=== PATIENT | male | born 1950 | race American Indian/Alaskan Native ===

== ENCOUNTER 2017-04-29 16:21 | Inpatient (IN) | payer MEDICARE ==
[2017-04-29 17:45] LABS: Basophils % (Auto) 0.2 % (0.0-1.8); Hematocrit 40.8 % (35.5-45.6); Hemoglobin 13.6 gm/dl (11.8-15.2); Mean Corpuscular HGB Conc 33 % (32-34); Mean Corpuscular Hemoglobin 32 pg (28-32); Mean Corpuscular Volume 95 fl (84-94); Platelet Count 146 K/mm3 (140-440); Red Blood Count 4.29 M/mm3 (3.65-5.03); Red Cell Distribution Width 14.8 % (13.2-15.2); White Blood Count 9.6 K/mm3 (4.5-11.0)
[2017-04-29 18:00] LABS: Creatine Kinase MB 1.8 ng/mL (0.0-4.0)
[2017-04-29 18:04] LABS: Urine Drugs of Abuse Note Disclamer
[2017-04-29] MEDS ORDERED: NACL 0.9% 1000 ML 1,000 ML IV ONE (18:22)
[2017-04-29] MEDS ORDERED: ROCEPHIN/NS 1 GM/50 ML 1 GM/50 ML BAG IV ONE (18:22)
[2017-04-29] MEDS ORDERED: VANCOMYCIN/NS 1 GM/250 ML 1 GM/250 ML BAG IV ONE (18:22)
--- NOTE | 2017-04-29 18:29 | Emergency Department Report ---
- General Chief complaint: Altered Mental Status Stated complaint: SPITTING UP BLOOD Time Seen by Provider: 04/29/17 18:07 Source: patient, EMS, RN notes reviewed, old records reviewed Mode of arrival: Stretcher Limitations: Altered Mental Status, Physical Limitation, Other - History of Present Illness MD Complaint: generalized weakness (altered mental status) -: Gradual Location: generalized Severity scale (0 -10): 3 Consistency: constant Context: recent illness Associated Symptoms: denies: chest pain, confusion, dark stools, diaphoresis, easy bruising, fever/chills, headaches, loss of appetite, nausea/vomiting, syncope - Related Data Home Medications Medication Instructions Recorded Confirmed Last Taken ALBUTEROL NEB's [Proventil 0.083% 1 vial IH Q6H PRN 01/06/16 04/29/17 Unknown NEBS] Diltiazem [Cardizem] 60 mg PO TID 04/29/17 04/29/17 Unknown Divalproex ER [Depakote ER] 500 mg PO BID 04/29/17 04/29/17 Unknown Docusate Sodium [Colace CAP] 100 mg PO BID 04/29/17 04/29/17 Unknown Esomeprazole Magnesium [NexIUM] 40 mg PO QAM 04/29/17 04/29/17 Unknown Gabapentin [Neurontin] 100 mg PO QHS 04/29/17 04/29/17 Unknown HYDROcodone/APAP 5-325 [[place] 1 tab PO Q4H PRN 04/29/17 04/29/17 Unknown 5-325 mg TAB] Insulin Aspart Prot/Aspart(Nf) See Protocol SC QDAY 04/29/17 04/29/17 Unknown [NovoLOG Mix 70/30 VIAL] Insulin Glargine [Lantus VIAL] 5 units SC QHS 04/29/17 04/29/17 Unknown Metoprolol [Lopressor TAB] 50 mg PO BID 04/29/17 04/29/17 Unknown Morphine ER [Ms Contin ER] 30 mg PO Q12H 04/29/17 04/29/17 Unknown Sennosides [Senna] 8.6 mg PO QHS 04/29/17 04/29/17 Unknown Previous Rx's Medication Instructions Recorded Last Taken Type Apixaban [Eliquis] 2.5 mg PO Q12H #20 tablet 01/09/16 Unknown Rx Aspirin [Aspirin BABY CHEW TAB] 81 mg PO QDAY #30 tab.chew 01/09/16 Unknown Rx AtorvaSTATin [Lipitor] 10 mg PO QHS #30 tablet 01/09/16 Unknown Rx Budesoni/Formotero 160-4.5(Nf) 2 puff IH BID #30 inha 01/09/16 Unknown Rx [Symbicort 160-4.5 (Nf)] Diltiazem [Cardizem] 30 mg PO TID #90 tablet 01/09/16 Unknown Rx Furosemide [Lasix TAB] 40 mg PO QDAY #60 tablet 01/09/16 Unknown Rx Allergies Allergy/AdvReac Type Severity Reaction Status Date / Time No Known Allergies Allergy Verified 06/05/16 12:19 ED Review of Systems ROS: Stated complaint: SPITTING UP BLOOD Other details as noted in HPI Comment: Unobtainable due to pts medical conditions ED Past Medical Hx - 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 CAD. Systolic heart failure. Sepsis. HCV antibody positive - Surgical History Hx Open Heart Surgery: Yes Hx Pacemaker: Yes Additional Surgical History: "some abdominal surgery" long ago, has abd scar - Social History Smoking Status: Unknown if ever smoked - Medications Home Medications: Home Medications Medication Instructions Recorded Confirmed Last Taken Type ALBUTEROL NEB's [Proventil 0.083% 1 vial IH Q6H PRN 01/06/16 04/29/17 Unknown History NEBS] Apixaban [Eliquis] 2.5 mg PO Q12H #20 tablet 01/09/16 04/29/17 Unknown Rx Aspirin [Aspirin BABY CHEW TAB] 81 mg PO QDAY #30 tab.chew 01/09/16 04/29/17 Unknown Rx AtorvaSTATin [Lipitor] 10 mg PO QHS #30 tablet 01/09/16 04/29/17 Unknown Rx Budesoni/Formotero 160-4.5(Nf) 2 puff IH BID #30 inha 01/09/16 04/29/17 Unknown Rx [Symbicort 160-4.5 (Nf)] Diltiazem [Cardizem] 30 mg PO TID #90 tablet 01/09/16 04/29/17 Unknown Rx Furosemide [Lasix TAB] 40 mg PO QDAY #60 tablet 01/09/16 04/29/17 Unknown Rx Diltiazem [Cardizem] 60 mg PO TID 04/29/17 04/29/17 Unknown History Divalproex ER [Depakote ER] 500 mg PO BID 04/29/17 04/29/17 Unknown History Docusate Sodium [Colace CAP] 100 mg PO BID 04/29/17 04/29/17 Unknown History Esomeprazole Magnesium [NexIUM] 40 mg PO QAM 04/29/17 04/29/17 Unknown History Gabapentin [Neurontin] 100 mg PO QHS 04/29/17 04/29/17 Unknown History HYDROcodone/APAP 5-325 [[place] 1 tab PO Q4H PRN 04/29/17 04/29/17 Unknown History 5-325 mg TAB] Insulin Aspart Prot/Aspart(Nf) See Protocol SC QDAY 04/29/17 04/29/17 Unknown History [NovoLOG Mix 70/30 VIAL] Insulin Glargine [Lantus VIAL] 5 units SC QHS 04/29/17 04/29/17 Unknown History Metoprolol [Lopressor TAB] 50 mg PO BID 04/29/17 04/29/17 Unknown History Morphine ER [Ms Contin ER] 30 mg PO Q12H 04/29/17 04/29/17 Unknown History Sennosides [Senna] 8.6 mg PO QHS 04/29/17 04/29/17 Unknown History ED Physical Exam - General Limitations: Altered Mental Status, Physical Limitation, Other General appearance: lethargic, obtunded, in distress - Head Head exam: Present: atraumatic, normocephalic - Eye Eye exam: Present: normal appearance, PERRL - ENT ENT exam: Present: mucous membranes dry - Neck Neck exam: Present: normal inspection - Respiratory Respiratory exam: Present: rhonchi, decreased breath sounds - Cardiovascular Cardiovascular Exam: Present: tachycardia - GI/Abdominal GI/Abdominal exam: Present: soft, tenderness. Absent: distended, guarding, rebound - Extremities Exam Extremities exam: Present: normal inspection, full ROM - Back Exam Back exam: Present: normal inspection, full ROM - Skin Skin exam: Present: warm, dry ED Course Vital Signs 04/29/17 04/29/17 16:44 17:20 Temperature 101.2 F H Pulse Rate 130 H Respiratory 34 H Rate Blood Pressure 160/110 [Left] O2 Sat by Pulse 91 94 Oximetry ED Medical Decision Making - Lab Data Result diagrams: 04/29/17 17:16 04/29/17 17:16 Critical care time in (mins) excluding proc time.: 35 Critical care attestation.: If time is entered above; I have spent that time in minutes in the direct care of this critically ill patient, excluding procedure time. ED Disposition Clinical Impression: Sepsis, Diabetes mellitus, Hypertension, Altered mental status Disposition: OP ADMIT IP TO THIS HOSP Is pt being admited?: Yes Does the pt Need Aspirin: No Condition: Good Instructions: Diabetes Mellitus Type 2 in Adults (ED), Hypertension (ED) Referrals: PRIMARY CARE, [Primary Care Provider] - 3-5 Days Time of Disposition: 21:14
[2017-04-29 18:32] LABS: Bilirubin,Urine NEG (Negative); Blood,Urine SM (Negative); Ketones,Urine NEG (Negative); Leukocyte Esterase,Urine NEG (Negative); Nitrite,Urine NEG (Negative); Urobilinogen,Urine < 2.0 mg/dL (<2.0); WBC,Urine < 1.0 /HPF (0.0-6.0)
[2017-04-29 19:03] LABS: C-Reactive Protein 1.2 mg/dL (0.00-1.30)
[2017-04-29] MEDS ORDERED: DILAUDID ONE (19:26)
[2017-04-29] MEDS ORDERED: DILAUDID IV ONE (19:27)
[2017-04-29 19:31] LABS: Alanine Aminotransferase 19 units/L (7-56); Albumin 3.1 g/dL (3.9-5); Albumin/Globulin Ratio 0.5 %; Alkaline Phosphatase 85 units/L (35-129); Anion Gap 24 mmol/L; BUN/Creatinine Ratio 15.38; Blood Urea Nitrogen 20 mg/dL (9-20); Calcium 9.2 mg/dL (8.4-10.2); Carbon Dioxide 21 mmol/L (22-30); Chloride 96.1 mmol/L (98-107); Glucose 117 mg/dL (75-100); Potassium 3.8 mmol/L (3.6-5.0); Sodium 137 mmol/L (137-145); Total Protein 9.7 g/dL (6.3-8.2)
--- NOTE | 2017-04-29 20:07 | Cat Scan Report ---
FINAL REPORT EXAM: CT HEAD/BRAIN WO CON HISTORY: Fever/Sepsis TECHNIQUE: Standard unenhanced CT of the head at 5.0 millimeter axial increments. Exam is limited by patient motion. PRIORS: CT head 06/05/2016 FINDINGS: There is central atrophy and cerebral sulcal atrophy. A remote infarct in the left occipital lobe with underlying encephalomalacia and ballooning of the left occipital horn is again noted. Low-density in the periventricular white matter bilaterally is consistent with small vessel ischemic changes, stable. There is no evidence for mass lesion, mass effect, midline shift, acute intracranial hemorrhage, or acute ischemia/ infarction. Visualized paranasal sinuses are clear. IMPRESSION: No acute intracranial process noted. No change. Numerous chronic findings again noted.
[2017-04-29 20:22] LABS: INR 1.35 (0.87-1.13)
--- NOTE | 2017-04-29 21:23 | Progress Note ---
Hospitalist Physical - Constitutional Vitals: Temp Pulse Resp BP Pulse Ox 101.2 F H 130 H 34 H 160/110 94 04/29/17 16:44 04/29/17 16:44 04/29/17 16:44 04/29/17 16:44 04/29/17 17:20 Results - Labs CBC & Chem 7: 04/29/17 17:16 04/29/17 17:16 Labs: Laboratory Last Values WBC 9.6 K/mm3 (4.5-11.0) 04/29/17 17:16 RBC 4.29 M/mm3 (3.65-5.03) 04/29/17 17:16 Hgb 13.6 gm/dl (11.8-15.2) 04/29/17 17:16 Hct 40.8 % (35.5-45.6) 04/29/17 17:16 MCV 95 fl (84-94) H 04/29/17 17:16 MCH 32 pg (28-32) 04/29/17 17:16 MCHC 33 % (32-34) 04/29/17 17:16 RDW 14.8 % (13.2-15.2) 04/29/17 17:16 Plt Count 146 K/mm3 (140-440) 04/29/17 17:16 Lymph % (Auto) 4.7 % (13.4-35.0) L 04/29/17 17:16 [place] % (Auto) 8.3 % (0.0-7.3) H 04/29/17 17:16 Eos % (Auto) 0.0 % (0.0-4.3) 04/29/17 17:16 Baso % (Auto) 0.2 % (0.0-1.8) 04/29/17 17:16 Lymph # 0.5 K/mm3 (1.2-5.4) L 04/29/17 17:16 [place] # 0.8 K/mm3 (0.0-0.8) 04/29/17 17:16 Eos # 0.0 K/mm3 (0.0-0.4) 04/29/17 17:16 Baso # 0.0 K/mm3 (0.0-0.1) 04/29/17 17:16 Seg Neutrophils % 86.8 % (40.0-70.0) H 04/29/17 17:16 Seg Neutrophils # 8.4 K/mm3 (1.8-7.7) H 04/29/17 17:16 ESR 68 mm/Hr (0-20) 04/29/17 17:16 PT 16.6 Sec. (12.2-14.9) H 04/29/17 19:12 INR 1.35 (0.87-1.13) H 04/29/17 19:12 Sodium 137 mmol/L (137-145) 04/29/17 17:16 Potassium 3.8 mmol/L (3.6-5.0) 04/29/17 17:16 Chloride 96.1 mmol/L (98-107) L 04/29/17 17:16 Carbon Dioxide 21 mmol/L (22-30) L 04/29/17 17:16 Anion Gap 24 mmol/L 04/29/17 17:16 BUN 20 mg/dL (9-20) 04/29/17 17:16 Creatinine 1.3 mg/dL (0.8-1.5) 04/29/17 17:16 Estimated GFR > 60 ml/min 04/29/17 17:16 BUN/Creatinine Ratio 15.38 % 04/29/17 17:16 Glucose 117 mg/dL (75-100) H 04/29/17 17:16 Lactic Acid 3.50 mmol/L (0.7-2.0) H* 04/29/17 19:12 Calcium 9.2 mg/dL (8.4-10.2) 04/29/17 17:16 Magnesium 1.70 mg/dL (1.7-2.3) 04/29/17 17:16 Total Bilirubin 0.60 mg/dL (0.1-1.2) 04/29/17 17:16 AST 32 units/L (5-40) 04/29/17 17:16 ALT 19 units/L (7-56) 04/29/17 17:16 Alkaline Phosphatase 85 units/L (35-129) 04/29/17 17:16 Ammonia 35.0 umol/L (25-60) 04/29/17 15:15 Total Creatine Kinase 71 units/L (55-170) 04/29/17 17:16 CK-MB (CK-2) 1.8 ng/mL (0.0-4.0) 04/29/17 17:16 CK-MB (CK-2) Rel Index 2.5 (0-4) 04/29/17 17:16 Troponin T 0.052 ng/mL (0.00-0.029) H 04/29/17 17:16 C-Reactive Protein 1.20 mg/dL (0.00-1.30) 04/29/17 17:16 NT-Pro-B Natriuret Pep 5055 pg/mL (0-900) H 04/29/17 17:16 Total Protein 9.7 g/dL (6.3-8.2) H 04/29/17 17:16 Albumin 3.1 g/dL (3.9-5) L 04/29/17 17:16 Albumin/Globulin Ratio 0.5 % 04/29/17 17:16 Triglycerides 64 mg/dL (2-149) 04/29/17 17:16 Cholesterol 101 mg/dL (50-199) 04/29/17 17:16 LDL Cholesterol Direct 53 mg/dL (50-130) 04/29/17 17:16 HDL Cholesterol 36 mg/dL (40-59) L 04/29/17 17:16 Cholesterol/HDL Ratio 2.80 % 04/29/17 17:16 Lipase 23 units/L (13-60) 04/29/17 17:16 TSH 1.800 mlU/mL (0.270-4.200) 04/29/17 17:16 Urine Color Yellow (Yellow) 04/29/17 17:54 Urine Turbidity Clear (Clear) 04/29/17 17:54 Urine pH 7.0 (5.0-7.0) 04/29/17 17:54 Ur Specific Bow 1.013 (1.003-1.030) 04/29/17 17:54 Urine Protein 100 mg/dl mg/dL (Negative) 04/29/17 17:54 Urine Glucose (UA) Neg mg/dL (Negative) 04/29/17 17:54 Urine Ketones Neg mg/dL (Negative) 04/29/17 17:54 Urine Blood Sm (Negative) 04/29/17 17:54 Urine Nitrite Neg (Negative) 04/29/17 17:54 Urine Bilirubin Neg (Negative) 04/29/17 17:54 Urine Urobilinogen < 2.0 mg/dL (<2.0) 04/29/17 17:54 Ur Leukocyte Esterase Neg (Negative) 04/29/17 17:54 Urine WBC (Auto) < 1.0 /HPF (0.0-6.0) 04/29/17 17:54 Urine RBC (Auto) 6.0 /HPF (0.0-6.0) 04/29/17 17:54 Salicylates < 0.3 mg/dL (2.8-20.0) L 04/29/17 17:16 Urine Opiates Screen Presumptive negative 04/29/17 17:54 Urine Methadone Screen Presumptive negative 04/29/17 17:54 Acetaminophen < 15.0 ug/mL (10.0-30.0) 04/29/17 17:16 Ur Barbiturates Screen Presumptive negative 04/29/17 17:54 Ur Phencyclidine Scrn Presumptive negative 04/29/17 17:54 Ur Amphetamines Screen Presumptive negative 04/29/17 17:54 U Benzodiazepines Scrn Presumptive negative 04/29/17 17:54 Urine Cocaine Screen Presumptive negative 04/29/17 17:54 U Marijuana (THC) Screen Presumptive negative 04/29/17 17:54 Drugs of Abuse Note Disclamer 04/29/17 17:54 Plasma/Serum Alcohol < 0.01 gm% (0-0.07) 04/29/17 17:16 Blood Type A POSITIVE 04/29/17 17:16 Antibody Screen TNR 04/29/17 17:16 OSWALD Antibody Screen Negative 04/29/17 17:16
--- NOTE | 2017-04-29 21:23 | History and Physical Report ---
History of Present Illness Date of examination: 04/29/17 Date of admission: 04/29/17 Chief complaint: Altered mental status History of present illness: patient is 66-year-old with history of hypertension, CHF ,coronary artery disease ,previous DVT. He was brought in for altered mental status. Patient is confused, so cannot provide any history. History obtained from medical records. He has been confused for a few days. He denies any chest pain or shortness of breath. In Emergency department had fever with temperature of 101.2. He also has a chronic left leg ulcer. He is being admitted for management of possible sepsis. Past History Past Medical History: CAD, diabetes, DVT, heart failure, hypertension Past Surgical History: Other (abdominal surgery) Social history: full code, other (lives in assisted). denies: smoking, alcohol abuse Family history: hypertension Medications and Allergies Allergies Allergy/AdvReac Type Severity Reaction Status Date / Time No Known Allergies Allergy Verified 06/05/16 12:19 Home Medications Medication Instructions Recorded Confirmed Last Taken Type ALBUTEROL NEB's [Proventil 0.083% 1 vial IH Q6H PRN 01/06/16 04/29/17 Unknown History NEBS] Apixaban [Eliquis] 2.5 mg PO Q12H #20 tablet 01/09/16 04/29/17 Unknown Rx Aspirin [Aspirin BABY CHEW TAB] 81 mg PO QDAY #30 tab.chew 01/09/16 04/29/17 Unknown Rx AtorvaSTATin [Lipitor] 10 mg PO QHS #30 tablet 01/09/16 04/29/17 Unknown Rx Budesoni/Formotero 160-4.5(Nf) 2 puff IH BID #30 inha 01/09/16 04/29/17 Unknown Rx [Symbicort 160-4.5 (Nf)] Diltiazem [Cardizem] 30 mg PO TID #90 tablet 01/09/16 04/29/17 Unknown Rx Furosemide [Lasix TAB] 40 mg PO QDAY #60 tablet 01/09/16 04/29/17 Unknown Rx Diltiazem [Cardizem] 60 mg PO TID 04/29/17 04/29/17 Unknown History Divalproex ER [Depakote ER] 500 mg PO BID 04/29/17 04/29/17 Unknown History Docusate Sodium [Colace CAP] 100 mg PO BID 04/29/17 04/29/17 Unknown History Esomeprazole Magnesium [NexIUM] 40 mg PO QAM 04/29/17 04/29/17 Unknown History Gabapentin [Neurontin] 100 mg PO QHS 04/29/17 04/29/17 Unknown History HYDROcodone/APAP 5-325 [[place] 1 tab PO Q4H PRN 04/29/17 04/29/17 Unknown History 5-325 mg TAB] Insulin Aspart Prot/Aspart(Nf) See Protocol SC QDAY 04/29/17 04/29/17 Unknown History [NovoLOG Mix 70/30 VIAL] Insulin Glargine [Lantus VIAL] 5 units SC QHS 04/29/17 04/29/17 Unknown History Metoprolol [Lopressor TAB] 50 mg PO BID 04/29/17 04/29/17 Unknown History Morphine ER [Ms Contin ER] 30 mg PO Q12H 04/29/17 04/29/17 Unknown History Sennosides [Senna] 8.6 mg PO QHS 04/29/17 04/29/17 Unknown History Review of Systems ROS unobtainable: due to mental status Exam - Physical Exam Narrative exam: General appearance: not in acute distress, HEENT: normocephalic, atraumatic Neck : supple, no JVD Lungs:clear to auscultation bilaterally, no crackles no wheezes Heart :S1 and S2 regular, no murmurs, no gallop Abdomen: soft, non-tender, non-distended, normal bowel sounds Extremities:bilateral leg edema,chronic changes, left leg ulcer, no clubbing or cyanosis Neuro : awake, alert, confused, no focal neurological signs Psych : normal mood - Constitutional Vitals: Temp Pulse Resp BP Pulse Ox 101.2 F H 130 H 34 H 160/110 94 04/29/17 16:44 04/29/17 16:44 04/29/17 16:44 04/29/17 16:44 04/29/17 17:20 Results - Labs CBC & Chem 7: 04/29/17 17:16 04/29/17 17:16 Labs: Abnormal lab results 04/29/17 04/29/17 04/29/17 Range/Units 15:15 17:16 17:16 MCV 95 H (84-94) fl Lymph % (Auto) 4.7 L (13.4-35.0) % [place] % (Auto) 8.3 H (0.0-7.3) % Lymph # 0.5 L (1.2-5.4) K/mm3 Seg Neutrophils % 86.8 H (40.0-70.0) % Seg Neutrophils # 8.4 H (1.8-7.7) K/mm3 PT (12.2-14.9) Sec. INR (0.87-1.13) Chloride 96.1 L (98-107) mmol/L Carbon Dioxide 21 L (22-30) mmol/L Glucose 117 H (75-100) mg/dL Lactic Acid 3.40 H* (0.7-2.0) mmol/L Troponin T (0.00-0.029) ng/mL NT-Pro-B Natriuret Pep (0-900) pg/mL Total Protein 9.7 H (6.3-8.2) g/dL Albumin 3.1 L (3.9-5) g/dL HDL Cholesterol (40-59) mg/dL Salicylates (2.8-20.0) mg/dL 04/29/17 04/29/17 04/29/17 Range/Units 17:16 17:16 17:16 MCV (84-94) fl Lymph % (Auto) (13.4-35.0) % [place] % (Auto) (0.0-7.3) % Lymph # (1.2-5.4) K/mm3 Seg Neutrophils % (40.0-70.0) % Seg Neutrophils # (1.8-7.7) K/mm3 PT (12.2-14.9) Sec. INR (0.87-1.13) Chloride (98-107) mmol/L Carbon Dioxide (22-30) mmol/L Glucose (75-100) mg/dL Lactic Acid (0.7-2.0) mmol/L Troponin T 0.052 H (0.00-0.029) ng/mL NT-Pro-B Natriuret Pep 5055 H (0-900) pg/mL Total Protein (6.3-8.2) g/dL Albumin (3.9-5) g/dL HDL Cholesterol 36 L (40-59) mg/dL Salicylates < 0.3 L (2.8-20.0) mg/dL 04/29/17 04/29/17 Range/Units 19:12 19:12 MCV (84-94) fl Lymph % (Auto) (13.4-35.0) % [place] % (Auto) (0.0-7.3) % Lymph # (1.2-5.4) K/mm3 Seg Neutrophils % (40.0-70.0) % Seg Neutrophils # (1.8-7.7) K/mm3 PT 16.6 H (12.2-14.9) Sec. INR 1.35 H (0.87-1.13) Chloride (98-107) mmol/L Carbon Dioxide (22-30) mmol/L Glucose (75-100) mg/dL Lactic Acid 3.50 H* (0.7-2.0) mmol/L Troponin T (0.00-0.029) ng/mL NT-Pro-B Natriuret Pep (0-900) pg/mL Total Protein (6.3-8.2) g/dL Albumin (3.9-5) g/dL HDL Cholesterol (40-59) mg/dL Salicylates (2.8-20.0) mg/dL Assessment and Plan Sepsis. Patient has altered mental status, fever. Admit to medical floor. Start sepsis protocol with three antibiotics: Levaquin, Zosyn and Vancomycin. Blood cultures ordered. Urinalysis is normal. Chest x-ray pending Toxic metabolic encephalopathy with altered mental status. Likely due to sepsis. Neuro checks every 6 hours History of diabetes mellitus type II. Fingerstick glucose qac and hs Hypertension. BP elevated. Resume home meds. Chronic systolic CHF. Elevated Troponin, borderline. Repeat serial Troponins Coronary artery disease. Stable, no chest pain History of DVT. Continue Eliquis. Full code status
[2017-04-29] MEDS ORDERED: DULCOLAX PR PRN (21:25)
[2017-04-29] MEDS ORDERED: MILK OF MAGNESIA PO PRN (21:25)
[2017-04-29] MEDS ORDERED: NORCO 5/325 PO PRN (21:28)
[2017-04-29] MEDS ORDERED: VANCOMYCIN VIAL 1,750 MG in NACL 0.9% 500 ML 500 ML IV ONE (21:32)
[2017-04-29] MEDS ORDERED: VANCOMYCIN PHARMACY TO DOSE IV SCH (22:00)
[2017-04-29] MEDS ORDERED: NON-FORMULARY (Budesoni/Formotero 160-4.5(Nf) 2 PUFF) IH SCH (22:00)
[2017-04-29] MEDS ORDERED: NON-FORMULARY (Insulin Glargine 5 UNITS) SC SCH (22:00)
[2017-04-29] MEDS ORDERED: VANCOMYCIN 750 MG in NACL 0.9% 250ML 250 ML IV ONE (22:00)
[2017-04-29] MEDS ORDERED: MORPHINE ONE (22:25)
[2017-04-29] MEDS: MORPHINE IV PRN (22:30)
[2017-04-29] MEDS ORDERED: LOPRESSOR ONE (22:41)
[2017-04-29] MEDS ORDERED: LEVAQUIN 750MG/150ML 0 MG/0 ML BAG IV ONE (22:41)
[2017-04-29] MEDS ORDERED: COLACE ONE (22:41)
[2017-04-29] MEDS ORDERED: NEURONTIN ONE (22:41)
[2017-04-29] MEDS: COLACE PO SCH (23:05)
[2017-04-29] MEDS: ELIQUIS PO SCH (23:05)
[2017-04-29] MEDS: LOPRESSOR PO SCH (23:06)
[2017-04-29] MEDS: NEURONTIN PO SCH (23:07)
[2017-04-29] MEDS: SENOKOT PO SCH (23:07)
[2017-04-30] MEDS: MORPHINE IV PRN ×2 (00:45→12:53)
[2017-04-30] MEDS: MS CONTIN ER PO SCH ×3 (03:35→21:55)
[2017-04-30] MEDS: LEVAQUIN 750MG/150ML 750 MG/150 ML BAG IV SCH ×2 (03:38→10:39)
[2017-04-30] MEDS: PROVENTIL IH PRN ×2 (03:44→15:13)
[2017-04-30] MEDS: BROVANA NEBU IH SCH ×3 (06:43→20:12)
[2017-04-30] MEDS: PULMICORT IH SCH ×3 (06:43→20:12)
--- NOTE | 2017-04-30 08:15 | XRay Report ---
AP CHEST :04/29/17 21:19 CLINICAL: Fever. COMPARISON:06/05/16 FINDINGS: Stable cardiomegaly with pacer leads in the heart. Central vascular congestion is accentuated by underexpansion of the lungs. Mild bibasal subsegmental atelectasis. IMPRESSION: Bibasal subsegmental atelectasis. No pneumonia. Cardiomegaly but no CHF.
--- NOTE | 2017-04-30 08:52 | Admit Criteria Form ---
Admission Criteria Documentation: SEPSIS and OTHER FEBRILE ILLNESS, W/O FOCAL INFECTION Clinical Indications for Admission to Inpatient Care ( Place 'X' for any and all applicable criteria): Admission is indicated for ANY ONE of the following (1)(2)(3)(4): [ ] I. Bacteremia [ ]II. Suspected or identified specific infection requiring hospitalization (eg, meningitis, endocarditis) [ ]III. Hemodynamic instability [X]IV. Altered mental status [ ]V. Failure or unavailability of outpatient antimicrobial treatment [ ]. Hypoxemia [ ]VII. Seizures [ ]VIII. High-risk febrile neutropenia [ ]IX. Need for parenteral antibiotic in patient who is likely to abuse vascular access device (eg, injection drug user) [A](7) [ ]X. Temperature greater than 104.9 degrees F (40.5 degrees C) (oral) [ ]XI. Inpatient admission required rather than observation care because of ANY ONE of the following: [ ]1) Specific infection identified that is too severe for outpatient treatment or observation care trial [ ]2) Metabolic disorder (eg, hypoglycemia, hyperglycemia, metabolic acidosis) that is severe or persistent [ ]3) Temperature greater than 103.1 degrees F (39.5 degrees C) ( oral) that is not responsive to observation care treatment [ ]4) IV fluid to replace significant ongoing (eg, for over 24 hours) losses (> 3 L/m2 per day) [ ]5) Supplemental oxygen or respiratory treatments for over 24 hours that is performable only in acute inpatient setting [ ]6) Parenteral nutrition regimen need that must be implemented on inpatient basis [ ]7) Strict or protective (eg, laminar flow) isolation [ ]8) Other condition, treatment or monitoring requiring inpatient admission Extended stay beyond goal length of stay may be needed for(1)(3) [ ]a) Sepsis or septic shock(22) [ ]b) Positive blood cultures [ ]c) Insufficient oral intake [ ]d) High-risk febrile neutropenia(29)(30) [ ]e) Continued fever and clinical instability [ ]f) Clinically active comorbid illness (e.g,heart failure, renal failure , diabetes) The original [facility] content created by Shawn Weeks has been revised. The portions of the content which have been revised are identified through the use of italic text or in bold, and Shawn Weeks has neither reviewed nor approved the modified material. All other unmodified content is copyright [facility]. Please see references footnoted in the original [facility] edition 2016 Admission Criteria Met: Yes
[2017-04-30 09:37] LABS: Basophils % (Auto) 0.3 % (0.0-1.8); Hematocrit 36.8 % (35.5-45.6); Mean Corpuscular HGB Conc 33 % (32-34); Mean Corpuscular Hemoglobin 31 pg (28-32); Mean Corpuscular Volume 96 fl (84-94); Platelet Count 109 K/mm3 (140-440); Red Blood Count 3.82 M/mm3 (3.65-5.03); Red Cell Distribution Width 14.7 % (13.2-15.2); White Blood Count 13.4 K/mm3 (4.5-11.0)
[2017-04-30 09:51] LABS: Anion Gap 16 mmol/L; BUN/Creatinine Ratio 14.16; Blood Urea Nitrogen 17 mg/dL (9-20); Calcium 8.7 mg/dL (8.4-10.2); Carbon Dioxide 27 mmol/L (22-30); Chloride 100.3 mmol/L (98-107); Glucose 92 mg/dL (75-100); Potassium 4.3 mmol/L (3.6-5.0); Sodium 139 mmol/L (137-145)
[2017-04-30] MEDS ORDERED: NON-FORMULARY (Esomeprazole Magnesium [Nexium] 40 MG) PO SCH (10:00)
[2017-04-30] MEDS ORDERED: VANCOMYCIN 1,250 MG in NACL 0.9% 250ML 250 ML IV SCH ×2 (10:00→16:00)
[2017-04-30] MEDS ORDERED: BABY ASPIRIN PO SCH (10:00)
--- NOTE | 2017-04-30 10:09 | Consultation ---
History of Present Illness Consult date: 04/30/17 Requesting physician: HECTOR AGOSTO Reason for consult: pleural effusion Past History Past Medical History: CAD, diabetes, DVT, heart failure, hypertension Past Surgical History: Other (abdominal surgery) Social history: full code, other (lives in detention). denies: smoking, alcohol abuse Family history: hypertension Medications and Allergies Allergies Allergy/AdvReac Type Severity Reaction Status Date / Time No Known Allergies Allergy Verified 06/05/16 12:19 Home Medications Medication Instructions Recorded Confirmed Last Taken Type ALBUTEROL NEB's [Proventil 0.083% 1 vial IH Q6H PRN 01/06/16 04/29/17 Unknown History NEBS] Apixaban [Eliquis] 2.5 mg PO Q12H #20 tablet 01/09/16 04/29/17 Unknown Rx Aspirin [Aspirin BABY CHEW TAB] 81 mg PO QDAY #30 tab.chew 01/09/16 04/29/17 Unknown Rx AtorvaSTATin [Lipitor] 10 mg PO QHS #30 tablet 01/09/16 04/29/17 Unknown Rx Budesoni/Formotero 160-4.5(Nf) 2 puff IH BID #30 inha 01/09/16 04/29/17 Unknown Rx [Symbicort 160-4.5 (Nf)] Diltiazem [Cardizem] 30 mg PO TID #90 tablet 01/09/16 04/29/17 Unknown Rx Furosemide [Lasix TAB] 40 mg PO QDAY #60 tablet 01/09/16 04/29/17 Unknown Rx Diltiazem [Cardizem] 60 mg PO TID 04/29/17 04/29/17 Unknown History Divalproex ER [Depakote ER] 500 mg PO BID 04/29/17 04/29/17 Unknown History Docusate Sodium [Colace CAP] 100 mg PO BID 04/29/17 04/29/17 Unknown History Esomeprazole Magnesium [NexIUM] 40 mg PO QAM 04/29/17 04/29/17 Unknown History Gabapentin [Neurontin] 100 mg PO QHS 04/29/17 04/29/17 Unknown History HYDROcodone/APAP 5-325 [[place] 1 tab PO Q4H PRN 04/29/17 04/29/17 Unknown History 5-325 mg TAB] Insulin Aspart Prot/Aspart(Nf) See Protocol [place] QDAY 04/29/17 04/29/17 Unknown History [NovoLOG Mix 70/30 VIAL] Insulin Glargine [Lantus VIAL] 5 units [place] QHS 04/29/17 04/29/17 Unknown History Metoprolol [Lopressor TAB] 50 mg PO BID 04/29/17 04/29/17 Unknown History Morphine ER [Ms Contin ER] 30 mg PO Q12H 04/29/17 04/29/17 Unknown History Sennosides [Senna] 8.6 mg PO QHS 04/29/17 04/29/17 Unknown History Active Meds: Active Medications Acetaminophen (Tylenol) 650 mg PO Q4H PRN PRN Reason: Pain MILD(1-3)/Fever >100.5/ROSAS Acetaminophen/Hydrocodone Bitart ([place] 5/325) 1 each PO Q4H PRN PRN Reason: Pain Albuterol (Proventil) 2.5 mg IH Q3HRT PRN PRN Reason: Shortness Of Breath Last Admin: 04/30/17 03:44 Dose: 2.5 mg Apixaban (Eliquis) 2.5 mg PO Q12H [facility] PRN Reason: Protocol Last Admin: 04/29/17 23:05 Dose: 2.5 mg Arformoterol Tartrate (Brovana Nebu) 15 mcg IH Q12HRT [facility] Last Admin: 04/30/17 07:14 Dose: 15 mcg Aspirin (Baby Aspirin) 81 mg PO QDAY [facility] Atorvastatin Calcium (Lipitor) 10 mg PO QHS [facility] Last Admin: 04/29/17 23:06 Dose: 10 mg Bisacodyl (Dulcolax) 10 mg [place] QDAY PRN PRN Reason: Constipation unrelieved by MOM Budesonide (Pulmicort) 0.5 mg IH Q12HRT [facility] Last Admin: 04/30/17 07:14 Dose: 0.5 mg Diltiazem HCl (Cardizem) 30 mg PO TID [facility] Docusate Sodium (Colace) 100 mg PO BID [facility] Last Admin: 04/29/17 23:05 Dose: 100 mg Furosemide (Lasix) 40 mg PO QDAY [facility] Gabapentin (Neurontin) 100 mg PO QHS [facility] Last Admin: 04/29/17 23:07 Dose: 100 mg Levofloxacin/Dextrose (Levaquin 750mg/150ml) 750 mg in 150 mls @ 100 mls/hr IV Q24HR [facility] PRN Reason: Protocol Last Admin: 04/30/17 03:38 Dose: 100 mls/hr Piperacillin Sod/Tazobactam Sod (Zosyn/Ns 4.5gm/100ml) 4.5 gm in 100 mls @ 200 mls/hr IV Q6HR [facility] PRN Reason: Protocol Vancomycin HCl 1,250 mg/ (Sodium Chloride) 275 mls @ 166.667 mls/hr IV Q12H [facility] Insulin Detemir (Levemir) 5 units SUB-Q QHS [facility] Magnesium Hydroxide (Milk Of Magnesia) 30 ml PO Q4H PRN PRN Reason: Constipation Metoprolol Tartrate (Lopressor) 50 mg PO BID [facility] Last Admin: 04/29/17 23:06 Dose: 50 mg Morphine Sulfate (Morphine) 2 mg IV Q4H PRN PRN Reason: Pain, Moderate (4-6) Last Admin: 04/30/17 00:45 Dose: 2 mg Morphine Sulfate (Ms Contin Er) 30 mg PO Q12H [facility] Last Admin: 04/30/17 03:35 Dose: 30 mg Ondansetron HCl (Zofran) 4 mg IV Q8H PRN PRN Reason: N/V unrelieved by Regpao Pantoprazole Sodium (Protonix) 40 mg PO DAILY [facility] Senna (Senokot) 8.6 mg PO QHS [facility] Last Admin: 04/29/17 23:07 Dose: 8.6 mg Vancomycin HCl (Vancomycin Pharmacy To Dose) 1 each IV PKCONSULT [facility] PRN Reason: Protocol Review of Systems All systems: negative Physical Examination Vital signs: Vital Signs Temp Pulse Resp BP Pulse Ox 101.2 F H 130 H 34 H 160/110 91 04/29/17 16:44 04/29/17 16:44 04/29/17 16:44 04/29/17 16:44 04/29/17 16:44 Results - Laboratory Findings CBC and BMP: 04/30/17 09:07 04/30/17 09:07 PT/INR, D-dimer PT 16.6 Sec. (12.2-14.9) H 04/29/17 19:12 INR 1.35 (0.87-1.13) H 04/29/17 19:12 Abnormal lab findings: Abnormal Labs 04/30/17 09:07 WBC 13.4 H MCV 96 H Plt Count 109 L Lymph % (Auto) 11.9 L [place] % (Auto) 11.7 H Powell # 1.6 H Seg Neutrophils % 76.1 H Seg Neutrophils # 10.2 H - Diagnostic Findings Chest x-ray: image reviewed (Poor inspiratory film, does not have an effusion, most likely atelectasis) Assessment and Plan 66 y/o male admitted with sepsis, etiology unknown, elevated BNP and concern for pleural effusion. 1. Patient does not have large effusion, most likely atelectasis vs poor inspiration. Would suggest if fever persists or pulmonary symptoms worsen to obtain CTA of chest. Currently does not need this. 2. Remainder of the treatment per primary team, Thank you for this consult. Call if questions.
[2017-04-30 10:34] LABS: Creatine Kinase MB 2.4 ng/mL (0.0-4.0)
[2017-04-30] MEDS: COLACE PO SCH ×2 (10:39→21:47)
[2017-04-30] MEDS: LASIX PO SCH (10:39)
[2017-04-30] MEDS: PROTONIX PO SCH (10:40)
[2017-04-30] MEDS: CARDIZEM PO SCH ×3 (10:41→20:35)
[2017-04-30] MEDS: LOPRESSOR PO SCH ×2 (10:41→21:56)
--- NOTE | 2017-04-30 14:18 | Progress Note ---
Assessment and Plan Assessment and plan: Sepsis - being managed according to the sepsis protocol with 3 IV antibiotics - blood culture is pending Hemoptysis - Held the aspirin and eliquis Diabetes mellitus type 2 - sliding scale insulin Hypertension - Continue all medications Elevated troponin - will monitor - didn't have any chest pain Chronic systolic CHF CAD History of DVT - Was on eliquis, discontinued because of hemoptysis CODE STATUS full Disposition -Continue inpatient care History Interval history: Patient is complaining generalized pain, hemoptysis. No fever or chills. Hospitalist Physical - Physical exam Narrative exam: Not in cardiopulmonary distress. The patient appeared well nourished and normally developed. Vital signs as documented. Head exam is unremarkable. No scleral icterus . Neck is without jugular venous distension, thyromegaly, or carotid bruits. Lungs wheezing all over the chest. Cardiac exam reveals regular rate and Rhythm. First and second heart sounds normal. No murmurs, rubs or gallops. Abdominal exam reveals normal bowel sounds, no masses, no organomegaly and no aortic enlargement. Extremities are swelling and DISCOLORATION of bilateral lower extremities due to venous stasis. 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 No focal weakness. - Constitutional Vitals: Temp Pulse Resp BP Pulse Ox 98.7 F 83 22 119/68 95 04/30/17 08:00 04/30/17 10:41 04/30/17 13:30 04/30/17 10:41 04/30/17 08:00 Results - Labs CBC & Chem 7: 04/30/17 09:07 04/30/17 09:07 Labs: Laboratory Last Values WBC 13.4 K/mm3 (4.5-11.0) H 04/30/17 09:07 RBC 3.82 M/mm3 (3.65-5.03) 04/30/17 09:07 Hgb 12.0 gm/dl (11.8-15.2) 04/30/17 09:07 Hct 36.8 % (35.5-45.6) 04/30/17 09:07 MCV 96 fl (84-94) H 04/30/17 09:07 MCH 31 pg (28-32) 04/30/17 09:07 MCHC 33 % (32-34) 04/30/17 09:07 RDW 14.7 % (13.2-15.2) 04/30/17 09:07 Plt Count 109 K/mm3 (140-440) L 04/30/17 09:07 Lymph % (Auto) 11.9 % (13.4-35.0) L 04/30/17 09:07 [place] % (Auto) 11.7 % (0.0-7.3) H 04/30/17 09:07 Eos % (Auto) 0.0 % (0.0-4.3) 04/30/17 09:07 Baso % (Auto) 0.3 % (0.0-1.8) 04/30/17 09:07 Lymph # 1.6 K/mm3 (1.2-5.4) 04/30/17 09:07 [place] # 1.6 K/mm3 (0.0-0.8) H 04/30/17 09:07 Eos # 0.0 K/mm3 (0.0-0.4) 04/30/17 09:07 Baso # 0.0 K/mm3 (0.0-0.1) 04/30/17 09:07 Seg Neutrophils % 76.1 % (40.0-70.0) H 04/30/17 09:07 Seg Neutrophils # 10.2 K/mm3 (1.8-7.7) H 04/30/17 09:07 ESR 68 mm/Hr (0-20) 04/29/17 17:16 PT 16.6 Sec. (12.2-14.9) H 04/29/17 19:12 INR 1.35 (0.87-1.13) H 04/29/17 19:12 Sodium 139 mmol/L (137-145) 04/30/17 09:07 Potassium 4.3 mmol/L (3.6-5.0) 04/30/17 09:07 Chloride 100.3 mmol/L (98-107) 04/30/17 09:07 Carbon Dioxide 27 mmol/L (22-30) 04/30/17 09:07 Anion Gap 16 mmol/L 04/30/17 09:07 BUN 17 mg/dL (9-20) 04/30/17 09:07 Creatinine 1.2 mg/dL (0.8-1.5) 04/30/17 09:07 Estimated GFR > 60 ml/min 04/30/17 09:07 BUN/Creatinine Ratio 14.16 % 04/30/17 09:07 Glucose 92 mg/dL (75-100) 04/30/17 09:07 POC Glucose 97 (70-105) 04/30/17 05:47 Lactic Acid 3.30 mmol/L (0.7-2.0) H* 04/30/17 09:07 Calcium 8.7 mg/dL (8.4-10.2) 04/30/17 09:07 Magnesium 1.70 mg/dL (1.7-2.3) 04/29/17 17:16 Total Bilirubin 0.60 mg/dL (0.1-1.2) 04/29/17 17:16 AST 32 units/L (5-40) 04/29/17 17:16 ALT 19 units/L (7-56) 04/29/17 17:16 Alkaline Phosphatase 85 units/L (35-129) 04/29/17 17:16 Ammonia 35.0 umol/L (25-60) 04/29/17 15:15 Total Creatine Kinase 70 units/L (55-170) 04/30/17 09:07 CK-MB (CK-2) 2.4 ng/mL (0.0-4.0) 04/30/17 09:07 CK-MB (CK-2) Rel Index 3.4 (0-4) 04/30/17 09:07 Troponin T 0.075 ng/mL (0.00-0.029) H D 04/30/17 09:07 C-Reactive Protein 1.20 mg/dL (0.00-1.30) 04/29/17 17:16 NT-Pro-B Natriuret Pep 5055 pg/mL (0-900) H 04/29/17 17:16 Total Protein 9.7 g/dL (6.3-8.2) H 04/29/17 17:16 Albumin 3.1 g/dL (3.9-5) L 04/29/17 17:16 Albumin/Globulin Ratio 0.5 % 04/29/17 17:16 Triglycerides 64 mg/dL (2-149) 04/29/17 17:16 Cholesterol 101 mg/dL (50-199) 04/29/17 17:16 LDL Cholesterol Direct 53 mg/dL (50-130) 04/29/17 17:16 HDL Cholesterol 36 mg/dL (40-59) L 04/29/17 17:16 Cholesterol/HDL Ratio 2.80 % 04/29/17 17:16 Lipase 23 units/L (13-60) 04/29/17 17:16 TSH 1.800 mlU/mL (0.270-4.200) 04/29/17 17:16 Urine Color Yellow (Yellow) 04/29/17 17:54 Urine Turbidity Clear (Clear) 04/29/17 17:54 Urine pH 7.0 (5.0-7.0) 04/29/17 17:54 Ur Specific [place] 1.013 (1.003-1.030) 04/29/17 17:54 Urine Protein 100 mg/dl mg/dL (Negative) 04/29/17 17:54 Urine Glucose (UA) Neg mg/dL (Negative) 04/29/17 17:54 Urine Ketones Neg mg/dL (Negative) 04/29/17 17:54 Urine Blood Sm (Negative) 04/29/17 17:54 Urine Nitrite Neg (Negative) 04/29/17 17:54 Urine Bilirubin Neg (Negative) 04/29/17 17:54 Urine Urobilinogen < 2.0 mg/dL (<2.0) 04/29/17 17:54 Ur Leukocyte Esterase Neg (Negative) 04/29/17 17:54 Urine WBC (Auto) < 1.0 /HPF (0.0-6.0) 04/29/17 17:54 Urine RBC (Auto) 6.0 /HPF (0.0-6.0) 04/29/17 17:54 Salicylates < 0.3 mg/dL (2.8-20.0) L 04/29/17 17:16 Urine Opiates Screen Presumptive negative 04/29/17 17:54 Urine Methadone Screen Presumptive negative 04/29/17 17:54 Acetaminophen < 15.0 ug/mL (10.0-30.0) 04/29/17 17:16 Ur Barbiturates Screen Presumptive negative 04/29/17 17:54 Ur Phencyclidine Scrn Presumptive negative 04/29/17 17:54 Ur Amphetamines Screen Presumptive negative 04/29/17 17:54 U Benzodiazepines Scrn Presumptive negative 04/29/17 17:54 Urine Cocaine Screen Presumptive negative 04/29/17 17:54 U Marijuana (THC) Screen Presumptive negative 04/29/17 17:54 Drugs of Abuse Note Disclamer 04/29/17 17:54 Plasma/Serum Alcohol < 0.01 gm% (0-0.07) 04/29/17 17:16 Blood Type A POSITIVE 04/29/17 17:16 Antibody Screen TNR 04/29/17 17:16 OSWALD Antibody Screen Negative 04/29/17 17:16
[2017-04-30] MEDS: ELIQUIS PO SCH (18:06)
[2017-04-30] MEDS: SENOKOT PO SCH (21:47)
[2017-04-30] MEDS: LEVEMIR SUB-Q SCH (21:47)
[2017-04-30] MEDS: NEURONTIN PO SCH (21:47)
[2017-04-30] MEDS: ZOSYN/NS 4.5GM/100ML 4.5 GM/100 ML VIAL IV SCH (21:51)
[2017-04-30 23:12] LABS: INR 1.74 (0.87-1.13)
[2017-05-01] MEDS: ZOFRAN IV PRN (01:52)
[2017-05-01] MEDS: MORPHINE IV PRN ×2 (01:52→10:50)
[2017-05-01] MEDS: ZOSYN/NS 4.5GM/100ML 4.5 GM/100 ML VIAL IV SCH ×4 (04:27→19:13)
[2017-05-01] MEDS: VANCOMYCIN 1,250 MG in NACL 0.9% 250ML 250 ML IV SCH ×2 (06:38→16:00)
[2017-05-01 09:01] LABS: Basophils % (Auto) 0.6 % (0.0-1.8); Eosinophils % (Auto) 0.7 % (0.0-4.3); Hematocrit 34.4 % (35.5-45.6); Hemoglobin 11.7 gm/dl (11.8-15.2); Mean Corpuscular HGB Conc 34 % (32-34); Mean Corpuscular Hemoglobin 32 pg (28-32); Mean Corpuscular Volume 95 fl (84-94); Platelet Count 105 K/mm3 (140-440); Red Blood Count 3.61 M/mm3 (3.65-5.03); Red Cell Distribution Width 15.1 % (13.2-15.2); White Blood Count 9.7 K/mm3 (4.5-11.0)
[2017-05-01] MEDS: BROVANA NEBU IH SCH ×2 (09:19→20:23)
[2017-05-01] MEDS: PULMICORT IH SCH ×2 (09:20→20:23)
[2017-05-01 09:23] LABS: BUN/Creatinine Ratio 15.29; Calcium 8.4 mg/dL (8.4-10.2); Chloride 97.8 mmol/L (98-107); Potassium 4.1 mmol/L (3.6-5.0)
[2017-05-01] MEDS: PROTONIX PO SCH (10:51)
[2017-05-01] MEDS: LASIX PO SCH (10:51)
[2017-05-01] MEDS: LEVAQUIN 750MG/150ML 750 MG/150 ML BAG IV SCH (10:51)
[2017-05-01] MEDS: COLACE PO SCH ×2 (10:51→22:48)
[2017-05-01] MEDS: CARDIZEM PO SCH (11:09)
[2017-05-01] MEDS: LOPRESSOR PO SCH ×2 (11:10→22:48)
[2017-05-01] MEDS: MS CONTIN ER PO SCH (11:12)
--- NOTE | 2017-05-01 11:20 | Consultation ---
History of Present Illness - Reason for Consult Consult date: 05/01/17 Sepsis; Positive Blood Culture Requesting physician: VITALY LENTZ - History of Present Illness Mr. Kaur is a 66-year-old man with a COPD, DM2 and DVT on anticoagulation who is admitted with confusion for several days. He was unable to provide a detailed history. He had a moderate leukocytosis and a lactate level > 3. Blood cultures were obtained and 1 of 4 bottles is positive for coagulase-negative Staphylococcus. A head CT showed a remote infarction, central/ sulcal strophy and underlying encephalomalacia, but no acute changes. Chest radiographic imaging showed atelectasis. He is prescribed empiric broad antibiotics with Vancomycin, Zosyn and Levaquin. ID consultation is requested for further evaluation and treatment of sepsis and confusion, also management of possible bacteremia. Past History Past Medical History: CAD, diabetes, DVT, heart failure, hypertension Past Surgical History: Other (abdominal surgery) Social history: full code, other (lives in long term). denies: smoking, alcohol abuse Family history: hypertension Medications and Allergies Allergies Allergy/AdvReac Type Severity Reaction Status Date / Time No Known Allergies Allergy Verified 06/05/16 12:19 Home Medications Medication Instructions Recorded Confirmed Last Taken Type ALBUTEROL NEB's [Proventil 0.083% 1 vial IH Q6H PRN 01/06/16 04/29/17 Unknown History NEBS] Apixaban [Eliquis] 2.5 mg PO Q12H #20 tablet 01/09/16 04/29/17 Unknown Rx Aspirin [Aspirin BABY CHEW TAB] 81 mg PO QDAY #30 tab.chew 01/09/16 04/29/17 Unknown Rx AtorvaSTATin [Lipitor] 10 mg PO QHS #30 tablet 01/09/16 04/29/17 Unknown Rx Budesoni/Formotero 160-4.5(Nf) 2 puff IH BID #30 inha 01/09/16 04/29/17 Unknown Rx [Symbicort 160-4.5 (Nf)] Diltiazem [Cardizem] 30 mg PO TID #90 tablet 01/09/16 04/29/17 Unknown Rx Furosemide [Lasix TAB] 40 mg PO QDAY #60 tablet 01/09/16 04/29/17 Unknown Rx Diltiazem [Cardizem] 60 mg PO TID 04/29/17 04/29/17 Unknown History Divalproex ER [Depakote ER] 500 mg PO BID 04/29/17 04/29/17 Unknown History Docusate Sodium [Colace CAP] 100 mg PO BID 04/29/17 04/29/17 Unknown History Esomeprazole Magnesium [NexIUM] 40 mg PO QAM 04/29/17 04/29/17 Unknown History Gabapentin [Neurontin] 100 mg PO QHS 04/29/17 04/29/17 Unknown History HYDROcodone/APAP 5-325 [[place] 1 tab PO Q4H PRN 04/29/17 04/29/17 Unknown History 5-325 mg TAB] Insulin Aspart Prot/Aspart(Nf) See Protocol SC QDAY 04/29/17 04/29/17 Unknown History [NovoLOG Mix 70/30 VIAL] Insulin Glargine [Lantus VIAL] 5 units SC QHS 04/29/17 04/29/17 Unknown History Metoprolol [Lopressor TAB] 50 mg PO BID 04/29/17 04/29/17 Unknown History Morphine ER [Ms Contin ER] 30 mg PO Q12H 04/29/17 04/29/17 Unknown History Sennosides [Senna] 8.6 mg PO QHS 04/29/17 04/29/17 Unknown History Active Meds: Active Medications Acetaminophen (Tylenol) 650 mg PO Q4H PRN PRN Reason: Pain MILD(1-3)/Fever >100.5/ROSAS Acetaminophen/Hydrocodone Bitart ([place] 5/325) 1 each PO Q4H PRN PRN Reason: Pain Albuterol (Proventil) 2.5 mg IH Q3HRT PRN PRN Reason: Shortness Of Breath Last Admin: 04/30/17 15:13 Dose: 2.5 mg Arformoterol Tartrate (Brovana Nebu) 15 mcg IH Q12HRT [facility] Last Admin: 05/01/17 09:19 Dose: 15 mcg Atorvastatin Calcium (Lipitor) 10 mg PO QHS [facility] Last Admin: 04/30/17 21:47 Dose: 10 mg Bisacodyl (Dulcolax) 10 mg [place] QDAY PRN PRN Reason: Constipation unrelieved by MOM Budesonide (Pulmicort) 0.5 mg IH Q12HRT [facility] Last Admin: 05/01/17 09:20 Dose: 0.5 mg Diltiazem HCl (Cardizem) 30 mg PO TID [facility] Last Admin: 05/01/17 11:09 Dose: Not Given Docusate Sodium (Colace) 100 mg PO BID [facility] Last Admin: 05/01/17 10:51 Dose: 100 mg Furosemide (Lasix) 40 mg PO QDAY [facility] Last Admin: 05/01/17 10:51 Dose: 40 mg Gabapentin (Neurontin) 100 mg PO QHS [facility] Last Admin: 04/30/17 21:47 Dose: 100 mg Levofloxacin/Dextrose (Levaquin 750mg/150ml) 750 mg in 150 mls @ 100 mls/hr IV Q24HR [facility] PRN Reason: Protocol Last Admin: 05/01/17 10:51 Dose: 100 mls/hr Piperacillin Sod/Tazobactam Sod (Zosyn/Ns 4.5gm/100ml) 4.5 gm in 100 mls @ 200 mls/hr IV Q6HR [facility] PRN Reason: Protocol Last Admin: 05/01/17 04:27 Dose: 200 mls/hr Vancomycin HCl 1,250 mg/ (Sodium Chloride) 275 mls @ 166.667 mls/hr IV Q12H [facility] Last Admin: 05/01/17 06:38 Dose: 166.667 mls/hr Insulin Detemir (Levemir) 5 units SUB-Q QHS [facility] Last Admin: 04/30/17 21:47 Dose: 5 units Magnesium Hydroxide (Milk Of Magnesia) 30 ml PO Q4H PRN PRN Reason: Constipation Metoprolol Tartrate (Lopressor) 50 mg PO BID [facility] Last Admin: 05/01/17 11:10 Dose: Not Given Morphine Sulfate (Morphine) 2 mg IV Q4H PRN PRN Reason: Pain, Moderate (4-6) Last Admin: 05/01/17 10:50 Dose: 2 mg Morphine Sulfate (Ms Contin Er) 30 mg PO Q12H [facility] Last Admin: 05/01/17 11:12 Dose: Not Given Ondansetron HCl (Zofran) 4 mg IV Q8H PRN PRN Reason: N/V unrelieved by Samir Last Admin: 05/01/17 01:52 Dose: 4 mg Pantoprazole Sodium (Protonix) 40 mg PO DAILY [facility] Last Admin: 05/01/17 10:51 Dose: 40 mg Senna (Senokot) 8.6 mg PO QHS [facility] Last Admin: 04/30/17 21:47 Dose: 8.6 mg Vancomycin HCl (Vancomycin Pharmacy To Dose) 1 each IV PKCONSULT [facility] PRN Reason: Protocol Review of Systems All systems: negative Constitutional: no fever, no chills, no sweats Ears, nose, mouth and throat: no sore throat Cardiovascular: no chest pain Respiratory: shortness of breath, no cough Gastrointestinal: no abdominal pain, no nausea, no vomiting, no diarrhea Genitourinary Male: no dysuria Musculoskeletal: low back pain, limitation of motion Integumentary: no rash Psychiatric: difficulties concentrating, confusion Physical Examination - Constitutional Vitals: Vital Signs Temp Pulse Resp BP Pulse Ox 99.7 F H 91 H 18 105/61 98 05/01/17 10:18 05/01/17 11:10 05/01/17 10:18 05/01/17 11:10 05/01/17 10:18 Temperature -Last 24 Hours Temperature 99.7 F Temperature 98.3 F Temperature 98.2 F General appearance: Present: mild distress (wants to be re-positioned in bed) - EENT Eyes: Absent: conjunctival injection ENT: clear oral mucosa - Neck Neck: Present: supple - Respiratory Respiratory: bilateral: rhonchi (mild), negative: wheezing - Cardiovascular Rhythm: regular Heart Sounds: Present: S1 & S2 - Extremities Extremity abnormal: edema (left leg ulceration and severe edema with chronic ichythyosis bilaterally) - Abdominal General gastrointestinal: Present: soft, non-distended - Integumentary Integumentary: Absent: rash - Psychiatric Psychiatric: memory intact, agitated - Neurologic Neurologic: no focal deficits Results - Labs CBC & Chem 7: 05/01/17 08:39 05/01/17 08:39 Labs: Abnormal lab results 04/30/17 04/30/17 04/30/17 Range/Units 12:55 15:41 21:16 RBC (3.65-5.03) M/mm3 Hgb (11.8-15.2) gm/dl Hct (35.5-45.6) % MCV (84-94) fl Plt Count (140-440) K/mm3 [place] % (Auto) (0.0-7.3) % [place] # (0.0-0.8) K/mm3 PT (12.2-14.9) Sec. INR (0.87-1.13) APTT (24.2-36.6) Sec. Sodium (137-145) mmol/L Chloride (98-107) mmol/L BUN (9-20) mg/dL Creatinine (0.8-1.5) mg/dL Glucose (75-100) mg/dL POC Glucose 129 H 114 H 135 H (70-105) 04/30/17 05/01/17 05/01/17 Range/Units 22:33 06:15 08:39 RBC 3.61 L (3.65-5.03) M/mm3 Hgb 11.7 L (11.8-15.2) gm/dl Hct 34.4 L (35.5-45.6) % MCV 95 H (84-94) fl Plt Count 105 L (140-440) K/mm3 [place] % (Auto) 13.9 H (0.0-7.3) % [place] # 1.3 H (0.0-0.8) K/mm3 PT 20.3 H (12.2-14.9) Sec. INR 1.74 H (0.87-1.13) APTT 39.0 H (24.2-36.6) Sec. Sodium (137-145) mmol/L Chloride (98-107) mmol/L BUN (9-20) mg/dL Creatinine (0.8-1.5) mg/dL Glucose (75-100) mg/dL POC Glucose 68 L (70-105) 05/01/17 Range/Units 08:39 RBC (3.65-5.03) M/mm3 Hgb (11.8-15.2) gm/dl Hct (35.5-45.6) % MCV (84-94) fl Plt Count (140-440) K/mm3 [place] % (Auto) (0.0-7.3) % [place] # (0.0-0.8) K/mm3 PT (12.2-14.9) Sec. INR (0.87-1.13) APTT (24.2-36.6) Sec. Sodium 135 L (137-145) mmol/L Chloride 97.8 L (98-107) mmol/L BUN 26 H (9-20) mg/dL Creatinine 1.7 H (0.8-1.5) mg/dL Glucose 72 L (75-100) mg/dL POC Glucose (70-105) Microbiology 04/29/17 18:17 Peripheral/Venous Blood Culture - Preliminary Coag Negative Staphylococcus 04/29/17 18:17 Peripheral/Venous Blood Culture - Preliminary NO GROWTH AFTER 24 HOURS - Imaging and Cardiology Chest x-ray: report reviewed CT Scan - head: report reviewed Assessment and Plan - Patient Problems (1) Sepsis Current Visit: Yes Status: Acute Qualifiers: Sepsis type: sepsis due to unspecified organism Qualified Code(s): A41.9 - Sepsis, unspecified organism Plan to address problem: Improved. Unclear origins, but does not appear to be related to bacteremia. Confusion is resolved as well. Continue to follow clinically for now on broad antimicrobials. (2) Positive blood culture Current Visit: Yes Status: Acute Plan to address problem: Coagulase-negative Staph is most likely a contaminant. No prolonged antibiotics are needed.
--- NOTE | 2017-05-01 12:37 | Progress Note ---
Assessment and Plan Assessment and plan: Sepsis - being managed according to the sepsis protocol with 3 IV antibiotics - blood culture 1 bottle is positive for coagulase negative staph aureus, ID consult placed Hemoptysis - Held the aspirin and eliquis Diabetes mellitus type 2 - sliding scale insulin Hypertension - Continue all medications Elevated troponin - will monitor - didn't have any chest pain Acute kidney Failure - I held the Lasix and start him on gentle hydration Chronic systolic CHF - Patient didn't have any pulmonary congestion, I held the Lasix because of his AKF CAD History of DVT - Was on eliquis, discontinued because of hemoptysis Dementia - Supportive care CODE STATUS full Disposition -Continue inpatient care History Interval history: Patient wants to go back to senior care, he gets angry when I declined his request. Patient is intubated and is on oxygen and has difficulty breathing. Hospitalist Physical - Physical exam Narrative exam: Not in cardiopulmonary distress. The patient appeared well nourished and normally developed. Vital signs as documented. Head exam is unremarkable. No scleral icterus . Neck is without jugular venous distension, thyromegaly, or carotid bruits. Lungs wheezing all over the chest. Cardiac exam reveals regular rate and Rhythm. First and second heart sounds normal. No murmurs, rubs or gallops. Abdominal exam reveals normal bowel sounds, no masses, no organomegaly and no aortic enlargement. Extremities are swelling and DISCOLORATION of bilateral lower extremities due to venous stasis. 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 No focal weakness. - Constitutional Vitals: Temp Pulse Resp BP Pulse Ox 99.7 F H 91 H 18 105/61 98 05/01/17 10:18 05/01/17 11:10 05/01/17 10:18 05/01/17 11:10 05/01/17 10:18 Results - Labs CBC & Chem 7: 05/01/17 08:39 05/01/17 08:39 Labs: Laboratory Last Values WBC 9.7 K/mm3 (4.5-11.0) 05/01/17 08:39 RBC 3.61 M/mm3 (3.65-5.03) L 05/01/17 08:39 Hgb 11.7 gm/dl (11.8-15.2) L 05/01/17 08:39 Hct 34.4 % (35.5-45.6) L 05/01/17 08:39 MCV 95 fl (84-94) H 05/01/17 08:39 MCH 32 pg (28-32) 05/01/17 08:39 MCHC 34 % (32-34) 05/01/17 08:39 RDW 15.1 % (13.2-15.2) 05/01/17 08:39 Plt Count 105 K/mm3 (140-440) L 05/01/17 08:39 Lymph % (Auto) 14.8 % (13.4-35.0) 05/01/17 08:39 [place] % (Auto) 13.9 % (0.0-7.3) H 05/01/17 08:39 Eos % (Auto) 0.7 % (0.0-4.3) 05/01/17 08:39 Baso % (Auto) 0.6 % (0.0-1.8) 05/01/17 08:39 Lymph # 1.4 K/mm3 (1.2-5.4) 05/01/17 08:39 [place] # 1.3 K/mm3 (0.0-0.8) H 05/01/17 08:39 Eos # 0.1 K/mm3 (0.0-0.4) 05/01/17 08:39 Baso # 0.1 K/mm3 (0.0-0.1) 05/01/17 08:39 Seg Neutrophils % 70.0 % (40.0-70.0) 05/01/17 08:39 Seg Neutrophils # 6.8 K/mm3 (1.8-7.7) 05/01/17 08:39 ESR 68 mm/Hr (0-20) 04/29/17 17:16 PT 20.3 Sec. (12.2-14.9) H 04/30/17 22:33 INR 1.74 (0.87-1.13) H 04/30/17 22:33 APTT 39.0 Sec. (24.2-36.6) H 04/30/17 22:33 Sodium 135 mmol/L (137-145) L 05/01/17 08:39 Potassium 4.1 mmol/L (3.6-5.0) 05/01/17 08:39 Chloride 97.8 mmol/L (98-107) L 05/01/17 08:39 Carbon Dioxide 27 mmol/L (22-30) 05/01/17 08:39 Anion Gap 16 mmol/L 04/30/17 09:07 BUN 26 mg/dL (9-20) H 05/01/17 08:39 Creatinine 1.7 mg/dL (0.8-1.5) H 05/01/17 08:39 Estimated GFR 49 ml/min 05/01/17 08:39 BUN/Creatinine Ratio 15.29 % 05/01/17 08:39 Glucose 72 mg/dL (75-100) L 05/01/17 08:39 POC Glucose 108 (70-105) H 05/01/17 11:27 Lactic Acid 1.50 mmol/L (0.7-2.0) 05/01/17 08:39 Calcium 8.4 mg/dL (8.4-10.2) 05/01/17 08:39 Magnesium 1.70 mg/dL (1.7-2.3) 04/29/17 17:16 Total Bilirubin 0.60 mg/dL (0.1-1.2) 04/29/17 17:16 AST 32 units/L (5-40) 04/29/17 17:16 ALT 19 units/L (7-56) 04/29/17 17:16 Alkaline Phosphatase 85 units/L (35-129) 04/29/17 17:16 Ammonia 35.0 umol/L (25-60) 04/29/17 15:15 Total Creatine Kinase 70 units/L (55-170) 04/30/17 09:07 CK-MB (CK-2) 2.4 ng/mL (0.0-4.0) 04/30/17 09:07 CK-MB (CK-2) Rel Index 3.4 (0-4) 04/30/17 09:07 Troponin T 0.075 ng/mL (0.00-0.029) H D 04/30/17 09:07 C-Reactive Protein 1.20 mg/dL (0.00-1.30) 04/29/17 17:16 NT-Pro-B Natriuret Pep 5055 pg/mL (0-900) H 04/29/17 17:16 Total Protein 9.7 g/dL (6.3-8.2) H 04/29/17 17:16 Albumin 3.1 g/dL (3.9-5) L 04/29/17 17:16 Albumin/Globulin Ratio 0.5 % 04/29/17 17:16 Triglycerides 64 mg/dL (2-149) 04/29/17 17:16 Cholesterol 101 mg/dL (50-199) 04/29/17 17:16 LDL Cholesterol Direct 53 mg/dL (50-130) 04/29/17 17:16 HDL Cholesterol 36 mg/dL (40-59) L 04/29/17 17:16 Cholesterol/HDL Ratio 2.80 % 04/29/17 17:16 Lipase 23 units/L (13-60) 04/29/17 17:16 TSH 1.800 mlU/mL (0.270-4.200) 04/29/17 17:16 Urine Color Yellow (Yellow) 04/29/17 17:54 Urine Turbidity Clear (Clear) 04/29/17 17:54 Urine pH 7.0 (5.0-7.0) 04/29/17 17:54 Ur Specific [place] 1.013 (1.003-1.030) 04/29/17 17:54 Urine Protein 100 mg/dl mg/dL (Negative) 04/29/17 17:54 Urine Glucose (UA) Neg mg/dL (Negative) 04/29/17 17:54 Urine Ketones Neg mg/dL (Negative) 04/29/17 17:54 Urine Blood Sm (Negative) 04/29/17 17:54 Urine Nitrite Neg (Negative) 04/29/17 17:54 Urine Bilirubin Neg (Negative) 04/29/17 17:54 Urine Urobilinogen < 2.0 mg/dL (<2.0) 04/29/17 17:54 Ur Leukocyte Esterase Neg (Negative) 04/29/17 17:54 Urine WBC (Auto) < 1.0 /HPF (0.0-6.0) 04/29/17 17:54 Urine RBC (Auto) 6.0 /HPF (0.0-6.0) 04/29/17 17:54 Salicylates < 0.3 mg/dL (2.8-20.0) L 04/29/17 17:16 Urine Opiates Screen Presumptive negative 04/29/17 17:54 Urine Methadone Screen Presumptive negative 04/29/17 17:54 Acetaminophen < 15.0 ug/mL (10.0-30.0) 04/29/17 17:16 Ur Barbiturates Screen Presumptive negative 04/29/17 17:54 Ur Phencyclidine Scrn Presumptive negative 04/29/17 17:54 Ur Amphetamines Screen Presumptive negative 04/29/17 17:54 U Benzodiazepines Scrn Presumptive negative 04/29/17 17:54 Urine Cocaine Screen Presumptive negative 04/29/17 17:54 U Marijuana (THC) Screen Presumptive negative 04/29/17 17:54 Drugs of Abuse Note Disclamer 04/29/17 17:54 Plasma/Serum Alcohol < 0.01 gm% (0-0.07) 04/29/17 17:16 Blood Type A POSITIVE 04/29/17 17:16 Antibody Screen TNR 04/29/17 17:16 OSWALD Antibody Screen Negative 04/29/17 17:16
[2017-05-01] MEDS ORDERED: NACL 0.9% 1000 ML 1,000 ML IV SCH (13:00)
--- NOTE | 2017-05-01 15:24 | Progress Note ---
Assessment and Plan 66 y/o male admitted with sepsis, etiology unknown, elevated BNP and concern for pleural effusion, now with new onset afib with RVR. 1. Now with newonset afib with RVR per report. Lasix held on either yesterday or today secondary to cr. Could likely benefit from echo once rate is controlled. Primary concerned about PE which is reasonable. Suggested a V/Q scan if patient will cooperate. Hold on ABG for now, follow up once V/Q done. If oxygen requirement continues to increase, may need bipap but not sure how patient would tolerate it given his mental status. Await cards suggestion. Per IMS, BP marginal, last MAP at 75. Have no objection to moving patient to ICU if needed. Subjective Date of service: 05/01/17 Interval history: Second consult placed yesterday, after I saw the patient for the first consult, placed by the overnight doc for pleural effusion. Yesterday afternoon, patient began having hemoptysis. This has persisted through today. Also now in afib with RVR. Anticoagluation was held on yesterday secondary to hemoptysis. Per report, patient has a history of DVT in the past, hence why he was on anticoagulation. Objective Vital Signs - 12hr 05/01/17 05/01/17 05/01/17 10:00 10:18 11:10 Temperature 99.7 F H Pulse Rate 98 H 91 H Respiratory 18 Rate Blood Pressure 105/61 Blood Pressure 152/63 [Left] O2 Sat by Pulse 98 98 Oximetry Constitutional: no acute distress, alert, other (confused, agitated at times and appears angry) Ascultation: Bilateral: diminished breath sounds Percussion: Bilateral: not dull Cardiovascular: irregular rhythm Gastrointestinal: normoactive bowel sounds Extremities: edema (chronic lymphedema with chronic skin changes) Psychiatric: other (flat affect at times angry) CBC and BMP: 05/01/17 08:39 05/01/17 08:39 ABG, PT/INR, D-dimer: PT/INR, D-dimer PT 20.3 Sec. (12.2-14.9) H 04/30/17 22:33 INR 1.74 (0.87-1.13) H 04/30/17 22:33 Abnormal lab findings: Abnormal Labs 04/30/17 04/30/17 04/30/17 09:07 09:07 09:07 WBC 13.4 H RBC Hgb Hct MCV 96 H Plt Count 109 L Lymph % (Auto) 11.9 L [place] % (Auto) 11.7 H [place]offey # 1.6 H Seg Neutrophils % 76.1 H Seg Neutrophils # 10.2 H PT INR APTT Sodium Chloride BUN Creatinine Glucose POC Glucose Lactic Acid 3.30 H* Troponin T 0.075 H D 04/30/17 04/30/17 04/30/17 12:55 15:41 21:16 WBC RBC Hgb Hct MCV Plt Count Lymph % (Auto) [place] % (Auto) Coffey # Seg Neutrophils % Seg Neutrophils # PT INR APTT Sodium Chloride BUN Creatinine Glucose POC Glucose 129 H 114 H 135 H Lactic Acid Troponin T 04/30/17 05/01/17 05/01/17 22:33 06:15 08:39 WBC RBC 3.61 L Hgb 11.7 L Hct 34.4 L MCV 95 H Plt Count 105 L Lymph % (Auto) [place] % (Auto) 13.9 H [place] # 1.3 H Seg Neutrophils % Seg Neutrophils # PT 20.3 H INR 1.74 H APTT 39.0 H Sodium Chloride BUN Creatinine Glucose POC Glucose 68 L Lactic Acid Troponin T 05/01/17 05/01/17 08:39 11:27 WBC RBC Hgb Hct MCV Plt Count Lymph % (Auto) [place] % (Auto) Coffey # Seg Neutrophils % Seg Neutrophils # PT INR APTT Sodium 135 L Chloride 97.8 L BUN 26 H Creatinine 1.7 H Glucose 72 L POC Glucose 108 H Lactic Acid Troponin T
--- NOTE | 2017-05-01 15:32 | Consultation ---
History of Present Illness Consult date: 05/01/17 Consult reason: atrial fibrillation History of present illness: This is a 66yr old male who resides at [facility] with multiple medical problems. Patient is a poor historian. Prior records reviewed reports he has a cardiac history of DC medtronic pacemaker implanted at [facility] in [place]. Patient has a history of coronary artery disease s/p CABG with an implantation of a bioprosthetic tricuspid valve in 2013 also at [facility]. The patient also has a history of DVT and is on oral anticoagualtion with low dose eliquis. He was brought in 04/29 with alteration of mental status, fever, shortness of breath, hemoptysis and admitted with sepsis. An ECG strip done in the field shows a wide complex tachycardia versus atrial fibrillation with RVR. It appears this was not addressed in the ED. Today, a cardiac consultation is requested for tachycardia noted on vital signs. An 12 lead ECG shows atrial fibrillation with RVR. Patient appears mildly dyspneic. He denies chest pain and palpitations. Latest BP is 105/61. Past History Past Medical History: CAD, diabetes, DVT, hypertension Past Surgical History: Other (abdominal surgery) Social history: full code, other (lives in alf). denies: smoking, alcohol abuse Family history: hypertension Medications and Allergies Allergies Allergy/AdvReac Type Severity Reaction Status Date / Time No Known Allergies Allergy Verified 06/05/16 12:19 Home Medications Medication Instructions Recorded Confirmed Last Taken Type ALBUTEROL NEB's [Proventil 0.083% 1 vial IH Q6H PRN 01/06/16 04/29/17 Unknown History NEBS] Apixaban [Eliquis] 2.5 mg PO Q12H #20 tablet 01/09/16 04/29/17 Unknown Rx Aspirin [Aspirin BABY CHEW TAB] 81 mg PO QDAY #30 tab.chew 01/09/16 04/29/17 Unknown Rx AtorvaSTATin [Lipitor] 10 mg PO QHS #30 tablet 01/09/16 04/29/17 Unknown Rx Budesoni/Formotero 160-4.5(Nf) 2 puff IH BID #30 inha 01/09/16 04/29/17 Unknown Rx [Symbicort 160-4.5 (Nf)] Diltiazem [Cardizem] 30 mg PO TID #90 tablet 01/09/16 04/29/17 Unknown Rx Furosemide [Lasix TAB] 40 mg PO QDAY #60 tablet 01/09/16 04/29/17 Unknown Rx Diltiazem [Cardizem] 60 mg PO TID 04/29/17 04/29/17 Unknown History Divalproex ER [Depakote ER] 500 mg PO BID 04/29/17 04/29/17 Unknown History Docusate Sodium [Colace CAP] 100 mg PO BID 04/29/17 04/29/17 Unknown History Esomeprazole Magnesium [NexIUM] 40 mg PO QAM 04/29/17 04/29/17 Unknown History Gabapentin [Neurontin] 100 mg PO QHS 04/29/17 04/29/17 Unknown History HYDROcodone/APAP 5-325 [[place] 1 tab PO Q4H PRN 04/29/17 04/29/17 Unknown History 5-325 mg TAB] Insulin Aspart Prot/Aspart(Nf) See Protocol SC QDAY 04/29/17 04/29/17 Unknown History [NovoLOG Mix 70/30 VIAL] Insulin Glargine [Lantus VIAL] 5 units SC QHS 04/29/17 04/29/17 Unknown History Metoprolol [Lopressor TAB] 50 mg PO BID 04/29/17 04/29/17 Unknown History Morphine ER [Ms Contin ER] 30 mg PO Q12H 04/29/17 04/29/17 Unknown History Sennosides [Senna] 8.6 mg PO QHS 04/29/17 04/29/17 Unknown History Active Meds: Active Medications Acetaminophen (Tylenol) 650 mg PO Q4H PRN PRN Reason: Pain MILD(1-3)/Fever >100.5/ROSAS Acetaminophen/Hydrocodone Bitart ([place] 5/325) 1 each PO Q4H PRN PRN Reason: Pain Last Admin: 05/01/17 12:43 Dose: 1 each Albuterol (Proventil) 2.5 mg IH Q3HRT PRN PRN Reason: Shortness Of Breath Last Admin: 04/30/17 15:13 Dose: 2.5 mg Arformoterol Tartrate (Brovana Nebu) 15 mcg IH Q12HRT AIXA Last Admin: 05/01/17 09:19 Dose: 15 mcg Atorvastatin Calcium (Lipitor) 10 mg PO QHS AIXA Last Admin: 04/30/17 21:47 Dose: 10 mg Bisacodyl (Dulcolax) 10 mg TX QDAY PRN PRN Reason: Constipation unrelieved by MOM Budesonide (Pulmicort) 0.5 mg IH Q12HRT [facility] Last Admin: 05/01/17 09:20 Dose: 0.5 mg Diltiazem HCl (Cardizem) 30 mg PO TID [facility] Last Admin: 05/01/17 11:09 Dose: Not Given Docusate Sodium (Colace) 100 mg PO BID [facility] Last Admin: 05/01/17 10:51 Dose: 100 mg Gabapentin (Neurontin) 100 mg PO QHS [facility] Last Admin: 04/30/17 21:47 Dose: 100 mg Levofloxacin/Dextrose (Levaquin 750mg/150ml) 750 mg in 150 mls @ 100 mls/hr IV Q24HR [facility] PRN Reason: Protocol Last Admin: 05/01/17 10:51 Dose: 100 mls/hr Piperacillin Sod/Tazobactam Sod (Zosyn/Ns 4.5gm/100ml) 4.5 gm in 100 mls @ 200 mls/hr IV Q6HR AIXA PRN Reason: Protocol Last Admin: 05/01/17 04:27 Dose: 200 mls/hr Vancomycin HCl 1,250 mg/ (Sodium Chloride) 275 mls @ 166.667 mls/hr IV Q12H [facility] Last Admin: 05/01/17 06:38 Dose: 166.667 mls/hr Sodium Chloride (Nacl 0.9% 1000 Ml) 1,000 mls @ 100 mls/hr IV DIRECT [facility] Insulin Detemir (Levemir) 5 units SUB-Q QHS [facility] Last Admin: 04/30/17 21:47 Dose: 5 units Magnesium Hydroxide (Milk Of Magnesia) 30 ml PO Q4H PRN PRN Reason: Constipation Metoprolol Tartrate (Lopressor) 50 mg PO BID [facility] Last Admin: 05/01/17 11:10 Dose: Not Given Morphine Sulfate (Morphine) 2 mg IV Q4H PRN PRN Reason: Pain, Moderate (4-6) Last Admin: 05/01/17 10:50 Dose: 2 mg Morphine Sulfate (Ms Contin Er) 30 mg PO Q12H [facility] Last Admin: 05/01/17 11:12 Dose: Not Given Ondansetron HCl (Zofran) 4 mg IV Q8H PRN PRN Reason: N/V unrelieved by Samir Last Admin: 05/01/17 01:52 Dose: 4 mg Pantoprazole Sodium (Protonix) 40 mg PO DAILY [facility] Last Admin: 05/01/17 10:51 Dose: 40 mg Senna (Senokot) 8.6 mg PO QHS [facility] Last Admin: 04/30/17 21:47 Dose: 8.6 mg Vancomycin HCl (Vancomycin Pharmacy To Dose) 1 each IV PKCONSULT [facility] PRN Reason: Protocol Physical Examination Vital Signs Temp Pulse Resp BP Pulse Ox 101.2 F H 130 H 34 H 160/110 91 04/29/17 16:44 04/29/17 16:44 04/29/17 16:44 04/29/17 16:44 04/29/17 16:44 General appearance: mild distress HEENT: Positive: PERRL Neck: Positive: trachea midline Cardiac: Positive: irregularly irregular Results 05/01/17 08:39 05/01/17 08:39 Coagulation 04/30/17 Range/Units 22:33 PT 20.3 H (12.2-14.9) Sec. INR 1.74 H (0.87-1.13) APTT 39.0 H (24.2-36.6) Sec. CBC 05/01/17 Range/Units 08:39 WBC 9.7 (4.5-11.0) K/mm3 RBC 3.61 L (3.65-5.03) M/mm3 Hgb 11.7 L (11.8-15.2) gm/dl Hct 34.4 L (35.5-45.6) % Plt Count 105 L (140-440) K/mm3 Lymph # 1.4 (1.2-5.4) K/mm3 [place] # 1.3 H (0.0-0.8) K/mm3 Eos # 0.1 (0.0-0.4) K/mm3 Baso # 0.1 (0.0-0.1) K/mm3 Comprehensive Metabolic Panel 05/01/17 Range/Units 08:39 Sodium 135 L (137-145) mmol/L Potassium 4.1 (3.6-5.0) mmol/L Chloride 97.8 L (98-107) mmol/L Carbon Dioxide 27 (22-30) mmol/L BUN 26 H (9-20) mg/dL Creatinine 1.7 H (0.8-1.5) mg/dL Glucose 72 L (75-100) mg/dL Calcium 8.4 (8.4-10.2) mg/dL Assessment and Plan Afib with RVR Sepsis DC medtronic pacemaker implant Hx of coronary artery disease s/p CABG with an implantation of a bioprosthetic tricuspid valve in 2012 also at [facility] Mild Cardiomyopathy EF 40-45% on echo 2014 Prior history of DVT on low dose eliquis as an outpatient Prior CVA Hypertension Diabetes mellitus Acute renal failure Recommendations: Transfer to telemetry for close monitoring. Initiate IV cardizem drip for his atrial fibrillation with RVR.
[2017-05-01] MEDS ORDERED: CARDIZEM/D5W 100MG/100ML 100 MG/100 ML BAG IV SCH (16:00)
[2017-05-01] MEDS ORDERED: CARDIZEM IV ONE (16:30)
[2017-05-02] MEDS: NEURONTIN PO SCH ×2 (02:11→21:47)
[2017-05-02] MEDS: SENOKOT PO SCH ×2 (02:12→21:48)
[2017-05-02] MEDS ORDERED: DepaCON 500 MG in NACL 0.9% 100 ML IV STA (02:12)
[2017-05-02] MEDS: MS CONTIN ER PO SCH ×2 (02:21→10:31)
[2017-05-02] MEDS: LEVEMIR SUB-Q SCH ×3 (02:22→22:01)
[2017-05-02] MEDS: ZOSYN/NS 4.5GM/100ML 4.5 GM/100 ML VIAL IV SCH ×3 (03:11→11:23)
[2017-05-02] MEDS: VANCOMYCIN 1,250 MG in NACL 0.9% 250ML 250 ML IV SCH (04:45)
[2017-05-02 07:23] LABS: ISTAT Base Excess 1; ISTAT PCO2 43.8 (35-45); ISTAT PH 7.381 (7.35-7.45); ISTAT PO2 63 (80-105); ISTAT SO2 91; ISTAT TCO2 27
[2017-05-02] MEDS: BROVANA NEBU IH SCH ×3 (07:25→20:37)
[2017-05-02] MEDS: PULMICORT IH SCH ×3 (07:25→20:37)
--- NOTE | 2017-05-02 07:29 | Progress Note ---
Assessment and Plan Assessment and plan: Acute respiratory failure - On Bipap, breathing treatments - ABG PH 7.36 - CXR right sided pleural effusion, mild central pulmonary congestion - Not able to do V/Q scan because of his agitation Afib with RVR - controlled, in sinus rhythm, on metoprolol - Cardiology consulted - ECHO NSTEMI - cardiac enzymes are trending down - CXR paced rhythm - I can't anticoagulate him because of hemoptysis Sepsis - On IV rocephin - ID consult appreciated Hemoptysis - Held the aspirin and eliquis Diabetes mellitus type 2 - sliding scale insulin Hypertension - Continue his meds Acute kidney Failure - I held the Lasix and start him on gentle hydration - Cr is 1.8 this AM Chronic systolic CHF - Patient didn't have any pulmonary congestion, I held the Lasix because of his AKF CAD History of DVT - Was on eliquis, discontinued because of hemoptysis Dementia - Supportive care CODE STATUS full Disposition - Transfer to The high probability of a clinically significant, sudden or life threatening deterioration of the [Respiratory, 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 The aggregate critical care time was [45] minutes. This time is in addition to time spent performing reported procedures but includes the following: [x] Data Review and interpretation [x] Patient assessment and monitoring of vital signs [x] Documentation [x] Medication orders and managementICU History Interval history: [facility] [place] was called at 7:00 Am this morning for SOB. Patient was put on BIPAP and saturating 100%. Spitting blood. Hospitalist Physical - Physical exam Narrative exam: Not in cardiopulmonary distress. The patient appeared well nourished and normally developed. Vital signs as documented. Head exam is unremarkable. No scleral icterus . Neck is without jugular venous distension, thyromegaly, or carotid bruits. Lungs wheezing all over the chest. Cardiac exam reveals regular rate and Rhythm. First and second heart sounds normal. No murmurs, rubs or gallops. Abdominal exam reveals normal bowel sounds, no masses, no organomegaly and no aortic enlargement. Extremities are swelling and DISCOLORATION of bilateral lower extremities due to venous stasis. 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 Has dementia. - Constitutional Vitals: Temp Pulse Resp BP Pulse Ox 99.1 F 64 22 121/82 91 05/02/17 04:10 05/02/17 04:10 05/02/17 04:10 05/02/17 04:10 05/02/17 04:10 General appearance: Present: mild distress (wants to be re-positioned in bed) Results - Labs CBC & Chem 7: 05/02/17 09:10 05/02/17 09:21 Labs: Laboratory Last Values WBC 9.7 K/mm3 (4.5-11.0) 05/01/17 08:39 RBC 3.61 M/mm3 (3.65-5.03) L 05/01/17 08:39 Hgb 11.7 gm/dl (11.8-15.2) L 05/01/17 08:39 Hct 34.4 % (35.5-45.6) L 05/01/17 08:39 MCV 95 fl (84-94) H 05/01/17 08:39 MCH 32 pg (28-32) 05/01/17 08:39 MCHC 34 % (32-34) 05/01/17 08:39 RDW 15.1 % (13.2-15.2) 05/01/17 08:39 Plt Count 105 K/mm3 (140-440) L 05/01/17 08:39 Lymph % (Auto) 14.8 % (13.4-35.0) 05/01/17 08:39 [place] % (Auto) 13.9 % (0.0-7.3) H 05/01/17 08:39 Eos % (Auto) 0.7 % (0.0-4.3) 05/01/17 08:39 Baso % (Auto) 0.6 % (0.0-1.8) 05/01/17 08:39 Lymph # 1.4 K/mm3 (1.2-5.4) 05/01/17 08:39 [place]ill # 1.3 K/mm3 (0.0-0.8) H 05/01/17 08:39 Eos # 0.1 K/mm3 (0.0-0.4) 05/01/17 08:39 Baso # 0.1 K/mm3 (0.0-0.1) 05/01/17 08:39 Seg Neutrophils % 70.0 % (40.0-70.0) 05/01/17 08:39 Seg Neutrophils # 6.8 K/mm3 (1.8-7.7) 05/01/17 08:39 ESR 68 mm/Hr (0-20) 04/29/17 17:16 PT 20.3 Sec. (12.2-14.9) H 04/30/17 22:33 INR 1.74 (0.87-1.13) H 04/30/17 22:33 APTT 39.0 Sec. (24.2-36.6) H 04/30/17 22:33 Sodium 135 mmol/L (137-145) L 05/01/17 08:39 Potassium 4.1 mmol/L (3.6-5.0) 05/01/17 08:39 Chloride 97.8 mmol/L (98-107) L 05/01/17 08:39 Carbon Dioxide 27 mmol/L (22-30) 05/01/17 08:39 Anion Gap 16 mmol/L 04/30/17 09:07 BUN 26 mg/dL (9-20) H 05/01/17 08:39 Creatinine 1.7 mg/dL (0.8-1.5) H 05/01/17 08:39 Estimated GFR 49 ml/min 05/01/17 08:39 BUN/Creatinine Ratio 15.29 % 05/01/17 08:39 Glucose 72 mg/dL (75-100) L 05/01/17 08:39 POC Glucose 92 (70-105) 05/01/17 17:50 Lactic Acid 1.50 mmol/L (0.7-2.0) 05/01/17 08:39 Calcium 8.4 mg/dL (8.4-10.2) 05/01/17 08:39 Magnesium 1.70 mg/dL (1.7-2.3) 04/29/17 17:16 Total Bilirubin 0.60 mg/dL (0.1-1.2) 04/29/17 17:16 AST 32 units/L (5-40) 04/29/17 17:16 ALT 19 units/L (7-56) 04/29/17 17:16 Alkaline Phosphatase 85 units/L (35-129) 04/29/17 17:16 Ammonia 35.0 umol/L (25-60) 04/29/17 15:15 Total Creatine Kinase 70 units/L (55-170) 04/30/17 09:07 CK-MB (CK-2) 2.4 ng/mL (0.0-4.0) 04/30/17 09:07 CK-MB (CK-2) Rel Index 3.4 (0-4) 04/30/17 09:07 Troponin T 0.074 ng/mL (0.00-0.029) H 05/01/17 15:13 C-Reactive Protein 1.20 mg/dL (0.00-1.30) 04/29/17 17:16 NT-Pro-B Natriuret Pep 5055 pg/mL (0-900) H 04/29/17 17:16 Total Protein 9.7 g/dL (6.3-8.2) H 04/29/17 17:16 Albumin 3.1 g/dL (3.9-5) L 04/29/17 17:16 Albumin/Globulin Ratio 0.5 % 04/29/17 17:16 Triglycerides 64 mg/dL (2-149) 04/29/17 17:16 Cholesterol 101 mg/dL (50-199) 04/29/17 17:16 LDL Cholesterol Direct 53 mg/dL (50-130) 04/29/17 17:16 HDL Cholesterol 36 mg/dL (40-59) L 04/29/17 17:16 Cholesterol/HDL Ratio 2.80 % 04/29/17 17:16 Lipase 23 units/L (13-60) 04/29/17 17:16 TSH 1.800 mlU/mL (0.270-4.200) 04/29/17 17:16 Urine Color Yellow (Yellow) 04/29/17 17:54 Urine Turbidity Clear (Clear) 04/29/17 17:54 Urine pH 7.0 (5.0-7.0) 04/29/17 17:54 Ur Specific [place] 1.013 (1.003-1.030) 04/29/17 17:54 Urine Protein 100 mg/dl mg/dL (Negative) 04/29/17 17:54 Urine Glucose (UA) Neg mg/dL (Negative) 04/29/17 17:54 Urine Ketones Neg mg/dL (Negative) 04/29/17 17:54 Urine Blood Sm (Negative) 04/29/17 17:54 Urine Nitrite Neg (Negative) 04/29/17 17:54 Urine Bilirubin Neg (Negative) 04/29/17 17:54 Urine Urobilinogen < 2.0 mg/dL (<2.0) 04/29/17 17:54 Ur Leukocyte Esterase Neg (Negative) 04/29/17 17:54 Urine WBC (Auto) < 1.0 /HPF (0.0-6.0) 04/29/17 17:54 Urine RBC (Auto) 6.0 /HPF (0.0-6.0) 04/29/17 17:54 Salicylates < 0.3 mg/dL (2.8-20.0) L 04/29/17 17:16 Urine Opiates Screen Presumptive negative 04/29/17 17:54 Urine Methadone Screen Presumptive negative 04/29/17 17:54 Acetaminophen < 15.0 ug/mL (10.0-30.0) 04/29/17 17:16 Ur Barbiturates Screen Presumptive negative 04/29/17 17:54 Ur Phencyclidine Scrn Presumptive negative 04/29/17 17:54 Ur Amphetamines Screen Presumptive negative 04/29/17 17:54 U Benzodiazepines Scrn Presumptive negative 04/29/17 17:54 Urine Cocaine Screen Presumptive negative 04/29/17 17:54 U Marijuana (THC) Screen Presumptive negative 04/29/17 17:54 Drugs of Abuse Note Disclamer 04/29/17 17:54 Plasma/Serum Alcohol < 0.01 gm% (0-0.07) 04/29/17 17:16 Blood Type A POSITIVE 04/29/17 17:16 Antibody Screen TNR 04/29/17 17:16 OSWALD Antibody Screen Negative 04/29/17 17:16 elevated troponin
--- NOTE | 2017-05-02 08:15 | XRay Report ---
AP CHEST :05/02/17 CLINICAL: Respiratory distress. COMPARISON:04/29/17 FINDINGS: Stable cardiomegaly. Mild central vascular congestion. The lungs are underexpanded. Increased opacification in the right lung base with widening of the right pleural space. Silhouetting of the right hemidiaphragm and right heart border. The left lung base is relatively clear. Pacer leads in the heart. Median sternotomy wires and radiopaque objects overlying the spine and heart are unchanged. The bones and soft tissues are normal. IMPRESSION: Interval development of a right pleural effusion. Cardiomegaly but no CHF.
--- NOTE | 2017-05-02 08:22 | Progress Note ---
Assessment and Plan - Patient Problems (1) Sepsis Current Visit: Yes Status: Acute Qualifiers: Sepsis type: sepsis due to unspecified organism Qualified Code(s): A41.9 - Sepsis, unspecified organism Plan to address problem: 1. Prior confusion etc likely cardiogenic due to atrial fibrillation or seizure-like activity. No infectious source is evident. 2. Will discontinue broad antimicrobials, but keep empiric Rocephin given acute respiratory issues. Follow closely clinically. (2) Leg ulcer, left Current Visit: Yes Status: Acute Qualifiers: Non-pressure ulcer stage: unspecified non-pressure ulcer stage Qualified Code(s): L97.929 - Non-pressure chronic ulcer of unspecified part of left lower leg with unspecified severity Plan to address problem: No signs of infection. Continue local care. (3) Positive blood culture Current Visit: Yes Status: Acute Plan to address problem: No treatment is needed. Subjective Date of service: 05/02/17 Principal diagnosis: Positive Blood Culture Interval history: Patient remains afebrile, but paroxysmal atrial fibrillation with respiratory distress. Transferred this AM to ICU. 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, clean base, no drainage or signs of infection) - Gastrointestinal General gastrointestinal: Present: soft, non-distended, normal bowel sounds - Genitourinary Male genitourinary: normal (Gould with normal-appearing urine) - Integumentary Integumentary: no rash - Neurologic Neurologic: other (alert) - Labs CBC & Chem 7: 05/01/17 08:39 05/01/17 08:39 Labs: Abnormal lab results 05/01/17 05/01/17 05/01/17 Range/Units 08:39 08:39 11:27 RBC 3.61 L (3.65-5.03) M/mm3 Hgb 11.7 L (11.8-15.2) gm/dl Hct 34.4 L (35.5-45.6) % MCV 95 H (84-94) fl Plt Count 105 L (140-440) K/mm3 [place] % (Auto) 13.9 H (0.0-7.3) % [place] # 1.3 H (0.0-0.8) K/mm3 POC ABG pO2 (80-105) Sodium 135 L (137-145) mmol/L Chloride 97.8 L (98-107) mmol/L BUN 26 H (9-20) mg/dL Creatinine 1.7 H (0.8-1.5) mg/dL Glucose 72 L (75-100) mg/dL POC Glucose 108 H (70-105) Troponin T (0.00-0.029) ng/mL 05/01/17 05/02/17 Range/Units 15:13 07:15 RBC (3.65-5.03) M/mm3 Hgb (11.8-15.2) gm/dl Hct (35.5-45.6) % MCV (84-94) fl Plt Count (140-440) K/mm3 [place] % (Auto) (0.0-7.3) % [place] # (0.0-0.8) K/mm3 POC ABG pO2 63 L (80-105) Sodium (137-145) mmol/L Chloride (98-107) mmol/L BUN (9-20) mg/dL Creatinine (0.8-1.5) mg/dL Glucose (75-100) mg/dL POC Glucose (70-105) Troponin T 0.074 H (0.00-0.029) ng/mL Microbiology 04/29/17 18:17 Peripheral/Venous Blood Culture - Preliminary NO GROWTH AFTER 48 HOURS 04/29/17 18:17 Peripheral/Venous Blood Culture - Preliminary Coag Negative Staphylococcus - Imaging and cardiology Chest x-ray: report reviewed (interval development of right pleural effusion)
[2017-05-02] MEDS ORDERED: ATIVAN IV ONE (09:00)
[2017-05-02 09:34] LABS: Basophils % (Auto) 0.5 % (0.0-1.8); Eosinophils % (Auto) 0.2 % (0.0-4.3); Hematocrit 34.6 % (35.5-45.6); Hemoglobin 11.6 gm/dl (11.8-15.2); Mean Corpuscular HGB Conc 34 % (32-34); Mean Corpuscular Hemoglobin 32 pg (28-32); Mean Corpuscular Volume 95 fl (84-94); Platelet Count 178 K/mm3 (140-440); Red Blood Count 3.64 M/mm3 (3.65-5.03); Red Cell Distribution Width 14.6 % (13.2-15.2); White Blood Count 8.4 K/mm3 (4.5-11.0)
[2017-05-02 09:58] LABS: Albumin 2.4 g/dL (3.9-5); Albumin/Globulin Ratio 0.4 %; Bilirubin,Total 0.6 mg/dL (0.1-1.2); Calcium 8.2 mg/dL (8.4-10.2); Total Protein 8.5 g/dL (6.3-8.2)
[2017-05-02] MEDS: LOPRESSOR PO SCH (10:32)
[2017-05-02] MEDS: COLACE PO SCH ×2 (10:32→21:48)
[2017-05-02] MEDS: ROCEPHIN/NS 1 GM/50 ML 1 GM/50 ML BAG IV SCH (10:33)
[2017-05-02] MEDS: PROTONIX PO SCH (10:33)
--- NOTE | 2017-05-02 10:41 | Progress Note ---
Assessment and Plan Acute respiratory failure on bipap therapy Afib with RVR now in sinus rhythm Sepsis DC medtronic pacemaker implant Hx of coronary artery disease s/p CABG with an implantation of a bioprosthetic tricuspid valve in 2012 also at [facility] Mild Cardiomyopathy EF 40-45% on echo 2014 Prior history of DVT on low dose eliquis as an outpatient Prior CVA Hypertension Diabetes mellitus Acute renal failure Subjective Date of service: 05/02/17 Principal diagnosis: Positive Blood Culture Interval history: Cardizem drip never initiated. Currently sinus rhythm on telemetry. Patient is also on Bipap therapy. Objective Vital Signs Temp Pulse Pulse Pulse Resp Resp BP 05/02/17 08:03 94 H 27 H 132/77 05/02/17 08:00 99 F 05/02/17 06:15 91 H 22 05/02/17 06:00 89 24 05/02/17 04:10 99.1 F 64 22 05/02/17 00:25 98.6 F 82 20 05/01/17 22:00 115 H 20 05/01/17 20:24 05/01/17 17:46 99.1 F 82 20 05/01/17 11:10 91 H 105/61 BP Pulse Ox 05/02/17 08:03 96 05/02/17 08:00 05/02/17 06:15 05/02/17 06:00 05/02/17 04:10 121/82 91 05/02/17 00:25 125/69 96 05/01/17 22:00 96 05/01/17 20:24 99 05/01/17 17:46 121/82 05/01/17 11:10 - Physical Examination Cardiac: Positive: Reg Rate and Rhythm - Labs and Meds CBC 05/02/17 Range/Units 09:10 WBC 8.4 (4.5-11.0) K/mm3 RBC 3.64 L (3.65-5.03) M/mm3 Hgb 11.6 L (11.8-15.2) gm/dl Hct 34.6 L (35.5-45.6) % Plt Count 178 (140-440) K/mm3 Lymph # 0.9 L (1.2-5.4) K/mm3 [place] # 0.8 (0.0-0.8) K/mm3 Eos # 0.0 (0.0-0.4) K/mm3 Baso # 0.0 (0.0-0.1) K/mm3 Comprehensive Metabolic Panel 05/02/17 Range/Units 09:21 Sodium 135 L (137-145) mmol/L Chloride 98.0 (98-107) mmol/L Carbon Dioxide 25 (22-30) mmol/L BUN 27 H (9-20) mg/dL Creatinine 1.8 H (0.8-1.5) mg/dL Glucose 75 (75-100) mg/dL Calcium 8.2 L (8.4-10.2) mg/dL Total Protein 8.5 H (6.3-8.2) g/dL Albumin 2.4 L (3.9-5) g/dL
[2017-05-02] MEDS ORDERED: D50W (25GM) IV PRN ×2 (11:00→12:13)
[2017-05-02] MEDS: CARDIZEM/D5W 100MG/100ML 100 MG/100 ML BAG IV SCH ×2 (11:37→23:57)
--- NOTE | 2017-05-02 12:24 | Progress Note ---
Assessment and Plan 66 y/o male admitted with sepsis, etiology unknown, elevated BNP and concern for pleural effusion, now with new onset afib with RVR. 1. Started patient on IV dilt. Rate and BP improved. Follow up EKG is pending 2. Continue bipap therapy for now. Ordered repeat Blood gas. Had echo completed this am, will follow up on this. CXR this am shows: Does appear to have large right sided effusion now. Will monitor. 3. Make sure K and Mag are 4 and 2 respectively 4. Patient was on anticoagulation but stopped secondary to hemoptysis. This appears to have stopped. suggest restarting now with new onset Afib. Has history of PE in the past. 5. Will repeat BNP 6. Will stop narcotics given concern for mental status Subjective Date of service: 05/02/17 Principal diagnosis: Positive Blood Culture Interval history: Called by [facility] this am secondary to patient having seizure and becoming post- ictal. Worsening respiratory distress so asked to move to ICU which I agree with. Here more alert, follows commands. Dilt drip never started on yesterday. Was in sinus earlier this am but now in afib again. BP elevated. Currently on bipap. Never had V/Q scan done yesterday as well. Remainder of the review is negative. Objective Vital Signs - 12hr 05/02/17 05/02/17 05/02/17 00:25 04:10 06:00 Temperature 98.6 F 99.1 F Pulse Rate 82 64 Pulse Rate [ 89 Bilateral Throughout] Pulse Rate [ From Monitor] Respiratory 20 22 Rate Respiratory 24 Rate [Bilateral Throughout] Blood Pressure Blood Pressure 125/69 121/82 [Left] O2 Sat by Pulse 96 91 Oximetry 05/02/17 05/02/17 05/02/17 06:15 08:00 08:03 Temperature 99 F Pulse Rate 94 H Pulse Rate [ 91 H Bilateral Throughout] Pulse Rate [ 94 H From Monitor] Respiratory 16 27 H Rate Respiratory 22 Rate [Bilateral Throughout] Blood Pressure 132/77 Blood Pressure [Left] O2 Sat by Pulse 100 96 Oximetry 05/02/17 05/02/17 10:32 11:37 Temperature Pulse Rate 86 104 H Pulse Rate [ Bilateral Throughout] Pulse Rate [ From Monitor] Respiratory Rate Respiratory Rate [Bilateral Throughout] Blood Pressure 170/110 167/122 Blood Pressure [Left] O2 Sat by Pulse Oximetry Constitutional: no acute distress, alert, other (confused, agitated at times and appears angry) Ascultation: Bilateral: diminished breath sounds Percussion: Bilateral: not dull Cardiovascular: irregular rhythm Gastrointestinal: normoactive bowel sounds Extremities: edema (chronic lymphedema with chronic skin changes) Psychiatric: other (flat affect at times angry) CBC and BMP: 05/02/17 09:10 05/02/17 09:21 ABG, PT/INR, D-dimer: ABG POC ABG pH 7.381 (7.35-7.45) 05/02/17 07:15 POC ABG pCO2 43.8 (35-45) 05/02/17 07:15 POC ABG pO2 63 (80-105) L 05/02/17 07:15 POC ABG HCO3 26.0 05/02/17 07:15 POC ABG Total CO2 27 05/02/17 07:15 POC ABG O2 Sat 91 05/02/17 07:15 PT/INR, D-dimer PT 20.3 Sec. (12.2-14.9) H 04/30/17 22:33 INR 1.74 (0.87-1.13) H 04/30/17 22:33 Abnormal lab findings: Abnormal Labs 04/30/17 04/30/17 04/30/17 09:07 09:07 09:07 WBC 13.4 H RBC Hgb Hct MCV 96 H Plt Count 109 L Lymph % (Auto) 11.9 L [place] % (Auto) 11.7 H Lymph # [place] # 1.6 H Seg Neutrophils % 76.1 H Seg Neutrophils # 10.2 H PT INR APTT POC ABG pO2 Sodium Chloride BUN Creatinine Glucose POC Glucose Lactic Acid 3.30 H* Calcium Troponin T 0.075 H D Total Protein Albumin 04/30/17 04/30/17 04/30/17 12:55 15:41 21:16 WBC RBC Hgb Hct MCV Plt Count Lymph % (Auto) [place] % (Auto) Lymph # [place] # Seg Neutrophils % Seg Neutrophils # PT INR APTT POC ABG pO2 Sodium Chloride BUN Creatinine Glucose POC Glucose 129 H 114 H 135 H Lactic Acid Calcium Troponin T Total Protein Albumin 04/30/17 05/01/17 05/01/17 22:33 06:15 08:39 WBC RBC 3.61 L Hgb 11.7 L Hct 34.4 L MCV 95 H Plt Count 105 L Lymph % (Auto) [place] % (Auto) 13.9 H Lymph # [place] # 1.3 H Seg Neutrophils % Seg Neutrophils # PT 20.3 H INR 1.74 H APTT 39.0 H POC ABG pO2 Sodium Chloride BUN Creatinine Glucose POC Glucose 68 L Lactic Acid Calcium Troponin T Total Protein Albumin 05/01/17 05/01/17 05/01/17 08:39 11:27 15:13 WBC RBC Hgb Hct MCV Plt Count Lymph % (Auto) [place] % (Auto) Lymph # [place] # Seg Neutrophils % Seg Neutrophils # PT INR APTT POC ABG pO2 Sodium 135 L Chloride 97.8 L BUN 26 H Creatinine 1.7 H Glucose 72 L POC Glucose 108 H Lactic Acid Calcium Troponin T 0.074 H Total Protein Albumin 05/02/17 05/02/17 05/02/17 06:59 07:15 09:10 WBC RBC 3.64 L Hgb 11.6 L Hct 34.6 L MCV 95 H Plt Count Lymph % (Auto) 11.0 L [place] % (Auto) 10.1 H Lymph # 0.9 L [place] # Seg Neutrophils % 78.2 H Seg Neutrophils # PT INR APTT POC ABG pO2 63 L Sodium Chloride BUN Creatinine Glucose POC Glucose 106 H Lactic Acid Calcium Troponin T Total Protein Albumin 05/02/17 09:21 WBC RBC Hgb Hct MCV Plt Count Lymph % (Auto) [place] % (Auto) Lymph # [place] # Seg Neutrophils % Seg Neutrophils # PT INR APTT POC ABG pO2 Sodium 135 L Chloride BUN 27 H Creatinine 1.8 H Glucose POC Glucose Lactic Acid Calcium 8.2 L Troponin T 0.039 H D Total Protein 8.5 H Albumin 2.4 L
[2017-05-02 13:18] LABS: ISTAT Base Excess 3; ISTAT HCO3 27.6; ISTAT PH 7.386 (7.35-7.45); ISTAT PO2 255 (80-105); ISTAT SO2 100; ISTAT TCO2 29
[2017-05-02] MEDS ORDERED: CARDIZEM PO SCH (14:00)
[2017-05-02 14:03] LABS: Potassium 4.4 mmol/L (3.6-5.0)
[2017-05-02] MEDS: NOVOLOG SUB-Q SCH ×4 (14:10→22:01)
[2017-05-02] MEDS: TYLENOL PO PRN (21:48)
[2017-05-02] MEDS: HALDOL IM PRN (23:56)
[2017-05-03] MEDS ORDERED: SUBLIMAZE ONE (00:31)
[2017-05-03] MEDS ORDERED: VERSED ONE (00:31)
[2017-05-03] MEDS ORDERED: DIPRIVAN 10 MG/ML IV ONE ×2 (00:53→02:31)
[2017-05-03] MEDS ORDERED: ARTIFICIAL TEARS OPHTH OINT OU PRN (01:04)
[2017-05-03] MEDS ORDERED: VASELINE LIP THERAPY TP PRN (01:04)
--- NOTE | 2017-05-03 01:26 | Progress Note ---
Subjective Date of service: 05/03/17 Principal diagnosis: Positive Blood Culture Interval history: Called to intubate this gentleman who had impending respiratory failure with mid 80 SaO2 on bipap with Fio2 1.0. Pt has extensive history including hypertension, diabetes, ARF, AMS, CAD, cardiomyopathy, and prior CVA with hemiparesis. He was ventilated with ambu and given 150 mg propofol and 50 mg rocuronium. He was intubated with a mac 3 blade. The tube was secured by respiratory with BBS and pos ETCO2. A CXR was requested. Objective - Constitutional Vitals: Vital Signs - 12hr 05/02/17 05/02/17 05/02/17 13:21 13:31 13:41 Temperature Pulse Rate 78 83 75 Pulse Rate [ Apical] Pulse Rate [ Bilateral Throughout] Pulse Rate [ Right Dorsalis Pedis] Respiratory 22 22 23 Rate Respiratory Rate [Bilateral Throughout] Blood Pressure 123/87 123/87 123/87 O2 Sat by Pulse 93 91 95 Oximetry 05/02/17 05/02/17 05/02/17 13:51 14:00 14:11 Temperature Pulse Rate 75 77 76 Pulse Rate [ Apical] Pulse Rate [ Bilateral Throughout] Pulse Rate [ Right Dorsalis Pedis] Respiratory 22 16 24 Rate Respiratory Rate [Bilateral Throughout] Blood Pressure 123/87 126/88 126/88 O2 Sat by Pulse 91 85 89 Oximetry 05/02/17 05/02/17 05/02/17 14:21 14:31 14:41 Temperature Pulse Rate 76 75 75 Pulse Rate [ Apical] Pulse Rate [ Bilateral Throughout] Pulse Rate [ Right Dorsalis Pedis] Respiratory 24 19 22 Rate Respiratory Rate [Bilateral Throughout] Blood Pressure 126/88 126/88 126/88 O2 Sat by Pulse 89 94 92 Oximetry 05/02/17 05/02/17 05/02/17 14:51 15:00 15:11 Temperature Pulse Rate 75 75 76 Pulse Rate [ Apical] Pulse Rate [ Bilateral Throughout] Pulse Rate [ Right Dorsalis Pedis] Respiratory 24 17 24 Rate Respiratory Rate [Bilateral Throughout] Blood Pressure 126/88 134/82 134/82 O2 Sat by Pulse 95 94 96 Oximetry 05/02/17 05/02/17 05/02/17 15:21 15:31 15:41 Temperature Pulse Rate 75 77 78 Pulse Rate [ Apical] Pulse Rate [ Bilateral Throughout] Pulse Rate [ Right Dorsalis Pedis] Respiratory 28 H 25 H 24 Rate Respiratory Rate [Bilateral Throughout] Blood Pressure 134/82 134/82 134/82 O2 Sat by Pulse 96 90 95 Oximetry 05/02/17 05/02/17 05/02/17 15:51 16:00 16:11 Temperature 99.4 F Pulse Rate 76 76 77 Pulse Rate [ Apical] Pulse Rate [ Bilateral Throughout] Pulse Rate [ 80 Right Dorsalis Pedis] Respiratory 25 H 15 18 Rate Respiratory Rate [Bilateral Throughout] Blood Pressure 134/82 128/88 128/88 O2 Sat by Pulse 93 95 94 Oximetry 05/02/17 05/02/17 05/02/17 16:21 16:31 16:41 Temperature Pulse Rate 76 82 85 Pulse Rate [ Apical] Pulse Rate [ Bilateral Throughout] Pulse Rate [ Right Dorsalis Pedis] Respiratory 21 25 H 6 L Rate Respiratory Rate [Bilateral Throughout] Blood Pressure 128/88 128/88 128/88 O2 Sat by Pulse 96 92 92 Oximetry 05/02/17 05/02/17 05/02/17 16:51 17:00 17:11 Temperature Pulse Rate 82 84 84 Pulse Rate [ Apical] Pulse Rate [ Bilateral Throughout] Pulse Rate [ Right Dorsalis Pedis] Respiratory 23 21 25 H Rate Respiratory Rate [Bilateral Throughout] Blood Pressure 128/88 133/89 133/89 O2 Sat by Pulse 99 97 95 Oximetry 05/02/17 05/02/17 05/02/17 17:21 17:31 17:41 Temperature Pulse Rate 84 83 84 Pulse Rate [ Apical] Pulse Rate [ Bilateral Throughout] Pulse Rate [ Right Dorsalis Pedis] Respiratory 26 H 26 H 28 H Rate Respiratory Rate [Bilateral Throughout] Blood Pressure 133/89 133/89 133/89 O2 Sat by Pulse 92 88 88 Oximetry 05/02/17 05/02/17 05/02/17 17:51 18:00 18:11 Temperature Pulse Rate 84 85 85 Pulse Rate [ Apical] Pulse Rate [ Bilateral Throughout] Pulse Rate [ Right Dorsalis Pedis] Respiratory 29 H 31 H 30 H Rate Respiratory Rate [Bilateral Throughout] Blood Pressure 133/89 139/93 139/93 O2 Sat by Pulse 90 87 84 Oximetry 05/02/17 05/02/17 05/02/17 18:21 18:31 18:41 Temperature Pulse Rate 90 85 85 Pulse Rate [ Apical] Pulse Rate [ Bilateral Throughout] Pulse Rate [ Right Dorsalis Pedis] Respiratory 27 H 21 30 H Rate Respiratory Rate [Bilateral Throughout] Blood Pressure 139/93 139/93 139/93 O2 Sat by Pulse 82 L 100 99 Oximetry 05/02/17 05/02/17 05/02/17 18:51 19:00 19:11 Temperature Pulse Rate 84 83 88 Pulse Rate [ Apical] Pulse Rate [ Bilateral Throughout] Pulse Rate [ Right Dorsalis Pedis] Respiratory 20 22 32 H Rate Respiratory Rate [Bilateral Throughout] Blood Pressure 139/93 145/94 145/94 O2 Sat by Pulse 97 97 95 Oximetry 05/02/17 05/02/17 05/02/17 19:21 19:31 19:41 Temperature Pulse Rate 85 86 84 Pulse Rate [ Apical] Pulse Rate [ Bilateral Throughout] Pulse Rate [ Right Dorsalis Pedis] Respiratory 22 30 H 29 H Rate Respiratory Rate [Bilateral Throughout] Blood Pressure 145/94 145/94 145/94 O2 Sat by Pulse 96 95 91 Oximetry 05/02/17 05/02/17 05/02/17 19:51 20:00 20:11 Temperature 100.6 F H Pulse Rate 96 H 85 84 Pulse Rate [ Apical] Pulse Rate [ Bilateral Throughout] Pulse Rate [ Right Dorsalis Pedis] Respiratory 25 H 29 H 30 H Rate Respiratory Rate [Bilateral Throughout] Blood Pressure 145/94 147/93 147/93 O2 Sat by Pulse 71 L 88 Oximetry 05/02/17 05/02/17 05/02/17 20:21 20:31 20:33 Temperature Pulse Rate 91 H 89 89 Pulse Rate [ Apical] Pulse Rate [ Bilateral Throughout] Pulse Rate [ Right Dorsalis Pedis] Respiratory 35 H 32 H 36 H Rate Respiratory Rate [Bilateral Throughout] Blood Pressure 147/93 147/93 147/93 O2 Sat by Pulse 93 83 L 94 Oximetry 05/02/17 05/02/17 05/02/17 20:37 20:41 20:47 Temperature Pulse Rate 90 Pulse Rate [ Apical] Pulse Rate [ 88 85 Bilateral Throughout] Pulse Rate [ Right Dorsalis Pedis] Respiratory 33 H Rate Respiratory 30 H 33 H Rate [Bilateral Throughout] Blood Pressure 147/93 O2 Sat by Pulse Oximetry 05/02/17 05/02/17 05/02/17 20:51 21:00 21:11 Temperature Pulse Rate 86 90 94 H Pulse Rate [ Apical] Pulse Rate [ Bilateral Throughout] Pulse Rate [ Right Dorsalis Pedis] Respiratory 33 H 35 H 35 H Rate Respiratory Rate [Bilateral Throughout] Blood Pressure 147/93 144/100 144/100 O2 Sat by Pulse 83 L 96 Oximetry 05/02/17 05/02/17 05/02/17 21:20 21:31 21:41 Temperature Pulse Rate 91 H 86 85 Pulse Rate [ Apical] Pulse Rate [ Bilateral Throughout] Pulse Rate [ Right Dorsalis Pedis] Respiratory 31 H 30 H 34 H Rate Respiratory Rate [Bilateral Throughout] Blood Pressure 144/100 144/100 144/100 O2 Sat by Pulse 96 94 96 Oximetry 05/02/17 05/02/17 05/02/17 21:51 22:00 22:10 Temperature Pulse Rate 86 85 86 Pulse Rate [ Apical] Pulse Rate [ Bilateral Throughout] Pulse Rate [ Right Dorsalis Pedis] Respiratory 29 H 34 H 31 H Rate Respiratory Rate [Bilateral Throughout] Blood Pressure 144/100 136/91 136/91 O2 Sat by Pulse 93 95 94 Oximetry 05/02/17 05/02/17 05/02/17 22:21 22:31 22:41 Temperature Pulse Rate 86 86 86 Pulse Rate [ Apical] Pulse Rate [ Bilateral Throughout] Pulse Rate [ Right Dorsalis Pedis] Respiratory 35 H 32 H 33 H Rate Respiratory Rate [Bilateral Throughout] Blood Pressure 136/91 O2 Sat by Pulse 95 93 100 Oximetry 05/02/17 05/02/17 05/02/17 22:51 23:00 23:11 Temperature Pulse Rate 85 85 86 Pulse Rate [ Apical] Pulse Rate [ Bilateral Throughout] Pulse Rate [ Right Dorsalis Pedis] Respiratory 31 H 32 H 40 H Rate Respiratory Rate [Bilateral Throughout] Blood Pressure 136/91 144/90 144/90 O2 Sat by Pulse 97 97 93 Oximetry 05/02/17 05/02/17 05/02/17 23:19 23:21 23:31 Temperature Pulse Rate 86 86 104 H Pulse Rate [ Apical] Pulse Rate [ Bilateral Throughout] Pulse Rate [ Right Dorsalis Pedis] Respiratory 30 H 32 H 36 H Rate Respiratory Rate [Bilateral Throughout] Blood Pressure 144/90 144/90 144/90 O2 Sat by Pulse 89 87 77 L Oximetry 05/02/17 05/02/17 05/03/17 23:41 23:51 00:00 Temperature 99.8 F H Pulse Rate 121 H 97 H Pulse Rate [ 88 Apical] Pulse Rate [ Bilateral Throughout] Pulse Rate [ 80 Right Dorsalis Pedis] Respiratory 37 H 41 H 40 H Rate Respiratory Rate [Bilateral Throughout] Blood Pressure 144/90 144/90 O2 Sat by Pulse 82 L 84 80 L Oximetry 05/03/17 00:01 Temperature Pulse Rate 173 H Pulse Rate [ Apical] Pulse Rate [ Bilateral Throughout] Pulse Rate [ Right Dorsalis Pedis] Respiratory 50 H Rate Respiratory Rate [Bilateral Throughout] Blood Pressure 144/90 O2 Sat by Pulse 86 Oximetry - Labs CBC & Chem 7: 05/02/17 09:10 05/02/17 09:21 Labs: Abnormal lab results 05/02/17 05/02/17 05/02/17 Range/Units 06:59 07:15 09:10 RBC 3.64 L (3.65-5.03) M/mm3 Hgb 11.6 L (11.8-15.2) gm/dl Hct 34.6 L (35.5-45.6) % MCV 95 H (84-94) fl Lymph % (Auto) 11.0 L (13.4-35.0) % [place] % (Auto) 10.1 H (0.0-7.3) % Lymph # 0.9 L (1.2-5.4) K/mm3 Seg Neutrophils % 78.2 H (40.0-70.0) % POC ABG pCO2 (35-45) POC ABG pO2 63 L (80-105) Sodium (137-145) mmol/L BUN (9-20) mg/dL Creatinine (0.8-1.5) mg/dL POC Glucose 106 H (70-105) Calcium (8.4-10.2) mg/dL Troponin T (0.00-0.029) ng/mL Total Protein (6.3-8.2) g/dL Albumin (3.9-5) g/dL 05/02/17 05/02/17 Range/Units 09:21 13:04 RBC (3.65-5.03) M/mm3 Hgb (11.8-15.2) gm/dl Hct (35.5-45.6) % MCV (84-94) fl Lymph % (Auto) (13.4-35.0) % [place] % (Auto) (0.0-7.3) % Lymph # (1.2-5.4) K/mm3 Seg Neutrophils % (40.0-70.0) % POC ABG pCO2 46.0 H (35-45) POC ABG pO2 255 H (80-105) Sodium 135 L (137-145) mmol/L BUN 27 H (9-20) mg/dL Creatinine 1.8 H (0.8-1.5) mg/dL POC Glucose (70-105) Calcium 8.2 L (8.4-10.2) mg/dL Troponin T 0.039 H D (0.00-0.029) ng/mL Total Protein 8.5 H (6.3-8.2) g/dL Albumin 2.4 L (3.9-5) g/dL
[2017-05-03] MEDS ORDERED: ATIVAN 100 MG in NACL 0.9% 50 ML, VIAFLEX EMPTY CONTAINER 0 ML IV SCH (02:00)
[2017-05-03] MEDS ORDERED: NACL 0.9% 500 ML IV SCH (02:00)
[2017-05-03] MEDS ORDERED: fentaNYL DRIP Premix 2,000 MCG/100 ML BAG IV SCH (02:00)
[2017-05-03 02:05] LABS: ISTAT Base Excess -3; ISTAT HCO3 22.4; ISTAT PH 7.366 (7.35-7.45); ISTAT PO2 40 (80-105); ISTAT SO2 74; ISTAT TCO2 24
[2017-05-03 02:05] LABS: ISTAT Base Excess 0; ISTAT HCO3 25.2; ISTAT PCO2 44.7 (35-45); ISTAT PH 7.359 (7.35-7.45); ISTAT PO2 71 (80-105); ISTAT SO2 93; ISTAT TCO2 27
--- NOTE | 2017-05-03 02:17 | XRay Report ---
FINAL REPORT EXAM: XR CHEST 1V AP HISTORY: ETT placement COMPARISON: None available. FINDINGS: Frontal view(s) of the chest obtained. Distal tip of the ET tube approximately 5 centimeters from the bandar in satisfactory position. NG tube is present. Probable small hiatal hernia with distal tip of the NG tube projects over the proximal stomach complete opacification right roel thorax concerning for large effusion. Patchy consolidation left lung base and small effusion are present on the left. Left-sided cardiac pacer is present. IMPRESSION: ET tube in satisfactory position. Complete opacification right hemithorax concerning for large effusion consolidation. Smaller patchy consolidation effusion at the left lung base.
--- NOTE | 2017-05-03 02:18 | XRay Report ---
FINAL REPORT EXAM: XR ABDOMEN 1V AP HISTORY: feeding tube placement COMPARISON: Chest x-ray from the same date. FINDINGS: AP view of the upper abdomen obtained. Distal tip of the NG tube projects over the proximal stomach. Partial visualization of opacified right roel thorax consolidation effusion at the left lung base. IMPRESSION: Distal tip of the NG tube projects over the proximal stomach.
[2017-05-03] MEDS ORDERED: SUBLIMAZE IV ONE (02:28)
[2017-05-03] MEDS ORDERED: VERSED IV ONE (02:28)
[2017-05-03] MEDS ORDERED: NACL 0.9% 1000 ML 1,000 ML IV ONE (02:28)
[2017-05-03] MEDS: NOVOLOG SUB-Q SCH ×7 (02:54→22:01)
[2017-05-03] MEDS: CARDIZEM/D5W 100MG/100ML 100 MG/100 ML BAG IV SCH (03:45)
--- NOTE | 2017-05-03 07:04 | Progress Note ---
Assessment and Plan Acute respiratory failure S/P intubation yesterday Afib with RVR now in sinus rhythm off cardizem Sepsis DC medtronic pacemaker implant Hx of coronary artery disease s/p CABG with an implantation of a bioprosthetic tricuspid valve in 2012 also at [facility] Mild Cardiomyopathy EF 40-45% on echo 2014 Prior history of DVT on low dose eliquis as an outpatient Prior CVA Hypertension Diabetes mellitus Acute renal failure Continue same Will need to assess for anticoagulation Patient currently off heparin Subjective Date of service: 05/03/17 Principal diagnosis: Positive Blood Culture Interval history: had to be intubated due to respiratory distress Objective Vital Signs Temp Pulse Pulse Pulse Pulse Pulse Pulse 05/03/17 06:00 85 05/03/17 05:45 85 05/03/17 05:30 84 05/03/17 05:15 86 05/03/17 05:00 85 05/03/17 04:45 85 05/03/17 04:36 85 05/03/17 04:30 86 05/03/17 04:15 85 05/03/17 04:00 98.4 F 85 89 05/03/17 03:45 85 05/03/17 03:30 85 05/03/17 03:15 83 05/03/17 03:10 88 05/03/17 03:05 84 05/03/17 03:00 84 05/03/17 02:55 83 05/03/17 02:50 85 05/03/17 02:45 85 05/03/17 02:40 88 05/03/17 02:35 101 H 05/03/17 02:30 98 H 05/03/17 02:25 95 H 05/03/17 02:20 97 H 05/03/17 02:15 92 H 05/03/17 02:11 92 H 05/03/17 02:05 91 H 05/03/17 02:01 89 05/03/17 01:55 96 H 05/03/17 01:51 88 05/03/17 01:45 95 H 05/03/17 01:40 98 H 05/03/17 01:35 96 H 05/03/17 01:31 96 H 05/03/17 01:20 84 05/03/17 01:10 86 05/03/17 01:00 87 05/03/17 00:51 167 H 05/03/17 00:46 143 H 05/03/17 00:41 101 H 05/03/17 00:31 102 H 05/03/17 00:21 86 05/03/17 00:11 115 H 05/03/17 00:01 173 H 05/03/17 00:00 99.8 F H 88 80 05/02/17 23:51 97 H 05/02/17 23:41 121 H 05/02/17 23:31 104 H 05/02/17 23:21 86 05/02/17 23:19 86 05/02/17 23:11 86 05/02/17 23:00 85 05/02/17 22:51 85 05/02/17 22:41 86 05/02/17 22:31 86 05/02/17 22:21 86 05/02/17 22:10 86 05/02/17 22:00 85 05/02/17 21:51 86 05/02/17 21:41 85 05/02/17 21:31 86 05/02/17 21:20 91 H 05/02/17 21:11 94 H 05/02/17 21:00 90 05/02/17 20:51 86 05/02/17 20:47 85 05/02/17 20:41 90 05/02/17 20:37 88 05/02/17 20:33 89 05/02/17 20:31 89 05/02/17 20:21 91 H 05/02/17 20:11 84 05/02/17 20:00 100.6 F H 85 05/02/17 19:51 96 H 05/02/17 19:41 84 05/02/17 19:31 86 05/02/17 19:21 85 05/02/17 19:11 88 05/02/17 19:00 83 05/02/17 18:51 84 05/02/17 18:41 85 05/02/17 18:31 85 05/02/17 18:21 90 05/02/17 18:11 85 05/02/17 18:00 85 05/02/17 17:51 84 05/02/17 17:41 84 05/02/17 17:31 83 05/02/17 17:21 84 05/02/17 17:11 84 05/02/17 17:00 84 05/02/17 16:51 82 05/02/17 16:41 85 05/02/17 16:31 82 05/02/17 16:21 76 05/02/17 16:11 77 05/02/17 16:00 99.4 F 76 80 05/02/17 15:51 76 05/02/17 15:41 78 05/02/17 15:31 77 05/02/17 15:21 75 05/02/17 15:11 76 05/02/17 15:00 75 05/02/17 14:51 75 05/02/17 14:41 75 05/02/17 14:31 75 05/02/17 14:21 76 05/02/17 14:11 76 05/02/17 14:00 77 05/02/17 13:51 75 05/02/17 13:41 75 05/02/17 13:31 83 05/02/17 13:21 78 05/02/17 13:11 76 05/02/17 13:05 82 05/02/17 13:00 75 05/02/17 12:50 05/02/17 12:30 97 H 05/02/17 12:00 99.3 F 75 93 H 05/02/17 11:37 104 H 05/02/17 11:31 05/02/17 11:30 101 H 05/02/17 11:00 103 H 05/02/17 10:32 86 05/02/17 10:30 90 05/02/17 10:00 92 H 05/02/17 09:30 93 H 05/02/17 09:00 94 H 05/02/17 08:30 86 05/02/17 08:15 112 H 05/02/17 08:03 94 H 05/02/17 08:00 99 F 94 H 90 05/02/17 07:45 99 F 104 H Resp Resp BP Pulse Ox 05/03/17 06:00 22 123/97 100 05/03/17 05:45 28 H 124/92 100 05/03/17 05:30 20 120/85 100 05/03/17 05:15 18 70/43 100 05/03/17 05:00 18 80/53 100 05/03/17 04:45 18 87/65 100 05/03/17 04:36 129/89 100 05/03/17 04:30 18 87/65 94 05/03/17 04:15 18 129/89 100 05/03/17 04:00 22 129/89 100 05/03/17 03:45 19 115/85 100 05/03/17 03:30 21 133/92 100 05/03/17 03:15 22 128/86 100 05/03/17 03:10 21 129/87 100 05/03/17 03:05 21 140/89 100 05/03/17 03:00 22 130/86 100 05/03/17 02:55 23 130/90 05/03/17 02:50 30 H 127/91 05/03/17 02:45 20 123/84 05/03/17 02:40 26 H 133/84 96 05/03/17 02:35 28 H 137/109 99 05/03/17 02:30 12 137/109 98 05/03/17 02:25 37 H 144/99 98 05/03/17 02:20 34 H 144/99 99 05/03/17 02:15 32 H 141/99 98 05/03/17 02:11 14 160/104 87 05/03/17 02:05 17 159/107 93 05/03/17 02:01 13 159/107 95 05/03/17 01:55 24 172/94 93 05/03/17 01:51 28 H 164/97 88 05/03/17 01:45 23 157/98 91 05/03/17 01:40 18 159/102 83 L 05/03/17 01:35 19 144/97 90 05/03/17 01:31 16 144/97 91 05/03/17 01:20 18 81/54 05/03/17 01:10 18 81/57 94 05/03/17 01:00 22 66/39 95 05/03/17 00:51 40 H 127/91 80 L 05/03/17 00:46 58/36 88 05/03/17 00:41 48 H 127/91 92 05/03/17 00:31 36 H 127/91 97 05/03/17 00:21 35 H 139/81 91 05/03/17 00:11 44 H 139/81 76 L 05/03/17 00:01 50 H 144/90 86 05/03/17 00:00 40 H 80 L 05/02/17 23:51 41 H 144/90 84 05/02/17 23:41 37 H 144/90 82 L 05/02/17 23:31 36 H 144/90 77 L 05/02/17 23:21 32 H 144/90 87 05/02/17 23:19 30 H 144/90 89 05/02/17 23:11 40 H 144/90 93 05/02/17 23:00 32 H 144/90 97 05/02/17 22:51 31 H 136/91 97 05/02/17 22:41 33 H 136/91 100 05/02/17 22:31 32 H 93 05/02/17 22:21 35 H 95 05/02/17 22:10 31 H 136/91 94 05/02/17 22:00 34 H 136/91 95 05/02/17 21:51 29 H 144/100 93 05/02/17 21:41 34 H 144/100 96 05/02/17 21:31 30 H 144/100 94 05/02/17 21:20 31 H 144/100 96 05/02/17 21:11 35 H 144/100 96 05/02/17 21:00 35 H 144/100 83 L 05/02/17 20:51 33 H 147/93 05/02/17 20:47 33 H 05/02/17 20:41 33 H 147/93 05/02/17 20:37 30 H 05/02/17 20:33 36 H 147/93 94 05/02/17 20:31 32 H 147/93 83 L 05/02/17 20:21 35 H 147/93 93 05/02/17 20:11 30 H 147/93 88 05/02/17 20:00 29 H 147/93 71 L 05/02/17 19:51 25 H 145/94 05/02/17 19:41 29 H 145/94 91 05/02/17 19:31 30 H 145/94 95 05/02/17 19:21 22 145/94 96 05/02/17 19:11 32 H 145/94 95 05/02/17 19:00 22 145/94 97 05/02/17 18:51 20 139/93 97 05/02/17 18:41 30 H 139/93 99 06/22/17 18:31 21 139/93 100 06/22/17 18:21 27 H 139/93 82 L 05/02/17 18:11 30 H 139/93 84 05/02/17 18:00 31 H 139/93 87 05/02/17 17:51 29 H 133/89 90 05/02/17 17:41 28 H 133/89 88 05/02/17 17:31 26 H 133/89 88 05/02/17 17:21 26 H 133/89 92 05/02/17 17:11 25 H 133/89 95 05/02/17 17:00 21 133/89 97 05/02/17 16:51 23 128/88 99 05/02/17 16:41 6 L 128/88 92 05/02/17 16:31 25 H 128/88 92 05/02/17 16:21 21 128/88 96 05/02/17 16:11 18 128/88 94 05/02/17 16:00 15 128/88 95 05/02/17 15:51 25 H 134/82 93 05/02/17 15:41 24 134/82 95 05/02/17 15:31 25 H 134/82 90 05/02/17 15:21 28 H 134/82 96 05/02/17 15:11 24 134/82 96 05/02/17 15:00 17 134/82 94 05/02/17 14:51 24 126/88 95 05/02/17 14:41 22 126/88 92 05/02/17 14:31 19 126/88 94 05/02/17 14:21 24 126/88 89 05/02/17 14:11 24 126/88 89 05/02/17 14:00 16 126/88 85 05/02/17 13:51 22 123/87 91 05/02/17 13:41 23 123/87 95 05/02/17 13:31 22 123/87 91 05/02/17 13:21 22 123/87 93 05/02/17 13:11 14 123/87 95 05/02/17 13:05 22 123/87 100 05/02/17 13:00 20 123/87 100 05/02/17 12:50 21 05/02/17 12:30 14 142/91 100 05/02/17 12:00 18 146/94 100 05/02/17 11:37 167/122 05/02/17 11:31 18 05/02/17 11:30 25 H 144/93 99 05/02/17 11:00 25 H 151/95 98 05/02/17 10:32 170/110 05/02/17 10:30 16 179/114 98 05/02/17 10:00 27 H 142/98 99 05/02/17 09:30 12 146/98 97 05/02/17 09:00 23 155/101 99 05/02/17 08:30 18 145/100 98 05/02/17 08:15 24 112/89 94 05/02/17 08:03 27 H 132/77 96 05/02/17 08:00 18 132/77 94 05/02/17 07:45 136/96 100 - Physical Examination Narrative exam: Intubated in no acute distress HEENT: Positive: PERRL, Normocephaly Neck: Positive: trachea midline Cardiac: Positive: Regular Rate, Irregularly Regular Lungs: Positive: clear to auscultation, Other (Patient sedated) Abdomen: Positive: Unremarkable - Labs and Meds Cardiac Enzymes 05/02/17 Range/Units 09:21 AST 22 (5-40) units/L CBC 05/02/17 Range/Units 09:10 WBC 8.4 (4.5-11.0) K/mm3 RBC 3.64 L (3.65-5.03) M/mm3 Hgb 11.6 L (11.8-15.2) gm/dl Hct 34.6 L (35.5-45.6) % Plt Count 178 (140-440) K/mm3 Lymph # 0.9 L (1.2-5.4) K/mm3 [place] # 0.8 (0.0-0.8) K/mm3 Eos # 0.0 (0.0-0.4) K/mm3 Baso # 0.0 (0.0-0.1) K/mm3 Comprehensive Metabolic Panel 05/02/17 Range/Units 09:21 Sodium 135 L (137-145) mmol/L Potassium 4.4 (3.6-5.0) mmol/L Chloride 98.0 (98-107) mmol/L Carbon Dioxide 25 (22-30) mmol/L BUN 27 H (9-20) mg/dL Creatinine 1.8 H (0.8-1.5) mg/dL Glucose 75 (75-100) mg/dL Calcium 8.2 L (8.4-10.2) mg/dL AST 22 (5-40) units/L ALT 10 (7-56) units/L Alkaline Phosphatase 82 (35-129) units/L Total Protein 8.5 H (6.3-8.2) g/dL Albumin 2.4 L (3.9-5) g/dL
[2017-05-03 07:05] LABS: ISTAT Base Excess 4; ISTAT PCO2 43.5 (35-45); ISTAT PH 7.417 (7.35-7.45); ISTAT PO2 223 (80-105); ISTAT SO2 100; ISTAT TCO2 29
[2017-05-03 07:55] LABS: Basophils % (Auto) 0.4 % (0.0-1.8); Eosinophils % (Auto) 0.1 % (0.0-4.3); Hematocrit 37.2 % (35.5-45.6); Hemoglobin 12.2 gm/dl (11.8-15.2); Mean Corpuscular HGB Conc 33 % (32-34); Mean Corpuscular Hemoglobin 31 pg (28-32); Mean Corpuscular Volume 95 fl (84-94); Platelet Count 115 K/mm3 (140-440); Red Cell Distribution Width 14.5 % (13.2-15.2)
[2017-05-03] MEDS: PULMICORT IH SCH ×2 (08:00→19:35)
[2017-05-03] MEDS: BROVANA NEBU IH SCH ×2 (08:01→19:35)
[2017-05-03 08:09] LABS: Calcium 8.4 mg/dL (8.4-10.2); Chloride 99.5 mmol/L (98-107); Potassium 4.9 mmol/L (3.6-5.0)
[2017-05-03] MEDS ORDERED: PANCREAZE DR 10,500 UNIT FEEDTUBE PRN (08:25)
[2017-05-03] MEDS ORDERED: SODIUM BICARBONATE FEEDTUBE PRN (08:25)
[2017-05-03] MEDS ORDERED: SIMPLE SYRUP FEEDTUBE PRN ×2 (08:25)
--- NOTE | 2017-05-03 09:37 | Progress Note ---
Assessment and Plan - Patient Problems (1) Sepsis Current Visit: Yes Status: Acute Qualifiers: Sepsis type: sepsis due to unspecified organism Qualified Code(s): A41.9 - Sepsis, unspecified organism Plan to address problem: No present issues. Tracheal aspirate with no significant findings. Okay to continue empiric Rocephin pending resolution of large pleural effusion. (2) Leg ulcer, left Current Visit: Yes Status: Acute Qualifiers: Non-pressure ulcer stage: unspecified non-pressure ulcer stage Qualified Code(s): L97.929 - Non-pressure chronic ulcer of unspecified part of left lower leg with unspecified severity Plan to address problem: Chronic. Stable without current signs of infection. Subjective Date of service: 05/03/17 Principal diagnosis: Positive Blood Culture Interval history: Mr. Kaur remains intubated in ICU. Low-grade temp yesterday. Objective - Constitutional Vitals: Vital Signs Temp Pulse Resp BP Pulse Ox 98.6 F 85 18 123/87 100 05/03/17 07:50 05/03/17 09:00 05/03/17 09:00 05/03/17 09:00 05/03/17 09:00 Temperature -Last 24 Hours Temperature 98.6 F Temperature 98.4 F Temperature 99.8 F Temperature 100.6 F Temperature 99.4 F Temperature 99.4 F Temperature 99.3 F General appearance: Present: other (intubated, sedated, Fi O2 60%) - Respiratory Respiratory: bilateral: CTA, negative: rhonchi - Cardiovascular Rhythm: regular (paced rhythm) Extremity abnormal: edema (unchanged chronic ichthyosis, clean left leg wound) - Gastrointestinal General gastrointestinal: Present: soft, non-distended, normal bowel sounds - Integumentary Integumentary: no rash - Neurologic Neurologic: other (sedated) - Labs CBC & Chem 7: 05/03/17 07:32 05/03/17 07:32 Labs: Abnormal lab results 05/02/17 05/02/17 05/02/17 Range/Units 06:59 09:21 13:04 MCV (84-94) fl Plt Count (140-440) K/mm3 Lymph % (Auto) (13.4-35.0) % [place] % (Auto) (0.0-7.3) % Lymph # (1.2-5.4) K/mm3 [place] # (0.0-0.8) K/mm3 Seg Neutrophils % (40.0-70.0) % POC ABG pCO2 46.0 H (35-45) POC ABG pO2 255 H (80-105) Sodium 135 L (137-145) mmol/L BUN 27 H (9-20) mg/dL Creatinine 1.8 H (0.8-1.5) mg/dL Glucose (75-100) mg/dL POC Glucose 106 H (70-105) Calcium 8.2 L (8.4-10.2) mg/dL Troponin T 0.039 H D (0.00-0.029) ng/mL Total Protein 8.5 H (6.3-8.2) g/dL Albumin 2.4 L (3.9-5) g/dL 05/03/17 05/03/17 05/03/17 Range/Units 00:15 01:56 02:05 MCV (84-94) fl Plt Count (140-440) K/mm3 Lymph % (Auto) (13.4-35.0) % [place] % (Auto) (0.0-7.3) % Lymph # (1.2-5.4) K/mm3 [place] # (0.0-0.8) K/mm3 Seg Neutrophils % (40.0-70.0) % POC ABG pCO2 (35-45) POC ABG pO2 40 L 71 L (80-105) Sodium (137-145) mmol/L BUN (9-20) mg/dL Creatinine (0.8-1.5) mg/dL Glucose (75-100) mg/dL POC Glucose 139 H (70-105) Calcium (8.4-10.2) mg/dL Troponin T (0.00-0.029) ng/mL Total Protein (6.3-8.2) g/dL Albumin (3.9-5) g/dL 05/03/17 05/03/17 05/03/17 Range/Units 06:19 06:40 07:32 MCV 95 H (84-94) fl Plt Count 115 L (140-440) K/mm3 Lymph % (Auto) 9.8 L (13.4-35.0) % [place] % (Auto) 14.7 H (0.0-7.3) % Lymph # 1.0 L (1.2-5.4) K/mm3 [place] # 1.5 H (0.0-0.8) K/mm3 Seg Neutrophils % 75.0 H (40.0-70.0) % POC ABG pCO2 (35-45) POC ABG pO2 223 H (80-105) Sodium (137-145) mmol/L BUN (9-20) mg/dL Creatinine (0.8-1.5) mg/dL Glucose (75-100) mg/dL POC Glucose 135 H (70-105) Calcium (8.4-10.2) mg/dL Troponin T (0.00-0.029) ng/mL Total Protein (6.3-8.2) g/dL Albumin (3.9-5) g/dL 05/03/17 Range/Units 07:32 MCV (84-94) fl Plt Count (140-440) K/mm3 Lymph % (Auto) (13.4-35.0) % [place] % (Auto) (0.0-7.3) % Lymph # (1.2-5.4) K/mm3 [place] # (0.0-0.8) K/mm3 Seg Neutrophils % (40.0-70.0) % POC ABG pCO2 (35-45) POC ABG pO2 (80-105) Sodium 135 L (137-145) mmol/L BUN 24 H (9-20) mg/dL Creatinine (0.8-1.5) mg/dL Glucose 127 H (75-100) mg/dL POC Glucose (70-105) Calcium (8.4-10.2) mg/dL Troponin T (0.00-0.029) ng/mL Total Protein (6.3-8.2) g/dL Albumin (3.9-5) g/dL Microbiology 05/03/17 Unknown Sputum - Endotracheal Wash Sputum Culture - Preliminary 04/29/17 18:17 Peripheral/Venous Blood Culture - Preliminary NO GROWTH AFTER 72 HOURS 04/29/17 18:17 Peripheral/Venous Blood Culture - Preliminary Coag Negative Staphylococcus
[2017-05-03] MEDS: COLACE PO SCH ×2 (10:23→22:07)
[2017-05-03] MEDS: ROCEPHIN/NS 1 GM/50 ML 1 GM/50 ML BAG IV SCH (10:24)
[2017-05-03] MEDS: PROTONIX PO SCH (10:25)
[2017-05-03] MEDS ORDERED: ATIVAN IV PRN (11:09)
[2017-05-03] MEDS ORDERED: SUBLIMAZE IV PRN (11:09)
[2017-05-03] MEDS ORDERED: XYLOCAINE 2% INFILTRATI ONE (11:37)
[2017-05-03] MEDS ORDERED: NACL 0.9% 1,000 ML IR ONE (11:38)
--- NOTE | 2017-05-03 12:16 | Progress Note ---
Assessment and Plan 66 y/o male admitted with sepsis, etiology unknown, elevated BNP and concern for pleural effusion, now with new onset afib with RVR. 1. needs bronch, concern that respiratory failure was secondary to mucous plugging. Will check repeat film, may need to have bronch with therapeutic scope. 2. Continue vent support at current settings. Oxygenation is better this am. 3. Make sure K and Mag are 4 and 2 respectively 4. Will restart heparin drip, no bolus. 5. Will repeat BNP 6. Will attempt PRN pushes for sedation. CCT 31 minutes. Subjective Date of service: 05/03/17 Principal diagnosis: Positive Blood Culture Interval history: Patient required intubation on last evening. Done by anesthesia. Sedated on Fent and Ativan this morning. CXR shows large mucous plug on the right Objective Vital Signs - 12hr 05/03/17 05/03/17 05/03/17 00:21 00:31 00:41 Temperature Pulse Rate 86 102 H 101 H Pulse Rate [ Apical] Pulse Rate [ Bilateral Throughout] Respiratory 35 H 36 H 48 H Rate Respiratory Rate [Bilateral Hand] Respiratory Rate [Bilateral Throughout] Blood Pressure 139/81 127/91 127/91 O2 Sat by Pulse 91 97 92 Oximetry 05/03/17 05/03/17 05/03/17 00:46 00:51 01:00 Temperature Pulse Rate 143 H 167 H 87 Pulse Rate [ Apical] Pulse Rate [ Bilateral Throughout] Respiratory 40 H 22 Rate Respiratory Rate [Bilateral Hand] Respiratory Rate [Bilateral Throughout] Blood Pressure 58/36 127/91 66/39 O2 Sat by Pulse 88 80 L 95 Oximetry 05/03/17 05/03/17 05/03/17 01:10 01:20 01:31 Temperature Pulse Rate 86 84 96 H Pulse Rate [ Apical] Pulse Rate [ Bilateral Throughout] Respiratory 18 18 16 Rate Respiratory Rate [Bilateral Hand] Respiratory Rate [Bilateral Throughout] Blood Pressure 81/57 81/54 144/97 O2 Sat by Pulse 94 91 Oximetry 05/03/17 05/03/17 05/03/17 01:35 01:40 01:45 Temperature Pulse Rate 96 H 98 H 95 H Pulse Rate [ Apical] Pulse Rate [ Bilateral Throughout] Respiratory 19 18 23 Rate Respiratory Rate [Bilateral Hand] Respiratory Rate [Bilateral Throughout] Blood Pressure 144/97 159/102 157/98 O2 Sat by Pulse 90 83 L 91 Oximetry 05/03/17 05/03/17 05/03/17 01:51 01:55 02:01 Temperature Pulse Rate 88 96 H 89 Pulse Rate [ Apical] Pulse Rate [ Bilateral Throughout] Respiratory 28 H 24 13 Rate Respiratory Rate [Bilateral Hand] Respiratory Rate [Bilateral Throughout] Blood Pressure 164/97 172/94 159/107 O2 Sat by Pulse 88 93 95 Oximetry 05/03/17 05/03/17 05/03/17 02:05 02:11 02:15 Temperature Pulse Rate 91 H 92 H 92 H Pulse Rate [ Apical] Pulse Rate [ Bilateral Throughout] Respiratory 17 14 32 H Rate Respiratory Rate [Bilateral Hand] Respiratory Rate [Bilateral Throughout] Blood Pressure 159/107 160/104 141/99 O2 Sat by Pulse 93 87 98 Oximetry 05/03/17 05/03/17 05/03/17 02:20 02:25 02:30 Temperature Pulse Rate 97 H 95 H 98 H Pulse Rate [ Apical] Pulse Rate [ Bilateral Throughout] Respiratory 34 H 37 H 12 Rate Respiratory Rate [Bilateral Hand] Respiratory Rate [Bilateral Throughout] Blood Pressure 144/99 144/99 137/109 O2 Sat by Pulse 99 98 98 Oximetry 05/03/17 05/03/17 05/03/17 02:35 02:40 02:45 Temperature Pulse Rate 101 H 88 85 Pulse Rate [ Apical] Pulse Rate [ Bilateral Throughout] Respiratory 28 H 26 H 20 Rate Respiratory Rate [Bilateral Hand] Respiratory Rate [Bilateral Throughout] Blood Pressure 137/109 133/84 123/84 O2 Sat by Pulse 99 96 Oximetry 05/03/17 05/03/17 05/03/17 02:50 02:55 03:00 Temperature Pulse Rate 85 83 84 Pulse Rate [ Apical] Pulse Rate [ Bilateral Throughout] Respiratory 30 H 23 22 Rate Respiratory Rate [Bilateral Hand] Respiratory Rate [Bilateral Throughout] Blood Pressure 127/91 130/90 130/86 O2 Sat by Pulse 100 Oximetry 05/03/17 05/03/17 05/03/17 03:05 03:10 03:15 Temperature Pulse Rate 84 88 83 Pulse Rate [ Apical] Pulse Rate [ Bilateral Throughout] Respiratory 21 21 22 Rate Respiratory Rate [Bilateral Hand] Respiratory Rate [Bilateral Throughout] Blood Pressure 140/89 129/87 128/86 O2 Sat by Pulse 100 100 100 Oximetry 05/03/17 05/03/17 05/03/17 03:30 03:45 04:00 Temperature 98.4 F Pulse Rate 85 85 85 Pulse Rate [ 89 Apical] Pulse Rate [ Bilateral Throughout] Respiratory 21 19 22 Rate Respiratory Rate [Bilateral Hand] Respiratory Rate [Bilateral Throughout] Blood Pressure 133/92 115/85 129/89 O2 Sat by Pulse 100 100 100 Oximetry 05/03/17 05/03/17 05/03/17 04:15 04:30 04:36 Temperature Pulse Rate 85 86 85 Pulse Rate [ Apical] Pulse Rate [ Bilateral Throughout] Respiratory 18 18 Rate Respiratory Rate [Bilateral Hand] Respiratory Rate [Bilateral Throughout] Blood Pressure 129/89 87/65 129/89 O2 Sat by Pulse 100 94 100 Oximetry 05/03/17 05/03/17 05/03/17 04:45 05:00 05:15 Temperature Pulse Rate 85 85 86 Pulse Rate [ Apical] Pulse Rate [ Bilateral Throughout] Respiratory 18 18 18 Rate Respiratory Rate [Bilateral Hand] Respiratory Rate [Bilateral Throughout] Blood Pressure 87/65 80/53 70/43 O2 Sat by Pulse 100 100 100 Oximetry 05/03/17 05/03/17 05/03/17 05:30 05:45 06:00 Temperature Pulse Rate 84 85 85 Pulse Rate [ Apical] Pulse Rate [ Bilateral Throughout] Respiratory 20 28 H 22 Rate Respiratory Rate [Bilateral Hand] Respiratory Rate [Bilateral Throughout] Blood Pressure 120/85 124/92 123/97 O2 Sat by Pulse 100 100 100 Oximetry 05/03/17 05/03/17 05/03/17 06:15 06:30 06:45 Temperature Pulse Rate 85 85 85 Pulse Rate [ Apical] Pulse Rate [ Bilateral Throughout] Respiratory 22 21 18 Rate Respiratory Rate [Bilateral Hand] Respiratory Rate [Bilateral Throughout] Blood Pressure 129/82 129/93 129/93 O2 Sat by Pulse 100 100 100 Oximetry 05/03/17 05/03/17 05/03/17 07:00 07:15 07:30 Temperature Pulse Rate 85 85 84 Pulse Rate [ Apical] Pulse Rate [ Bilateral Throughout] Respiratory 20 19 16 Rate Respiratory Rate [Bilateral Hand] Respiratory Rate [Bilateral Throughout] Blood Pressure 96/72 107/72 119/83 O2 Sat by Pulse 100 100 100 Oximetry 05/03/17 05/03/17 05/03/17 07:45 07:50 07:55 Temperature 98.6 F Pulse Rate 85 85 Pulse Rate [ Apical] Pulse Rate [ Bilateral Throughout] Respiratory 18 Rate Respiratory Rate [Bilateral Hand] Respiratory Rate [Bilateral Throughout] Blood Pressure 103/71 103/71 O2 Sat by Pulse 100 100 Oximetry 05/03/17 05/03/17 05/03/17 08:00 08:01 08:15 Temperature Pulse Rate 85 85 Pulse Rate [ Apical] Pulse Rate [ 86 Bilateral Throughout] Respiratory 19 18 Rate Respiratory Rate [Bilateral Hand] Respiratory 18 Rate [Bilateral Throughout] Blood Pressure 115/83 114/82 O2 Sat by Pulse 100 100 Oximetry 05/03/17 05/03/17 05/03/17 08:17 08:30 08:45 Temperature Pulse Rate 85 85 Pulse Rate [ Apical] Pulse Rate [ 85 Bilateral Throughout] Respiratory 18 17 Rate Respiratory Rate [Bilateral Hand] Respiratory 20 Rate [Bilateral Throughout] Blood Pressure 117/82 117/82 O2 Sat by Pulse 100 100 Oximetry 05/03/17 05/03/17 05/03/17 09:00 09:15 09:30 Temperature Pulse Rate 85 85 85 Pulse Rate [ Apical] Pulse Rate [ Bilateral Throughout] Respiratory 18 18 17 Rate Respiratory Rate [Bilateral Hand] Respiratory Rate [Bilateral Throughout] Blood Pressure 123/87 123/87 122/90 O2 Sat by Pulse 100 100 100 Oximetry 05/03/17 05/03/17 09:45 10:00 Temperature Pulse Rate 86 86 Pulse Rate [ Apical] Pulse Rate [ Bilateral Throughout] Respiratory 18 16 Rate Respiratory 18 Rate [Bilateral Hand] Respiratory Rate [Bilateral Throughout] Blood Pressure 122/90 112/82 O2 Sat by Pulse 100 100 Oximetry Constitutional: no acute distress, alert, other (confused, agitated at times and appears angry) ENT: other (orally intubated and sedated) Ascultation: Right: diminished breath sounds, Left: clear Percussion: Bilateral: not dull Cardiovascular: irregular rhythm Gastrointestinal: normoactive bowel sounds Extremities: edema (chronic lymphedema with chronic skin changes) Psychiatric: other (flat affect at times angry) CBC and BMP: 05/03/17 07:32 05/03/17 07:32 ABG, PT/INR, D-dimer: ABG POC ABG pH 7.417 (7.35-7.45) 05/03/17 06:40 POC ABG pCO2 43.5 (35-45) 05/03/17 06:40 POC ABG pO2 223 (80-105) H 05/03/17 06:40 POC ABG HCO3 28.0 05/03/17 06:40 POC ABG Total CO2 29 05/03/17 06:40 POC ABG O2 Sat 100 05/03/17 06:40 PT/INR, D-dimer PT 20.3 Sec. (12.2-14.9) H 04/30/17 22:33 INR 1.74 (0.87-1.13) H 04/30/17 22:33 Abnormal lab findings: Abnormal Labs 04/30/17 04/30/17 04/30/17 09:07 09:07 09:07 WBC 13.4 H RBC Hgb Hct MCV 96 H Plt Count 109 L Lymph % (Auto) 11.9 L [place] % (Auto) 11.7 H Lymph # [place] # 1.6 H Seg Neutrophils % 76.1 H Seg Neutrophils # 10.2 H PT INR APTT POC ABG pCO2 POC ABG pO2 Sodium Chloride BUN Creatinine Glucose POC Glucose Lactic Acid 3.30 H* Calcium Troponin T 0.075 H D Total Protein Albumin 04/30/17 04/30/17 04/30/17 12:55 15:41 21:16 WBC RBC Hgb Hct MCV Plt Count Lymph % (Auto) [place] % (Auto) Lymph # [place] # Seg Neutrophils % Seg Neutrophils # PT INR APTT POC ABG pCO2 POC ABG pO2 Sodium Chloride BUN Creatinine Glucose POC Glucose 129 H 114 H 135 H Lactic Acid Calcium Troponin T Total Protein Albumin 04/30/17 05/01/17 05/01/17 22:33 06:15 08:39 WBC RBC 3.61 L Hgb 11.7 L Hct 34.4 L MCV 95 H Plt Count 105 L Lymph % (Auto) [place] % (Auto) 13.9 H Lymph # [place] # 1.3 H Seg Neutrophils % Seg Neutrophils # PT 20.3 H INR 1.74 H APTT 39.0 H POC ABG pCO2 POC ABG pO2 Sodium Chloride BUN Creatinine Glucose POC Glucose 68 L Lactic Acid Calcium Troponin T Total Protein Albumin 05/01/17 05/01/17 05/01/17 08:39 11:27 15:13 WBC RBC Hgb Hct MCV Plt Count Lymph % (Auto) [place] % (Auto) Lymph # [place] # Seg Neutrophils % Seg Neutrophils # PT INR APTT POC ABG pCO2 POC ABG pO2 Sodium 135 L Chloride 97.8 L BUN 26 H Creatinine 1.7 H Glucose 72 L POC Glucose 108 H Lactic Acid Calcium Troponin T 0.074 H Total Protein Albumin 05/02/17 05/02/17 05/02/17 06:59 07:15 09:10 WBC RBC 3.64 L Hgb 11.6 L Hct 34.6 L MCV 95 H Plt Count Lymph % (Auto) 11.0 L [place] % (Auto) 10.1 H Lymph # 0.9 L [place] # Seg Neutrophils % 78.2 H Seg Neutrophils # PT INR APTT POC ABG pCO2 POC ABG pO2 63 L Sodium Chloride BUN Creatinine Glucose POC Glucose 106 H Lactic Acid Calcium Troponin T Total Protein Albumin 05/02/17 05/02/17 05/03/17 09:21 13:04 00:15 WBC RBC Hgb Hct MCV Plt Count Lymph % (Auto) [place] % (Auto) Lymph # [place] # Seg Neutrophils % Seg Neutrophils # PT INR APTT POC ABG pCO2 46.0 H POC ABG pO2 255 H 40 L Sodium 135 L Chloride BUN 27 H Creatinine 1.8 H Glucose POC Glucose Lactic Acid Calcium 8.2 L Troponin T 0.039 H D Total Protein 8.5 H Albumin 2.4 L 05/03/17 05/03/17 05/03/17 01:56 02:05 06:19 WBC RBC Hgb Hct MCV Plt Count Lymph % (Auto) [place] % (Auto) Lymph # [place] # Seg Neutrophils % Seg Neutrophils # PT INR APTT POC ABG pCO2 POC ABG pO2 71 L Sodium Chloride BUN Creatinine Glucose POC Glucose 139 H 135 H Lactic Acid Calcium Troponin T Total Protein Albumin 05/03/17 05/03/17 05/03/17 06:40 07:32 07:32 WBC RBC Hgb Hct MCV 95 H Plt Count 115 L Lymph % (Auto) 9.8 L [place] % (Auto) 14.7 H Lymph # 1.0 L [place] # 1.5 H Seg Neutrophils % 75.0 H Seg Neutrophils # PT INR APTT POC ABG pCO2 POC ABG pO2 223 H Sodium 135 L Chloride BUN 24 H Creatinine Glucose 127 H POC Glucose Lactic Acid Calcium Troponin T Total Protein Albumin 05/03/17 09:30 WBC RBC Hgb Hct MCV Plt Count Lymph % (Auto) [place] % (Auto) Lymph # [place] # Seg Neutrophils % Seg Neutrophils # PT INR APTT POC ABG pCO2 POC ABG pO2 Sodium Chloride BUN Creatinine Glucose POC Glucose 118 H Lactic Acid Calcium Troponin T Total Protein Albumin
--- NOTE | 2017-05-03 12:20 | Procedure Note ---
Date of procedure: 05/03/17 Pre-op diagnosis: Mucous Plug Post-op diagnosis: same Procedure: Flexible bronchoscopy with bronchial washing on the right lower lung. Emergent procedure given need for mechanical ventilation. Scope passed through ET tube after lidocaine used. Left lung clear. Large mucous plugs found in the right middle and lower lobes. Removed with several lavages of saline and trap sent for culture. Some blood secretions visualized but no active bleeding. Could be secondary to heart failure. Will repeat CXR. If no real improvement, may need to ask ENDO for therapeutic scope. Anesthesia: MAC Surgeon: NALLELY MATOS Estimated blood loss: none Pathology: none Specimen disposition: to lab Condition: critical Disposition: ICU
--- NOTE | 2017-05-03 13:16 | XRay Report ---
Single view chest: Compared to 05/02/17. History: Shortness of breath. Findings: Cardiomegaly. Trachea is midline. Evidence of emphysema. Reexpansion of right lung compared to previous study. Fibrosis and scarring lower lobes. Bilaterally suspicion of lower lobe infiltrates. Stable support system. Impression: Reexpansion of right lung with additional findings as detailed above.
[2017-05-03] MEDS: DepaCON 500 MG in NACL 0.9% 100 ML IV SCH ×2 (14:00→21:59)
[2017-05-03] MEDS: PROTONIX IV SCH (14:00)
[2017-05-03] MEDS ORDERED: ZEMURON IV ONE (22:00)
[2017-05-03] MEDS: NEURONTIN PO SCH (22:02)
[2017-05-03] MEDS: LEVEMIR SUB-Q SCH (22:06)
[2017-05-03] MEDS: SENOKOT PO SCH (22:08)
[2017-05-04] MEDS: NOVOLOG SUB-Q SCH ×6 (02:00→22:11)
--- NOTE | 2017-05-04 02:41 | Progress Note ---
Assessment and Plan 66 y/o male admitted with sepsis, etiology unknown, elevated BNP and concern for pleural effusion, now with new onset afib with RVR. 1. Acute respiratory failure likely secondary to large mucous plugging. CXR now is clear after bronchoscopy. Micro pending on plugs removed. No active bleeding seen in lung. Need to restart anticoagulation given history of VTE in past. 2. Will decrease PEEP to at least 8 now that CXR is clear. Does not look like pulmonary edema. 3. Make sure K and Mag are 4 and 2 respectively, Mag has not been checked. 4. Will restart eliquis, Heparin was not ordered on yesterday. Has history of DVT in the past 5. Once mental status is better, start PSV trials. Currently not breathing over vent so would likely not pass SBT. CCT 31 minutes. Subjective Date of service: 05/04/17 Principal diagnosis: Positive Blood Culture Interval history: Bronched yesterday. Significant plugs removed. Follow up CXR showed improvement in aeration on the right. FiO2 decreased but I keep PEEP elevated. Objective Vital Signs - 12hr 05/03/17 05/03/17 05/03/17 14:45 15:00 15:15 Temperature Pulse Rate 86 86 88 Pulse Rate [ Bilateral Throughout] Pulse Rate [ From Monitor] Respiratory 20 22 17 Rate Respiratory Rate [Bilateral Hand] Respiratory Rate [Bilateral Throughout] Blood Pressure 141/98 117/86 117/86 O2 Sat by Pulse 100 98 96 Oximetry 05/03/17 05/03/17 05/03/17 15:30 15:45 16:00 Temperature 98.2 F Pulse Rate 87 86 85 Pulse Rate [ Bilateral Throughout] Pulse Rate [ 85 From Monitor] Respiratory 22 18 21 Rate Respiratory Rate [Bilateral Hand] Respiratory Rate [Bilateral Throughout] Blood Pressure 100/69 100/69 140/95 O2 Sat by Pulse 99 97 97 Oximetry 05/03/17 05/03/17 05/03/17 16:15 16:30 16:45 Temperature Pulse Rate 86 92 H 96 H Pulse Rate [ Bilateral Throughout] Pulse Rate [ From Monitor] Respiratory 19 20 19 Rate Respiratory Rate [Bilateral Hand] Respiratory Rate [Bilateral Throughout] Blood Pressure 140/95 111/78 111/78 O2 Sat by Pulse 98 94 97 Oximetry 05/03/17 05/03/17 05/03/17 17:00 17:01 17:15 Temperature Pulse Rate 85 85 91 H Pulse Rate [ Bilateral Throughout] Pulse Rate [ From Monitor] Respiratory 22 25 H Rate Respiratory Rate [Bilateral Hand] Respiratory Rate [Bilateral Throughout] Blood Pressure 156/103 111/78 156/103 O2 Sat by Pulse 100 100 100 Oximetry 05/03/17 05/03/17 05/03/17 17:30 17:45 18:00 Temperature Pulse Rate 96 H 97 H 97 H Pulse Rate [ Bilateral Throughout] Pulse Rate [ From Monitor] Respiratory 19 19 18 Rate Respiratory Rate [Bilateral Hand] Respiratory Rate [Bilateral Throughout] Blood Pressure 122/91 122/91 110/77 O2 Sat by Pulse 97 96 97 Oximetry 05/03/17 05/03/17 05/03/17 18:15 18:30 18:45 Temperature Pulse Rate 86 85 97 H Pulse Rate [ Bilateral Throughout] Pulse Rate [ From Monitor] Respiratory 21 19 18 Rate Respiratory Rate [Bilateral Hand] Respiratory Rate [Bilateral Throughout] Blood Pressure 110/77 138/95 138/95 O2 Sat by Pulse 100 100 99 Oximetry 05/03/17 05/03/17 05/03/17 19:00 19:15 19:30 Temperature Pulse Rate 93 H 96 H 88 Pulse Rate [ Bilateral Throughout] Pulse Rate [ From Monitor] Respiratory 18 18 21 Rate Respiratory Rate [Bilateral Hand] Respiratory Rate [Bilateral Throughout] Blood Pressure 108/77 108/77 106/75 O2 Sat by Pulse 98 99 100 Oximetry 05/03/17 05/03/17 05/03/17 19:33 19:35 19:45 Temperature Pulse Rate 92 H 92 H Pulse Rate [ 92 H 93 H Bilateral Throughout] Pulse Rate [ From Monitor] Respiratory 18 Rate Respiratory Rate [Bilateral Hand] Respiratory 18 18 Rate [Bilateral Throughout] Blood Pressure 108/77 106/75 O2 Sat by Pulse 100 100 Oximetry 05/03/17 05/03/17 05/03/17 20:00 20:15 20:29 Temperature 98.8 F Pulse Rate 86 92 H 94 H Pulse Rate [ Bilateral Throughout] Pulse Rate [ From Monitor] Respiratory 22 20 21 Rate Respiratory Rate [Bilateral Hand] Respiratory Rate [Bilateral Throughout] Blood Pressure 150/99 106/75 106/75 O2 Sat by Pulse 100 100 100 Oximetry 05/03/17 05/03/17 05/03/17 20:30 20:45 21:00 Temperature Pulse Rate 92 H 89 98 H Pulse Rate [ Bilateral Throughout] Pulse Rate [ From Monitor] Respiratory 24 22 21 Rate Respiratory Rate [Bilateral Hand] Respiratory Rate [Bilateral Throughout] Blood Pressure 137/89 137/89 107/72 O2 Sat by Pulse 100 100 100 Oximetry 05/03/17 05/03/17 05/03/17 21:15 21:30 21:45 Temperature Pulse Rate 88 89 87 Pulse Rate [ Bilateral Throughout] Pulse Rate [ From Monitor] Respiratory 20 21 18 Rate Respiratory Rate [Bilateral Hand] Respiratory Rate [Bilateral Throughout] Blood Pressure 107/72 96/68 96/68 O2 Sat by Pulse 100 100 100 Oximetry 05/03/17 05/03/17 05/03/17 22:00 22:15 22:30 Temperature Pulse Rate 86 93 H 87 Pulse Rate [ Bilateral Throughout] Pulse Rate [ From Monitor] Respiratory 15 21 22 Rate Respiratory 18 Rate [Bilateral Hand] Respiratory Rate [Bilateral Throughout] Blood Pressure 121/91 121/91 117/79 O2 Sat by Pulse 100 100 100 Oximetry 05/03/17 05/03/17 05/03/17 22:45 23:00 23:15 Temperature Pulse Rate 98 H 98 H 92 H Pulse Rate [ Bilateral Throughout] Pulse Rate [ From Monitor] Respiratory 19 21 20 Rate Respiratory Rate [Bilateral Hand] Respiratory Rate [Bilateral Throughout] Blood Pressure 117/79 107/77 107/77 O2 Sat by Pulse 100 100 100 Oximetry 05/03/17 05/03/17 05/03/17 23:22 23:30 23:45 Temperature Pulse Rate 101 H 86 86 Pulse Rate [ Bilateral Throughout] Pulse Rate [ From Monitor] Respiratory 19 18 Rate Respiratory Rate [Bilateral Hand] Respiratory Rate [Bilateral Throughout] Blood Pressure 107/77 129/90 129/90 O2 Sat by Pulse 100 100 100 Oximetry 05/04/17 05/04/17 00:00 00:15 Temperature 99 F Pulse Rate 88 98 H Pulse Rate [ Bilateral Throughout] Pulse Rate [ From Monitor] Respiratory 21 20 Rate Respiratory Rate [Bilateral Hand] Respiratory Rate [Bilateral Throughout] Blood Pressure 132/92 129/90 O2 Sat by Pulse 100 100 Oximetry Constitutional: no acute distress, alert, other (confused, agitated at times and appears angry) ENT: other (orally intubated and sedated) Ascultation: Bilateral: clear, rales (basilar) Percussion: Bilateral: not dull Cardiovascular: irregular rhythm, other (paced now.) Gastrointestinal: normoactive bowel sounds, soft Extremities: edema (chronic lymphedema with chronic skin changes) Neurologic: unable to assess (off all sedation but has not woken up yet. ) Psychiatric: other (flat affect at times angry) CBC and BMP: 05/03/17 07:32 05/03/17 07:32 ABG, PT/INR, D-dimer: ABG POC ABG pH 7.417 (7.35-7.45) 05/03/17 06:40 POC ABG pCO2 43.5 (35-45) 05/03/17 06:40 POC ABG pO2 223 (80-105) H 05/03/17 06:40 POC ABG HCO3 28.0 05/03/17 06:40 POC ABG Total CO2 29 05/03/17 06:40 POC ABG O2 Sat 100 05/03/17 06:40 PT/INR, D-dimer PT 20.3 Sec. (12.2-14.9) H 04/30/17 22:33 INR 1.74 (0.87-1.13) H 04/30/17 22:33 Abnormal lab findings: Abnormal Labs 04/30/17 04/30/17 04/30/17 09:07 09:07 09:07 WBC 13.4 H RBC Hgb Hct MCV 96 H Plt Count 109 L Lymph % (Auto) 11.9 L [place] % (Auto) 11.7 H Lymph # [place] # 1.6 H Seg Neutrophils % 76.1 H Seg Neutrophils # 10.2 H PT INR APTT POC ABG pCO2 POC ABG pO2 Sodium Chloride BUN Creatinine Glucose POC Glucose Lactic Acid 3.30 H* Calcium Troponin T 0.075 H D Total Protein Albumin 04/30/17 04/30/17 04/30/17 12:55 15:41 21:16 WBC RBC Hgb Hct MCV Plt Count Lymph % (Auto) [place] % (Auto) Lymph # [place] # Seg Neutrophils % Seg Neutrophils # PT INR APTT POC ABG pCO2 POC ABG pO2 Sodium Chloride BUN Creatinine Glucose POC Glucose 129 H 114 H 135 H Lactic Acid Calcium Troponin T Total Protein Albumin 04/30/17 05/01/17 05/01/17 22:33 06:15 08:39 WBC RBC 3.61 L Hgb 11.7 L Hct 34.4 L MCV 95 H Plt Count 105 L Lymph % (Auto) [place] % (Auto) 13.9 H Lymph # [place] # 1.3 H Seg Neutrophils % Seg Neutrophils # PT 20.3 H INR 1.74 H APTT 39.0 H POC ABG pCO2 POC ABG pO2 Sodium Chloride BUN Creatinine Glucose POC Glucose 68 L Lactic Acid Calcium Troponin T Total Protein Albumin 05/01/17 05/01/17 05/01/17 08:39 11:27 15:13 WBC RBC Hgb Hct MCV Plt Count Lymph % (Auto) [place] % (Auto) Lymph # [place] # Seg Neutrophils % Seg Neutrophils # PT INR APTT POC ABG pCO2 POC ABG pO2 Sodium 135 L Chloride 97.8 L BUN 26 H Creatinine 1.7 H Glucose 72 L POC Glucose 108 H Lactic Acid Calcium Troponin T 0.074 H Total Protein Albumin 05/02/17 05/02/17 05/02/17 06:59 07:15 09:10 WBC RBC 3.64 L Hgb 11.6 L Hct 34.6 L MCV 95 H Plt Count Lymph % (Auto) 11.0 L [place] % (Auto) 10.1 H Lymph # 0.9 L [place] # Seg Neutrophils % 78.2 H Seg Neutrophils # PT INR APTT POC ABG pCO2 POC ABG pO2 63 L Sodium Chloride BUN Creatinine Glucose POC Glucose 106 H Lactic Acid Calcium Troponin T Total Protein Albumin 05/02/17 05/02/17 05/03/17 09:21 13:04 00:15 WBC RBC Hgb Hct MCV Plt Count Lymph % (Auto) [place] % (Auto) Lymph # [place] # Seg Neutrophils % Seg Neutrophils # PT INR APTT POC ABG pCO2 46.0 H POC ABG pO2 255 H 40 L Sodium 135 L Chloride BUN 27 H Creatinine 1.8 H Glucose POC Glucose Lactic Acid Calcium 8.2 L Troponin T 0.039 H D Total Protein 8.5 H Albumin 2.4 L 05/03/17 05/03/17 05/03/17 01:56 02:05 06:19 WBC RBC Hgb Hct MCV Plt Count Lymph % (Auto) [place] % (Auto) Lymph # [place] # Seg Neutrophils % Seg Neutrophils # PT INR APTT POC ABG pCO2 POC ABG pO2 71 L Sodium Chloride BUN Creatinine Glucose POC Glucose 139 H 135 H Lactic Acid Calcium Troponin T Total Protein Albumin 05/03/17 05/03/17 05/03/17 06:40 07:32 07:32 WBC RBC Hgb Hct MCV 95 H Plt Count 115 L Lymph % (Auto) 9.8 L [place] % (Auto) 14.7 H Lymph # 1.0 L [place] # 1.5 H Seg Neutrophils % 75.0 H Seg Neutrophils # PT INR APTT POC ABG pCO2 POC ABG pO2 223 H Sodium 135 L Chloride BUN 24 H Creatinine Glucose 127 H POC Glucose Lactic Acid Calcium Troponin T Total Protein Albumin 05/03/17 05/03/17 09:30 20:05 WBC RBC Hgb Hct MCV Plt Count Lymph % (Auto) [place] % (Auto) Lymph # [place] # Seg Neutrophils % Seg Neutrophils # PT INR APTT POC ABG pCO2 POC ABG pO2 Sodium Chloride BUN Creatinine Glucose POC Glucose 118 H 119 H Lactic Acid Calcium Troponin T Total Protein Albumin Chest x-ray: image reviewed (taken at 2:34 am, clear on the right, small amount of atelctasis vs small effusion on the left. Otherwise clear bilaterally with hardware in place)
[2017-05-04 04:56] LABS: ISTAT Base Excess 2; ISTAT HCO3 26.9; ISTAT PCO2 42.3 (35-45); ISTAT PH 7.411 (7.35-7.45); ISTAT PO2 93 (80-105); ISTAT SO2 97; ISTAT TCO2 28
[2017-05-04 06:35] LABS: Hematocrit 36.2 % (35.5-45.6); Hemoglobin 12.1 gm/dl (11.8-15.2); Mean Corpuscular HGB Conc 34 % (32-34); Mean Corpuscular Hemoglobin 32 pg (28-32); Mean Corpuscular Volume 94 fl (84-94); Platelet Count 114 K/mm3 (140-440); Red Blood Count 3.84 M/mm3 (3.65-5.03); Red Cell Distribution Width 14.8 % (13.2-15.2); White Blood Count 7.5 K/mm3 (4.5-11.0)
[2017-05-04 06:50] LABS: Anion Gap 15 mmol/L; BUN/Creatinine Ratio 24.54; Blood Urea Nitrogen 27 mg/dL (9-20); Calcium 8.3 mg/dL (8.4-10.2); Carbon Dioxide 24 mmol/L (22-30); Chloride 103.1 mmol/L (98-107); Glucose 115 mg/dL (75-100); Potassium 4.4 mmol/L (3.6-5.0); Sodium 138 mmol/L (137-145)
--- NOTE | 2017-05-04 07:12 | Progress Note ---
Assessment and Plan - Patient Problems (1) Sepsis Current Visit: Yes Status: Acute Qualifiers: Sepsis type: sepsis due to unspecified organism Qualified Code(s): A41.9 - Sepsis, unspecified organism Plan to address problem: No significant concerns for sepsis presently. Will discontinue Rocephin. Patient has received 5 days of empiric therapy with no discrete target of therapy. I will sign off. Please call again if there are additional questions or concerns. (2) Leg ulcer, left Current Visit: Yes Status: Acute Qualifiers: Non-pressure ulcer stage: unspecified non-pressure ulcer stage Qualified Code(s): L97.929 - Non-pressure chronic ulcer of unspecified part of left lower leg with unspecified severity Plan to address problem: Maintain local care. Subjective Date of service: 05/04/17 Principal diagnosis: Positive Blood Culture Interval history: Remains in ICU. Bronchoscopy completed yesterday with mucous plugs seen. Objective - Constitutional Vitals: Vital Signs Temp Pulse Resp BP Pulse Ox 99.7 F H 89 22 123/81 100 05/04/17 04:00 05/04/17 06:45 05/04/17 06:45 05/04/17 06:45 05/04/17 06:45 Temperature -Last 24 Hours Temperature 99.7 F Temperature 99 F Temperature 98.8 F Temperature 98.2 F Temperature 98.2 F Temperature 98.0 F Temperature 98.6 F General appearance: Present: no acute distress (intubated, FiO2 40%), well- nourished - Respiratory Respiratory: bilateral: CTA, negative: rhonchi - Cardiovascular Rhythm: irregularly irregular Extremity abnormal: edema (severe ichthyosis bilat) - Gastrointestinal General gastrointestinal: Present: soft, non-distended, normal bowel sounds - Integumentary Integumentary: warm, no rash - Psychiatric Psychiatric: other (sedated) - Labs CBC & Chem 7: 05/04/17 05:31 05/04/17 05:31 Labs: Abnormal lab results 05/03/17 05/03/17 05/03/17 Range/Units 07:32 07:32 09:30 MCV 95 H (84-94) fl Plt Count 115 L (140-440) K/mm3 Lymph % (Auto) 9.8 L (13.4-35.0) % [place] % (Auto) 14.7 H (0.0-7.3) % Lymph # 1.0 L (1.2-5.4) K/mm3 [place] # 1.5 H (0.0-0.8) K/mm3 Seg Neutrophils % 75.0 H (40.0-70.0) % Sodium 135 L (137-145) mmol/L BUN 24 H (9-20) mg/dL Glucose 127 H (75-100) mg/dL POC Glucose 118 H (70-105) Calcium (8.4-10.2) mg/dL 05/03/17 05/04/17 05/04/17 Range/Units 20:05 03:51 05:31 MCV (84-94) fl Plt Count 114 L (140-440) K/mm3 Lymph % (Auto) (13.4-35.0) % [place] % (Auto) (0.0-7.3) % Lymph # (1.2-5.4) K/mm3 [place] # (0.0-0.8) K/mm3 Seg Neutrophils % (40.0-70.0) % Sodium (137-145) mmol/L BUN (9-20) mg/dL Glucose (75-100) mg/dL POC Glucose 119 H 112 H (70-105) Calcium (8.4-10.2) mg/dL 05/04/17 Range/Units 05:31 MCV (84-94) fl Plt Count (140-440) K/mm3 Lymph % (Auto) (13.4-35.0) % [place] % (Auto) (0.0-7.3) % Lymph # (1.2-5.4) K/mm3 [place] # (0.0-0.8) K/mm3 Seg Neutrophils % (40.0-70.0) % Sodium (137-145) mmol/L BUN 27 H (9-20) mg/dL Glucose 115 H (75-100) mg/dL POC Glucose (70-105) Calcium 8.3 L (8.4-10.2) mg/dL Microbiology 04/29/17 18:17 Peripheral/Venous Blood Culture - Preliminary NO GROWTH AFTER 4 DAYS 05/03/17 12:29 Bronchial Washings - Right Lower Lobe Respiratory Culture - Preliminary 05/03/17 Unknown Sputum - Endotracheal Wash Sputum Culture - Preliminary 04/29/17 18:17 Peripheral/Venous Blood Culture - Preliminary Coag Negative Staphylococcus - Imaging and cardiology Chest x-ray: report reviewed
[2017-05-04 08:52] LABS: Basophils % (Manual) 0 % (0.0-1.8); Blastocytes % (Manual) 0 %; Eosinophils % (Manual) 0 % (0.0-4.3)
[2017-05-04 08:53] LABS: Anisocytosis 1+; Diff Status Complete; Hypochromasia Few; Large Platelets Rare
[2017-05-04] MEDS: PULMICORT IH SCH ×3 (09:00→19:47)
[2017-05-04] MEDS: BROVANA NEBU IH SCH ×3 (09:00→19:46)
[2017-05-04] MEDS: COLACE PO SCH ×2 (09:45→22:11)
--- NOTE | 2017-05-04 09:45 | XRay Report ---
AP CHEST: HISTORY: Followup respiratory failure Small pleural effusions have nearly resolved. Cardiomegaly is stable. There are chronic interstitial changes in both lungs but no evidence for consolidation or pneumothorax. Lines and support devices remain in good position. IMPRESSION: Improvement in the small bilateral pleural effusions since yesterday's exam.
[2017-05-04] MEDS: ROCEPHIN/NS 1 GM/50 ML 1 GM/50 ML BAG IV SCH (09:47)
[2017-05-04] MEDS: PROTONIX IV SCH (09:48)
[2017-05-04] MEDS: DepaCON 500 MG in NACL 0.9% 100 ML IV SCH ×2 (09:48→21:27)
[2017-05-04] MEDS: ELIQUIS PO SCH ×2 (09:49→21:27)
--- NOTE | 2017-05-04 11:50 | Progress Note ---
Assessment and Plan 1. Respiratory failure intubated on mechanical ventilator 2. Coronary artery disease status post CABG. 3. Status post bioprosthetic tricuspid valve replacement in 2002 4. Ischemic cardiomyopathy LV ejection fraction 40-45% 5. Essential hypertension 6. Type 2 diabetes mellitus 7. Atrial fibrillation now in sinus rhythm 8. Sepsis Plan. Continue present management continue with DVT prophylaxis for now. Subjective Date of service: 05/04/17 Principal diagnosis: Atrial Fib Interval history: Intubated on mechanical ventilator. Objective Vital Signs Temp Pulse Pulse Pulse Resp Resp Resp 05/04/17 10:30 95 H 23 05/04/17 10:15 115 H 21 05/04/17 10:00 119 H 05/04/17 09:45 96 H 19 05/04/17 09:30 96 H 26 H 05/04/17 09:15 95 H 05/04/17 09:00 102 H 92 H 23 05/04/17 08:45 89 05/04/17 08:30 93 H 05/04/17 08:15 96 H 05/04/17 08:00 99 F 95 H 05/04/17 07:45 90 05/04/17 07:30 88 05/04/17 07:15 90 25 H 05/04/17 07:00 90 05/04/17 06:45 89 05/04/17 06:30 91 H 05/04/17 06:15 91 H 05/04/17 06:00 94 H 05/04/17 05:45 99 H 05/04/17 05:30 97 H 05/04/17 05:15 93 H 05/04/17 05:01 99 H 05/04/17 04:45 89 05/04/17 04:30 87 05/04/17 04:15 05/04/17 04:00 99.7 F H 88 05/04/17 03:45 89 05/04/17 03:35 88 05/04/17 03:30 99 H 05/04/17 03:15 94 H 05/04/17 03:00 90 05/04/17 02:45 87 05/04/17 02:30 87 05/04/17 02:15 88 05/04/17 02:00 94 H 05/04/17 01:45 99 H 22 05/04/17 01:30 90 20 05/04/17 01:15 88 21 05/04/17 01:00 87 19 05/04/17 00:45 87 18 05/04/17 00:30 89 20 05/04/17 00:15 98 H 20 05/04/17 00:00 99 F 88 21 05/03/17 23:45 86 18 05/03/17 23:30 86 19 05/03/17 23:22 101 H 05/03/17 23:15 92 H 20 05/03/17 23:00 98 H 21 05/03/17 22:45 98 H 19 05/03/17 22:30 87 22 05/03/17 22:15 93 H 21 05/03/17 22:00 86 15 18 05/03/17 21:45 87 18 05/03/17 21:30 89 21 05/03/17 21:15 88 20 05/03/17 21:00 98 H 21 05/03/17 20:45 89 22 05/03/17 20:30 92 H 24 05/03/17 20:29 94 H 21 05/03/17 20:15 92 H 20 05/03/17 20:00 98.8 F 86 22 05/03/17 19:45 92 H 93 H 18 18 05/03/17 19:35 92 H 18 05/03/17 19:33 92 H 05/03/17 19:30 88 21 05/03/17 19:15 96 H 18 05/03/17 19:00 93 H 18 05/03/17 18:45 97 H 18 05/03/17 18:30 85 19 05/03/17 18:15 86 21 05/03/17 18:00 97 H 18 05/03/17 17:45 97 H 19 05/03/17 17:30 96 H 19 05/03/17 17:15 91 H 25 H 05/03/17 17:01 85 05/03/17 17:00 85 22 05/03/17 16:45 96 H 19 05/03/17 16:30 92 H 20 05/03/17 16:15 86 19 05/03/17 16:00 98.2 F 85 85 21 05/03/17 15:45 86 18 05/03/17 15:30 87 22 05/03/17 15:15 88 17 05/03/17 15:00 86 22 05/03/17 14:45 86 20 05/03/17 14:30 85 24 05/03/17 14:15 85 20 05/03/17 14:00 85 19 05/03/17 13:45 95 H 20 05/03/17 13:30 85 20 05/03/17 13:15 86 19 05/03/17 13:00 86 19 05/03/17 12:45 86 19 05/03/17 12:30 87 32 H 05/03/17 12:29 86 05/03/17 12:15 86 25 H 05/03/17 12:05 05/03/17 12:00 98.0 F 85 86 22 BP Pulse Ox 05/04/17 10:30 159/99 100 05/04/17 10:15 150/96 100 05/04/17 10:00 150/96 100 05/04/17 09:45 148/94 100 05/04/17 09:30 148/94 100 05/04/17 09:15 148/101 100 05/04/17 09:00 148/101 100 05/04/17 08:45 137/88 100 05/04/17 08:30 137/88 100 05/04/17 08:15 147/95 100 05/04/17 08:00 147/95 100 05/04/17 07:45 156/98 100 05/04/17 07:30 156/98 100 05/04/17 07:15 141/101 100 05/04/17 07:00 141/101 100 05/04/17 06:45 123/81 100 05/04/17 06:30 123/81 100 05/04/17 06:15 145/89 100 05/04/17 06:00 145/89 100 05/04/17 05:45 148/94 100 05/04/17 05:30 148/94 100 05/04/17 05:15 156/90 100 05/04/17 05:01 156/90 100 05/04/17 04:45 146/95 100 05/04/17 04:30 146/95 100 05/04/17 04:15 138/93 100 05/04/17 04:00 138/93 100 05/04/17 03:45 128/85 100 05/04/17 03:35 139/90 100 05/04/17 03:30 128/85 100 05/04/17 03:15 139/90 100 05/04/17 03:00 139/90 100 05/04/17 02:45 134/93 100 05/04/17 02:30 134/93 100 05/04/17 02:15 117/79 100 05/04/17 02:00 117/79 100 05/04/17 01:45 109/76 100 05/04/17 01:30 109/76 100 05/04/17 01:15 119/83 100 05/04/17 01:00 119/83 100 05/04/17 00:45 106/73 100 05/04/17 00:30 106/73 100 05/04/17 00:15 129/90 100 05/04/17 00:00 132/92 100 05/03/17 23:45 129/90 100 05/03/17 23:30 129/90 100 05/03/17 23:22 107/77 100 05/03/17 23:15 107/77 100 05/03/17 23:00 107/77 100 05/03/17 22:45 117/79 100 05/03/17 22:30 117/79 100 05/03/17 22:15 121/91 100 05/03/17 22:00 121/91 100 05/03/17 21:45 96/68 100 05/03/17 21:30 96/68 100 05/03/17 21:15 107/72 100 05/03/17 21:00 107/72 100 05/03/17 20:45 137/89 100 05/03/17 20:30 137/89 100 05/03/17 20:29 106/75 100 05/03/17 20:15 106/75 100 05/03/17 20:00 150/99 100 05/03/17 19:45 106/75 100 05/03/17 19:35 05/03/17 19:33 108/77 100 05/03/17 19:30 106/75 100 05/03/17 19:15 108/77 99 05/03/17 19:00 108/77 98 05/03/17 18:45 138/95 99 05/03/17 18:30 138/95 100 05/03/17 18:15 110/77 100 05/03/17 18:00 110/77 97 05/03/17 17:45 122/91 96 05/03/17 17:30 122/91 97 05/03/17 17:15 156/103 100 05/03/17 17:01 111/78 100 05/03/17 17:00 156/103 100 05/03/17 16:45 111/78 97 05/03/17 16:30 111/78 94 05/03/17 16:15 140/95 98 05/03/17 16:00 140/95 97 05/03/17 15:45 100/69 97 05/03/17 15:30 100/69 99 05/03/17 15:15 117/86 96 05/03/17 15:00 117/86 98 05/03/17 14:45 141/98 100 05/03/17 14:30 141/98 86 05/03/17 14:15 106/82 99 05/03/17 14:00 106/82 99 05/03/17 13:45 105/78 98 05/03/17 13:30 105/78 99 05/03/17 13:15 102/81 100 05/03/17 13:00 102/81 99 05/03/17 12:45 94/72 100 05/03/17 12:30 94/72 100 05/03/17 12:29 126/90 100 05/03/17 12:15 126/90 100 05/03/17 12:05 100 05/03/17 12:00 126/90 99 - Physical Examination General: Other (Intubated sedated) HEENT: Positive: PERRL, Normocephaly Neck: Positive: trachea midline Cardiac: Positive: S1/S2, PMI, Laterally Displaced Lungs: Positive: clear to auscultation, No Wheeze, Rales, Rhonchi Abdomen: Positive: Unremarkable, Active Bowel Sounds Extremities: Present: +2 Edema, Other (vascular skin changes) - Labs and Meds CBC 05/04/17 Range/Units 05:31 WBC 7.5 (4.5-11.0) K/mm3 RBC 3.84 (3.65-5.03) M/mm3 Hgb 12.1 (11.8-15.2) gm/dl Hct 36.2 (35.5-45.6) % Plt Count 114 L (140-440) K/mm3 Comprehensive Metabolic Panel 05/04/17 Range/Units 05:31 Sodium 138 (137-145) mmol/L Potassium 4.4 (3.6-5.0) mmol/L Chloride 103.1 (98-107) mmol/L Carbon Dioxide 24 (22-30) mmol/L BUN 27 H (9-20) mg/dL Creatinine 1.1 (0.8-1.5) mg/dL Glucose 115 H (75-100) mg/dL Calcium 8.3 L (8.4-10.2) mg/dL
--- NOTE | 2017-05-04 14:33 | Progress Note ---
Assessment and Plan Assessment and plan: Acute respiratory failure - Patient is intubated and on mechanical ventilation - Likely due to mucus plug - Bronchoscopy was done Afib with RVR - controlled, in sinus rhythm, on metoprolol - Cardiology consulted - ECHO NSTEMI - cardiac enzymes are trending down - CXR paced rhythm - I can't anticoagulate him because of hemoptysis Sepsis - ruled out - all the cultures are negative Hemoptysis - resolved, no bleeding was seen during bronchoscopy Diabetes mellitus type 2 - sliding scale insulin Hypertension - Continue his meds Acute kidney Failure - Resolved Chronic systolic CHF CAD History of DVT - Was on eliquis Dementia - Supportive care CODE STATUS full Disposition - Continue ICU care The high probability of a clinically significant, sudden or life threatening deterioration of the [Respiratory, OPERATIONS MANAGER ASSISTANT, CVS] system(s) required my full and direct attention, intervention and personal management. The aggregate critical care time was [45] minutes. This time is in addition to time spent performing reported procedures but includes the following: [x] Data Review and interpretation [x] Patient assessment and monitoring of vital signs [x] Documentation [x] Medication orders and managementICU History Interval history: Patient was seen and evaluated this morning, patient is intubated and on mechanical ventilation. Hospitalist Physical - Physical exam Narrative exam: Patient is intubated and on mechanical ventilation. The patient appeared well nourished and normally developed. Vital signs as documented. Head exam is unremarkable. No scleral icterus . Neck is without jugular venous distension, thyromegaly, or carotid bruits. Lungs wheezing all over the chest. Cardiac exam reveals regular rate and Rhythm. First and second heart sounds normal. No murmurs, rubs or gallops. Abdominal exam reveals normal bowel sounds, no masses, no organomegaly and no aortic enlargement. Extremities are swelling and DISCOLORATION of bilateral lower extremities due to venous stasis. OPERATIONS MANAGER ASSISTANT: Patient is sedated. - Constitutional Vitals: Temp Pulse Resp BP Pulse Ox 97.8 F 126 H 20 153/97 100 05/04/17 12:00 05/04/17 14:00 05/04/17 14:00 05/04/17 14:00 05/04/17 14:00 General appearance: Present: other (intubated, sedated, Fi O2 60%) Results - Labs CBC & Chem 7: 05/04/17 05:31 05/04/17 05:31 Labs: Laboratory Last Values WBC 7.5 K/mm3 (4.5-11.0) 05/04/17 05:31 RBC 3.84 M/mm3 (3.65-5.03) 05/04/17 05:31 Hgb 12.1 gm/dl (11.8-15.2) 05/04/17 05:31 Hct 36.2 % (35.5-45.6) 05/04/17 05:31 MCV 94 fl (84-94) 05/04/17 05:31 MCH 32 pg (28-32) 05/04/17 05:31 MCHC 34 % (32-34) 05/04/17 05:31 RDW 14.8 % (13.2-15.2) 05/04/17 05:31 Plt Count 114 K/mm3 (140-440) L 05/04/17 05:31 Lymph % (Auto) 9.8 % (13.4-35.0) L 05/03/17 07:32 [place] % (Auto) Probate Paralegal 05/04/17 05:31 Eos % (Auto) 0.1 % (0.0-4.3) 05/03/17 07:32 Baso % (Auto) 0.4 % (0.0-1.8) 05/03/17 07:32 Lymph # 1.0 K/mm3 (1.2-5.4) L 05/03/17 07:32 [place] # 1.5 K/mm3 (0.0-0.8) H 05/03/17 07:32 Eos # 0.0 K/mm3 (0.0-0.4) 05/03/17 07:32 Baso # 0.0 K/mm3 (0.0-0.1) 05/03/17 07:32 Add Manual Diff Complete 05/04/17 05:31 Total Counted 100 05/04/17 05:31 Seg Neutrophils % 75.0 % (40.0-70.0) H 05/03/17 07:32 Seg Neuts % (Manual) 67.0 % (40.0-70.0) 05/04/17 05:31 Band Neutrophils % 7.0 % 05/04/17 05:31 Lymphocytes % (Manual) 12.0 % (13.4-35.0) L 05/04/17 05:31 Reactive Lymphs % (Man) 0 % 05/04/17 05:31 Monocytes % (Manual) 14.0 % (0.0-7.3) H 05/04/17 05:31 Eosinophils % (Manual) 0 % (0.0-4.3) 05/04/17 05:31 Basophils % (Manual) 0 % (0.0-1.8) 05/04/17 05:31 Metamyelocytes % 0 % 05/04/17 05:31 Myelocytes % 0 % 05/04/17 05:31 Promyelocytes % 0 % 05/04/17 05:31 Blast Cells % 0 % 05/04/17 05:31 Nucleated RBC % Not Reportable 05/04/17 05:31 Seg Neutrophils # 7.5 K/mm3 (1.8-7.7) 05/03/17 07:32 Seg Neutrophils # Man 5.0 K/mm3 (1.8-7.7) 05/04/17 05:31 Band Neutrophils # 0.5 K/mm3 05/04/17 05:31 Lymphocytes # (Manual) 0.9 K/mm3 (1.2-5.4) L 05/04/17 05:31 Abs React Lymphs (Man) 0.0 K/mm3 05/04/17 05:31 Monocytes # (Manual) 1.1 K/mm3 (0.0-0.8) H 05/04/17 05:31 Eosinophils # (Manual) 0.0 K/mm3 (0.0-0.4) 05/04/17 05:31 Basophils # (Manual) 0.0 K/mm3 (0.0-0.1) 05/04/17 05:31 Metamyelocytes # 0.0 K/mm3 05/04/17 05:31 Myelocytes # 0.0 K/mm3 05/04/17 05:31 Promyelocytes # 0.0 K/mm3 05/04/17 05:31 Blast Cells # 0.0 K/mm3 05/04/17 05:31 WBC Morphology Not Reportable 05/04/17 05:31 Hypersegmented Neuts Not Reportable 05/04/17 05:31 Hyposegmented Neuts Not Reportable 05/04/17 05:31 Hypogranular Neuts Not Reportable 05/04/17 05:31 Smudge Cells Not Reportable 05/04/17 05:31 Toxic Granulation Not Reportable 05/04/17 05:31 Toxic Vacuolation Not Reportable 05/04/17 05:31 Dohle Bodies Not Reportable 05/04/17 05:31 Pelger-Huet Anomaly Not Reportable 05/04/17 05:31 Amor Rods Not Reportable 05/04/17 05:31 Platelet Estimate Appears normal 05/04/17 05:31 Clumped Platelets Not Reportable 05/04/17 05:31 Plt Clumps, EDTA Not Reportable 05/04/17 05:31 Large Platelets Rare 05/04/17 05:31 Giant Platelets Not Reportable 05/04/17 05:31 Platelet Satelliting Not Reportable 05/04/17 05:31 Plt Morphology Comment Not Reportable 05/04/17 05:31 RBC Morphology Not Reportable 05/04/17 05:31 Dimorphic RBCs Not Reportable 05/04/17 05:31 Polychromasia Not Reportable 05/04/17 05:31 Hypochromasia Few 05/04/17 05:31 Poikilocytosis Not Reportable 05/04/17 05:31 Anisocytosis 1+ 05/04/17 05:31 Microcytosis Not Reportable 05/04/17 05:31 Macrocytosis Not Reportable 05/04/17 05:31 Spherocytes Not Reportable 05/04/17 05:31 Pappenheimer Bodies Not Reportable 05/04/17 05:31 Sickle Cells Not Reportable 05/04/17 05:31 Target Cells Not Reportable 05/04/17 05:31 Tear Drop Cells Not Reportable 05/04/17 05:31 Ovalocytes Not Reportable 05/04/17 05:31 Helmet Cells Not Reportable 05/04/17 05:31 [place] Bodies Not Reportable 05/04/17 05:31 [place] Rings Not Reportable 05/04/17 05:31 Elizabeth Cells Not Reportable 05/04/17 05:31 Bite Cells Not Reportable 05/04/17 05:31 Crenated Cell Not Reportable 05/04/17 05:31 Elliptocytes Not Reportable 05/04/17 05:31 Acanthocytes (Spur) Not Reportable 05/04/17 05:31 Rouleaux Not Reportable 05/04/17 05:31 Hemoglobin C Crystals Not Reportable 05/04/17 05:31 Schistocytes Not Reportable 05/04/17 05:31 Malaria parasites Not Reportable 05/04/17 05:31 ESR 68 mm/Hr (0-20) 04/29/17 17:16 Connor Bodies Not Reportable 05/04/17 05:31 Hem Pathologist Commnt No 05/04/17 05:31 PT 20.3 Sec. (12.2-14.9) H 04/30/17 22:33 INR 1.74 (0.87-1.13) H 04/30/17 22:33 APTT 39.0 Sec. (24.2-36.6) H 04/30/17 22:33 POC ABG pH 7.411 (7.35-7.45) 05/04/17 04:00 POC ABG pCO2 42.3 (35-45) 05/04/17 04:00 POC ABG pO2 93 (80-105) 05/04/17 04:00 POC ABG HCO3 26.9 05/04/17 04:00 POC ABG Total CO2 28 05/04/17 04:00 POC ABG O2 Sat 97 05/04/17 04:00 POC ABG Base Excess 2 05/04/17 04:00 FiO2 40 % 05/04/17 04:00 Sodium 138 mmol/L (137-145) 05/04/17 05:31 Potassium 4.4 mmol/L (3.6-5.0) 05/04/17 05:31 Chloride 103.1 mmol/L (98-107) 05/04/17 05:31 Carbon Dioxide 24 mmol/L (22-30) 05/04/17 05:31 Anion Gap 15 mmol/L 05/04/17 05:31 BUN 27 mg/dL (9-20) H 05/04/17 05:31 Creatinine 1.1 mg/dL (0.8-1.5) 05/04/17 05:31 Estimated GFR > 60 ml/min 05/04/17 05:31 BUN/Creatinine Ratio 24.54 % 05/04/17 05:31 Glucose 115 mg/dL (75-100) H 05/04/17 05:31 POC Glucose 91 (70-105) 05/04/17 09:17 Lactic Acid 1.50 mmol/L (0.7-2.0) 05/01/17 08:39 Calcium 8.3 mg/dL (8.4-10.2) L 05/04/17 05:31 Magnesium 1.70 mg/dL (1.7-2.3) 04/29/17 17:16 Total Bilirubin 0.60 mg/dL (0.1-1.2) 05/02/17 09:21 AST 22 units/L (5-40) 05/02/17 09:21 ALT 10 units/L (7-56) 05/02/17 09:21 Alkaline Phosphatase 82 units/L (35-129) 05/02/17 09:21 Ammonia 35.0 umol/L (25-60) 04/29/17 15:15 Total Creatine Kinase 70 units/L (55-170) 04/30/17 09:07 CK-MB (CK-2) 2.4 ng/mL (0.0-4.0) 04/30/17 09:07 CK-MB (CK-2) Rel Index 3.4 (0-4) 04/30/17 09:07 Troponin T 0.039 ng/mL (0.00-0.029) H D 05/02/17 09:21 C-Reactive Protein 1.20 mg/dL (0.00-1.30) 04/29/17 17:16 NT-Pro-B Natriuret Pep 5055 pg/mL (0-900) H 04/29/17 17:16 Total Protein 8.5 g/dL (6.3-8.2) H 05/02/17 09:21 Albumin 2.4 g/dL (3.9-5) L 05/02/17 09:21 Albumin/Globulin Ratio 0.4 % 05/02/17 09:21 Triglycerides 64 mg/dL (2-149) 04/29/17 17:16 Cholesterol 101 mg/dL (50-199) 04/29/17 17:16 LDL Cholesterol Direct 53 mg/dL (50-130) 04/29/17 17:16 HDL Cholesterol 36 mg/dL (40-59) L 04/29/17 17:16 Cholesterol/HDL Ratio 2.80 % 04/29/17 17:16 Lipase 23 units/L (13-60) 04/29/17 17:16 TSH 1.800 mlU/mL (0.270-4.200) 04/29/17 17:16 Urine Color Yellow (Yellow) 04/29/17 17:54 Urine Turbidity Clear (Clear) 04/29/17 17:54 Urine pH 7.0 (5.0-7.0) 04/29/17 17:54 Ur Specific [place] 1.013 (1.003-1.030) 04/29/17 17:54 Urine Protein 100 mg/dl mg/dL (Negative) 04/29/17 17:54 Urine Glucose (UA) Neg mg/dL (Negative) 04/29/17 17:54 Urine Ketones Neg mg/dL (Negative) 04/29/17 17:54 Urine Blood Sm (Negative) 04/29/17 17:54 Urine Nitrite Neg (Negative) 04/29/17 17:54 Urine Bilirubin Neg (Negative) 04/29/17 17:54 Urine Urobilinogen < 2.0 mg/dL (<2.0) 04/29/17 17:54 Ur Leukocyte Esterase Neg (Negative) 04/29/17 17:54 Urine WBC (Auto) < 1.0 /HPF (0.0-6.0) 04/29/17 17:54 Urine RBC (Auto) 6.0 /HPF (0.0-6.0) 04/29/17 17:54 Salicylates < 0.3 mg/dL (2.8-20.0) L 04/29/17 17:16 Urine Opiates Screen Presumptive negative 04/29/17 17:54 Urine Methadone Screen Presumptive negative 04/29/17 17:54 Acetaminophen < 15.0 ug/mL (10.0-30.0) 04/29/17 17:16 Ur Barbiturates Screen Presumptive negative 04/29/17 17:54 Ur Phencyclidine Scrn Presumptive negative 04/29/17 17:54 Ur Amphetamines Screen Presumptive negative 04/29/17 17:54 U Benzodiazepines Scrn Presumptive negative 04/29/17 17:54 Urine Cocaine Screen Presumptive negative 04/29/17 17:54 U Marijuana (THC) Screen Presumptive negative 04/29/17 17:54 Drugs of Abuse Note Disclamer 04/29/17 17:54 Plasma/Serum Alcohol < 0.01 gm% (0-0.07) 04/29/17 17:16 Blood Type A POSITIVE 04/29/17 17:16 Antibody Screen TNR 04/29/17 17:16 OSWALD Antibody Screen Negative 04/29/17 17:16
[2017-05-04] MEDS: CARDIZEM/D5W 100MG/100ML 100 MG/100 ML BAG IV SCH (19:34)
[2017-05-04] MEDS: CARDIZEM PO SCH (21:26)
[2017-05-04] MEDS: NEURONTIN PO SCH (21:27)
[2017-05-04] MEDS: LEVEMIR SUB-Q SCH (21:28)
[2017-05-04] MEDS: SENOKOT PO SCH (22:10)
[2017-05-05] MEDS: TYLENOL PO PRN (03:38)
[2017-05-05] MEDS: NOVOLOG SUB-Q SCH ×7 (03:39→22:35)
[2017-05-05] MEDS: HALDOL IM PRN (04:32)
[2017-05-05] MEDS: ZOFRAN IV PRN ×2 (04:35→23:06)
[2017-05-05 05:50] LABS: ISTAT Base Excess -1; ISTAT HCO3 23.9; ISTAT PCO2 36.9 (35-45); ISTAT PH 7.418 (7.35-7.45); ISTAT PO2 68 (80-105); ISTAT SO2 94; ISTAT TCO2 25
[2017-05-05] MEDS: PULMICORT IH SCH ×2 (07:45→19:48)
[2017-05-05] MEDS: BROVANA NEBU IH SCH ×2 (07:45→19:48)
[2017-05-05] MEDS: CARDIZEM PO SCH ×3 (09:25→23:20)
[2017-05-05] MEDS: ELIQUIS PO SCH ×2 (09:26→22:25)
[2017-05-05] MEDS: PROTONIX IV SCH (09:26)
[2017-05-05] MEDS: DepaCON 500 MG in NACL 0.9% 100 ML IV SCH ×2 (09:27→22:35)
[2017-05-05] MEDS: CARDIZEM/D5W 100MG/100ML 100 MG/100 ML BAG IV SCH (09:34)
[2017-05-05] MEDS: COLACE PO SCH ×2 (09:37→21:56)
--- NOTE | 2017-05-05 09:44 | XRay Report ---
AP CHEST :05/05/17 CLINICAL: Intubated.Follow up respiratory failure. COMPARISON:Previous day. FINDINGS: The endotracheal tube is in satisfactory position. The nasogastric tube is satisfactory. Stable cardiomegaly with pacer leads in heart. Central vascular congestion and bibasal subsegmental atelectasis. A new band of subsegmental atelectasis in the left lower lobe. Stable blunted costophrenic angles. No pneumothorax. IMPRESSION: New left lower lobe subsegmental atelectasis and otherwise little change.
--- NOTE | 2017-05-05 11:11 | Progress Note ---
Assessment and Plan 1. Respiratory failure intubated on mechanical ventilator 2. Coronary artery disease status post CABG. 3. Status post bioprosthetic tricuspid valve replacement in 2002 4. Ischemic cardiomyopathy LV ejection fraction 40-45% 5. Essential hypertension 6. Type 2 diabetes mellitus 7. Atrial fibrillation now in sinus rhythm 8. Sepsis Plan. Continue present management continue with DVT prophylaxis for now. Subjective Date of service: 05/05/17 Principal diagnosis: Atrial Fib Interval history: Intubated on mechanical ventilator. Objective Vital Signs Temp Pulse Pulse Pulse Resp Resp BP 05/05/17 09:25 102 H 142/94 05/05/17 09:00 97 H 20 95/65 05/05/17 08:45 93 H 18 105/72 05/05/17 08:30 93 H 17 105/71 05/05/17 08:15 92 H 17 114/80 05/05/17 08:00 97.9 F 93 H 94 H 17 122/85 05/05/17 07:55 93 H 18 05/05/17 07:45 92 H 92 H 18 18 121/86 05/05/17 07:30 92 H 14 117/78 05/05/17 07:15 93 H 19 117/78 05/05/17 07:00 92 H 23 119/83 05/05/17 06:45 92 H 18 124/83 05/05/17 06:30 90 21 123/77 05/05/17 06:15 92 H 19 120/83 05/05/17 06:00 92 H 15 115/75 05/05/17 05:45 93 H 18 107/73 05/05/17 05:30 93 H 18 94/64 05/05/17 05:15 96 H 20 99/65 05/05/17 05:00 92 H 20 125/85 05/05/17 04:46 142 H 24 177/105 05/05/17 04:36 93 H 94/64 05/05/17 04:30 112 H 184/97 05/05/17 04:16 184/97 05/05/17 04:00 99.7 F H 131 H 99 H 55 H 166/101 05/05/17 03:46 109 H 50 H 166/101 05/05/17 03:30 92 H 30 H 166/101 05/05/17 03:16 98 H 48 H 182/95 05/05/17 03:00 123 H 61 H 182/95 05/05/17 02:46 103 H 28 H 162/109 05/05/17 02:30 92 H 30 H 162/109 05/05/17 02:16 91 H 23 159/105 05/05/17 02:00 93 H 42 H 159/105 05/05/17 01:46 109 H 42 H 167/95 05/05/17 01:30 107 H 38 H 167/95 05/05/17 01:16 91 H 26 H 158/97 05/05/17 01:00 91 H 28 H 158/97 05/05/17 00:46 91 H 32 H 148/100 05/05/17 00:30 91 H 28 H 148/100 05/05/17 00:16 94 H 28 H 165/106 05/05/17 00:00 90 27 H 165/106 05/04/17 23:46 98.3 F 92 H 35 H 158/84 05/04/17 23:45 107 H 165/93 05/04/17 23:30 113 H 19 158/84 05/04/17 23:20 92 H 32 H 165/93 05/04/17 23:16 90 26 H 165/93 05/04/17 23:00 104 H 48 H 165/93 05/04/17 22:46 130 H 30 H 149/92 05/04/17 22:30 95 H 23 149/92 05/04/17 22:16 128 H 26 H 155/95 05/04/17 22:00 100 H 22 155/95 05/04/17 21:46 120 H 30 H 163/82 05/04/17 21:30 122 H 37 H 163/82 05/04/17 21:26 122 H 143/91 05/04/17 21:16 130 H 37 H 143/91 05/04/17 21:00 90 18 143/91 05/04/17 20:46 90 21 109/73 05/04/17 20:30 112 H 20 109/73 05/04/17 20:16 112 H 22 149/96 05/04/17 20:00 98.9 F 116 H 116 H 20 149/96 05/04/17 19:46 121 H 36 H 163/91 05/04/17 19:35 171 H 167/119 05/04/17 19:34 183 H 190/89 05/04/17 19:30 162 H 45 H 163/91 05/04/17 19:16 115 H 21 163/91 05/04/17 19:00 184 H 53 H 142/107 05/04/17 18:46 112 H 18 142/107 05/04/17 18:30 96 H 18 142/107 05/04/17 18:16 92 H 17 167/107 05/04/17 18:00 95 H 17 141/94 05/04/17 17:46 101 H 25 H 167/107 05/04/17 17:30 103 H 17 167/107 05/04/17 17:16 96 H 23 161/97 05/04/17 17:00 101 H 24 161/97 05/04/17 16:46 114 H 24 156/99 05/04/17 16:32 117 H 164/104 05/04/17 16:30 98 H 27 H 156/99 05/04/17 16:16 97 H 16 162/101 05/04/17 16:00 98 F 100 H 25 H 162/101 05/04/17 15:46 93 H 25 H 149/88 05/04/17 15:30 89 24 149/88 05/04/17 15:16 93 H 21 151/88 05/04/17 15:00 100 H 23 151/88 05/04/17 14:46 120 H 24 157/97 05/04/17 14:30 108 H 27 H 157/97 05/04/17 14:16 119 H 23 160/92 05/04/17 14:00 126 H 20 153/97 05/04/17 13:46 119 H 25 H 160/92 05/04/17 13:30 106 H 25 H 160/92 05/04/17 13:15 130 H 27 H 148/100 05/04/17 13:01 120 H 15 160/84 05/04/17 12:47 120 H 18 153/104 05/04/17 12:30 148/100 05/04/17 12:20 120 H 05/04/17 12:15 119 H 22 160/94 05/04/17 12:00 97.8 F 104 H 18 160/84 05/04/17 11:45 101 H 21 160/94 05/04/17 11:30 121 H 20 160/94 05/04/17 11:15 120 H 26 H 158/104 Pulse Ox 05/05/17 09:25 05/05/17 09:00 05/05/17 08:45 05/05/17 08:30 100 05/05/17 08:15 100 05/05/17 08:00 100 05/05/17 07:55 05/05/17 07:45 100 05/05/17 07:30 99 05/05/17 07:15 100 05/05/17 07:00 100 05/05/17 06:45 85 05/05/17 06:30 85 05/05/17 06:15 81 L 05/05/17 06:00 78 L 05/05/17 05:45 93 05/05/17 05:30 91 05/05/17 05:15 97 05/05/17 05:00 99 05/05/17 04:46 98 05/05/17 04:36 98 05/05/17 04:30 99 05/05/17 04:16 99 05/05/17 04:00 95 05/05/17 03:46 95 05/05/17 03:30 97 05/05/17 03:16 92 05/05/17 03:00 92 05/05/17 02:46 95 05/05/17 02:30 05/05/17 02:16 05/05/17 02:00 05/05/17 01:46 05/05/17 01:30 05/05/17 01:16 89 05/05/17 01:00 92 05/05/17 00:46 93 05/05/17 00:30 92 05/05/17 00:16 97 05/05/17 00:00 05/04/17 23:46 96 05/04/17 23:45 94 05/04/17 23:30 95 05/04/17 23:20 93 05/04/17 23:16 93 05/04/17 23:00 92 05/04/17 22:46 90 05/04/17 22:30 98 05/04/17 22:16 89 05/04/17 22:00 97 05/04/17 21:46 05/04/17 21:30 05/04/17 21:26 05/04/17 21:16 05/04/17 21:00 05/04/17 20:46 05/04/17 20:30 05/04/17 20:16 05/04/17 20:00 05/04/17 19:46 05/04/17 19:35 93 05/04/17 19:34 05/04/17 19:30 05/04/17 19:16 100 05/04/17 19:00 90 05/04/17 18:46 05/04/17 18:30 05/04/17 18:16 100 05/04/17 18:00 05/04/17 17:46 100 05/04/17 17:30 99 05/04/17 17:16 05/04/17 17:00 05/04/17 16:46 89 05/04/17 16:32 99 05/04/17 16:30 05/04/17 16:16 99 05/04/17 16:00 05/04/17 15:46 05/04/17 15:30 05/04/17 15:16 05/04/17 15:00 05/04/17 14:46 05/04/17 14:30 99 05/04/17 14:16 05/04/17 14:00 05/04/17 13:46 05/04/17 13:30 05/04/17 13:15 05/04/17 13:01 05/04/17 12:47 05/04/17 12:30 05/04/17 12:20 05/04/17 12:15 05/04/17 12:00 05/04/17 11:45 05/04/17 11:30 05/04/17 11:15 100 - Physical Examination General: Other (Intubated sedated) HEENT: Positive: PERRL, Normocephaly Neck: Positive: trachea midline Cardiac: Positive: Regular Rate, S1/S2, S3, PMI, Laterally Displaced Lungs: Positive: No Wheeze, Rales, Rhonchi Abdomen: Positive: Unremarkable, Active Bowel Sounds Extremities: Present: +2 Edema, Other (vascular skin changes)
--- NOTE | 2017-05-05 12:58 | Progress Note ---
Assessment and Plan 66 y/o male admitted with sepsis, etiology unknown, elevated BNP and concern for pleural effusion, now with new onset afib with RVR. 1. Respirtatory status is stable to improving. Will decrease PEEP to 5. Awaiting CXR to read as system is slow this am. patient is more alert but no alert enough to where I feel comfortable with extubation as of right now. CXR up, stable. 2. Hold all sedative. OK with PRN haldol for agitation. 3. Make sure K and Mag are 4 and 2 respectively, Mag has not been checked. No labs checked this am. 4. Continue eliquis secondary to history of DVT. No further bleeding episodes or hemoptysis. 5. SBT in am if mental status is better, possible extubation if tolerates PSV. CCT 31 minutes. Subjective Date of service: 05/05/17 Principal diagnosis: Atrial Fib Interval history: Agitated last night so given haldol. Responds somewhat today. Currently on AC at PEEP of 8. FiO2 at 35% and sat is 100. he is breathing over the vent today. Also had some emesis with high residuals on last night and this am respectively. Objective Vital Signs - 12hr 05/05/17 05/05/17 05/05/17 01:00 01:16 01:30 Temperature Pulse Rate 91 H 91 H 107 H Pulse Rate [ Anterior Bilateral] Pulse Rate [ From Monitor] Respiratory 28 H 26 H 38 H Rate Respiratory Rate [Anterior Bilateral] Blood Pressure 158/97 158/97 167/95 O2 Sat by Pulse 92 89 Oximetry 05/05/17 05/05/17 05/05/17 01:46 02:00 02:16 Temperature Pulse Rate 109 H 93 H 91 H Pulse Rate [ Anterior Bilateral] Pulse Rate [ From Monitor] Respiratory 42 H 42 H 23 Rate Respiratory Rate [Anterior Bilateral] Blood Pressure 167/95 159/105 159/105 O2 Sat by Pulse Oximetry 05/05/17 05/05/17 05/05/17 02:30 02:46 03:00 Temperature Pulse Rate 92 H 103 H 123 H Pulse Rate [ Anterior Bilateral] Pulse Rate [ From Monitor] Respiratory 30 H 28 H 61 H Rate Respiratory Rate [Anterior Bilateral] Blood Pressure 162/109 162/109 182/95 O2 Sat by Pulse 95 92 Oximetry 05/05/17 05/05/17 05/05/17 03:16 03:30 03:46 Temperature Pulse Rate 98 H 92 H 109 H Pulse Rate [ Anterior Bilateral] Pulse Rate [ From Monitor] Respiratory 48 H 30 H 50 H Rate Respiratory Rate [Anterior Bilateral] Blood Pressure 182/95 166/101 166/101 O2 Sat by Pulse 92 97 95 Oximetry 05/05/17 05/05/17 05/05/17 04:00 04:16 04:30 Temperature 99.7 F H Pulse Rate 131 H 112 H Pulse Rate [ Anterior Bilateral] Pulse Rate [ 99 H From Monitor] Respiratory 55 H Rate Respiratory Rate [Anterior Bilateral] Blood Pressure 166/101 184/97 184/97 O2 Sat by Pulse 95 99 99 Oximetry 05/05/17 05/05/17 05/05/17 04:36 04:46 05:00 Temperature Pulse Rate 93 H 142 H 92 H Pulse Rate [ Anterior Bilateral] Pulse Rate [ From Monitor] Respiratory 24 20 Rate Respiratory Rate [Anterior Bilateral] Blood Pressure 94/64 177/105 125/85 O2 Sat by Pulse 98 98 99 Oximetry 05/05/17 05/05/17 05/05/17 05:15 05:30 05:45 Temperature Pulse Rate 96 H 93 H 93 H Pulse Rate [ Anterior Bilateral] Pulse Rate [ From Monitor] Respiratory 20 18 18 Rate Respiratory Rate [Anterior Bilateral] Blood Pressure 99/65 94/64 107/73 O2 Sat by Pulse 97 91 93 Oximetry 05/05/17 05/05/17 05/05/17 06:00 06:15 06:30 Temperature Pulse Rate 92 H 92 H 90 Pulse Rate [ Anterior Bilateral] Pulse Rate [ From Monitor] Respiratory 15 19 21 Rate Respiratory Rate [Anterior Bilateral] Blood Pressure 115/75 120/83 123/77 O2 Sat by Pulse 78 L 81 L 85 Oximetry 05/05/17 05/05/17 05/05/17 06:45 07:00 07:15 Temperature Pulse Rate 92 H 92 H 93 H Pulse Rate [ Anterior Bilateral] Pulse Rate [ From Monitor] Respiratory 18 23 19 Rate Respiratory Rate [Anterior Bilateral] Blood Pressure 124/83 119/83 117/78 O2 Sat by Pulse 85 100 100 Oximetry 05/05/17 05/05/17 05/05/17 07:30 07:45 07:55 Temperature Pulse Rate 92 H 92 H Pulse Rate [ 92 H 93 H Anterior Bilateral] Pulse Rate [ From Monitor] Respiratory 14 18 Rate Respiratory 18 18 Rate [Anterior Bilateral] Blood Pressure 117/78 121/86 O2 Sat by Pulse 99 100 Oximetry 05/05/17 05/05/17 05/05/17 08:00 08:15 08:30 Temperature 97.9 F Pulse Rate 93 H 92 H 93 H Pulse Rate [ Anterior Bilateral] Pulse Rate [ 94 H From Monitor] Respiratory 17 17 17 Rate Respiratory Rate [Anterior Bilateral] Blood Pressure 122/85 114/80 105/71 O2 Sat by Pulse 100 100 100 Oximetry 05/05/17 05/05/17 05/05/17 08:45 09:00 09:25 Temperature Pulse Rate 93 H 97 H 102 H Pulse Rate [ Anterior Bilateral] Pulse Rate [ From Monitor] Respiratory 18 20 Rate Respiratory Rate [Anterior Bilateral] Blood Pressure 105/72 95/65 142/94 O2 Sat by Pulse Oximetry 05/05/17 12:00 Temperature 99.3 F Pulse Rate Pulse Rate [ Anterior Bilateral] Pulse Rate [ From Monitor] Respiratory Rate Respiratory Rate [Anterior Bilateral] Blood Pressure O2 Sat by Pulse Oximetry Constitutional: no acute distress, alert, other (confused, agitated at times and appears angry) ENT: other (orally intubated and sedated) Ascultation: Right: diminished breath sounds, Bilateral: clear, rales (basilar) Percussion: Bilateral: not dull Cardiovascular: irregular rhythm, other (paced now.) Gastrointestinal: normoactive bowel sounds, soft Extremities: edema (chronic lymphedema with chronic skin changes) Neurologic: unable to assess (off all sedation but has not woken up yet. ) Psychiatric: other (flat affect at times angry) CBC and BMP: 05/04/17 05:31 05/04/17 05:31 ABG, PT/INR, D-dimer: ABG POC ABG pH 7.418 (7.35-7.45) 05/05/17 04:35 POC ABG pCO2 36.9 (35-45) 05/05/17 04:35 POC ABG pO2 68 (80-105) L 05/05/17 04:35 POC ABG HCO3 23.9 05/05/17 04:35 POC ABG Total CO2 25 05/05/17 04:35 POC ABG O2 Sat 94 05/05/17 04:35 PT/INR, D-dimer PT 20.3 Sec. (12.2-14.9) H 04/30/17 22:33 INR 1.74 (0.87-1.13) H 04/30/17 22:33 Abnormal lab findings: Abnormal Labs 04/30/17 04/30/17 04/30/17 09:07 09:07 09:07 WBC 13.4 H RBC Hgb Hct MCV 96 H Plt Count 109 L Lymph % (Auto) 11.9 L [place] % (Auto) 11.7 H Lymph # [place] # 1.6 H Seg Neutrophils % 76.1 H Lymphocytes % (Manual) Monocytes % (Manual) Seg Neutrophils # 10.2 H Lymphocytes # (Manual) Monocytes # (Manual) PT INR APTT POC ABG pCO2 POC ABG pO2 Sodium Chloride BUN Creatinine Glucose POC Glucose Lactic Acid 3.30 H* Calcium Troponin T 0.075 H D Total Protein Albumin 04/30/17 04/30/17 04/30/17 12:55 15:41 21:16 WBC RBC Hgb Hct MCV Plt Count Lymph % (Auto) [place] % (Auto) Lymph # [place] # Seg Neutrophils % Lymphocytes % (Manual) Monocytes % (Manual) Seg Neutrophils # Lymphocytes # (Manual) Monocytes # (Manual) PT INR APTT POC ABG pCO2 POC ABG pO2 Sodium Chloride BUN Creatinine Glucose POC Glucose 129 H 114 H 135 H Lactic Acid Calcium Troponin T Total Protein Albumin 04/30/17 05/01/17 05/01/17 22:33 06:15 08:39 WBC RBC 3.61 L Hgb 11.7 L Hct 34.4 L MCV 95 H Plt Count 105 L Lymph % (Auto) [place] % (Auto) 13.9 H Lymph # [place] # 1.3 H Seg Neutrophils % Lymphocytes % (Manual) Monocytes % (Manual) Seg Neutrophils # Lymphocytes # (Manual) Monocytes # (Manual) PT 20.3 H INR 1.74 H APTT 39.0 H POC ABG pCO2 POC ABG pO2 Sodium Chloride BUN Creatinine Glucose POC Glucose 68 L Lactic Acid Calcium Troponin T Total Protein Albumin 05/01/17 05/01/17 05/01/17 08:39 11:27 15:13 WBC RBC Hgb Hct MCV Plt Count Lymph % (Auto) [place] % (Auto) Lymph # [place] # Seg Neutrophils % Lymphocytes % (Manual) Monocytes % (Manual) Seg Neutrophils # Lymphocytes # (Manual) Monocytes # (Manual) PT INR APTT POC ABG pCO2 POC ABG pO2 Sodium 135 L Chloride 97.8 L BUN 26 H Creatinine 1.7 H Glucose 72 L POC Glucose 108 H Lactic Acid Calcium Troponin T 0.074 H Total Protein Albumin 05/02/17 05/02/17 05/02/17 06:59 07:15 09:10 WBC RBC 3.64 L Hgb 11.6 L Hct 34.6 L MCV 95 H Plt Count Lymph % (Auto) 11.0 L [place] % (Auto) 10.1 H Lymph # 0.9 L [place] # Seg Neutrophils % 78.2 H Lymphocytes % (Manual) Monocytes % (Manual) Seg Neutrophils # Lymphocytes # (Manual) Monocytes # (Manual) PT INR APTT POC ABG pCO2 POC ABG pO2 63 L Sodium Chloride BUN Creatinine Glucose POC Glucose 106 H Lactic Acid Calcium Troponin T Total Protein Albumin 05/02/17 05/02/17 05/03/17 09:21 13:04 00:15 WBC RBC Hgb Hct MCV Plt Count Lymph % (Auto) [place] % (Auto) Lymph # [place] # Seg Neutrophils % Lymphocytes % (Manual) Monocytes % (Manual) Seg Neutrophils # Lymphocytes # (Manual) Monocytes # (Manual) PT INR APTT POC ABG pCO2 46.0 H POC ABG pO2 255 H 40 L Sodium 135 L Chloride BUN 27 H Creatinine 1.8 H Glucose POC Glucose Lactic Acid Calcium 8.2 L Troponin T 0.039 H D Total Protein 8.5 H Albumin 2.4 L 05/03/17 05/03/17 05/03/17 01:56 02:05 06:19 WBC RBC Hgb Hct MCV Plt Count Lymph % (Auto) [place] % (Auto) Lymph # [place] # Seg Neutrophils % Lymphocytes % (Manual) Monocytes % (Manual) Seg Neutrophils # Lymphocytes # (Manual) Monocytes # (Manual) PT INR APTT POC ABG pCO2 POC ABG pO2 71 L Sodium Chloride BUN Creatinine Glucose POC Glucose 139 H 135 H Lactic Acid Calcium Troponin T Total Protein Albumin 05/03/17 05/03/17 05/03/17 06:40 07:32 07:32 WBC RBC Hgb Hct MCV 95 H Plt Count 115 L Lymph % (Auto) 9.8 L [place] % (Auto) 14.7 H Lymph # 1.0 L [place] # 1.5 H Seg Neutrophils % 75.0 H Lymphocytes % (Manual) Monocytes % (Manual) Seg Neutrophils # Lymphocytes # (Manual) Monocytes # (Manual) PT INR APTT POC ABG pCO2 POC ABG pO2 223 H Sodium 135 L Chloride BUN 24 H Creatinine Glucose 127 H POC Glucose Lactic Acid Calcium Troponin T Total Protein Albumin 05/03/17 05/03/17 05/04/17 09:30 20:05 03:51 WBC RBC Hgb Hct MCV Plt Count Lymph % (Auto) [place] % (Auto) Lymph # [place] # Seg Neutrophils % Lymphocytes % (Manual) Monocytes % (Manual) Seg Neutrophils # Lymphocytes # (Manual) Monocytes # (Manual) PT INR APTT POC ABG pCO2 POC ABG pO2 Sodium Chloride BUN Creatinine Glucose POC Glucose 118 H 119 H 112 H Lactic Acid Calcium Troponin T Total Protein Albumin 05/04/17 05/04/17 05/04/17 05:31 05:31 16:34 WBC RBC Hgb Hct MCV Plt Count 114 L Lymph % (Auto) [place] % (Auto) Lymph # [place] # Seg Neutrophils % Lymphocytes % (Manual) 12.0 L Monocytes % (Manual) 14.0 H Seg Neutrophils # Lymphocytes # (Manual) 0.9 L Monocytes # (Manual) 1.1 H PT INR APTT POC ABG pCO2 POC ABG pO2 Sodium Chloride BUN 27 H Creatinine Glucose 115 H POC Glucose 125 H Lactic Acid Calcium 8.3 L Troponin T Total Protein Albumin 05/04/17 05/05/17 05/05/17 21:47 04:35 05:48 WBC RBC Hgb Hct MCV Plt Count Lymph % (Auto) [place] % (Auto) Lymph # [place] # Seg Neutrophils % Lymphocytes % (Manual) Monocytes % (Manual) Seg Neutrophils # Lymphocytes # (Manual) Monocytes # (Manual) PT INR APTT POC ABG pCO2 POC ABG pO2 68 L Sodium Chloride BUN Creatinine Glucose POC Glucose 128 H 120 H Lactic Acid Calcium Troponin T Total Protein Albumin 05/05/17 07:19 WBC RBC Hgb Hct MCV Plt Count Lymph % (Auto) [place] % (Auto) Lymph # [place] # Seg Neutrophils % Lymphocytes % (Manual) Monocytes % (Manual) Seg Neutrophils # Lymphocytes # (Manual) Monocytes # (Manual) PT INR APTT POC ABG pCO2 POC ABG pO2 Sodium Chloride BUN Creatinine Glucose POC Glucose 112 H Lactic Acid Calcium Troponin T Total Protein Albumin
--- NOTE | 2017-05-05 15:40 | XRay Report ---
FINAL REPORT PROCEDURE: XR ABDOMEN 1V AP TECHNIQUE: AP view of the abdomen is obtained HISTORY: emesis COMPARISON: X-ray dated May 03, 2017 FINDINGS: Endotracheal tube appears coiled in the region of the fundus of the stomach but there is persistent gaseous dilation of the stomach. There is a paucity of small and large bowel air. IVC filter is seen. IMPRESSION: Persistent gaseous dilation of the stomach is seen. NG tube appears to be coiled in the fundus of the stomach but correlation with function is recommended. CT of the abdomen and pelvis may be useful to assure tube location and evaluate for possible gastric outlet obstruction.
--- NOTE | 2017-05-05 15:45 | Progress Note ---
Assessment and Plan Assessment and plan: Acute respiratory failure - Patient is intubated and on mechanical ventilation - Likely due to mucus plug - Bronchoscopy was done - Discontinue sedatives Afib with RVR - controlled, in sinus rhythm, on metoprolol - Was on cardizm drip - Cardiology consulted - ECHO showed EF 40-45% - patient has AICD NSTEMI - cardiac enzymes are trending down - I can't anticoagulate him because of hemoptysis Sepsis - ruled out - all the cultures are negative Hemoptysis - resolved, no bleeding was seen during bronchoscopy Diabetes mellitus type 2 - sliding scale insulin Hypertension - Continue his meds Acute kidney Failure - Resolved Chronic systolic CHF CAD History of DVT - Was on eliquis Dementia - Supportive care CODE STATUS full Disposition - Continue ICU care The high probability of a clinically significant, sudden or life threatening deterioration of the [Respiratory, 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 The aggregate critical care time was [45] minutes. This time is in addition to time spent performing reported procedures but includes the following: [x] Data Review and interpretation [x] Patient assessment and monitoring of vital signs [x] Documentation [x] Medication orders and managementICU History Interval history: Patient was seen and evaluated this morning, patient is intubated and PEEP of 5. Hospitalist Physical - Physical exam Narrative exam: Patient is intubated and on mechanical ventilation. The patient appeared well nourished and normally developed. Vital signs as documented. Head exam is unremarkable. No scleral icterus . Neck is without jugular venous distension, thyromegaly, or carotid bruits. Lungs wheezing all over the chest. Cardiac exam reveals regular rate and Rhythm. First and second heart sounds normal. No murmurs, rubs or gallops. Abdominal exam reveals normal bowel sounds, no masses, no organomegaly and no aortic enlargement. Extremities are swelling and DISCOLORATION of bilateral lower extremities due to venous stasis. [employer] SIGN WIRER HELPER: Patient is sedated. - Constitutional Vitals: Temp Pulse Resp BP Pulse Ox 99.3 F 103 H 18 140/88 100 05/05/17 12:00 05/05/17 14:12 05/05/17 13:15 05/05/17 14:12 05/05/17 13:15 General appearance: Present: other (intubated, sedated, Fi O2 60%) Results - Labs CBC & Chem 7: 05/04/17 05:31 05/04/17 05:31 Labs: Laboratory Last Values WBC 7.5 K/mm3 (4.5-11.0) 05/04/17 05:31 RBC 3.84 M/mm3 (3.65-5.03) 05/04/17 05:31 Hgb 12.1 gm/dl (11.8-15.2) 05/04/17 05:31 Hct 36.2 % (35.5-45.6) 05/04/17 05:31 MCV 94 fl (84-94) 05/04/17 05:31 MCH 32 pg (28-32) 05/04/17 05:31 MCHC 34 % (32-34) 05/04/17 05:31 RDW 14.8 % (13.2-15.2) 05/04/17 05:31 Plt Count 114 K/mm3 (140-440) L 05/04/17 05:31 Lymph % (Auto) 9.8 % (13.4-35.0) L 05/03/17 07:32 [place] % (Auto) Catalyst Operator 05/04/17 05:31 Eos % (Auto) 0.1 % (0.0-4.3) 05/03/17 07:32 Baso % (Auto) 0.4 % (0.0-1.8) 05/03/17 07:32 Lymph # 1.0 K/mm3 (1.2-5.4) L 05/03/17 07:32 [place] # 1.5 K/mm3 (0.0-0.8) H 05/03/17 07:32 Eos # 0.0 K/mm3 (0.0-0.4) 05/03/17 07:32 Baso # 0.0 K/mm3 (0.0-0.1) 05/03/17 07:32 Add Manual Diff Complete 05/04/17 05:31 Total Counted 100 05/04/17 05:31 Seg Neutrophils % 75.0 % (40.0-70.0) H 05/03/17 07:32 Seg Neuts % (Manual) 67.0 % (40.0-70.0) 05/04/17 05:31 Band Neutrophils % 7.0 % 05/04/17 05:31 Lymphocytes % (Manual) 12.0 % (13.4-35.0) L 05/04/17 05:31 Reactive Lymphs % (Man) 0 % 05/04/17 05:31 Monocytes % (Manual) 14.0 % (0.0-7.3) H 05/04/17 05:31 Eosinophils % (Manual) 0 % (0.0-4.3) 05/04/17 05:31 Basophils % (Manual) 0 % (0.0-1.8) 05/04/17 05:31 Metamyelocytes % 0 % 05/04/17 05:31 Myelocytes % 0 % 05/04/17 05:31 Promyelocytes % 0 % 05/04/17 05:31 Blast Cells % 0 % 05/04/17 05:31 Nucleated RBC % Not Reportable 05/04/17 05:31 Seg Neutrophils # 7.5 K/mm3 (1.8-7.7) 05/03/17 07:32 Seg Neutrophils # Man 5.0 K/mm3 (1.8-7.7) 05/04/17 05:31 Band Neutrophils # 0.5 K/mm3 05/04/17 05:31 Lymphocytes # (Manual) 0.9 K/mm3 (1.2-5.4) L 05/04/17 05:31 Abs React Lymphs (Man) 0.0 K/mm3 05/04/17 05:31 Monocytes # (Manual) 1.1 K/mm3 (0.0-0.8) H 05/04/17 05:31 Eosinophils # (Manual) 0.0 K/mm3 (0.0-0.4) 05/04/17 05:31 Basophils # (Manual) 0.0 K/mm3 (0.0-0.1) 05/04/17 05:31 Metamyelocytes # 0.0 K/mm3 05/04/17 05:31 Myelocytes # 0.0 K/mm3 05/04/17 05:31 Promyelocytes # 0.0 K/mm3 05/04/17 05:31 Blast Cells # 0.0 K/mm3 05/04/17 05:31 WBC Morphology Not Reportable 05/04/17 05:31 Hypersegmented Neuts Not Reportable 05/04/17 05:31 Hyposegmented Neuts Not Reportable 05/04/17 05:31 Hypogranular Neuts Not Reportable 05/04/17 05:31 Smudge Cells Not Reportable 05/04/17 05:31 Toxic Granulation Not Reportable 05/04/17 05:31 Toxic Vacuolation Not Reportable 05/04/17 05:31 Dohle Bodies Not Reportable 05/04/17 05:31 Pelger-Huet Anomaly Not Reportable 05/04/17 05:31 Amor Rods Not Reportable 05/04/17 05:31 Platelet Estimate Appears normal 05/04/17 05:31 Clumped Platelets Not Reportable 05/04/17 05:31 Plt Clumps, EDTA Not Reportable 05/04/17 05:31 Large Platelets Rare 05/04/17 05:31 Giant Platelets Not Reportable 05/04/17 05:31 Platelet Satelliting Not Reportable 05/04/17 05:31 Plt Morphology Comment Not Reportable 05/04/17 05:31 RBC Morphology Not Reportable 05/04/17 05:31 Dimorphic RBCs Not Reportable 05/04/17 05:31 Polychromasia Not Reportable 05/04/17 05:31 Hypochromasia Few 05/04/17 05:31 Poikilocytosis Not Reportable 05/04/17 05:31 Anisocytosis 1+ 05/04/17 05:31 Microcytosis Not Reportable 05/04/17 05:31 Macrocytosis Not Reportable 05/04/17 05:31 Spherocytes Not Reportable 05/04/17 05:31 Pappenheimer Bodies Not Reportable 05/04/17 05:31 Sickle Cells Not Reportable 05/04/17 05:31 Target Cells Not Reportable 05/04/17 05:31 Tear Drop Cells Not Reportable 05/04/17 05:31 Ovalocytes Not Reportable 05/04/17 05:31 Helmet Cells Not Reportable 05/04/17 05:31 [place] Bodies Not Reportable 05/04/17 05:31 [place] Rings Not Reportable 05/04/17 05:31 [place] Cells Not Reportable 05/04/17 05:31 Bite Cells Not Reportable 05/04/17 05:31 Crenated Cell Not Reportable 05/04/17 05:31 Elliptocytes Not Reportable 05/04/17 05:31 Acanthocytes (Spur) Not Reportable 05/04/17 05:31 Rouleaux Not Reportable 05/04/17 05:31 Hemoglobin C Crystals Not Reportable 05/04/17 05:31 Schistocytes Not Reportable 05/04/17 05:31 Malaria parasites Not Reportable 05/04/17 05:31 ESR 68 mm/Hr (0-20) 04/29/17 17:16 [place] Bodies Not Reportable 05/04/17 05:31 Hem Pathologist Commnt No 05/04/17 05:31 PT 20.3 Sec. (12.2-14.9) H 04/30/17 22:33 INR 1.74 (0.87-1.13) H 04/30/17 22:33 APTT 39.0 Sec. (24.2-36.6) H 04/30/17 22:33 POC ABG pH 7.418 (7.35-7.45) 05/05/17 04:35 POC ABG pCO2 36.9 (35-45) 05/05/17 04:35 POC ABG pO2 68 (80-105) L 05/05/17 04:35 POC ABG HCO3 23.9 05/05/17 04:35 POC ABG Total CO2 25 05/05/17 04:35 POC ABG O2 Sat 94 05/05/17 04:35 POC ABG Base Excess -1 05/05/17 04:35 FiO2 35 % 05/05/17 04:35 Sodium 138 mmol/L (137-145) 05/04/17 05:31 Potassium 4.4 mmol/L (3.6-5.0) 05/04/17 05:31 Chloride 103.1 mmol/L (98-107) 05/04/17 05:31 Carbon Dioxide 24 mmol/L (22-30) 05/04/17 05:31 Anion Gap 15 mmol/L 05/04/17 05:31 BUN 27 mg/dL (9-20) H 05/04/17 05:31 Creatinine 1.1 mg/dL (0.8-1.5) 05/04/17 05:31 Estimated GFR > 60 ml/min 05/04/17 05:31 BUN/Creatinine Ratio 24.54 % 05/04/17 05:31 Glucose 115 mg/dL (75-100) H 05/04/17 05:31 POC Glucose 105 (70-105) 05/05/17 11:52 Lactic Acid 1.50 mmol/L (0.7-2.0) 05/01/17 08:39 Calcium 8.3 mg/dL (8.4-10.2) L 05/04/17 05:31 Magnesium 1.70 mg/dL (1.7-2.3) 04/29/17 17:16 Total Bilirubin 0.60 mg/dL (0.1-1.2) 05/02/17 09:21 AST 22 units/L (5-40) 05/02/17 09:21 ALT 10 units/L (7-56) 05/02/17 09:21 Alkaline Phosphatase 82 units/L (35-129) 05/02/17 09:21 Ammonia 35.0 umol/L (25-60) 04/29/17 15:15 Total Creatine Kinase 70 units/L (55-170) 04/30/17 09:07 CK-MB (CK-2) 2.4 ng/mL (0.0-4.0) 04/30/17 09:07 CK-MB (CK-2) Rel Index 3.4 (0-4) 04/30/17 09:07 Troponin T 0.039 ng/mL (0.00-0.029) H D 05/02/17 09:21 C-Reactive Protein 1.20 mg/dL (0.00-1.30) 04/29/17 17:16 NT-Pro-B Natriuret Pep 5055 pg/mL (0-900) H 04/29/17 17:16 Total Protein 8.5 g/dL (6.3-8.2) H 05/02/17 09:21 Albumin 2.4 g/dL (3.9-5) L 05/02/17 09:21 Albumin/Globulin Ratio 0.4 % 05/02/17 09:21 Triglycerides 64 mg/dL (2-149) 04/29/17 17:16 Cholesterol 101 mg/dL (50-199) 04/29/17 17:16 LDL Cholesterol Direct 53 mg/dL (50-130) 04/29/17 17:16 HDL Cholesterol 36 mg/dL (40-59) L 04/29/17 17:16 Cholesterol/HDL Ratio 2.80 % 04/29/17 17:16 Lipase 23 units/L (13-60) 04/29/17 17:16 TSH 1.800 mlU/mL (0.270-4.200) 04/29/17 17:16 Urine Color Yellow (Yellow) 04/29/17 17:54 Urine Turbidity Clear (Clear) 04/29/17 17:54 Urine pH 7.0 (5.0-7.0) 04/29/17 17:54 Ur Specific [place] 1.013 (1.003-1.030) 04/29/17 17:54 Urine Protein 100 mg/dl mg/dL (Negative) 04/29/17 17:54 Urine Glucose (UA) Neg mg/dL (Negative) 04/29/17 17:54 Urine Ketones Neg mg/dL (Negative) 04/29/17 17:54 Urine Blood Sm (Negative) 04/29/17 17:54 Urine Nitrite Neg (Negative) 04/29/17 17:54 Urine Bilirubin Neg (Negative) 04/29/17 17:54 Urine Urobilinogen < 2.0 mg/dL (<2.0) 04/29/17 17:54 Ur Leukocyte Esterase Neg (Negative) 04/29/17 17:54 Urine WBC (Auto) < 1.0 /HPF (0.0-6.0) 04/29/17 17:54 Urine RBC (Auto) 6.0 /HPF (0.0-6.0) 04/29/17 17:54 Salicylates < 0.3 mg/dL (2.8-20.0) L 04/29/17 17:16 Urine Opiates Screen Presumptive negative 04/29/17 17:54 Urine Methadone Screen Presumptive negative 04/29/17 17:54 Acetaminophen < 15.0 ug/mL (10.0-30.0) 04/29/17 17:16 Ur Barbiturates Screen Presumptive negative 04/29/17 17:54 Ur Phencyclidine Scrn Presumptive negative 04/29/17 17:54 Ur Amphetamines Screen Presumptive negative 04/29/17 17:54 U Benzodiazepines Scrn Presumptive negative 04/29/17 17:54 Urine Cocaine Screen Presumptive negative 04/29/17 17:54 U Marijuana (THC) Screen Presumptive negative 04/29/17 17:54 Drugs of Abuse Note Disclamer 04/29/17 17:54 Plasma/Serum Alcohol < 0.01 gm% (0-0.07) 04/29/17 17:16 Blood Type A POSITIVE 04/29/17 17:16 Antibody Screen TNR 04/29/17 17:16 OSWALD Antibody Screen Negative 04/29/17 17:16
[2017-05-05 18:05] LABS: Hematocrit 42.9 % (35.5-45.6); Hemoglobin 14.1 gm/dl (11.8-15.2); Mean Corpuscular HGB Conc 33 % (32-34); Mean Corpuscular Hemoglobin 32 pg (28-32); Mean Corpuscular Volume 96 fl (84-94); Platelet Count 189 K/mm3 (140-440); Red Blood Count 4.45 M/mm3 (3.65-5.03); Red Cell Distribution Width 14.8 % (13.2-15.2)
[2017-05-05 18:16] LABS: Anion Gap 19 mmol/L; Blood Urea Nitrogen 27 mg/dL (9-20); Calcium 8.8 mg/dL (8.4-10.2); Carbon Dioxide 23 mmol/L (22-30); Chloride 102.2 mmol/L (98-107); Glucose 79 mg/dL (75-100); Potassium 4.5 mmol/L (3.6-5.0); Sodium 140 mmol/L (137-145)
[2017-05-05 19:42] LABS: Basophils % (Manual) 0 % (0.0-1.8); Blastocytes % (Manual) 0 %; Eosinophils % (Manual) 0 % (0.0-4.3)
[2017-05-05 19:44] LABS: Anisocytosis 1+; Ovalocytes Few
[2017-05-05 19:45] LABS: Diff Status Complete; Platelet Estimate Consistent w Auto; Polychromasia Few
--- NOTE | 2017-05-05 19:50 | XRay Report ---
FINAL REPORT PROCEDURE: XR ABDOMEN 1V AP TECHNIQUE: AP view of the abdomen is obtained. HISTORY: NG placement COMPARISON: No prior studies are available for comparison. FINDINGS: Nasogastric tube tip and side hole appear to be within the stomach. There is diminished dilation of the stomach but it remains mildly dilated with air. Probable left pleural effusion is seen with atelectasis or pneumonia at the left lung base. IVC filter is unchanged in position. IMPRESSION: There is diminished gaseous distention of the stomach. Nasogastric tube tip and side hole appear to be within the stomach.
[2017-05-05] MEDS: SENOKOT PO SCH (21:58)
[2017-05-05] MEDS: NEURONTIN PO SCH (22:25)
[2017-05-06] MEDS: NOVOLOG SUB-Q SCH ×5 (02:00→22:39)
[2017-05-06] MEDS: CARDIZEM/D5W 100MG/100ML 100 MG/100 ML BAG IV SCH (02:28)
[2017-05-06 05:57] LABS: Hematocrit 42.6 % (35.5-45.6); Hemoglobin 14.1 gm/dl (11.8-15.2); Mean Corpuscular HGB Conc 33 % (32-34); Mean Corpuscular Hemoglobin 32 pg (28-32); Mean Corpuscular Volume 96 fl (84-94); Platelet Count 182 K/mm3 (140-440); Red Blood Count 4.43 M/mm3 (3.65-5.03); Red Cell Distribution Width 14.5 % (13.2-15.2)
[2017-05-06 05:58] LABS: ISTAT Base Excess 0; ISTAT PCO2 43.2 (35-45); ISTAT PO2 95 (80-105); ISTAT SO2 97; ISTAT TCO2 26
[2017-05-06 06:14] LABS: Anion Gap 17 mmol/L; BUN/Creatinine Ratio 24.54; Blood Urea Nitrogen 27 mg/dL (9-20); Calcium 8.7 mg/dL (8.4-10.2); Carbon Dioxide 24 mmol/L (22-30); Glucose 104 mg/dL (75-100); Sodium 142 mmol/L (137-145)
[2017-05-06 06:46] LABS: Basophils % (Manual) 0 % (0.0-1.8); Blastocytes % (Manual) 0 %; Eosinophils % (Manual) 0 % (0.0-4.3)
[2017-05-06 06:48] LABS: Diff Status Complete; Platelet Estimate Consistent w Auto; Polychromasia Few
--- NOTE | 2017-05-06 08:26 | XRay Report ---
AP CHEST :05/06/17 01:37 CLINICAL: Intubated.Follow up respiratory failure. COMPARISON:05/05/17 FINDINGS: An endotracheal tube is not clearly identified. There is considerable air beneath the diaphragm. The nasogastric tube tip is in the left upper quadrant of the stomach appears to be dilated. Low lung volumes and bibasal subsegmental atelectasis. Cardiomegaly and central vascular congestion. No pneumothorax. IMPRESSION: Low lung volumes and significant distention of bowel and/or stomach.Recommend KUB to assess the abdomen. No CHF.
[2017-05-06] MEDS: PROTONIX IV SCH (09:26)
[2017-05-06] MEDS: CARDIZEM PO SCH ×4 (09:26→23:25)
[2017-05-06] MEDS: ELIQUIS PO SCH ×2 (09:26→23:25)
[2017-05-06] MEDS: DepaCON 500 MG in NACL 0.9% 100 ML IV SCH ×2 (09:54→22:52)
[2017-05-06] MEDS: COLACE PO SCH ×3 (10:06→23:25)
[2017-05-06] MEDS: PULMICORT IH SCH ×2 (10:44→20:34)
[2017-05-06] MEDS: BROVANA NEBU IH SCH ×2 (10:44→20:34)
--- NOTE | 2017-05-06 11:01 | Progress Note ---
Assessment and Plan Respiratory failure intubated on mechanical ventilator Coronary artery disease status post CABG. Status post bioprosthetic tricuspid valve replacement in 2002 Ischemic cardiomyopathy LV ejection fraction 40-45%. May still be in heart failure and be of physical examination changes Essential hypertension Type 2 diabetes mellitus Atrial fibrillation, now in sinus rhythm Sepsis. Completing antibiotics. No fever. Recommendations Lasix 40 mg IV single dose BNP up-to-date Monitor intake and output, serum electrolytes and renal function Suction secretions as needed Reassess for weaning in the next 24 hours Critical care time 31 minutes of [id number] evaluation and coordination of care Subjective Date of service: 05/06/17 Principal diagnosis: Atrial Fib Interval history: Partial sedated and intubated Objective Vital Signs - 12hr 05/05/17 05/05/17 05/05/17 23:00 23:15 23:20 Temperature Pulse Rate 93 H 93 H 93 H Pulse Rate [ Anterior Bilateral] Pulse Rate [ From Monitor] Respiratory 31 H 36 H Rate Respiratory Rate [Anterior Bilateral] Blood Pressure 130/97 147/95 130/97 O2 Sat by Pulse 98 Oximetry 05/05/17 05/05/17 05/05/17 23:30 23:35 23:46 Temperature Pulse Rate 94 H 93 H 103 H Pulse Rate [ Anterior Bilateral] Pulse Rate [ From Monitor] Respiratory 25 H 53 H Rate Respiratory Rate [Anterior Bilateral] Blood Pressure 129/93 130/97 122/98 O2 Sat by Pulse 96 81 L Oximetry 05/06/17 05/06/17 05/06/17 00:00 00:15 00:30 Temperature 98.4 F Pulse Rate 93 H 93 H 93 H Pulse Rate [ Anterior Bilateral] Pulse Rate [ 93 H From Monitor] Respiratory 22 22 37 H Rate Respiratory Rate [Anterior Bilateral] Blood Pressure 147/95 137/90 146/97 O2 Sat by Pulse 87 94 Oximetry 05/06/17 05/06/17 05/06/17 00:45 01:00 01:15 Temperature Pulse Rate 93 H 93 H 93 H Pulse Rate [ Anterior Bilateral] Pulse Rate [ From Monitor] Respiratory 28 H 29 H 34 H Rate Respiratory Rate [Anterior Bilateral] Blood Pressure 138/91 137/91 146/91 O2 Sat by Pulse 91 99 100 Oximetry 05/06/17 05/06/17 05/06/17 01:30 01:45 02:00 Temperature Pulse Rate 92 H 93 H 93 H Pulse Rate [ Anterior Bilateral] Pulse Rate [ 108 H From Monitor] Respiratory 40 H 37 H 38 H Rate Respiratory Rate [Anterior Bilateral] Blood Pressure 144/95 150/99 143/95 O2 Sat by Pulse 100 100 100 Oximetry 05/06/17 05/06/17 05/06/17 02:15 02:30 02:36 Temperature Pulse Rate 94 H 93 H Pulse Rate [ Anterior Bilateral] Pulse Rate [ From Monitor] Respiratory 23 33 H Rate Respiratory Rate [Anterior Bilateral] Blood Pressure 148/95 156/98 O2 Sat by Pulse 100 96 98 Oximetry 05/06/17 05/06/17 05/06/17 02:45 03:00 03:15 Temperature Pulse Rate 94 H 93 H 93 H Pulse Rate [ Anterior Bilateral] Pulse Rate [ From Monitor] Respiratory 26 H 27 H 42 H Rate Respiratory Rate [Anterior Bilateral] Blood Pressure 140/94 141/99 132/99 O2 Sat by Pulse 97 98 100 Oximetry 05/06/17 05/06/17 05/06/17 03:30 03:45 04:00 Temperature 98.4 F Pulse Rate 93 H 94 H 93 H Pulse Rate [ Anterior Bilateral] Pulse Rate [ 120 H From Monitor] Respiratory 39 H 32 H 37 H Rate Respiratory Rate [Anterior Bilateral] Blood Pressure 143/95 148/93 143/93 O2 Sat by Pulse 97 98 97 Oximetry 05/06/17 05/06/17 05/06/17 04:15 04:30 04:45 Temperature Pulse Rate 93 H 93 H 93 H Pulse Rate [ Anterior Bilateral] Pulse Rate [ From Monitor] Respiratory 41 H 29 H 35 H Rate Respiratory Rate [Anterior Bilateral] Blood Pressure 152/93 150/95 139/94 O2 Sat by Pulse 99 98 97 Oximetry 05/06/17 05/06/17 05/06/17 05:00 05:15 05:30 Temperature Pulse Rate 95 H 94 H 93 H Pulse Rate [ Anterior Bilateral] Pulse Rate [ From Monitor] Respiratory 26 H 40 H 35 H Rate Respiratory Rate [Anterior Bilateral] Blood Pressure 151/94 142/96 142/91 O2 Sat by Pulse 98 97 97 Oximetry 05/06/17 05/06/17 05/06/17 05:45 06:00 06:15 Temperature Pulse Rate 93 H 93 H 93 H Pulse Rate [ Anterior Bilateral] Pulse Rate [ 122 H From Monitor] Respiratory 32 H 37 H 22 Rate Respiratory Rate [Anterior Bilateral] Blood Pressure 145/94 150/96 145/99 O2 Sat by Pulse 97 98 97 Oximetry 05/06/17 05/06/17 05/06/17 06:30 06:45 07:00 Temperature Pulse Rate 93 H 92 H 93 H Pulse Rate [ Anterior Bilateral] Pulse Rate [ From Monitor] Respiratory 34 H 30 H 32 H Rate Respiratory Rate [Anterior Bilateral] Blood Pressure 158/91 155/98 137/92 O2 Sat by Pulse 97 98 99 Oximetry 05/06/17 05/06/17 05/06/17 07:15 07:30 07:45 Temperature Pulse Rate 93 H Pulse Rate [ Anterior Bilateral] Pulse Rate [ From Monitor] Respiratory 30 H Rate Respiratory Rate [Anterior Bilateral] Blood Pressure 144/98 148/100 141/90 O2 Sat by Pulse 96 94 100 Oximetry 05/06/17 05/06/17 05/06/17 08:00 08:15 08:30 Temperature 99.4 F Pulse Rate 94 H 93 H 93 H Pulse Rate [ Anterior Bilateral] Pulse Rate [ 99 H From Monitor] Respiratory 36 H 33 H 31 H Rate Respiratory Rate [Anterior Bilateral] Blood Pressure 146/101 148/96 151/104 O2 Sat by Pulse 97 97 97 Oximetry 05/06/17 05/06/17 05/06/17 08:46 09:00 09:15 Temperature Pulse Rate 93 H 93 H 94 H Pulse Rate [ Anterior Bilateral] Pulse Rate [ From Monitor] Respiratory 25 H 28 H 31 H Rate Respiratory Rate [Anterior Bilateral] Blood Pressure 143/99 148/98 154/99 O2 Sat by Pulse 97 96 98 Oximetry 05/06/17 05/06/17 05/06/17 09:26 09:30 09:45 Temperature Pulse Rate 93 H 94 H 93 H Pulse Rate [ Anterior Bilateral] Pulse Rate [ From Monitor] Respiratory 31 H 11 L Rate Respiratory Rate [Anterior Bilateral] Blood Pressure 154/99 146/102 159/103 O2 Sat by Pulse 100 97 Oximetry 05/06/17 05/06/17 05/06/17 10:00 10:15 10:30 Temperature Pulse Rate 94 H 93 H 93 H Pulse Rate [ Anterior Bilateral] Pulse Rate [ From Monitor] Respiratory 34 H 33 H 28 H Rate Respiratory Rate [Anterior Bilateral] Blood Pressure 153/98 145/98 155/103 O2 Sat by Pulse 97 97 96 Oximetry 05/06/17 05/06/17 10:42 10:44 Temperature Pulse Rate Pulse Rate [ 94 H Anterior Bilateral] Pulse Rate [ From Monitor] Respiratory Rate Respiratory 24 Rate [Anterior Bilateral] Blood Pressure O2 Sat by Pulse 95 Oximetry Constitutional: no acute distress, alert, other (confused, agitated at times and appears angry) ENT: other (orally intubated and sedated) Ascultation: Bilateral: clear, rales (bilateral lower half of both pulmonary allen) Percussion: Bilateral: not dull Cardiovascular: irregular rhythm, other (pacemaker rhythm) Gastrointestinal: normoactive bowel sounds, soft Integumentary: normal Extremities: edema (chronic lymphedema with chronic skin changes) Neurologic: unable to assess (R ASS -1) Psychiatric: other (flat affect at times angry) CBC and BMP: 05/06/17 05:19 05/06/17 05:19 ABG, PT/INR, D-dimer: ABG POC ABG pH 7.370 (7.35-7.45) 05/06/17 03:44 POC ABG pCO2 43.2 (35-45) 05/06/17 03:44 POC ABG pO2 95 (80-105) 05/06/17 03:44 POC ABG HCO3 25.0 05/06/17 03:44 POC ABG Total CO2 26 05/06/17 03:44 POC ABG O2 Sat 97 05/06/17 03:44 PT/INR, D-dimer PT 20.3 Sec. (12.2-14.9) H 04/30/17 22:33 INR 1.74 (0.87-1.13) H 04/30/17 22:33 Abnormal lab findings: Abnormal Labs 04/30/17 04/30/17 04/30/17 09:07 09:07 09:07 WBC 13.4 H RBC Hgb Hct MCV 96 H Plt Count 109 L Lymph % (Auto) 11.9 L Clark % (Auto) 11.7 H Lymph # Clark # 1.6 H Seg Neutrophils % 76.1 H Seg Neuts % (Manual) Lymphocytes % (Manual) Monocytes % (Manual) Seg Neutrophils # 10.2 H Seg Neutrophils # Man Lymphocytes # (Manual) Monocytes # (Manual) PT INR APTT POC ABG pCO2 POC ABG pO2 Sodium Chloride BUN Creatinine Glucose POC Glucose Lactic Acid 3.30 H* Calcium Troponin T 0.075 H D Total Protein Albumin 04/30/17 04/30/17 04/30/17 12:55 15:41 21:16 WBC RBC Hgb Hct MCV Plt Count Lymph % (Auto) Clark % (Auto) Lymph # Clark # Seg Neutrophils % Seg Neuts % (Manual) Lymphocytes % (Manual) Monocytes % (Manual) Seg Neutrophils # Seg Neutrophils # Man Lymphocytes # (Manual) Monocytes # (Manual) PT INR APTT POC ABG pCO2 POC ABG pO2 Sodium Chloride BUN Creatinine Glucose POC Glucose 129 H 114 H 135 H Lactic Acid Calcium Troponin T Total Protein Albumin 04/30/17 05/01/17 05/01/17 22:33 06:15 08:39 WBC RBC 3.61 L Hgb 11.7 L Hct 34.4 L MCV 95 H Plt Count 105 L Lymph % (Auto) Clark % (Auto) 13.9 H Lymph # Clark # 1.3 H Seg Neutrophils % Seg Neuts % (Manual) Lymphocytes % (Manual) Monocytes % (Manual) Seg Neutrophils # Seg Neutrophils # Man Lymphocytes # (Manual) Monocytes # (Manual) PT 20.3 H INR 1.74 H APTT 39.0 H POC ABG pCO2 POC ABG pO2 Sodium Chloride BUN Creatinine Glucose POC Glucose 68 L Lactic Acid Calcium Troponin T Total Protein Albumin 05/01/17 05/01/17 05/01/17 08:39 11:27 15:13 WBC RBC Hgb Hct MCV Plt Count Lymph % (Auto) Clark % (Auto) Lymph # Clark # Seg Neutrophils % Seg Neuts % (Manual) Lymphocytes % (Manual) Monocytes % (Manual) Seg Neutrophils # Seg Neutrophils # Man Lymphocytes # (Manual) Monocytes # (Manual) PT INR APTT POC ABG pCO2 POC ABG pO2 Sodium 135 L Chloride 97.8 L BUN 26 H Creatinine 1.7 H Glucose 72 L POC Glucose 108 H Lactic Acid Calcium Troponin T 0.074 H Total Protein Albumin 05/02/17 05/02/17 05/02/17 06:59 07:15 09:10 WBC RBC 3.64 L Hgb 11.6 L Hct 34.6 L MCV 95 H Plt Count Lymph % (Auto) 11.0 L Clark % (Auto) 10.1 H Lymph # 0.9 L Clark # Seg Neutrophils % 78.2 H Seg Neuts % (Manual) Lymphocytes % (Manual) Monocytes % (Manual) Seg Neutrophils # Seg Neutrophils # Man Lymphocytes # (Manual) Monocytes # (Manual) PT INR APTT POC ABG pCO2 POC ABG pO2 63 L Sodium Chloride BUN Creatinine Glucose POC Glucose 106 H Lactic Acid Calcium Troponin T Total Protein Albumin 05/02/17 05/02/17 05/03/17 09:21 13:04 00:15 WBC RBC Hgb Hct MCV Plt Count Lymph % (Auto) Clark % (Auto) Lymph # Clark # Seg Neutrophils % Seg Neuts % (Manual) Lymphocytes % (Manual) Monocytes % (Manual) Seg Neutrophils # Seg Neutrophils # Man Lymphocytes # (Manual) Monocytes # (Manual) PT INR APTT POC ABG pCO2 46.0 H POC ABG pO2 255 H 40 L Sodium 135 L Chloride BUN 27 H Creatinine 1.8 H Glucose POC Glucose Lactic Acid Calcium 8.2 L Troponin T 0.039 H D Total Protein 8.5 H Albumin 2.4 L 05/03/17 05/03/17 05/03/17 01:56 02:05 06:19 WBC RBC Hgb Hct MCV Plt Count Lymph % (Auto) Clark % (Auto) Lymph # Clark # Seg Neutrophils % Seg Neuts % (Manual) Lymphocytes % (Manual) Monocytes % (Manual) Seg Neutrophils # Seg Neutrophils # Man Lymphocytes # (Manual) Monocytes # (Manual) PT INR APTT POC ABG pCO2 POC ABG pO2 71 L Sodium Chloride BUN Creatinine Glucose POC Glucose 139 H 135 H Lactic Acid Calcium Troponin T Total Protein Albumin 05/03/17 05/03/17 05/03/17 06:40 07:32 07:32 WBC RBC Hgb Hct MCV 95 H Plt Count 115 L Lymph % (Auto) 9.8 L Clark % (Auto) 14.7 H Lymph # 1.0 L Clark # 1.5 H Seg Neutrophils % 75.0 H Seg Neuts % (Manual) Lymphocytes % (Manual) Monocytes % (Manual) Seg Neutrophils # Seg Neutrophils # Man Lymphocytes # (Manual) Monocytes # (Manual) PT INR APTT POC ABG pCO2 POC ABG pO2 223 H Sodium 135 L Chloride BUN 24 H Creatinine Glucose 127 H POC Glucose Lactic Acid Calcium Troponin T Total Protein Albumin 05/03/17 05/03/17 05/04/17 09:30 20:05 03:51 WBC RBC Hgb Hct MCV Plt Count Lymph % (Auto) Clark % (Auto) Lymph # Clark # Seg Neutrophils % Seg Neuts % (Manual) Lymphocytes % (Manual) Monocytes % (Manual) Seg Neutrophils # Seg Neutrophils # Man Lymphocytes # (Manual) Monocytes # (Manual) PT INR APTT POC ABG pCO2 POC ABG pO2 Sodium Chloride BUN Creatinine Glucose POC Glucose 118 H 119 H 112 H Lactic Acid Calcium Troponin T Total Protein Albumin 05/04/17 05/04/17 05/04/17 05:31 05:31 16:34 WBC RBC Hgb Hct MCV Plt Count 114 L Lymph % (Auto) Clark % (Auto) Lymph # Clark # Seg Neutrophils % Seg Neuts % (Manual) Lymphocytes % (Manual) 12.0 L Monocytes % (Manual) 14.0 H Seg Neutrophils # Seg Neutrophils # Man Lymphocytes # (Manual) 0.9 L Monocytes # (Manual) 1.1 H PT INR APTT POC ABG pCO2 POC ABG pO2 Sodium Chloride BUN 27 H Creatinine Glucose 115 H POC Glucose 125 H Lactic Acid Calcium 8.3 L Troponin T Total Protein Albumin 05/04/17 05/05/17 05/05/17 21:47 04:35 05:48 WBC RBC Hgb Hct MCV Plt Count Lymph % (Auto) Clark % (Auto) Lymph # Clark # Seg Neutrophils % Seg Neuts % (Manual) Lymphocytes % (Manual) Monocytes % (Manual) Seg Neutrophils # Seg Neutrophils # Man Lymphocytes # (Manual) Monocytes # (Manual) PT INR APTT POC ABG pCO2 POC ABG pO2 68 L Sodium Chloride BUN Creatinine Glucose POC Glucose 128 H 120 H Lactic Acid Calcium Troponin T Total Protein Albumin 05/05/17 05/05/17 05/05/17 07:19 13:46 13:46 WBC 13.0 H RBC Hgb Hct MCV 96 H Plt Count Lymph % (Auto) Clark % (Auto) Lymph # Clark # Seg Neutrophils % Seg Neuts % (Manual) Lymphocytes % (Manual) Monocytes % (Manual) 22.0 H Seg Neutrophils # Seg Neutrophils # Man 8.2 H Lymphocytes # (Manual) Monocytes # (Manual) 2.9 H PT INR APTT POC ABG pCO2 POC ABG pO2 Sodium Chloride BUN 27 H Creatinine Glucose POC Glucose 112 H Lactic Acid Calcium Troponin T Total Protein Albumin 05/05/17 05/05/17 05/06/17 17:48 22:00 05:19 WBC 13.0 H RBC Hgb Hct MCV 96 H Plt Count Lymph % (Auto) Clark % (Auto) Lymph # Clark # Seg Neutrophils % Seg Neuts % (Manual) 81.0 H Lymphocytes % (Manual) 5.0 L Monocytes % (Manual) 12.0 H Seg Neutrophils # Seg Neutrophils # Man 10.5 H Lymphocytes # (Manual) 0.7 L Monocytes # (Manual) 1.6 H PT INR APTT POC ABG pCO2 POC ABG pO2 Sodium Chloride BUN Creatinine Glucose POC Glucose 115 H 111 H Lactic Acid Calcium Troponin T Total Protein Albumin 05/06/17 05:19 WBC RBC Hgb Hct MCV Plt Count Lymph % (Auto) Clark % (Auto) Lymph # Clark # Seg Neutrophils % Seg Neuts % (Manual) Lymphocytes % (Manual) Monocytes % (Manual) Seg Neutrophils # Seg Neutrophils # Man Lymphocytes # (Manual) Monocytes # (Manual) PT INR APTT POC ABG pCO2 POC ABG pO2 Sodium Chloride BUN 27 H Creatinine Glucose 104 H POC Glucose Lactic Acid Calcium Troponin T Total Protein Albumin Chest x-ray: report reviewed, image reviewed, other (rotated film with blunting of the right costophrenic angle. No obvious / gross edema)
--- NOTE | 2017-05-06 13:41 | Progress Note ---
Assessment and Plan Acute respiratory failure s/p extubation Afib with RVR now in sinus rhythm Sepsis DC medtronic pacemaker implant Hx of coronary artery disease s/p CABG with an implantation of a bioprosthetic tricuspid valve in 2012 also at [facility] Mild Cardiomyopathy EF 40-45% on echo 2014 Prior history of DVT on low dose eliquis as an outpatient Prior CVA Hypertension Diabetes mellitus Acute renal failure Continue cardizem for suppression of afib. Subjective Date of service: 05/06/17 Principal diagnosis: Atrial Fib Interval history: Patient is resting in bed. Venturi mask in place. Underlying sinus rhythm on telemetry. Objective Vital Signs Temp Pulse Pulse Pulse Resp Resp BP 05/06/17 13:15 94 H 31 H 155/101 05/06/17 13:00 93 H 32 H 155/94 05/06/17 12:46 93 H 23 146/97 05/06/17 12:30 93 H 22 149/97 05/06/17 12:15 93 H 22 141/98 05/06/17 12:00 97.8 F 93 H 28 H 142/93 05/06/17 11:45 93 H 25 H 157/94 05/06/17 11:30 94 H 15 150/93 05/06/17 11:15 94 H 19 147/99 05/06/17 11:00 94 H 29 H 137/91 05/06/17 10:57 95 H 24 05/06/17 10:45 93 H 30 H 156/103 05/06/17 10:44 94 H 24 05/06/17 10:42 05/06/17 10:30 93 H 28 H 155/103 05/06/17 10:15 93 H 33 H 145/98 05/06/17 10:00 94 H 34 H 153/98 05/06/17 09:45 93 H 11 L 159/103 05/06/17 09:30 94 H 31 H 146/102 05/06/17 09:26 93 H 154/99 05/06/17 09:15 94 H 31 H 154/99 05/06/17 09:00 93 H 28 H 148/98 05/06/17 08:46 93 H 25 H 143/99 05/06/17 08:30 93 H 31 H 151/104 05/06/17 08:15 93 H 33 H 148/96 05/06/17 08:00 99.4 F 94 H 99 H 36 H 146/101 05/06/17 07:45 141/90 05/06/17 07:30 148/100 05/06/17 07:15 93 H 30 H 144/98 05/06/17 07:00 93 H 32 H 137/92 05/06/17 06:45 92 H 30 H 155/98 05/06/17 06:30 93 H 34 H 158/91 05/06/17 06:15 93 H 22 145/99 05/06/17 06:00 93 H 122 H 37 H 150/96 05/06/17 05:45 93 H 32 H 145/94 05/06/17 05:30 93 H 35 H 142/91 05/06/17 05:15 94 H 40 H 142/96 05/06/17 05:00 95 H 26 H 151/94 05/06/17 04:45 93 H 35 H 139/94 05/06/17 04:30 93 H 29 H 150/95 05/06/17 04:15 93 H 41 H 152/93 05/06/17 04:00 98.4 F 93 H 120 H 37 H 143/93 05/06/17 03:45 94 H 32 H 148/93 05/06/17 03:30 93 H 39 H 143/95 05/06/17 03:15 93 H 42 H 132/99 05/06/17 03:00 93 H 27 H 141/99 05/06/17 02:45 94 H 26 H 140/94 05/06/17 02:36 05/06/17 02:30 93 H 33 H 156/98 05/06/17 02:15 94 H 23 148/95 05/06/17 02:00 93 H 108 H 38 H 143/95 05/06/17 01:45 93 H 37 H 150/99 05/06/17 01:30 92 H 40 H 144/95 05/06/17 01:15 93 H 34 H 146/91 05/06/17 01:00 93 H 29 H 137/91 05/06/17 00:45 93 H 28 H 138/91 05/06/17 00:30 93 H 37 H 146/97 05/06/17 00:15 93 H 22 137/90 05/06/17 00:00 98.4 F 93 H 93 H 22 147/95 05/05/17 23:46 103 H 53 H 122/98 05/05/17 23:35 93 H 130/97 05/05/17 23:30 94 H 25 H 129/93 05/05/17 23:20 93 H 130/97 05/05/17 23:15 93 H 36 H 147/95 05/05/17 23:00 93 H 31 H 130/97 05/05/17 22:45 93 H 22 146/90 05/05/17 22:30 93 H 22 143/87 05/05/17 22:15 93 H 29 H 137/93 05/05/17 22:00 93 H 94 H 18 128/88 05/05/17 21:45 93 H 27 H 141/93 05/05/17 21:30 93 H 18 127/89 05/05/17 21:15 92 H 26 H 149/90 05/05/17 21:00 94 H 18 138/90 05/05/17 20:45 93 H 23 139/89 05/05/17 20:30 93 H 18 114/80 05/05/17 20:15 93 H 19 138/95 05/05/17 20:10 92 H 21 05/05/17 20:00 97.7 F 92 H 92 H 18 131/84 05/05/17 19:55 90 21 05/05/17 19:48 92 H 18 131/89 05/05/17 19:45 92 H 16 131/89 05/05/17 19:30 93 H 19 119/79 05/05/17 19:15 92 H 19 121/85 05/05/17 19:00 93 H 18 128/91 05/05/17 18:45 93 H 21 123/83 05/05/17 18:30 92 H 19 119/82 05/05/17 18:15 92 H 19 125/85 05/05/17 18:00 94 H 19 105/67 05/05/17 17:45 93 H 16 115/71 05/05/17 17:30 93 H 21 137/89 05/05/17 17:15 92 H 19 124/87 05/05/17 17:00 93 H 22 139/89 05/05/17 16:46 92 H 171/97 05/05/17 16:30 104 H 19 133/87 06/25/17 16:15 93 H 24 133/87 05/05/17 16:10 93 H 105/67 05/05/17 16:00 97.4 F L 94 H 28 H 115/89 05/05/17 15:51 93 H 05/05/17 15:45 93 H 17 117/83 05/05/17 15:30 93 H 24 119/86 05/05/17 15:15 93 H 22 113/82 05/05/17 15:00 93 H 21 134/89 05/05/17 14:45 99 H 23 151/95 05/05/17 14:30 124 H 50 H 144/86 05/05/17 14:15 116 H 23 137/84 05/05/17 14:12 103 H 140/88 05/05/17 14:00 91 H 24 147/88 05/05/17 13:45 96 H 20 144/86 Pulse Ox 05/06/17 13:15 99 05/06/17 13:00 95 05/06/17 12:46 97 05/06/17 12:30 96 05/06/17 12:15 94 05/06/17 12:00 98 05/06/17 11:45 98 05/06/17 11:30 97 05/06/17 11:15 96 05/06/17 11:00 95 05/06/17 10:57 05/06/17 10:45 99 05/06/17 10:44 05/06/17 10:42 95 05/06/17 10:30 96 05/06/17 10:15 97 05/06/17 10:00 97 05/06/17 09:45 97 05/06/17 09:30 100 05/06/17 09:26 05/06/17 09:15 98 05/06/17 09:00 96 05/06/17 08:46 97 05/06/17 08:30 97 05/06/17 08:15 97 05/06/17 08:00 97 05/06/17 07:45 100 05/06/17 07:30 94 05/06/17 07:15 96 05/06/17 07:00 99 05/06/17 06:45 98 05/06/17 06:30 97 05/06/17 06:15 97 05/06/17 06:00 98 05/06/17 05:45 97 05/06/17 05:30 97 05/06/17 05:15 97 05/06/17 05:00 98 05/06/17 04:45 97 05/06/17 04:30 98 05/06/17 04:15 99 05/06/17 04:00 97 05/06/17 03:45 98 05/06/17 03:30 97 05/06/17 03:15 100 05/06/17 03:00 98 05/06/17 02:45 97 05/06/17 02:36 98 05/06/17 02:30 96 05/06/17 02:15 100 05/06/17 02:00 100 05/06/17 01:45 100 05/06/17 01:30 100 05/06/17 01:15 100 05/06/17 01:00 99 05/06/17 00:45 91 05/06/17 00:30 05/06/17 00:15 94 05/06/17 00:00 87 05/05/17 23:46 81 L 05/05/17 23:35 96 05/05/17 23:30 05/05/17 23:20 05/05/17 23:15 98 05/05/17 23:00 05/05/17 22:45 97 05/05/17 22:30 05/05/17 22:15 96 05/05/17 22:00 05/05/17 21:45 95 05/05/17 21:30 98 05/05/17 21:15 05/05/17 21:00 99 05/05/17 20:45 05/05/17 20:30 97 05/05/17 20:15 05/05/17 20:10 05/05/17 20:00 05/05/17 19:55 05/05/17 19:48 98 05/05/17 19:45 97 05/05/17 19:30 96 05/05/17 19:15 05/05/17 19:00 05/05/17 18:45 98 05/05/17 18:30 05/05/17 18:15 98 05/05/17 18:00 95 05/05/17 17:45 95 05/05/17 17:30 99 05/05/17 17:15 05/05/17 17:00 99 05/05/17 16:46 05/05/17 16:30 99 05/05/17 16:15 05/05/17 16:10 97 05/05/17 16:00 97 05/05/17 15:51 98 05/05/17 15:45 05/05/17 15:30 96 05/05/17 15:15 05/05/17 15:00 05/05/17 14:45 96 05/05/17 14:30 71 L 05/05/17 14:15 98 05/05/17 14:12 05/05/17 14:00 05/05/17 13:45 - Physical Examination General: No Apparent Distress Cardiac: Positive: Reg Rate and Rhythm - Labs and Meds CBC 05/05/17 05/06/17 Range/Units 13:46 05:19 WBC 13.0 H 13.0 H (4.5-11.0) K/mm3 RBC 4.45 4.43 (3.65-5.03) M/mm3 Hgb 14.1 14.1 (11.8-15.2) gm/dl Hct 42.9 D 42.6 (35.5-45.6) % Plt Count 189 182 (140-440) K/mm3 Comprehensive Metabolic Panel 05/05/17 05/06/17 Range/Units 13:46 05:19 Sodium 140 142 (137-145) mmol/L Potassium 4.5 4.0 (3.6-5.0) mmol/L Chloride 102.2 105.0 (98-107) mmol/L Carbon Dioxide 23 24 (22-30) mmol/L BUN 27 H 27 H (9-20) mg/dL Creatinine 1.2 1.1 (0.8-1.5) mg/dL Glucose 79 104 H (75-100) mg/dL Calcium 8.8 8.7 (8.4-10.2) mg/dL
[2017-05-06] MEDS ORDERED: LASIX IV ONE (13:45)
--- NOTE | 2017-05-06 16:51 | Progress Note ---
Assessment and Plan Assessment and plan: Acute respiratory failure - Patient is on Ventimask - Likely due to mucus plug - Bronchoscopy was done - Discontinue sedatives Afib with RVR - controlled, in sinus rhythm, on metoprolol - Cardiology consulted - ECHO showed EF 40-45% - patient has AICD Sepsis - ruled out - all the cultures are negative Hemoptysis - resolved, no bleeding was seen during bronchoscopy Diabetes mellitus type 2 - sliding scale insulin Hypertension - Continue his meds Acute kidney Failure - Resolved Chronic systolic CHF CAD History of DVT - Patient is on Eliquis Dementia - Supportive care CODE STATUS full Disposition - Continue ICU care The high probability of a clinically significant, sudden or life threatening deterioration of the [Respiratory, 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 The aggregate critical care time was [45] minutes. This time is in addition to time spent performing reported procedures but includes the following: [x] Data Review and interpretation [x] Patient assessment and monitoring of vital signs [x] Documentation [x] Medication orders and managementICU History Interval history: Patient was seen and evaluated this morning, patient is extubated himself last night and currently on Ventimask saturating in the mid 90s. Hospitalist Physical - Physical exam Narrative exam: Patient is on a Ventimask. The patient appeared well nourished and normally developed. Vital signs as documented. Head exam is unremarkable. No scleral icterus . Neck is without jugular venous distension, thyromegaly, or carotid bruits. Lungs wheezing all over the chest. Cardiac exam reveals regular rate and Rhythm. First and second heart sounds normal. No murmurs, rubs or gallops. Abdominal exam reveals normal bowel sounds, no masses, no organomegaly and no aortic enlargement. Extremities are swelling and DISCOLORATION of bilateral lower extremities due to venous stasis. PASSENGER RATE CLERK: Patient is confused. Patient has dementia. - Constitutional Vitals: Temp Pulse Resp BP Pulse Ox 97.8 F 94 H 31 H 148/93 99 05/06/17 16:00 05/06/17 14:03 05/06/17 13:15 05/06/17 14:03 05/06/17 13:15 General appearance: Present: other (intubated, sedated, Fi O2 60%) Results - Labs CBC & Chem 7: 05/06/17 05:19 05/06/17 05:19 Labs: Laboratory Last Values WBC 13.0 K/mm3 (4.5-11.0) H 05/06/17 05:19 RBC 4.43 M/mm3 (3.65-5.03) 05/06/17 05:19 Hgb 14.1 gm/dl (11.8-15.2) 05/06/17 05:19 Hct 42.6 % (35.5-45.6) 05/06/17 05:19 MCV 96 fl (84-94) H 05/06/17 05:19 MCH 32 pg (28-32) 05/06/17 05:19 MCHC 33 % (32-34) 05/06/17 05:19 RDW 14.5 % (13.2-15.2) 05/06/17 05:19 Plt Count 182 K/mm3 (140-440) 05/06/17 05:19 Lymph % (Auto) 9.8 % (13.4-35.0) L 05/03/17 07:32 Wallace % (Auto) Manager Knowledge 05/06/17 05:19 Eos % (Auto) 0.1 % (0.0-4.3) 05/03/17 07:32 Baso % (Auto) 0.4 % (0.0-1.8) 05/03/17 07:32 Lymph # 1.0 K/mm3 (1.2-5.4) L 05/03/17 07:32 Wallace # 1.5 K/mm3 (0.0-0.8) H 05/03/17 07:32 Eos # 0.0 K/mm3 (0.0-0.4) 05/03/17 07:32 Baso # 0.0 K/mm3 (0.0-0.1) 05/03/17 07:32 Add Manual Diff Complete 05/06/17 05:19 Total Counted 100 05/06/17 05:19 Seg Neutrophils % 75.0 % (40.0-70.0) H 05/03/17 07:32 Seg Neuts % (Manual) 81.0 % (40.0-70.0) H 05/06/17 05:19 Band Neutrophils % 2.0 % 05/06/17 05:19 Lymphocytes % (Manual) 5.0 % (13.4-35.0) L 05/06/17 05:19 Reactive Lymphs % (Man) 0 % 05/06/17 05:19 Monocytes % (Manual) 12.0 % (0.0-7.3) H 05/06/17 05:19 Eosinophils % (Manual) 0 % (0.0-4.3) 05/06/17 05:19 Basophils % (Manual) 0 % (0.0-1.8) 05/06/17 05:19 Metamyelocytes % 0 % 05/06/17 05:19 Myelocytes % 0 % 05/06/17 05:19 Promyelocytes % 0 % 05/06/17 05:19 Blast Cells % 0 % 05/06/17 05:19 Nucleated RBC % Not Reportable 05/06/17 05:19 Seg Neutrophils # 7.5 K/mm3 (1.8-7.7) 05/03/17 07:32 Seg Neutrophils # Man 10.5 K/mm3 (1.8-7.7) H 05/06/17 05:19 Band Neutrophils # 0.3 K/mm3 05/06/17 05:19 Lymphocytes # (Manual) 0.7 K/mm3 (1.2-5.4) L 05/06/17 05:19 Abs React Lymphs (Man) 0.0 K/mm3 05/06/17 05:19 Monocytes # (Manual) 1.6 K/mm3 (0.0-0.8) H 05/06/17 05:19 Eosinophils # (Manual) 0.0 K/mm3 (0.0-0.4) 05/06/17 05:19 Basophils # (Manual) 0.0 K/mm3 (0.0-0.1) 05/06/17 05:19 Metamyelocytes # 0.0 K/mm3 05/06/17 05:19 Myelocytes # 0.0 K/mm3 05/06/17 05:19 Promyelocytes # 0.0 K/mm3 05/06/17 05:19 Blast Cells # 0.0 K/mm3 05/06/17 05:19 WBC Morphology Not Reportable 05/06/17 05:19 Hypersegmented Neuts Not Reportable 05/06/17 05:19 Hyposegmented Neuts Not Reportable 05/06/17 05:19 Hypogranular Neuts Not Reportable 05/06/17 05:19 Smudge Cells Not Reportable 05/06/17 05:19 Toxic Granulation Not Reportable 05/06/17 05:19 Toxic Vacuolation Not Reportable 05/06/17 05:19 Dohle Bodies Not Reportable 05/06/17 05:19 Pelger-Huet Anomaly Not Reportable 05/06/17 05:19 Amor Rods Not Reportable 05/06/17 05:19 Platelet Estimate Consistent w auto 05/06/17 05:19 Clumped Platelets Not Reportable 05/06/17 05:19 Plt Clumps, EDTA Not Reportable 05/06/17 05:19 Large Platelets Not Reportable 05/06/17 05:19 Giant Platelets Not Reportable 05/06/17 05:19 Platelet Satelliting Not Reportable 05/06/17 05:19 Plt Morphology Comment Not Reportable 05/06/17 05:19 RBC Morphology Not Reportable 05/06/17 05:19 Dimorphic RBCs Not Reportable 05/06/17 05:19 Polychromasia Few 05/06/17 05:19 Hypochromasia Not Reportable 05/06/17 05:19 Poikilocytosis Not Reportable 05/06/17 05:19 Anisocytosis Not Reportable 05/06/17 05:19 Microcytosis Not Reportable 05/06/17 05:19 Macrocytosis Not Reportable 05/06/17 05:19 Spherocytes Not Reportable 05/06/17 05:19 Pappenheimer Bodies Not Reportable 05/06/17 05:19 Sickle Cells Not Reportable 05/06/17 05:19 Target Cells Not Reportable 05/06/17 05:19 Tear Drop Cells Not Reportable 05/06/17 05:19 Ovalocytes Not Reportable 05/06/17 05:19 Helmet Cells Not Reportable 05/06/17 05:19 Mosqueda-Latah Bodies Not Reportable 05/06/17 05:19 [place] Rings Not Reportable 05/06/17 05:19 Leizabeth Cells Not Reportable 05/06/17 05:19 Bite Cells Not Reportable 05/06/17 05:19 Crenated Cell Not Reportable 05/06/17 05:19 Elliptocytes Not Reportable 05/06/17 05:19 Acanthocytes (Spur) Not Reportable 05/06/17 05:19 Rouleaux Not Reportable 05/06/17 05:19 Hemoglobin C Crystals Not Reportable 05/06/17 05:19 Schistocytes Not Reportable 05/06/17 05:19 Malaria parasites Not Reportable 05/06/17 05:19 ESR 68 mm/Hr (0-20) 04/29/17 17:16 Connor Bodies Not Reportable 05/06/17 05:19 Hem Pathologist Commnt No 05/06/17 05:19 PT 20.3 Sec. (12.2-14.9) H 04/30/17 22:33 INR 1.74 (0.87-1.13) H 04/30/17 22:33 APTT 39.0 Sec. (24.2-36.6) H 04/30/17 22:33 POC ABG pH 7.370 (7.35-7.45) 05/06/17 03:44 POC ABG pCO2 43.2 (35-45) 05/06/17 03:44 POC ABG pO2 95 (80-105) 05/06/17 03:44 POC ABG HCO3 25.0 05/06/17 03:44 POC ABG Total CO2 26 05/06/17 03:44 POC ABG O2 Sat 97 05/06/17 03:44 POC ABG Base Excess 0 05/06/17 03:44 FiO2 50 % 05/06/17 03:44 Sodium 142 mmol/L (137-145) 05/06/17 05:19 Potassium 4.0 mmol/L (3.6-5.0) 05/06/17 05:19 Chloride 105.0 mmol/L (98-107) 05/06/17 05:19 Carbon Dioxide 24 mmol/L (22-30) 05/06/17 05:19 Anion Gap 17 mmol/L 05/06/17 05:19 BUN 27 mg/dL (9-20) H 05/06/17 05:19 Creatinine 1.1 mg/dL (0.8-1.5) 05/06/17 05:19 Estimated GFR > 60 ml/min 05/06/17 05:19 BUN/Creatinine Ratio 24.54 % 05/06/17 05:19 Glucose 104 mg/dL (75-100) H 05/06/17 05:19 POC Glucose 83 (70-105) 05/06/17 10:03 Lactic Acid 1.50 mmol/L (0.7-2.0) 05/01/17 08:39 Calcium 8.7 mg/dL (8.4-10.2) 05/06/17 05:19 Magnesium 1.70 mg/dL (1.7-2.3) 04/29/17 17:16 Total Bilirubin 0.60 mg/dL (0.1-1.2) 05/02/17 09:21 AST 22 units/L (5-40) 05/02/17 09:21 ALT 10 units/L (7-56) 05/02/17 09:21 Alkaline Phosphatase 82 units/L (35-129) 05/02/17 09:21 Ammonia 35.0 umol/L (25-60) 04/29/17 15:15 Total Creatine Kinase 70 units/L (55-170) 04/30/17 09:07 CK-MB (CK-2) 2.4 ng/mL (0.0-4.0) 04/30/17 09:07 CK-MB (CK-2) Rel Index 3.4 (0-4) 04/30/17 09:07 Troponin T 0.039 ng/mL (0.00-0.029) H D 05/02/17 09:21 C-Reactive Protein 1.20 mg/dL (0.00-1.30) 04/29/17 17:16 NT-Pro-B Natriuret Pep 5055 pg/mL (0-900) H 04/29/17 17:16 Total Protein 8.5 g/dL (6.3-8.2) H 05/02/17 09:21 Albumin 2.4 g/dL (3.9-5) L 05/02/17 09:21 Albumin/Globulin Ratio 0.4 % 05/02/17 09:21 Triglycerides 64 mg/dL (2-149) 04/29/17 17:16 Cholesterol 101 mg/dL (50-199) 04/29/17 17:16 LDL Cholesterol Direct 53 mg/dL (50-130) 04/29/17 17:16 HDL Cholesterol 36 mg/dL (40-59) L 04/29/17 17:16 Cholesterol/HDL Ratio 2.80 % 04/29/17 17:16 Lipase 23 units/L (13-60) 04/29/17 17:16 TSH 1.800 mlU/mL (0.270-4.200) 04/29/17 17:16 Urine Color Yellow (Yellow) 04/29/17 17:54 Urine Turbidity Clear (Clear) 04/29/17 17:54 Urine pH 7.0 (5.0-7.0) 04/29/17 17:54 Ur Specific [place] 1.013 (1.003-1.030) 04/29/17 17:54 Urine Protein 100 mg/dl mg/dL (Negative) 04/29/17 17:54 Urine Glucose (UA) Neg mg/dL (Negative) 04/29/17 17:54 Urine Ketones Neg mg/dL (Negative) 04/29/17 17:54 Urine Blood Sm (Negative) 04/29/17 17:54 Urine Nitrite Neg (Negative) 04/29/17 17:54 Urine Bilirubin Neg (Negative) 04/29/17 17:54 Urine Urobilinogen < 2.0 mg/dL (<2.0) 04/29/17 17:54 Ur Leukocyte Esterase Neg (Negative) 04/29/17 17:54 Urine WBC (Auto) < 1.0 /HPF (0.0-6.0) 04/29/17 17:54 Urine RBC (Auto) 6.0 /HPF (0.0-6.0) 04/29/17 17:54 Salicylates < 0.3 mg/dL (2.8-20.0) L 04/29/17 17:16 Urine Opiates Screen Presumptive negative 04/29/17 17:54 Urine Methadone Screen Presumptive negative 04/29/17 17:54 Acetaminophen < 15.0 ug/mL (10.0-30.0) 04/29/17 17:16 Ur Barbiturates Screen Presumptive negative 04/29/17 17:54 Ur Phencyclidine Scrn Presumptive negative 04/29/17 17:54 Ur Amphetamines Screen Presumptive negative 04/29/17 17:54 U Benzodiazepines Scrn Presumptive negative 04/29/17 17:54 Urine Cocaine Screen Presumptive negative 04/29/17 17:54 U Marijuana (THC) Screen Presumptive negative 04/29/17 17:54 Drugs of Abuse Note Disclamer 04/29/17 17:54 Plasma/Serum Alcohol < 0.01 gm% (0-0.07) 04/29/17 17:16 Blood Type A POSITIVE 04/29/17 17:16 Antibody Screen TNR 04/29/17 17:16 OSWALD Antibody Screen Negative 04/29/17 17:16
[2017-05-06] MEDS: LEVEMIR SUB-Q SCH (22:40)
[2017-05-06] MEDS: SENOKOT PO SCH (23:24)
[2017-05-06] MEDS: NEURONTIN PO SCH (23:25)
[2017-05-07] MEDS: NOVOLOG SUB-Q SCH ×5 (00:01→23:38)
[2017-05-07] MEDS: CARDIZEM PO SCH ×4 (00:02→22:47)
[2017-05-07 06:58] LABS: Hematocrit 39.7 % (35.5-45.6); Hemoglobin 13.1 gm/dl (11.8-15.2); Mean Corpuscular HGB Conc 33 % (32-34); Mean Corpuscular Hemoglobin 31 pg (28-32); Mean Corpuscular Volume 95 fl (84-94); Platelet Count 194 K/mm3 (140-440); Red Blood Count 4.19 M/mm3 (3.65-5.03); Red Cell Distribution Width 14.3 % (13.2-15.2); White Blood Count 10.3 K/mm3 (4.5-11.0)
[2017-05-07 07:16] LABS: Anion Gap 17 mmol/L; Blood Urea Nitrogen 28 mg/dL (9-20); Calcium 8.5 mg/dL (8.4-10.2); Carbon Dioxide 24 mmol/L (22-30); Chloride 108.5 mmol/L (98-107); Glucose 96 mg/dL (75-100); Potassium 4.1 mmol/L (3.6-5.0); Sodium 145 mmol/L (137-145)
[2017-05-07] MEDS: PULMICORT IH SCH ×2 (07:38→19:44)
[2017-05-07] MEDS: BROVANA NEBU IH SCH ×2 (07:38→19:44)
[2017-05-07 08:09] LABS: Blastocytes % (Manual) 0 %; Eosinophils % (Manual) 0 % (0.0-4.3)
[2017-05-07 08:10] LABS: Diff Status Complete; Platelet Clumps Rare
--- NOTE | 2017-05-07 09:22 | XRay Report ---
AP chest x-ray. History: Followup respiratory failure. Findings: Since yesterday's study, there has been minimal improvement in bibasilar atelectasis. The remaining findings including cardiomegaly and low lung volumes are unchanged. No other interval changes are seen.
--- NOTE | 2017-05-07 09:59 | Progress Note ---
Assessment and Plan Acute respiratory failure s/p extubation Afib with RVR now in sinus rhythm Sepsis DC medtronic pacemaker implant Hx of coronary artery disease s/p CABG with an implantation of a bioprosthetic tricuspid valve in 2012 also at [facility] Mild Cardiomyopathy EF 40-45% on echo 2014 Prior history of DVT on low dose eliquis as an outpatient Prior CVA Hypertension Diabetes mellitus Acute renal failure Recommendations: Continue cardizem for suppression of afib. No further cardiac intervention Subjective Date of service: 05/07/17 Principal diagnosis: Atrial Fib Interval history: Patient wants to go home. Patient has absolutely no insight into his medical condition. Objective Vital Signs Temp Pulse Pulse Pulse Resp Resp BP 05/07/17 08:00 97.6 F 05/07/17 07:53 84 28 H 05/07/17 07:50 88 18 05/07/17 07:45 93 H 28 H 150/98 05/07/17 07:40 05/07/17 07:39 84 18 05/07/17 07:30 84 27 H 139/90 05/07/17 07:15 93 H 28 H 149/100 05/07/17 07:00 93 H 31 H 144/95 05/07/17 06:45 93 H 28 H 142/97 05/07/17 06:30 93 H 28 H 137/89 05/07/17 06:15 95 H 29 H 136/91 05/07/17 06:01 93 H 32 H 129/91 05/07/17 05:45 93 H 29 H 129/91 05/07/17 05:30 93 H 31 H 146/99 05/07/17 05:15 93 H 31 H 148/99 05/07/17 05:00 93 H 29 H 159/102 05/07/17 04:45 93 H 27 H 146/88 05/07/17 04:30 93 H 26 H 152/96 05/07/17 04:15 93 H 27 H 146/93 05/07/17 04:00 98.5 F 93 H 28 H 142/96 05/07/17 03:45 93 H 27 H 153/98 05/07/17 03:30 93 H 27 H 150/102 05/07/17 03:15 93 H 24 132/96 05/07/17 03:00 93 H 18 137/98 05/07/17 02:45 93 H 30 H 144/100 05/07/17 02:30 93 H 31 H 150/100 05/07/17 02:15 93 H 30 H 148/101 05/07/17 02:00 93 H 29 H 136/104 05/07/17 01:45 93 H 26 H 151/95 05/07/17 01:30 94 H 27 H 163/97 05/07/17 01:15 93 H 26 H 165/98 05/07/17 01:00 93 H 25 H 155/104 05/07/17 00:45 93 H 29 H 140/99 05/07/17 00:30 94 H 28 H 149/94 05/07/17 00:15 93 H 31 H 135/94 05/07/17 00:00 97.8 F 92 H 24 146/92 05/06/17 23:45 93 H 28 H 155/97 05/06/17 23:30 93 H 30 H 145/94 05/06/17 23:15 93 H 31 H 138/93 05/06/17 23:00 93 H 34 H 127/94 05/06/17 22:45 93 H 36 H 131/96 05/06/17 22:30 93 H 29 H 145/103 05/06/17 22:15 97 H 30 H 138/92 05/06/17 22:00 93 H 30 H 128/90 05/06/17 21:45 94 H 30 H 147/87 05/06/17 21:30 93 H 25 H 129/89 05/06/17 21:15 96 H 23 139/91 05/06/17 21:00 92 H 24 139/91 05/06/17 20:45 93 H 99 H 22 26 H 143/98 05/06/17 20:35 92 H 26 H 05/06/17 20:30 93 H 27 H 130/93 05/06/17 20:17 93 H 29 H 137/92 05/06/17 20:15 93 H 29 H 137/92 05/06/17 20:00 93 H 93 H 29 H 149/90 05/06/17 19:49 98.6 F 05/06/17 19:45 92 H 25 H 146/95 05/06/17 19:30 91 H 22 146/98 05/06/17 19:15 92 H 23 132/89 05/06/17 19:00 93 H 24 145/86 05/06/17 18:45 92 H 24 139/92 05/06/17 18:30 93 H 30 H 130/91 05/06/17 18:15 92 H 24 129/85 05/06/17 18:00 93 H 29 H 133/87 05/06/17 17:45 93 H 23 119/81 05/06/17 17:30 94 H 26 H 128/85 05/06/17 17:15 94 H 29 H 136/93 05/06/17 17:03 94 H 27 H 05/06/17 16:45 94 H 34 H 135/89 05/06/17 16:30 94 H 26 H 139/88 05/06/17 16:15 91 H 20 132/102 05/06/17 16:00 97.8 F 93 H 94 H 24 138/90 05/06/17 15:45 94 H 30 H 135/85 05/06/17 15:30 94 H 28 H 124/87 05/06/17 15:15 92 H 30 H 133/90 05/06/17 15:00 90 30 H 126/86 05/06/17 14:45 92 H 31 H 127/89 05/06/17 14:30 93 H 32 H 133/86 05/06/17 14:15 95 H 22 133/86 05/06/17 14:03 94 H 148/93 05/06/17 14:00 96 H 27 H 146/89 05/06/17 13:45 93 H 28 H 148/93 05/06/17 13:30 93 H 28 H 131/89 05/06/17 13:15 94 H 31 H 155/101 05/06/17 13:00 93 H 32 H 155/94 05/06/17 12:46 93 H 23 146/97 05/06/17 12:30 93 H 22 149/97 05/06/17 12:15 93 H 22 141/98 05/06/17 12:00 97.8 F 93 H 28 H 142/93 05/06/17 11:45 93 H 25 H 157/94 05/06/17 11:30 94 H 15 150/93 05/06/17 11:15 94 H 19 147/99 05/06/17 11:00 94 H 29 H 137/91 06/26/17 10:57 95 H 24 05/06/17 10:45 93 H 30 H 156/103 05/06/17 10:44 94 H 24 05/06/17 10:42 05/06/17 10:30 93 H 28 H 155/103 05/06/17 10:15 93 H 33 H 145/98 05/06/17 10:00 94 H 34 H 153/98 Pulse Ox 05/07/17 08:00 05/07/17 07:53 98 05/07/17 07:50 05/07/17 07:45 99 05/07/17 07:40 97 05/07/17 07:39 05/07/17 07:30 99 05/07/17 07:15 98 05/07/17 07:00 99 05/07/17 06:45 98 05/07/17 06:30 93 05/07/17 06:15 98 05/07/17 06:01 98 05/07/17 05:45 97 05/07/17 05:30 99 05/07/17 05:15 96 05/07/17 05:00 99 05/07/17 04:45 98 05/07/17 04:30 96 05/07/17 04:15 100 05/07/17 04:00 100 05/07/17 03:45 93 05/07/17 03:30 99 05/07/17 03:15 99 05/07/17 03:00 05/07/17 02:45 97 05/07/17 02:30 98 05/07/17 02:15 96 05/07/17 02:00 93 05/07/17 01:45 97 05/07/17 01:30 100 05/07/17 01:15 99 05/07/17 01:00 97 05/07/17 00:45 97 05/07/17 00:30 99 05/07/17 00:15 93 05/07/17 00:00 100 05/06/17 23:45 97 05/06/17 23:30 97 05/06/17 23:15 100 05/06/17 23:00 98 05/06/17 22:45 05/06/17 22:30 05/06/17 22:15 97 05/06/17 22:00 97 05/06/17 21:45 99 05/06/17 21:30 99 05/06/17 21:15 100 05/06/17 21:00 98 05/06/17 20:45 97 05/06/17 20:35 95 05/06/17 20:30 88 05/06/17 20:17 97 05/06/17 20:15 98 05/06/17 20:00 98 05/06/17 19:49 05/06/17 19:45 97 05/06/17 19:30 98 05/06/17 19:15 96 05/06/17 19:00 100 05/06/17 18:45 100 05/06/17 18:30 100 05/06/17 18:15 97 05/06/17 18:00 97 05/06/17 17:45 85 05/06/17 17:30 97 05/06/17 17:15 99 05/06/17 17:03 100 05/06/17 16:45 98 05/06/17 16:30 99 05/06/17 16:15 100 05/06/17 16:00 98 05/06/17 15:45 99 05/06/17 15:30 100 05/06/17 15:15 98 05/06/17 15:00 98 05/06/17 14:45 96 05/06/17 14:30 98 05/06/17 14:15 85 05/06/17 14:03 05/06/17 14:00 98 05/06/17 13:45 99 05/06/17 13:30 100 05/06/17 13:15 99 05/06/17 13:00 95 05/06/17 12:46 97 05/06/17 12:30 96 05/06/17 12:15 94 05/06/17 12:00 98 05/06/17 11:45 98 05/06/17 11:30 97 05/06/17 11:15 96 05/06/17 11:00 95 05/06/17 10:57 05/06/17 10:45 99 05/06/17 10:44 05/06/17 10:42 95 05/06/17 10:30 96 05/06/17 10:15 97 05/06/17 10:00 97 - Physical Examination General: No Apparent Distress HEENT: Positive: PERRL, Normocephaly Neck: Positive: trachea midline Cardiac: Positive: irregularly irregular Lungs: Positive: Decreased Breath Sounds Abdomen: Positive: Unremarkable, Active Bowel Sounds Extremities: Present: +2 Edema, Other (vascular skin changes) - Labs and Meds CBC 05/07/17 Range/Units 06:31 WBC 10.3 (4.5-11.0) K/mm3 RBC 4.19 (3.65-5.03) M/mm3 Hgb 13.1 (11.8-15.2) gm/dl Hct 39.7 (35.5-45.6) % Plt Count 194 (140-440) K/mm3 Comprehensive Metabolic Panel 05/07/17 Range/Units 06:31 Sodium 145 (137-145) mmol/L Potassium 4.1 (3.6-5.0) mmol/L Chloride 108.5 H (98-107) mmol/L Carbon Dioxide 24 (22-30) mmol/L BUN 28 H (9-20) mg/dL Creatinine 1.0 (0.8-1.5) mg/dL Glucose 96 (75-100) mg/dL Calcium 8.5 (8.4-10.2) mg/dL
[2017-05-07] MEDS: DepaCON 500 MG in NACL 0.9% 100 ML IV SCH ×2 (11:00→22:48)
[2017-05-07] MEDS: ELIQUIS PO SCH ×2 (11:00→22:48)
[2017-05-07] MEDS: PROTONIX FEEDTUBE SCH (11:00)
[2017-05-07] MEDS: COLACE PO SCH ×2 (12:06→22:47)
--- NOTE | 2017-05-07 12:42 | Progress Note ---
Assessment and Plan Respiratory failure intubated on mechanical ventilator Coronary artery disease status post CABG. Status post bioprosthetic tricuspid valve replacement in 2002 Ischemic cardiomyopathy LV ejection fraction 40-45%. May still be in heart failure and be of physical examination changes Essential hypertension Type 2 diabetes mellitus Atrial fibrillation, now in sinus rhythm Sepsis. Completing antibiotics. No fever. Recommendations Gentle diuretics Follow-up CHF recommendation from cardiology. There is questiona regarding embolic problems, I recommend lower extremity venous Doppler. Doubt ventilation/perfusion scan is of any help at this point, see also cardiology comments. In any case, probably academic, patient already on anticoagulation for A. fib Critical care time 31 minutes of [id number] evaluation and coordination of care Subjective Date of service: 05/07/17 Principal diagnosis: Atrial Fib Interval history: Feels tired. Sleepy but no respiratory problems reported at this time. He was to go home. Objective Vital Signs - 12hr 05/07/17 05/07/17 05/07/17 00:45 01:00 01:15 Temperature Pulse Rate 93 H 93 H 93 H Pulse Rate [ Anterior Bilateral] Pulse Rate [ From Monitor] Respiratory 29 H 25 H 26 H Rate Respiratory Rate [Anterior Bilateral] Blood Pressure 140/99 155/104 165/98 O2 Sat by Pulse 97 97 99 Oximetry 05/07/17 05/07/17 05/07/17 01:30 01:45 02:00 Temperature Pulse Rate 94 H 93 H 93 H Pulse Rate [ Anterior Bilateral] Pulse Rate [ From Monitor] Respiratory 27 H 26 H 29 H Rate Respiratory Rate [Anterior Bilateral] Blood Pressure 163/97 151/95 136/104 O2 Sat by Pulse 100 97 93 Oximetry 05/07/17 05/07/17 05/07/17 02:15 02:30 02:45 Temperature Pulse Rate 93 H 93 H 93 H Pulse Rate [ Anterior Bilateral] Pulse Rate [ From Monitor] Respiratory 30 H 31 H 30 H Rate Respiratory Rate [Anterior Bilateral] Blood Pressure 148/101 150/100 144/100 O2 Sat by Pulse 96 98 97 Oximetry 05/07/17 05/07/17 05/07/17 03:00 03:15 03:30 Temperature Pulse Rate 93 H 93 H 93 H Pulse Rate [ Anterior Bilateral] Pulse Rate [ From Monitor] Respiratory 18 24 27 H Rate Respiratory Rate [Anterior Bilateral] Blood Pressure 137/98 132/96 150/102 O2 Sat by Pulse 99 99 Oximetry 05/07/17 05/07/17 05/07/17 03:45 04:00 04:15 Temperature 98.5 F Pulse Rate 93 H 93 H 93 H Pulse Rate [ Anterior Bilateral] Pulse Rate [ From Monitor] Respiratory 27 H 28 H 27 H Rate Respiratory Rate [Anterior Bilateral] Blood Pressure 153/98 142/96 146/93 O2 Sat by Pulse 93 100 100 Oximetry 05/07/17 05/07/17 05/07/17 04:30 04:45 05:00 Temperature Pulse Rate 93 H 93 H 93 H Pulse Rate [ Anterior Bilateral] Pulse Rate [ From Monitor] Respiratory 26 H 27 H 29 H Rate Respiratory Rate [Anterior Bilateral] Blood Pressure 152/96 146/88 159/102 O2 Sat by Pulse 96 98 99 Oximetry 05/07/17 05/07/17 05/07/17 05:15 05:30 05:45 Temperature Pulse Rate 93 H 93 H 93 H Pulse Rate [ Anterior Bilateral] Pulse Rate [ From Monitor] Respiratory 31 H 31 H 29 H Rate Respiratory Rate [Anterior Bilateral] Blood Pressure 148/99 146/99 129/91 O2 Sat by Pulse 96 99 97 Oximetry 05/07/17 05/07/17 05/07/17 06:01 06:15 06:30 Temperature Pulse Rate 93 H 95 H 93 H Pulse Rate [ Anterior Bilateral] Pulse Rate [ From Monitor] Respiratory 32 H 29 H 28 H Rate Respiratory Rate [Anterior Bilateral] Blood Pressure 129/91 136/91 137/89 O2 Sat by Pulse 98 98 93 Oximetry 05/07/17 05/07/17 05/07/17 06:45 07:00 07:15 Temperature Pulse Rate 93 H 93 H 93 H Pulse Rate [ Anterior Bilateral] Pulse Rate [ From Monitor] Respiratory 28 H 31 H 28 H Rate Respiratory Rate [Anterior Bilateral] Blood Pressure 142/97 144/95 149/100 O2 Sat by Pulse 98 99 98 Oximetry 05/07/17 05/07/17 05/07/17 07:30 07:39 07:40 Temperature Pulse Rate 84 Pulse Rate [ 84 Anterior Bilateral] Pulse Rate [ From Monitor] Respiratory 27 H Rate Respiratory 18 Rate [Anterior Bilateral] Blood Pressure 139/90 O2 Sat by Pulse 99 97 Oximetry 05/07/17 05/07/17 05/07/17 07:45 07:50 07:53 Temperature Pulse Rate 93 H Pulse Rate [ 88 Anterior Bilateral] Pulse Rate [ 84 From Monitor] Respiratory 28 H 28 H Rate Respiratory 18 Rate [Anterior Bilateral] Blood Pressure 150/98 O2 Sat by Pulse 99 98 Oximetry 05/07/17 05/07/17 05/07/17 08:00 08:15 08:30 Temperature 97.6 F Pulse Rate 88 93 H 96 H Pulse Rate [ Anterior Bilateral] Pulse Rate [ From Monitor] Respiratory 28 H 29 H 30 H Rate Respiratory Rate [Anterior Bilateral] Blood Pressure 156/102 150/97 146/97 O2 Sat by Pulse 95 96 Oximetry 05/07/17 05/07/17 05/07/17 08:45 09:00 09:15 Temperature Pulse Rate 93 H 94 H 92 H Pulse Rate [ Anterior Bilateral] Pulse Rate [ From Monitor] Respiratory 28 H 27 H 29 H Rate Respiratory Rate [Anterior Bilateral] Blood Pressure 159/102 144/106 152/99 O2 Sat by Pulse 99 97 100 Oximetry 05/07/17 05/07/17 05/07/17 09:30 09:45 10:00 Temperature Pulse Rate 93 H 93 H 93 H Pulse Rate [ Anterior Bilateral] Pulse Rate [ From Monitor] Respiratory 29 H 26 H 28 H Rate Respiratory Rate [Anterior Bilateral] Blood Pressure 148/97 154/101 155/100 O2 Sat by Pulse 96 91 97 Oximetry 05/07/17 05/07/17 05/07/17 10:15 10:31 10:45 Temperature Pulse Rate 93 H 93 H Pulse Rate [ Anterior Bilateral] Pulse Rate [ From Monitor] Respiratory 31 H 21 Rate Respiratory Rate [Anterior Bilateral] Blood Pressure 155/104 157/99 157/99 O2 Sat by Pulse 100 100 79 L Oximetry 05/07/17 05/07/17 05/07/17 11:00 11:15 11:30 Temperature Pulse Rate 93 H 93 H 91 H Pulse Rate [ Anterior Bilateral] Pulse Rate [ From Monitor] Respiratory 17 27 H 28 H Rate Respiratory Rate [Anterior Bilateral] Blood Pressure 142/93 144/92 149/82 O2 Sat by Pulse 91 88 93 Oximetry 05/07/17 05/07/17 11:45 12:00 Temperature Pulse Rate 93 H 93 H Pulse Rate [ Anterior Bilateral] Pulse Rate [ 84 From Monitor] Respiratory 25 H 26 H Rate Respiratory Rate [Anterior Bilateral] Blood Pressure 156/89 138/101 O2 Sat by Pulse 91 86 Oximetry Constitutional: no acute distress, alert, asleep Ascultation: Right: diminished breath sounds, Bilateral: clear Percussion: Bilateral: not dull Cardiovascular: irregular rhythm, other (pacemaker rhythm) Gastrointestinal: normoactive bowel sounds, soft Integumentary: normal Extremities: edema (chronic lymphedema with chronic skin changes) Neurologic: unable to assess ( ) Psychiatric: other (somewhat irritable) CBC and BMP: 05/07/17 06:31 05/07/17 06:31 ABG, PT/INR, D-dimer: ABG POC ABG pH 7.370 (7.35-7.45) 05/06/17 03:44 POC ABG pCO2 43.2 (35-45) 05/06/17 03:44 POC ABG pO2 95 (80-105) 05/06/17 03:44 POC ABG HCO3 25.0 05/06/17 03:44 POC ABG Total CO2 26 05/06/17 03:44 POC ABG O2 Sat 97 05/06/17 03:44 PT/INR, D-dimer PT 20.3 Sec. (12.2-14.9) H 04/30/17 22:33 INR 1.74 (0.87-1.13) H 04/30/17 22:33 Abnormal lab findings: Abnormal Labs 04/30/17 04/30/17 04/30/17 09:07 09:07 09:07 WBC 13.4 H RBC Hgb Hct MCV 96 H Plt Count 109 L Lymph % (Auto) 11.9 L [place] % (Auto) 11.7 H Lymph # [place] # 1.6 H Seg Neutrophils % 76.1 H Seg Neuts % (Manual) Lymphocytes % (Manual) Monocytes % (Manual) Seg Neutrophils # 10.2 H Seg Neutrophils # Man Lymphocytes # (Manual) Monocytes # (Manual) PT INR APTT POC ABG pCO2 POC ABG pO2 Sodium Chloride BUN Creatinine Glucose POC Glucose Lactic Acid 3.30 H* Calcium Troponin T 0.075 H D Total Protein Albumin 04/30/17 04/30/17 04/30/17 12:55 15:41 21:16 WBC RBC Hgb Hct MCV Plt Count Lymph % (Auto) [place] % (Auto) Lymph # [place] # Seg Neutrophils % Seg Neuts % (Manual) Lymphocytes % (Manual) Monocytes % (Manual) Seg Neutrophils # Seg Neutrophils # Man Lymphocytes # (Manual) Monocytes # (Manual) PT INR APTT POC ABG pCO2 POC ABG pO2 Sodium Chloride BUN Creatinine Glucose POC Glucose 129 H 114 H 135 H Lactic Acid Calcium Troponin T Total Protein Albumin 04/30/17 05/01/17 05/01/17 22:33 06:15 08:39 WBC RBC 3.61 L Hgb 11.7 L Hct 34.4 L MCV 95 H Plt Count 105 L Lymph % (Auto) [place] % (Auto) 13.9 H Lymph # [place] # 1.3 H Seg Neutrophils % Seg Neuts % (Manual) Lymphocytes % (Manual) Monocytes % (Manual) Seg Neutrophils # Seg Neutrophils # Man Lymphocytes # (Manual) Monocytes # (Manual) PT 20.3 H INR 1.74 H APTT 39.0 H POC ABG pCO2 POC ABG pO2 Sodium Chloride BUN Creatinine Glucose POC Glucose 68 L Lactic Acid Calcium Troponin T Total Protein Albumin 05/01/17 05/01/17 05/01/17 08:39 11:27 15:13 WBC RBC Hgb Hct MCV Plt Count Lymph % (Auto) [place] % (Auto) Lymph # [place] # Seg Neutrophils % Seg Neuts % (Manual) Lymphocytes % (Manual) Monocytes % (Manual) Seg Neutrophils # Seg Neutrophils # Man Lymphocytes # (Manual) Monocytes # (Manual) PT INR APTT POC ABG pCO2 POC ABG pO2 Sodium 135 L Chloride 97.8 L BUN 26 H Creatinine 1.7 H Glucose 72 L POC Glucose 108 H Lactic Acid Calcium Troponin T 0.074 H Total Protein Albumin 05/02/17 05/02/17 05/02/17 06:59 07:15 09:10 WBC RBC 3.64 L Hgb 11.6 L Hct 34.6 L MCV 95 H Plt Count Lymph % (Auto) 11.0 L [place] % (Auto) 10.1 H Lymph # 0.9 L [place] # Seg Neutrophils % 78.2 H Seg Neuts % (Manual) Lymphocytes % (Manual) Monocytes % (Manual) Seg Neutrophils # Seg Neutrophils # Man Lymphocytes # (Manual) Monocytes # (Manual) PT INR APTT POC ABG pCO2 POC ABG pO2 63 L Sodium Chloride BUN Creatinine Glucose POC Glucose 106 H Lactic Acid Calcium Troponin T Total Protein Albumin 05/02/17 05/02/17 05/03/17 09:21 13:04 00:15 WBC RBC Hgb Hct MCV Plt Count Lymph % (Auto) [place] % (Auto) Lymph # [place] # Seg Neutrophils % Seg Neuts % (Manual) Lymphocytes % (Manual) Monocytes % (Manual) Seg Neutrophils # Seg Neutrophils # Man Lymphocytes # (Manual) Monocytes # (Manual) PT INR APTT POC ABG pCO2 46.0 H POC ABG pO2 255 H 40 L Sodium 135 L Chloride BUN 27 H Creatinine 1.8 H Glucose POC Glucose Lactic Acid Calcium 8.2 L Troponin T 0.039 H D Total Protein 8.5 H Albumin 2.4 L 05/03/17 05/03/17 05/03/17 01:56 02:05 06:19 WBC RBC Hgb Hct MCV Plt Count Lymph % (Auto) [place] % (Auto) Lymph # [place] # Seg Neutrophils % Seg Neuts % (Manual) Lymphocytes % (Manual) Monocytes % (Manual) Seg Neutrophils # Seg Neutrophils # Man Lymphocytes # (Manual) Monocytes # (Manual) PT INR APTT POC ABG pCO2 POC ABG pO2 71 L Sodium Chloride BUN Creatinine Glucose POC Glucose 139 H 135 H Lactic Acid Calcium Troponin T Total Protein Albumin 05/03/17 05/03/17 05/03/17 06:40 07:32 07:32 WBC RBC Hgb Hct MCV 95 H Plt Count 115 L Lymph % (Auto) 9.8 L [place] % (Auto) 14.7 H Lymph # 1.0 L [place] # 1.5 H Seg Neutrophils % 75.0 H Seg Neuts % (Manual) Lymphocytes % (Manual) Monocytes % (Manual) Seg Neutrophils # Seg Neutrophils # Man Lymphocytes # (Manual) Monocytes # (Manual) PT INR APTT POC ABG pCO2 POC ABG pO2 223 H Sodium 135 L Chloride BUN 24 H Creatinine Glucose 127 H POC Glucose Lactic Acid Calcium Troponin T Total Protein Albumin 05/03/17 05/03/17 05/04/17 09:30 20:05 03:51 WBC RBC Hgb Hct MCV Plt Count Lymph % (Auto) [place] % (Auto) Lymph # [place] # Seg Neutrophils % Seg Neuts % (Manual) Lymphocytes % (Manual) Monocytes % (Manual) Seg Neutrophils # Seg Neutrophils # Man Lymphocytes # (Manual) Monocytes # (Manual) PT INR APTT POC ABG pCO2 POC ABG pO2 Sodium Chloride BUN Creatinine Glucose POC Glucose 118 H 119 H 112 H Lactic Acid Calcium Troponin T Total Protein Albumin 05/04/17 05/04/17 05/04/17 05:31 05:31 16:34 WBC RBC Hgb Hct MCV Plt Count 114 L Lymph % (Auto) [place] % (Auto) Lymph # [place] # Seg Neutrophils % Seg Neuts % (Manual) Lymphocytes % (Manual) 12.0 L Monocytes % (Manual) 14.0 H Seg Neutrophils # Seg Neutrophils # Man Lymphocytes # (Manual) 0.9 L Monocytes # (Manual) 1.1 H PT INR APTT POC ABG pCO2 POC ABG pO2 Sodium Chloride BUN 27 H Creatinine Glucose 115 H POC Glucose 125 H Lactic Acid Calcium 8.3 L Troponin T Total Protein Albumin 05/04/17 05/05/17 05/05/17 21:47 04:35 05:48 WBC RBC Hgb Hct MCV Plt Count Lymph % (Auto) [place] % (Auto) Lymph # [place] # Seg Neutrophils % Seg Neuts % (Manual) Lymphocytes % (Manual) Monocytes % (Manual) Seg Neutrophils # Seg Neutrophils # Man Lymphocytes # (Manual) Monocytes # (Manual) PT INR APTT POC ABG pCO2 POC ABG pO2 68 L Sodium Chloride BUN Creatinine Glucose POC Glucose 128 H 120 H Lactic Acid Calcium Troponin T Total Protein Albumin 05/05/17 05/05/17 05/05/17 07:19 13:46 13:46 WBC 13.0 H RBC Hgb Hct MCV 96 H Plt Count Lymph % (Auto) [place] % (Auto) Lymph # [place] # Seg Neutrophils % Seg Neuts % (Manual) Lymphocytes % (Manual) Monocytes % (Manual) 22.0 H Seg Neutrophils # Seg Neutrophils # Man 8.2 H Lymphocytes # (Manual) Monocytes # (Manual) 2.9 H PT INR APTT POC ABG pCO2 POC ABG pO2 Sodium Chloride BUN 27 H Creatinine Glucose POC Glucose 112 H Lactic Acid Calcium Troponin T Total Protein Albumin 05/05/17 05/05/17 05/06/17 17:48 22:00 05:19 WBC 13.0 H RBC Hgb Hct MCV 96 H Plt Count Lymph % (Auto) [place] % (Auto) Lymph # [place] # Seg Neutrophils % Seg Neuts % (Manual) 81.0 H Lymphocytes % (Manual) 5.0 L Monocytes % (Manual) 12.0 H Seg Neutrophils # Seg Neutrophils # Man 10.5 H Lymphocytes # (Manual) 0.7 L Monocytes # (Manual) 1.6 H PT INR APTT POC ABG pCO2 POC ABG pO2 Sodium Chloride BUN Creatinine Glucose POC Glucose 115 H 111 H Lactic Acid Calcium Troponin T Total Protein Albumin 05/06/17 05/07/17 05/07/17 05:19 06:31 06:31 WBC RBC Hgb Hct MCV 95 H Plt Count Lymph % (Auto) [place] % (Auto) Lymph # [place] # Seg Neutrophils % Seg Neuts % (Manual) 79.0 H Lymphocytes % (Manual) 8.0 L Monocytes % (Manual) 9.0 H Seg Neutrophils # Seg Neutrophils # Man 8.1 H Lymphocytes # (Manual) 0.8 L Monocytes # (Manual) 0.9 H PT INR APTT POC ABG pCO2 POC ABG pO2 Sodium Chloride 108.5 H BUN 27 H 28 H Creatinine Glucose 104 H POC Glucose Lactic Acid Calcium Troponin T Total Protein Albumin
--- NOTE | 2017-05-07 13:24 | Progress Note ---
Assessment and Plan Assessment and plan: Acute respiratory failure - Patient is on Ventimask - Likely due to mucus plug - Bronchoscopy was done - Discontinue sedatives Afib with RVR - controlled, in sinus rhythm, on metoprolol - Cardiology consulted - ECHO showed EF 40-45% - patient has AICD Sepsis - ruled out - all the cultures are negative Hemoptysis - resolved, no bleeding was seen during bronchoscopy Diabetes mellitus type 2 - sliding scale insulin Hypertension - Continue his meds Acute kidney Failure - Resolved Chronic systolic CHF CAD History of DVT - Patient is on Eliquis Dementia - Supportive care CODE STATUS full Disposition - Continue ICU care The high probability of a clinically significant, sudden or life threatening deterioration of the [Respiratory, WHALE FISHERMAN, CVS] system(s) required my full and direct attention, intervention and personal management. The aggregate critical care time was [45] minutes. This time is in addition to time spent performing reported procedures but includes the following: [x] Data Review and interpretation [x] Patient assessment and monitoring of vital signs [x] Documentation [x] Medication orders and managementICU History Interval history: Patient was seen and evaluated this morning, patient extubated 2 days ago, on Ventimask saturating in the mid 90s. Hospitalist Physical - Physical exam Narrative exam: Patient is on a Ventimask. The patient appeared well nourished and normally developed. Vital signs as documented. Head exam is unremarkable. No scleral icterus . Neck is without jugular venous distension, thyromegaly, or carotid bruits. Lungs wheezing all over the chest. Cardiac exam reveals regular rate and Rhythm. First and second heart sounds normal. No murmurs, rubs or gallops. Abdominal exam reveals normal bowel sounds, no masses, no organomegaly and no aortic enlargement. Extremities are swelling and DISCOLORATION of bilateral lower extremities due to venous stasis. WHALE FISHERMAN: Patient is confused. Patient has dementia. - Constitutional Vitals: Temp Pulse Resp BP Pulse Ox 98.6 F 94 H 22 130/101 88 05/07/17 12:00 05/07/17 12:45 05/07/17 12:45 05/07/17 12:45 05/07/17 12:45 General appearance: Present: other (intubated, sedated, Fi O2 60%) Results - Labs CBC & Chem 7: 05/07/17 06:31 05/07/17 06:31 Labs: Laboratory Last Values WBC 10.3 K/mm3 (4.5-11.0) 05/07/17 06:31 RBC 4.19 M/mm3 (3.65-5.03) 05/07/17 06:31 Hgb 13.1 gm/dl (11.8-15.2) 05/07/17 06:31 Hct 39.7 % (35.5-45.6) 05/07/17 06:31 MCV 95 fl (84-94) H 05/07/17 06:31 MCH 31 pg (28-32) 05/07/17 06:31 MCHC 33 % (32-34) 05/07/17 06:31 RDW 14.3 % (13.2-15.2) 05/07/17 06:31 Plt Count 194 K/mm3 (140-440) 05/07/17 06:31 Lymph % (Auto) 9.8 % (13.4-35.0) L 05/03/17 07:32 [place] % (Auto) Crop Supervisor 05/06/17 05:19 Eos % (Auto) 0.1 % (0.0-4.3) 05/03/17 07:32 Baso % (Auto) 0.4 % (0.0-1.8) 05/03/17 07:32 Lymph # 1.0 K/mm3 (1.2-5.4) L 05/03/17 07:32 [place] # 1.5 K/mm3 (0.0-0.8) H 05/03/17 07:32 Eos # 0.0 K/mm3 (0.0-0.4) 05/03/17 07:32 Baso # 0.0 K/mm3 (0.0-0.1) 05/03/17 07:32 Add Manual Diff Complete 05/07/17 06:31 Total Counted 100 05/07/17 06:31 Seg Neutrophils % 75.0 % (40.0-70.0) H 05/03/17 07:32 Seg Neuts % (Manual) 79.0 % (40.0-70.0) H 05/07/17 06:31 Band Neutrophils % 0 % 05/07/17 06:31 Lymphocytes % (Manual) 8.0 % (13.4-35.0) L 05/07/17 06:31 Reactive Lymphs % (Man) 3.0 % 05/07/17 06:31 Monocytes % (Manual) 9.0 % (0.0-7.3) H 05/07/17 06:31 Eosinophils % (Manual) 0 % (0.0-4.3) 05/07/17 06:31 Basophils % (Manual) 0 % (0.0-1.8) 05/06/17 05:19 Metamyelocytes % 1.0 % 05/07/17 06:31 Myelocytes % 0 % 05/07/17 06:31 Promyelocytes % 0 % 05/07/17 06:31 Blast Cells % 0 % 05/07/17 06:31 Nucleated RBC % Not Reportable 05/07/17 06:31 Seg Neutrophils # 7.5 K/mm3 (1.8-7.7) 05/03/17 07:32 Seg Neutrophils # Man 8.1 K/mm3 (1.8-7.7) H 05/07/17 06:31 Band Neutrophils # 0.0 K/mm3 05/07/17 06:31 Lymphocytes # (Manual) 0.8 K/mm3 (1.2-5.4) L 05/07/17 06:31 Abs React Lymphs (Man) 0.3 K/mm3 05/07/17 06:31 Monocytes # (Manual) 0.9 K/mm3 (0.0-0.8) H 05/07/17 06:31 Eosinophils # (Manual) 0.0 K/mm3 (0.0-0.4) 05/07/17 06:31 Basophils # (Manual) 0.0 K/mm3 (0.0-0.1) 05/07/17 06:31 Metamyelocytes # 0.1 K/mm3 05/07/17 06:31 Myelocytes # 0.0 K/mm3 05/07/17 06:31 Promyelocytes # 0.0 K/mm3 05/07/17 06:31 Blast Cells # 0.0 K/mm3 05/07/17 06:31 WBC Morphology Not Reportable 05/07/17 06:31 Hypersegmented Neuts Not Reportable 05/07/17 06:31 Hyposegmented Neuts Not Reportable 05/07/17 06:31 Hypogranular Neuts Not Reportable 05/07/17 06:31 Smudge Cells Not Reportable 05/07/17 06:31 Toxic Granulation Not Reportable 05/07/17 06:31 Toxic Vacuolation Not Reportable 05/07/17 06:31 Dohle Bodies Not Reportable 05/07/17 06:31 Pelger-Huet Anomaly Not Reportable 05/07/17 06:31 Amor Rods Not Reportable 05/07/17 06:31 Platelet Estimate Appears normal 05/07/17 06:31 Clumped Platelets Rare 05/07/17 06:31 Plt Clumps, EDTA Not Reportable 05/07/17 06:31 Large Platelets Not Reportable 05/07/17 06:31 Giant Platelets Not Reportable 05/07/17 06:31 Platelet Satelliting Not Reportable 05/07/17 06:31 Plt Morphology Comment Not Reportable 05/07/17 06:31 RBC Morphology Not Reportable 05/07/17 06:31 Dimorphic RBCs Not Reportable 05/07/17 06:31 Polychromasia Not Reportable 05/07/17 06:31 Hypochromasia Not Reportable 05/07/17 06:31 Poikilocytosis Not Reportable 05/07/17 06:31 Anisocytosis Not Reportable 05/07/17 06:31 Microcytosis Not Reportable 05/07/17 06:31 Macrocytosis Not Reportable 05/07/17 06:31 Spherocytes Not Reportable 05/07/17 06:31 Pappenheimer Bodies Not Reportable 05/07/17 06:31 Sickle Cells Not Reportable 05/07/17 06:31 Target Cells Not Reportable 05/07/17 06:31 Tear Drop Cells Not Reportable 05/07/17 06:31 Ovalocytes Not Reportable 05/07/17 06:31 Helmet Cells Not Reportable 05/07/17 06:31 [place] Bodies Not Reportable 05/07/17 06:31 Gobler Rings Not Reportable 05/07/17 06:31 [place] Cells Not Reportable 05/07/17 06:31 Bite Cells Not Reportable 05/07/17 06:31 Crenated Cell Not Reportable 05/07/17 06:31 Elliptocytes Not Reportable 05/07/17 06:31 Acanthocytes (Spur) Not Reportable 05/07/17 06:31 Rouleaux Not Reportable 05/07/17 06:31 Hemoglobin C Crystals Not Reportable 05/07/17 06:31 Schistocytes Not Reportable 05/07/17 06:31 Malaria parasites Not Reportable 05/07/17 06:31 ESR 68 mm/Hr (0-20) 04/29/17 17:16 Connor Bodies Not Reportable 05/07/17 06:31 Hem Pathologist Commnt No 05/07/17 06:31 PT 20.3 Sec. (12.2-14.9) H 04/30/17 22:33 INR 1.74 (0.87-1.13) H 04/30/17 22:33 APTT 39.0 Sec. (24.2-36.6) H 04/30/17 22:33 POC ABG pH 7.370 (7.35-7.45) 05/06/17 03:44 POC ABG pCO2 43.2 (35-45) 05/06/17 03:44 POC ABG pO2 95 (80-105) 05/06/17 03:44 POC ABG HCO3 25.0 05/06/17 03:44 POC ABG Total CO2 26 05/06/17 03:44 POC ABG O2 Sat 97 05/06/17 03:44 POC ABG Base Excess 0 05/06/17 03:44 FiO2 50 % 05/06/17 03:44 Sodium 145 mmol/L (137-145) 05/07/17 06:31 Potassium 4.1 mmol/L (3.6-5.0) 05/07/17 06:31 Chloride 108.5 mmol/L (98-107) H 05/07/17 06:31 Carbon Dioxide 24 mmol/L (22-30) 05/07/17 06:31 Anion Gap 17 mmol/L 05/07/17 06:31 BUN 28 mg/dL (9-20) H 05/07/17 06:31 Creatinine 1.0 mg/dL (0.8-1.5) 05/07/17 06:31 Estimated GFR > 60 ml/min 05/07/17 06:31 BUN/Creatinine Ratio 28.00 % 05/07/17 06:31 Glucose 96 mg/dL (75-100) 05/07/17 06:31 POC Glucose 95 (70-105) 05/07/17 10:11 Lactic Acid 1.50 mmol/L (0.7-2.0) 05/01/17 08:39 Calcium 8.5 mg/dL (8.4-10.2) 05/07/17 06:31 Magnesium 1.70 mg/dL (1.7-2.3) 04/29/17 17:16 Total Bilirubin 0.60 mg/dL (0.1-1.2) 05/02/17 09:21 AST 22 units/L (5-40) 05/02/17 09:21 ALT 10 units/L (7-56) 05/02/17 09:21 Alkaline Phosphatase 82 units/L (35-129) 05/02/17 09:21 Ammonia 35.0 umol/L (25-60) 04/29/17 15:15 Total Creatine Kinase 70 units/L (55-170) 04/30/17 09:07 CK-MB (CK-2) 2.4 ng/mL (0.0-4.0) 04/30/17 09:07 CK-MB (CK-2) Rel Index 3.4 (0-4) 04/30/17 09:07 Troponin T 0.039 ng/mL (0.00-0.029) H D 05/02/17 09:21 C-Reactive Protein 1.20 mg/dL (0.00-1.30) 04/29/17 17:16 NT-Pro-B Natriuret Pep 5055 pg/mL (0-900) H 04/29/17 17:16 Total Protein 8.5 g/dL (6.3-8.2) H 05/02/17 09:21 Albumin 2.4 g/dL (3.9-5) L 05/02/17 09:21 Albumin/Globulin Ratio 0.4 % 05/02/17 09:21 Triglycerides 64 mg/dL (2-149) 04/29/17 17:16 Cholesterol 101 mg/dL (50-199) 04/29/17 17:16 LDL Cholesterol Direct 53 mg/dL (50-130) 04/29/17 17:16 HDL Cholesterol 36 mg/dL (40-59) L 04/29/17 17:16 Cholesterol/HDL Ratio 2.80 % 04/29/17 17:16 Lipase 23 units/L (13-60) 04/29/17 17:16 TSH 1.800 mlU/mL (0.270-4.200) 04/29/17 17:16 Urine Color Yellow (Yellow) 04/29/17 17:54 Urine Turbidity Clear (Clear) 04/29/17 17:54 Urine pH 7.0 (5.0-7.0) 04/29/17 17:54 Ur Specific [place] 1.013 (1.003-1.030) 04/29/17 17:54 Urine Protein 100 mg/dl mg/dL (Negative) 04/29/17 17:54 Urine Glucose (UA) Neg mg/dL (Negative) 04/29/17 17:54 Urine Ketones Neg mg/dL (Negative) 04/29/17 17:54 Urine Blood Sm (Negative) 04/29/17 17:54 Urine Nitrite Neg (Negative) 04/29/17 17:54 Urine Bilirubin Neg (Negative) 04/29/17 17:54 Urine Urobilinogen < 2.0 mg/dL (<2.0) 04/29/17 17:54 Ur Leukocyte Esterase Neg (Negative) 04/29/17 17:54 Urine WBC (Auto) < 1.0 /HPF (0.0-6.0) 04/29/17 17:54 Urine RBC (Auto) 6.0 /HPF (0.0-6.0) 04/29/17 17:54 Salicylates < 0.3 mg/dL (2.8-20.0) L 04/29/17 17:16 Urine Opiates Screen Presumptive negative 04/29/17 17:54 Urine Methadone Screen Presumptive negative 04/29/17 17:54 Acetaminophen < 15.0 ug/mL (10.0-30.0) 04/29/17 17:16 Ur Barbiturates Screen Presumptive negative 04/29/17 17:54 Ur Phencyclidine Scrn Presumptive negative 04/29/17 17:54 Ur Amphetamines Screen Presumptive negative 04/29/17 17:54 U Benzodiazepines Scrn Presumptive negative 04/29/17 17:54 Urine Cocaine Screen Presumptive negative 04/29/17 17:54 U Marijuana (THC) Screen Presumptive negative 04/29/17 17:54 Drugs of Abuse Note Disclamer 04/29/17 17:54 Plasma/Serum Alcohol < 0.01 gm% (0-0.07) 04/29/17 17:16 Blood Type A POSITIVE 04/29/17 17:16 Antibody Screen TNR 04/29/17 17:16 OSWALD Antibody Screen Negative 04/29/17 17:16
[2017-05-07] MEDS: TYLENOL PO PRN (20:16)
[2017-05-07] MEDS: SENOKOT PO SCH (22:46)
[2017-05-07] MEDS: NEURONTIN PO SCH (22:47)
[2017-05-08] MEDS: CARDIZEM PO SCH ×3 (05:44→23:45)
[2017-05-08] MEDS: NOVOLOG SUB-Q SCH ×3 (06:05→18:51)
[2017-05-08 06:30] LABS: Basophils % (Auto) 0.3 % (0.0-1.8); Eosinophils % (Auto) 0.8 % (0.0-4.3); Hematocrit 37.4 % (35.5-45.6); Hemoglobin 12.5 gm/dl (11.8-15.2); Mean Corpuscular HGB Conc 33 % (32-34); Mean Corpuscular Hemoglobin 32 pg (28-32); Mean Corpuscular Volume 95 fl (84-94); Platelet Count 180 K/mm3 (140-440); Red Blood Count 3.94 M/mm3 (3.65-5.03); Red Cell Distribution Width 14.3 % (13.2-15.2); White Blood Count 8.7 K/mm3 (4.5-11.0)
[2017-05-08 06:44] LABS: Anion Gap 13 mmol/L; BUN/Creatinine Ratio 26.25; Blood Urea Nitrogen 21 mg/dL (9-20); Calcium 8.2 mg/dL (8.4-10.2); Carbon Dioxide 24 mmol/L (22-30); Chloride 105.7 mmol/L (98-107); Glucose 104 mg/dL (75-100); Potassium 3.6 mmol/L (3.6-5.0); Sodium 139 mmol/L (137-145)
[2017-05-08] MEDS: PULMICORT IH SCH ×2 (07:20→21:25)
[2017-05-08] MEDS: BROVANA NEBU IH SCH ×2 (07:20→21:25)
--- NOTE | 2017-05-08 07:32 | XRay Report ---
Single view chest: Compared to 05/07/17. History: Followup of respiratory failure. Findings: Marked cardiomegaly. Trachea is midline. Stable pacemaker. Bilateral moderate pleural effusion. No consolidation. Impression: Cardiomegaly with bilateral pleural effusions. No significant interval change.
--- NOTE | 2017-05-08 08:32 | Progress Note ---
Assessment and Plan Respiratory failure,resolved Coronary artery disease status post CABG. Status post bioprosthetic tricuspid valve replacement in 2002 Ischemic cardiomyopathy LV ejection fraction 40-45%. May still be in heart failure and be of physical examination changes Essential hypertension Type 2 diabetes mellitus Atrial fibrillation, now in sinus rhythm Sepsis. Completing antibiotics. Recommendations Contine CHF TX f/u on cardiology recommendations, OPD care Can be moved to floor if no further problems Continue rate control Will see while at ICU, then likely sign off once transferred if no pulmonary issues Critical care time 31 minutes of [id number] evaluation and coordination of care Subjective Principal diagnosis: Atrial Fib Interval history: Feels better. No respiratory complains. complaining that he wants to go home. Objective Vital Signs - 12hr 05/07/17 05/07/17 05/07/17 20:45 21:00 21:15 Temperature Pulse Rate 76 76 83 Pulse Rate [ Anterior Bilateral] Pulse Rate [ From Monitor] Pulse Rate [ Right Radial] Respiratory 26 H 23 9 L Rate Respiratory Rate [Anterior Bilateral] Blood Pressure 145/85 142/89 135/95 O2 Sat by Pulse 100 100 98 Oximetry 05/07/17 05/07/17 05/07/17 21:30 21:45 22:00 Temperature Pulse Rate 92 H 91 H 91 H Pulse Rate [ Anterior Bilateral] Pulse Rate [ From Monitor] Pulse Rate [ Right Radial] Respiratory 16 12 20 Rate Respiratory Rate [Anterior Bilateral] Blood Pressure 138/92 147/98 144/92 O2 Sat by Pulse 100 99 98 Oximetry 05/07/17 05/07/17 05/07/17 22:15 22:30 22:37 Temperature Pulse Rate 91 H 91 H 91 H Pulse Rate [ Anterior Bilateral] Pulse Rate [ From Monitor] Pulse Rate [ Right Radial] Respiratory 22 22 22 Rate Respiratory Rate [Anterior Bilateral] Blood Pressure 144/91 145/97 145/97 O2 Sat by Pulse 100 100 100 Oximetry 05/07/17 05/07/17 05/07/17 22:45 23:00 23:15 Temperature Pulse Rate 91 H 94 H 82 Pulse Rate [ Anterior Bilateral] Pulse Rate [ From Monitor] Pulse Rate [ Right Radial] Respiratory 12 18 17 Rate Respiratory Rate [Anterior Bilateral] Blood Pressure 145/94 133/100 145/93 O2 Sat by Pulse 99 99 97 Oximetry 05/07/17 05/07/17 05/07/17 23:30 23:38 23:45 Temperature Pulse Rate 90 91 H Pulse Rate [ Anterior Bilateral] Pulse Rate [ From Monitor] Pulse Rate [ Right Radial] Respiratory 15 13 11 L Rate Respiratory Rate [Anterior Bilateral] Blood Pressure 152/93 152/93 O2 Sat by Pulse 98 97 Oximetry 05/07/17 05/08/17 05/08/17 23:52 00:00 00:15 Temperature 98.6 F Pulse Rate 91 H 91 H Pulse Rate [ Anterior Bilateral] Pulse Rate [ From Monitor] Pulse Rate [ Right Radial] Respiratory 26 H 27 H Rate Respiratory Rate [Anterior Bilateral] Blood Pressure 137/91 130/87 O2 Sat by Pulse 98 Oximetry 05/08/17 05/08/17 05/08/17 00:30 00:45 01:00 Temperature Pulse Rate 90 91 H 91 H Pulse Rate [ Anterior Bilateral] Pulse Rate [ From Monitor] Pulse Rate [ Right Radial] Respiratory 25 H 25 H 22 Rate Respiratory Rate [Anterior Bilateral] Blood Pressure 140/89 145/94 138/96 O2 Sat by Pulse 99 98 100 Oximetry 05/08/17 05/08/17 05/08/17 01:15 01:30 01:45 Temperature Pulse Rate 88 91 H 93 H Pulse Rate [ Anterior Bilateral] Pulse Rate [ From Monitor] Pulse Rate [ Right Radial] Respiratory 26 H 17 18 Rate Respiratory Rate [Anterior Bilateral] Blood Pressure 148/94 148/95 158/98 O2 Sat by Pulse 98 100 96 Oximetry 05/08/17 05/08/17 05/08/17 02:00 02:15 02:30 Temperature Pulse Rate 91 H 92 H 93 H Pulse Rate [ Anterior Bilateral] Pulse Rate [ From Monitor] Pulse Rate [ Right Radial] Respiratory 22 24 25 H Rate Respiratory Rate [Anterior Bilateral] Blood Pressure 147/101 141/92 154/101 O2 Sat by Pulse 98 100 Oximetry 05/08/17 05/08/17 05/08/17 02:45 03:00 03:15 Temperature Pulse Rate 91 H 82 91 H Pulse Rate [ Anterior Bilateral] Pulse Rate [ From Monitor] Pulse Rate [ Right Radial] Respiratory 26 H 16 25 H Rate Respiratory Rate [Anterior Bilateral] Blood Pressure 152/102 142/100 149/100 O2 Sat by Pulse 99 Oximetry 05/08/17 05/08/17 05/08/17 03:30 03:45 04:00 Temperature 98.7 F Pulse Rate 91 H 91 H 91 H Pulse Rate [ Anterior Bilateral] Pulse Rate [ From Monitor] Pulse Rate [ Right Radial] Respiratory 25 H 12 25 H Rate Respiratory Rate [Anterior Bilateral] Blood Pressure 151/100 140/92 148/87 O2 Sat by Pulse 99 99 Oximetry 05/08/17 05/08/17 05/08/17 04:15 04:30 04:45 Temperature Pulse Rate 77 79 80 Pulse Rate [ Anterior Bilateral] Pulse Rate [ From Monitor] Pulse Rate [ Right Radial] Respiratory 23 27 H 30 H Rate Respiratory Rate [Anterior Bilateral] Blood Pressure 139/92 140/95 134/91 O2 Sat by Pulse 83 L 89 Oximetry 05/08/17 05/08/17 05/08/17 05:00 05:15 05:19 Temperature Pulse Rate 80 77 Pulse Rate [ Anterior Bilateral] Pulse Rate [ From Monitor] Pulse Rate [ Right Radial] Respiratory 23 19 14 Rate Respiratory Rate [Anterior Bilateral] Blood Pressure 140/93 139/86 O2 Sat by Pulse 89 Oximetry 05/08/17 05/08/17 05/08/17 05:30 05:45 06:00 Temperature Pulse Rate 76 77 75 Pulse Rate [ Anterior Bilateral] Pulse Rate [ From Monitor] Pulse Rate [ Right Radial] Respiratory 25 H 24 21 Rate Respiratory Rate [Anterior Bilateral] Blood Pressure 139/87 144/89 153/97 O2 Sat by Pulse 100 97 97 Oximetry 05/08/17 05/08/17 05/08/17 06:15 06:30 06:45 Temperature Pulse Rate 75 77 76 Pulse Rate [ Anterior Bilateral] Pulse Rate [ From Monitor] Pulse Rate [ Right Radial] Respiratory 21 24 23 Rate Respiratory Rate [Anterior Bilateral] Blood Pressure 149/97 156/95 153/95 O2 Sat by Pulse 97 100 96 Oximetry 05/08/17 05/08/17 05/08/17 07:10 07:15 07:18 Temperature Pulse Rate 76 77 Pulse Rate [ Anterior Bilateral] Pulse Rate [ 76 From Monitor] Pulse Rate [ 75 Right Radial] Respiratory 21 17 20 Rate Respiratory Rate [Anterior Bilateral] Blood Pressure 151/94 O2 Sat by Pulse 100 100 95 Oximetry 05/08/17 05/08/17 05/08/17 07:20 07:25 07:26 Temperature Pulse Rate Pulse Rate [ 88 89 Anterior Bilateral] Pulse Rate [ From Monitor] Pulse Rate [ Right Radial] Respiratory Rate Respiratory 18 18 Rate [Anterior Bilateral] Blood Pressure O2 Sat by Pulse 95 Oximetry 05/08/17 05/08/17 05/08/17 07:30 07:45 07:57 Temperature 97.9 F Pulse Rate 75 75 Pulse Rate [ Anterior Bilateral] Pulse Rate [ From Monitor] Pulse Rate [ Right Radial] Respiratory 15 8 L Rate Respiratory Rate [Anterior Bilateral] Blood Pressure 154/92 139/91 O2 Sat by Pulse 98 97 Oximetry 05/08/17 08:00 Temperature Pulse Rate 77 Pulse Rate [ Anterior Bilateral] Pulse Rate [ From Monitor] Pulse Rate [ Right Radial] Respiratory 27 H Rate Respiratory Rate [Anterior Bilateral] Blood Pressure 164/102 O2 Sat by Pulse 79 L Oximetry Constitutional: no acute distress, alert, asleep Ascultation: Bilateral: clear, diminished breath sounds Percussion: Bilateral: not dull Cardiovascular: irregular rhythm, other (pacemaker rhythm) Gastrointestinal: normoactive bowel sounds, soft Integumentary: normal Neurologic: normal mental status, non-focal exam, pupils equal and round, CN II- XII normal Psychiatric: other (somewhat irritable) CBC and BMP: 05/08/17 06:02 05/08/17 06:02 ABG, PT/INR, D-dimer: ABG POC ABG pH 7.370 (7.35-7.45) 05/06/17 03:44 POC ABG pCO2 43.2 (35-45) 05/06/17 03:44 POC ABG pO2 95 (80-105) 05/06/17 03:44 POC ABG HCO3 25.0 05/06/17 03:44 POC ABG Total CO2 26 05/06/17 03:44 POC ABG O2 Sat 97 05/06/17 03:44 PT/INR, D-dimer PT 20.3 Sec. (12.2-14.9) H 04/30/17 22:33 INR 1.74 (0.87-1.13) H 04/30/17 22:33 Abnormal lab findings: Abnormal Labs 04/30/17 04/30/17 04/30/17 09:07 09:07 09:07 WBC 13.4 H RBC Hgb Hct MCV 96 H Plt Count 109 L Lymph % (Auto) 11.9 L [place] % (Auto) 11.7 H Lymph # Bradley # 1.6 H Seg Neutrophils % 76.1 H Seg Neuts % (Manual) Lymphocytes % (Manual) Monocytes % (Manual) Seg Neutrophils # 10.2 H Seg Neutrophils # Man Lymphocytes # (Manual) Monocytes # (Manual) PT INR APTT POC ABG pCO2 POC ABG pO2 Sodium Chloride BUN Creatinine Glucose POC Glucose Lactic Acid 3.30 H* Calcium Troponin T 0.075 H D Total Protein Albumin 04/30/17 04/30/17 04/30/17 12:55 15:41 21:16 WBC RBC Hgb Hct MCV Plt Count Lymph % (Auto) [place] % (Auto) Lymph # Bradley # Seg Neutrophils % Seg Neuts % (Manual) Lymphocytes % (Manual) Monocytes % (Manual) Seg Neutrophils # Seg Neutrophils # Man Lymphocytes # (Manual) Monocytes # (Manual) PT INR APTT POC ABG pCO2 POC ABG pO2 Sodium Chloride BUN Creatinine Glucose POC Glucose 129 H 114 H 135 H Lactic Acid Calcium Troponin T Total Protein Albumin 04/30/17 05/01/17 05/01/17 22:33 06:15 08:39 WBC RBC 3.61 L Hgb 11.7 L Hct 34.4 L MCV 95 H Plt Count 105 L Lymph % (Auto) [place] % (Auto) 13.9 H Lymph # Bradley # 1.3 H Seg Neutrophils % Seg Neuts % (Manual) Lymphocytes % (Manual) Monocytes % (Manual) Seg Neutrophils # Seg Neutrophils # Man Lymphocytes # (Manual) Monocytes # (Manual) PT 20.3 H INR 1.74 H APTT 39.0 H POC ABG pCO2 POC ABG pO2 Sodium Chloride BUN Creatinine Glucose POC Glucose 68 L Lactic Acid Calcium Troponin T Total Protein Albumin 05/01/17 05/01/17 05/01/17 08:39 11:27 15:13 WBC RBC Hgb Hct MCV Plt Count Lymph % (Auto) [place] % (Auto) Lymph # Bradley # Seg Neutrophils % Seg Neuts % (Manual) Lymphocytes % (Manual) Monocytes % (Manual) Seg Neutrophils # Seg Neutrophils # Man Lymphocytes # (Manual) Monocytes # (Manual) PT INR APTT POC ABG pCO2 POC ABG pO2 Sodium 135 L Chloride 97.8 L BUN 26 H Creatinine 1.7 H Glucose 72 L POC Glucose 108 H Lactic Acid Calcium Troponin T 0.074 H Total Protein Albumin 05/02/17 05/02/17 05/02/17 06:59 07:15 09:10 WBC RBC 3.64 L Hgb 11.6 L Hct 34.6 L MCV 95 H Plt Count Lymph % (Auto) 11.0 L [place] % (Auto) 10.1 H Lymph # 0.9 L [place] # Seg Neutrophils % 78.2 H Seg Neuts % (Manual) Lymphocytes % (Manual) Monocytes % (Manual) Seg Neutrophils # Seg Neutrophils # Man Lymphocytes # (Manual) Monocytes # (Manual) PT INR APTT POC ABG pCO2 POC ABG pO2 63 L Sodium Chloride BUN Creatinine Glucose POC Glucose 106 H Lactic Acid Calcium Troponin T Total Protein Albumin 05/02/17 05/02/17 05/03/17 09:21 13:04 00:15 WBC RBC Hgb Hct MCV Plt Count Lymph % (Auto) [place] % (Auto) Lymph # Bradley # Seg Neutrophils % Seg Neuts % (Manual) Lymphocytes % (Manual) Monocytes % (Manual) Seg Neutrophils # Seg Neutrophils # Man Lymphocytes # (Manual) Monocytes # (Manual) PT INR APTT POC ABG pCO2 46.0 H POC ABG pO2 255 H 40 L Sodium 135 L Chloride BUN 27 H Creatinine 1.8 H Glucose POC Glucose Lactic Acid Calcium 8.2 L Troponin T 0.039 H D Total Protein 8.5 H Albumin 2.4 L 05/03/17 05/03/17 05/03/17 01:56 02:05 06:19 WBC RBC Hgb Hct MCV Plt Count Lymph % (Auto) [place] % (Auto) Lymph # Bradley # Seg Neutrophils % Seg Neuts % (Manual) Lymphocytes % (Manual) Monocytes % (Manual) Seg Neutrophils # Seg Neutrophils # Man Lymphocytes # (Manual) Monocytes # (Manual) PT INR APTT POC ABG pCO2 POC ABG pO2 71 L Sodium Chloride BUN Creatinine Glucose POC Glucose 139 H 135 H Lactic Acid Calcium Troponin T Total Protein Albumin 05/03/17 05/03/17 05/03/17 06:40 07:32 07:32 WBC RBC Hgb Hct MCV 95 H Plt Count 115 L Lymph % (Auto) 9.8 L [place] % (Auto) 14.7 H Lymph # 1.0 L [place] # 1.5 H Seg Neutrophils % 75.0 H Seg Neuts % (Manual) Lymphocytes % (Manual) Monocytes % (Manual) Seg Neutrophils # Seg Neutrophils # Man Lymphocytes # (Manual) Monocytes # (Manual) PT INR APTT POC ABG pCO2 POC ABG pO2 223 H Sodium 135 L Chloride BUN 24 H Creatinine Glucose 127 H POC Glucose Lactic Acid Calcium Troponin T Total Protein Albumin 05/03/17 05/03/17 05/04/17 09:30 20:05 03:51 WBC RBC Hgb Hct MCV Plt Count Lymph % (Auto) [place] % (Auto) Lymph # Bradley # Seg Neutrophils % Seg Neuts % (Manual) Lymphocytes % (Manual) Monocytes % (Manual) Seg Neutrophils # Seg Neutrophils # Man Lymphocytes # (Manual) Monocytes # (Manual) PT INR APTT POC ABG pCO2 POC ABG pO2 Sodium Chloride BUN Creatinine Glucose POC Glucose 118 H 119 H 112 H Lactic Acid Calcium Troponin T Total Protein Albumin 05/04/17 05/04/17 05/04/17 05:31 05:31 16:34 WBC RBC Hgb Hct MCV Plt Count 114 L Lymph % (Auto) [place] % (Auto) Lymph # [place] # Seg Neutrophils % Seg Neuts % (Manual) Lymphocytes % (Manual) 12.0 L Monocytes % (Manual) 14.0 H Seg Neutrophils # Seg Neutrophils # Man Lymphocytes # (Manual) 0.9 L Monocytes # (Manual) 1.1 H PT INR APTT POC ABG pCO2 POC ABG pO2 Sodium Chloride BUN 27 H Creatinine Glucose 115 H POC Glucose 125 H Lactic Acid Calcium 8.3 L Troponin T Total Protein Albumin 05/04/17 05/05/17 05/05/17 21:47 04:35 05:48 WBC RBC Hgb Hct MCV Plt Count Lymph % (Auto) [place] % (Auto) Lymph # Bradley # Seg Neutrophils % Seg Neuts % (Manual) Lymphocytes % (Manual) Monocytes % (Manual) Seg Neutrophils # Seg Neutrophils # Man Lymphocytes # (Manual) Monocytes # (Manual) PT INR APTT POC ABG pCO2 POC ABG pO2 68 L Sodium Chloride BUN Creatinine Glucose POC Glucose 128 H 120 H Lactic Acid Calcium Troponin T Total Protein Albumin 05/05/17 05/05/17 05/05/17 07:19 13:46 13:46 WBC 13.0 H RBC Hgb Hct MCV 96 H Plt Count Lymph % (Auto) [place] % (Auto) Lymph # [place] # Seg Neutrophils % Seg Neuts % (Manual) Lymphocytes % (Manual) Monocytes % (Manual) 22.0 H Seg Neutrophils # Seg Neutrophils # Man 8.2 H Lymphocytes # (Manual) Monocytes # (Manual) 2.9 H PT INR APTT POC ABG pCO2 POC ABG pO2 Sodium Chloride BUN 27 H Creatinine Glucose POC Glucose 112 H Lactic Acid Calcium Troponin T Total Protein Albumin 05/05/17 05/05/17 05/06/17 17:48 22:00 05:19 WBC 13.0 H RBC Hgb Hct MCV 96 H Plt Count Lymph % (Auto) [place] % (Auto) Lymph # [place] # Seg Neutrophils % Seg Neuts % (Manual) 81.0 H Lymphocytes % (Manual) 5.0 L Monocytes % (Manual) 12.0 H Seg Neutrophils # Seg Neutrophils # Man 10.5 H Lymphocytes # (Manual) 0.7 L Monocytes # (Manual) 1.6 H PT INR APTT POC ABG pCO2 POC ABG pO2 Sodium Chloride BUN Creatinine Glucose POC Glucose 115 H 111 H Lactic Acid Calcium Troponin T Total Protein Albumin 05/06/17 05/07/17 05/07/17 05:19 06:31 06:31 WBC RBC Hgb Hct MCV 95 H Plt Count Lymph % (Auto) [place] % (Auto) Lymph # Bradley # Seg Neutrophils % Seg Neuts % (Manual) 79.0 H Lymphocytes % (Manual) 8.0 L Monocytes % (Manual) 9.0 H Seg Neutrophils # Seg Neutrophils # Man 8.1 H Lymphocytes # (Manual) 0.8 L Monocytes # (Manual) 0.9 H PT INR APTT POC ABG pCO2 POC ABG pO2 Sodium Chloride 108.5 H BUN 27 H 28 H Creatinine Glucose 104 H POC Glucose Lactic Acid Calcium Troponin T Total Protein Albumin 05/08/17 05/08/17 06:02 06:02 WBC RBC Hgb Hct MCV 95 H Plt Count Lymph % (Auto) [place] % (Auto) 13.1 H Lymph # [place] # 1.1 H Seg Neutrophils % Seg Neuts % (Manual) Lymphocytes % (Manual) Monocytes % (Manual) Seg Neutrophils # Seg Neutrophils # Man Lymphocytes # (Manual) Monocytes # (Manual) PT INR APTT POC ABG pCO2 POC ABG pO2 Sodium Chloride BUN 21 H Creatinine Glucose 104 H POC Glucose Lactic Acid Calcium 8.2 L Troponin T Total Protein Albumin
--- NOTE | 2017-05-08 09:49 | Progress Note ---
Assessment and Plan Acute respiratory failure s/p extubation Afib with RVR now in sinus rhythm Sepsis DC medtronic pacemaker implant Hx of coronary artery disease s/p CABG with an implantation of a bioprosthetic tricuspid valve in 2013 also at [facility] Prior history of DVT on low dose eliquis as an outpatient Prior CVA Hypertension Diabetes mellitus Acute renal failure Normal functioning bio-prosthetic tricuspid valve. EF 55-60% on echo this admission. Continue cardizem for suppression of afib. Otherwise, conservative cardiac management. Subjective Date of service: 05/08/17 Principal diagnosis: Atrial Fib Interval history: Patient is yelling out he wants to go home. No distress noted. Objective Vital Signs Temp Pulse Pulse Pulse Pulse Pulse Resp 05/08/17 08:00 77 27 H 05/08/17 07:57 97.9 F 05/08/17 07:45 75 8 L 05/08/17 07:30 75 15 05/08/17 07:26 89 05/08/17 07:25 05/08/17 07:20 88 05/08/17 07:18 76 75 20 05/08/17 07:15 77 17 05/08/17 07:10 76 21 05/08/17 06:45 76 23 05/08/17 06:30 77 24 05/08/17 06:15 75 21 05/08/17 06:00 75 21 05/08/17 05:45 77 24 05/08/17 05:30 76 25 H 05/08/17 05:19 14 05/08/17 05:15 77 19 05/08/17 05:00 80 23 05/08/17 04:45 80 30 H 05/08/17 04:30 79 27 H 05/08/17 04:15 77 23 05/08/17 04:00 98.7 F 91 H 25 H 05/08/17 03:45 91 H 12 05/08/17 03:30 91 H 25 H 05/08/17 03:15 91 H 25 H 05/08/17 03:00 82 16 05/08/17 02:45 91 H 26 H 05/08/17 02:30 93 H 25 H 05/08/17 02:15 92 H 24 05/08/17 02:00 91 H 22 05/08/17 01:45 93 H 18 05/08/17 01:30 91 H 17 05/08/17 01:15 88 26 H 05/08/17 01:00 91 H 22 05/08/17 00:45 91 H 25 H 05/08/17 00:30 90 25 H 05/08/17 00:15 91 H 27 H 05/08/17 00:00 91 H 26 H 05/07/17 23:52 98.6 F 05/07/17 23:45 91 H 11 L 05/07/17 23:38 13 05/07/17 23:30 90 15 05/07/17 23:15 82 17 05/07/17 23:00 94 H 18 05/07/17 22:45 91 H 12 05/07/17 22:37 91 H 22 05/07/17 22:30 91 H 22 05/07/17 22:15 91 H 22 05/07/17 22:00 91 H 20 05/07/17 21:45 91 H 12 05/07/17 21:30 92 H 16 05/07/17 21:15 83 9 L 05/07/17 21:00 76 23 05/07/17 20:45 76 26 H 05/07/17 20:30 75 17 05/07/17 20:15 76 15 05/07/17 20:14 93 H 05/07/17 20:00 98.2 F 92 H 27 H 05/07/17 19:51 18 05/07/17 19:50 98.2 F 92 H 18 05/07/17 19:47 91 H 05/07/17 19:45 92 H 17 05/07/17 19:30 92 H 21 05/07/17 19:15 93 H 24 05/07/17 19:00 92 H 25 H 05/07/17 18:45 93 H 19 05/07/17 18:30 91 H 14 05/07/17 18:15 93 H 26 H 05/07/17 18:00 92 H 30 H 05/07/17 17:45 92 H 23 05/07/17 17:30 93 H 25 H 05/07/17 17:15 93 H 25 H 05/07/17 17:00 94 H 27 H 05/07/17 16:45 95 H 31 H 05/07/17 16:30 94 H 27 H 05/07/17 16:15 101 H 30 H 05/07/17 16:00 98.1 F 95 H 86 16 05/07/17 15:45 94 H 32 H 05/07/17 15:30 93 H 25 H 05/07/17 15:15 93 H 22 05/07/17 15:01 92 H 22 05/07/17 14:45 92 H 29 H 05/07/17 14:34 92 H 05/07/17 14:31 93 H 30 H 05/07/17 14:15 93 H 24 05/07/17 14:00 92 H 25 H 05/07/17 13:45 92 H 23 05/07/17 13:30 92 H 26 H 05/07/17 13:15 93 H 19 05/07/17 13:00 92 H 25 H 05/07/17 12:45 94 H 22 05/07/17 12:30 92 H 28 H 05/07/17 12:15 81 15 05/07/17 12:00 98.6 F 93 H 84 26 H 05/07/17 11:45 93 H 25 H 05/07/17 11:30 91 H 28 H 05/07/17 11:15 93 H 27 H 05/07/17 11:00 93 H 17 05/07/17 10:45 05/07/17 10:31 93 H 21 05/07/17 10:15 93 H 31 H 05/07/17 10:00 93 H 28 H Resp BP Pulse Ox 05/08/17 08:00 164/102 79 L 05/08/17 07:57 05/08/17 07:45 139/91 97 05/08/17 07:30 154/92 98 05/08/17 07:26 18 05/08/17 07:25 95 05/08/17 07:20 18 05/08/17 07:18 95 05/08/17 07:15 151/94 100 05/08/17 07:10 100 05/08/17 06:45 153/95 96 05/08/17 06:30 156/95 100 05/08/17 06:15 149/97 97 05/08/17 06:00 153/97 97 05/08/17 05:45 144/89 97 05/08/17 05:30 139/87 100 05/08/17 05:19 05/08/17 05:15 139/86 05/08/17 05:00 140/93 89 05/08/17 04:45 134/91 89 05/08/17 04:30 140/95 05/08/17 04:15 139/92 83 L 05/08/17 04:00 148/87 99 05/08/17 03:45 140/92 99 05/08/17 03:30 151/100 05/08/17 03:15 149/100 05/08/17 03:00 142/100 05/08/17 02:45 152/102 99 05/08/17 02:30 154/101 05/08/17 02:15 141/92 100 05/08/17 02:00 147/101 98 05/08/17 01:45 158/98 96 05/08/17 01:30 148/95 100 05/08/17 01:15 148/94 98 05/08/17 01:00 138/96 100 05/08/17 00:45 145/94 98 05/08/17 00:30 140/89 99 05/08/17 00:15 130/87 98 05/08/17 00:00 137/91 05/07/17 23:52 05/07/17 23:45 152/93 97 05/07/17 23:38 05/07/17 23:30 152/93 98 05/07/17 23:15 145/93 97 05/07/17 23:00 133/100 99 05/07/17 22:45 145/94 99 05/07/17 22:37 145/97 100 05/07/17 22:30 145/97 100 05/07/17 22:15 144/91 100 05/07/17 22:00 144/92 98 05/07/17 21:45 147/98 99 05/07/17 21:30 138/92 100 05/07/17 21:15 135/95 98 05/07/17 21:00 142/89 100 05/07/17 20:45 145/85 100 05/07/17 20:30 135/89 97 05/07/17 20:15 136/90 89 05/07/17 20:14 20 05/07/17 20:00 128/86 94 05/07/17 19:51 100 05/07/17 19:50 122/81 100 05/07/17 19:47 18 05/07/17 19:45 133/88 93 05/07/17 19:30 122/81 05/07/17 19:15 129/81 05/07/17 19:00 144/94 96 05/07/17 18:45 152/97 93 05/07/17 18:30 147/93 97 05/07/17 18:15 134/93 05/07/17 18:00 129/91 99 05/07/17 17:45 134/90 82 L 05/07/17 17:30 129/89 92 05/07/17 17:15 138/94 88 05/07/17 17:00 137/91 89 05/07/17 16:45 129/89 05/07/17 16:30 135/91 96 05/07/17 16:15 140/103 96 05/07/17 16:00 140/103 92 05/07/17 15:45 145/106 96 05/07/17 15:30 144/99 87 05/07/17 15:15 142/100 96 05/07/17 15:01 132/102 100 05/07/17 14:45 151/96 93 05/07/17 14:34 132/86 05/07/17 14:31 146/84 94 05/07/17 14:15 132/86 98 05/07/17 14:00 134/93 88 05/07/17 13:45 136/99 92 05/07/17 13:30 129/98 89 05/07/17 13:15 136/94 91 05/07/17 13:00 138/102 94 05/07/17 12:45 130/101 88 05/07/17 12:30 148/86 93 05/07/17 12:15 142/79 91 05/07/17 12:00 138/101 86 05/07/17 11:45 156/89 91 05/07/17 11:30 149/82 93 05/07/17 11:15 144/92 88 05/07/17 11:00 142/93 91 05/07/17 10:45 157/99 79 L 05/07/17 10:31 157/99 100 05/07/17 10:15 155/104 100 05/07/17 10:00 155/100 97 - Physical Examination General: No Apparent Distress HEENT: Positive: PERRL Neck: Positive: trachea midline Cardiac: Positive: Reg Rate and Rhythm Abdomen: Positive: Active Bowel Sounds Extremities: Present: +1 Edema, Other (vascular skin changes) - Labs and Meds CBC 05/08/17 Range/Units 06:02 WBC 8.7 (4.5-11.0) K/mm3 RBC 3.94 (3.65-5.03) M/mm3 Hgb 12.5 (11.8-15.2) gm/dl Hct 37.4 (35.5-45.6) % Plt Count 180 (140-440) K/mm3 Lymph # 1.8 (1.2-5.4) K/mm3 [place] # 1.1 H (0.0-0.8) K/mm3 Eos # 0.1 (0.0-0.4) K/mm3 Baso # 0.0 (0.0-0.1) K/mm3 Comprehensive Metabolic Panel 05/08/17 Range/Units 06:02 Sodium 139 (137-145) mmol/L Potassium 3.6 (3.6-5.0) mmol/L Chloride 105.7 (98-107) mmol/L Carbon Dioxide 24 (22-30) mmol/L BUN 21 H (9-20) mg/dL Creatinine 0.8 (0.8-1.5) mg/dL Glucose 104 H (75-100) mg/dL Calcium 8.2 L (8.4-10.2) mg/dL
[2017-05-08] MEDS: DepaCON 500 MG in NACL 0.9% 100 ML IV SCH (10:42)
[2017-05-08] MEDS: ELIQUIS PO SCH ×2 (10:43→23:45)
[2017-05-08] MEDS: PROTONIX PO SCH (10:51)
--- NOTE | 2017-05-08 11:05 | Progress Note ---
Assessment and Plan Acute respiratory failure - Patient is on n/c - Likely due to mucus plug - Bronchoscopy was done - Discontinued all sedatives Afib with RVR - controlled, in sinus rhythm, on cardizem - Cardiology following - ECHO showed EF 40-45% - patient has AICD Sepsis - ruled out - all the cultures are negative Hemoptysis - resolved, no bleeding was seen during bronchoscopy Diabetes mellitus type 2 - sliding scale insulin Hypertension - Continue his meds Acute kidney Failure - Resolved Chronic systolic CHF CAD - s/p CABG with an implantation of a bioprosthetic tricuspid valve in 2012 also at [facility] History of DVT - Patient is on Eliquis Dementia - Supportive care CODE STATUS full Disposition - transfer to floor, PT eval Subjective Date of service: 05/08/17 Principal diagnosis: Atrial Fib Interval history: pt seen and examined denies chest pain or sob wants to go home Objective - Exam Narrative Exam: Patient is on n/c The patient appeared well nourished and normally developed. Vital signs as documented. Head exam is unremarkable. No scleral icterus . Neck is without jugular venous distension, thyromegaly, or carotid bruits. Lungs wheezing all over the chest. Cardiac exam reveals regular rate and Rhythm. First and second heart sounds normal. No murmurs, rubs or gallops. Abdominal exam reveals normal bowel sounds, no masses, no organomegaly and no aortic enlargement. Extremities are swelling and DISCOLORATION of bilateral lower extremities due to venous stasis. 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 Patient has dementia. - Constitutional Vitals: Vital Signs - 12hr 05/07/17 05/07/17 05/07/17 23:15 23:30 23:38 Temperature Pulse Rate 82 90 Pulse Rate [ Anterior Bilateral] Pulse Rate [ From Monitor] Pulse Rate [ Right Radial] Respiratory 17 15 13 Rate Respiratory Rate [Anterior Bilateral] Blood Pressure 145/93 152/93 O2 Sat by Pulse 97 98 Oximetry 05/07/17 05/07/17 05/08/17 23:45 23:52 00:00 Temperature 98.6 F Pulse Rate 91 H 91 H Pulse Rate [ Anterior Bilateral] Pulse Rate [ From Monitor] Pulse Rate [ Right Radial] Respiratory 11 L 26 H Rate Respiratory Rate [Anterior Bilateral] Blood Pressure 152/93 137/91 O2 Sat by Pulse 97 Oximetry 05/08/17 05/08/17 05/08/17 00:15 00:30 00:45 Temperature Pulse Rate 91 H 90 91 H Pulse Rate [ Anterior Bilateral] Pulse Rate [ From Monitor] Pulse Rate [ Right Radial] Respiratory 27 H 25 H 25 H Rate Respiratory Rate [Anterior Bilateral] Blood Pressure 130/87 140/89 145/94 O2 Sat by Pulse 98 99 98 Oximetry 05/08/17 05/08/17 05/08/17 01:00 01:15 01:30 Temperature Pulse Rate 91 H 88 91 H Pulse Rate [ Anterior Bilateral] Pulse Rate [ From Monitor] Pulse Rate [ Right Radial] Respiratory 22 26 H 17 Rate Respiratory Rate [Anterior Bilateral] Blood Pressure 138/96 148/94 148/95 O2 Sat by Pulse 100 98 100 Oximetry 05/08/17 05/08/17 05/08/17 01:45 02:00 02:15 Temperature Pulse Rate 93 H 91 H 92 H Pulse Rate [ Anterior Bilateral] Pulse Rate [ From Monitor] Pulse Rate [ Right Radial] Respiratory 18 22 24 Rate Respiratory Rate [Anterior Bilateral] Blood Pressure 158/98 147/101 141/92 O2 Sat by Pulse 96 98 100 Oximetry 05/08/17 05/08/17 05/08/17 02:30 02:45 03:00 Temperature Pulse Rate 93 H 91 H 82 Pulse Rate [ Anterior Bilateral] Pulse Rate [ From Monitor] Pulse Rate [ Right Radial] Respiratory 25 H 26 H 16 Rate Respiratory Rate [Anterior Bilateral] Blood Pressure 154/101 152/102 142/100 O2 Sat by Pulse 99 Oximetry 05/08/17 05/08/17 05/08/17 03:15 03:30 03:45 Temperature Pulse Rate 91 H 91 H 91 H Pulse Rate [ Anterior Bilateral] Pulse Rate [ From Monitor] Pulse Rate [ Right Radial] Respiratory 25 H 25 H 12 Rate Respiratory Rate [Anterior Bilateral] Blood Pressure 149/100 151/100 140/92 O2 Sat by Pulse 99 Oximetry 05/08/17 05/08/17 05/08/17 04:00 04:15 04:30 Temperature 98.7 F Pulse Rate 91 H 77 79 Pulse Rate [ Anterior Bilateral] Pulse Rate [ From Monitor] Pulse Rate [ Right Radial] Respiratory 25 H 23 27 H Rate Respiratory Rate [Anterior Bilateral] Blood Pressure 148/87 139/92 140/95 O2 Sat by Pulse 99 83 L Oximetry 05/08/17 05/08/17 05/08/17 04:45 05:00 05:15 Temperature Pulse Rate 80 80 77 Pulse Rate [ Anterior Bilateral] Pulse Rate [ From Monitor] Pulse Rate [ Right Radial] Respiratory 30 H 23 19 Rate Respiratory Rate [Anterior Bilateral] Blood Pressure 134/91 140/93 139/86 O2 Sat by Pulse 89 89 Oximetry 05/08/17 05/08/17 05/08/17 05:19 05:30 05:45 Temperature Pulse Rate 76 77 Pulse Rate [ Anterior Bilateral] Pulse Rate [ From Monitor] Pulse Rate [ Right Radial] Respiratory 14 25 H 24 Rate Respiratory Rate [Anterior Bilateral] Blood Pressure 139/87 144/89 O2 Sat by Pulse 100 97 Oximetry 05/08/17 05/08/17 05/08/17 06:00 06:15 06:30 Temperature Pulse Rate 75 75 77 Pulse Rate [ Anterior Bilateral] Pulse Rate [ From Monitor] Pulse Rate [ Right Radial] Respiratory 21 21 24 Rate Respiratory Rate [Anterior Bilateral] Blood Pressure 153/97 149/97 156/95 O2 Sat by Pulse 97 97 100 Oximetry 05/08/17 05/08/17 05/08/17 06:45 07:10 07:15 Temperature Pulse Rate 76 76 77 Pulse Rate [ Anterior Bilateral] Pulse Rate [ From Monitor] Pulse Rate [ Right Radial] Respiratory 23 21 17 Rate Respiratory Rate [Anterior Bilateral] Blood Pressure 153/95 151/94 O2 Sat by Pulse 96 100 100 Oximetry 05/08/17 05/08/17 05/08/17 07:18 07:20 07:25 Temperature Pulse Rate Pulse Rate [ 88 Anterior Bilateral] Pulse Rate [ 76 From Monitor] Pulse Rate [ 75 Right Radial] Respiratory 20 Rate Respiratory 18 Rate [Anterior Bilateral] Blood Pressure O2 Sat by Pulse 95 95 Oximetry 05/08/17 05/08/17 05/08/17 07:26 07:30 07:45 Temperature Pulse Rate 75 75 Pulse Rate [ 89 Anterior Bilateral] Pulse Rate [ From Monitor] Pulse Rate [ Right Radial] Respiratory 15 8 L Rate Respiratory 18 Rate [Anterior Bilateral] Blood Pressure 154/92 139/91 O2 Sat by Pulse 98 97 Oximetry 05/08/17 05/08/17 07:57 08:00 Temperature 97.9 F Pulse Rate 77 Pulse Rate [ Anterior Bilateral] Pulse Rate [ From Monitor] Pulse Rate [ Right Radial] Respiratory 27 H Rate Respiratory Rate [Anterior Bilateral] Blood Pressure 164/102 O2 Sat by Pulse 79 L Oximetry - Labs CBC & Chem 7: 06/28/17 06:02 05/08/17 06:02 Labs: Abnormal lab results 05/08/17 05/08/17 Range/Units 06:02 06:02 MCV 95 H (84-94) fl [place] % (Auto) 13.1 H (0.0-7.3) % Geary # 1.1 H (0.0-0.8) K/mm3 BUN 21 H (9-20) mg/dL Glucose 104 H (75-100) mg/dL Calcium 8.2 L (8.4-10.2) mg/dL
[2017-05-08] MEDS: COLACE PO SCH ×2 (14:36→23:44)
[2017-05-08] MEDS: PROTONIX FEEDTUBE SCH (16:08)
[2017-05-08] MEDS: HALDOL IM PRN (21:56)
[2017-05-08] MEDS: SENOKOT PO SCH (23:45)
[2017-05-08] MEDS: NEURONTIN PO SCH (23:45)
[2017-05-09] MEDS: NOVOLOG SUB-Q SCH ×3 (02:16→12:30)
[2017-05-09] MEDS: TYLENOL PO PRN (02:51)
[2017-05-09] MEDS: HALDOL IM PRN (06:22)
[2017-05-09] MEDS: CARDIZEM PO SCH ×2 (06:23→13:00)
--- NOTE | 2017-05-09 08:49 | XRay Report ---
Portable chest: The lungs are hypoventilated. There is costophrenic blunting of both lateral angles. Although the may be slight prominence of the vasculature this could be due to the poor inspiration. These findings are not substantially changed from prior study of May 08. Previously described cardiac surgical changes with pacemaker. Impression: No acute findings. Small bilateral effusions. Possible mild congestive changes.
[2017-05-09] MEDS: PULMICORT IH SCH (09:07)
[2017-05-09] MEDS: BROVANA NEBU IH SCH (09:07)
[2017-05-09] MEDS: ELIQUIS PO SCH (09:17)
[2017-05-09] MEDS: COLACE PO SCH (09:18)
[2017-05-09] MEDS: PROTONIX PO SCH (09:18)
--- NOTE | 2017-05-09 09:24 | Progress Note ---
Assessment and Plan Acute respiratory failure s/p extubation Afib with RVR now in sinus rhythm Sepsis DC medtronic pacemaker implant Hx of coronary artery disease s/p CABG with an implantation of a bioprosthetic tricuspid valve in 2013 also at [facility] Prior history of DVT on low dose eliquis as an outpatient Prior CVA Hypertension Diabetes mellitus Acute renal failure Normal functioning bio-prosthetic tricuspid valve. EF 55-60% on echo this admission. Continue cardizem for suppression of afib. Otherwise, conservative cardiac management. Subjective Date of service: 05/09/17 Principal diagnosis: Atrial Fib Interval history: Patient is resting in bed comfortably. Underlying sinus rhythm on telemetry. Objective Vital Signs Temp Pulse Pulse Pulse Pulse Pulse Pulse 05/09/17 09:08 05/09/17 09:07 86 05/09/17 06:00 97.9 F 05/09/17 03:51 05/09/17 02:51 05/09/17 00:00 98.1 F 05/08/17 23:45 92 H 05/08/17 21:45 96 H 05/08/17 21:30 96 H 05/08/17 21:26 05/08/17 20:00 98.4 F 92 H 05/08/17 19:18 05/08/17 17:00 98.4 F 91 H 91 H 91 H 91 H 05/08/17 14:00 90 05/08/17 13:45 92 H 05/08/17 13:30 86 05/08/17 13:15 78 05/08/17 13:00 91 H 05/08/17 12:45 79 05/08/17 12:30 82 05/08/17 12:15 77 05/08/17 12:00 98.3 F 76 05/08/17 11:46 76 05/08/17 11:30 75 05/08/17 11:16 79 05/08/17 11:00 79 05/08/17 10:45 75 05/08/17 10:30 75 05/08/17 10:15 77 05/08/17 10:00 75 05/08/17 09:45 75 05/08/17 09:30 75 Pulse Resp Resp BP BP Pulse Ox 05/09/17 09:08 97 05/09/17 09:07 16 05/09/17 06:00 89 18 121/72 97 05/09/17 03:51 20 05/09/17 02:51 20 05/09/17 00:00 93 H 18 142/89 97 05/08/17 23:45 152/90 05/08/17 21:45 20 05/08/17 21:30 20 05/08/17 21:26 99 05/08/17 20:00 92 H 18 152/90 97 05/08/17 19:18 92 H 94 05/08/17 17:00 91 H 20 159/106 98 05/08/17 14:00 26 H 150/92 99 05/08/17 13:45 24 146/93 98 05/08/17 13:30 15 139/99 98 05/08/17 13:15 9 L 150/94 99 05/08/17 13:00 18 147/96 100 05/08/17 12:45 18 149/89 99 05/08/17 12:30 23 156/97 97 05/08/17 12:15 19 157/106 98 05/08/17 12:00 30 H 138/110 98 05/08/17 11:46 26 H 144/86 98 05/08/17 11:30 21 144/93 100 05/08/17 11:16 27 H 156/99 05/08/17 11:00 28 H 155/97 96 05/08/17 10:45 25 H 141/93 100 05/08/17 10:30 26 H 144/94 99 05/08/17 10:15 22 147/94 100 05/08/17 10:00 25 H 146/91 98 05/08/17 09:45 21 137/92 96 05/08/17 09:30 9 L 137/92 98 - Physical Examination General: No Apparent Distress HEENT: Positive: PERRL Neck: Positive: trachea midline Cardiac: Positive: Reg Rate and Rhythm
--- NOTE | 2017-05-09 12:29 | Discharge Summary ---
Providers - Providers Date of Admission: 04/29/17 21:25 Date of discharge: 05/09/17 Attending physician: LEODAN HILLS 04/30/17 04:55 Consult to Wound/ET Nurse [CONS] Routine Reason For Exam: wound eval 04/30/17 07:00 Consult to Physician [CONS] Routine Consulting Provider: NALLELY MATOS Reason For Exam: right pleural effusion Place consult to:: Notified:: DR. MATOS Phone number called:: IN HOUSE Was contact made?: Yes If yes, spoke with:: DR. MATOS Time called:: 09:08 05/01/17 07:54 Consult to Physician [CONS] Routine Consulting Provider: ERNESTO FLORES Reason For Exam: sepsis, 1 bottle grew coag -ve staph Place consult to:: ID Notified:: dr. flores Phone number called:: [phone] Was contact made?: No Time called:: 08:44 Comment:: left message 05/01/17 14:38 Consult to Physician [CONS] Routine Consulting Provider: ARI RUBNI Reason For Exam: Afib with RVR, a-fib with RVR, chest pain Place consult to:: dr. rubin Notified:: jeanne kumar Phone number called:: overhead page Was contact made?: Yes If yes, spoke with:: tico Time called:: 16:36 05/03/17 01:04 Consult to Dietitian/Nutrition [CONS] Routine Physician Instructions: Reason For Exam: Reason for Consult: Write/Manage Tube Feeding 05/06/17 08:49 Physical Therapy Evaluation and Treat [CONS] Routine Comment: after extubation Reason For Exam: debility 05/08/17 11:10 Physical Therapy Evaluation and Treat [CONS] Routine Comment: Reason For Exam: eval for possible HHC PT if needed 05/08/17 16:05 Physical Therapy Evaluation and Treat [CONS] Routine Comment: Reason For Exam: ambulation Primary care physician: CARGO MATE Hospitalization Condition: Good Hospital course: patient is 66-year-old with history of hypertension, CHF, coronary artery disease, previous DVT. He was brought in for altered mental status. Patient has been confused for a few days. In Emergency department had fever with temperature of 101.2. He also has a chronic left leg ulcer. He is being admitted for management of possible sepsis. Discharge Diagnosis and management: Acute respiratory failure - s/p intubation following admission - Patient is on n/c now - Likely due to mucus plug - Bronchoscopy was done - Discontinued all sedatives Acute metabolic encephalopathy - resolved, now at baseline Afib with RVR - controlled, in sinus rhythm, on cardizem - Cardiology was consulted - ECHO showed EF 40-45% - patient has AICD Sepsis - ruled out - all the cultures are negative - positive blood cx likely contamitent - ID was consulted Hemoptysis - resolved, no bleeding was seen during bronchoscopy Diabetes mellitus type 2 - sliding scale insulin, ADA diet Hypertension - Continue his meds Acute kidney Failure - Resolved with Iv fluid Chronic systolic CHF - cont current med CAD - s/p CABG with an implantation of a bioprosthetic tricuspid valve in 2012 also at [facility] History of DVT - Patient is on Eliquis Dementia - Supportive care CODE STATUS full Disposition: [id number]/[place]-[id number] C[facility] Time spent for discharge: 34 minutes Core Measure Documentation - Palliative Care Palliative Care/ Comfort Measures: Not Applicable - Core Measures Any of the following diagnoses?: history only Exam - Physical Exam Narrative exam: Patient is on n/c The patient appeared well nourished and normally developed. Vital signs as documented. Head exam is unremarkable. No scleral icterus . Neck is without jugular venous distension, thyromegaly, or carotid bruits. Lungs wheezing all over the chest. Cardiac exam reveals regular rate and Rhythm. First and second heart sounds normal. No murmurs, rubs or gallops. Abdominal exam reveals normal bowel sounds, no masses, no organomegaly and no aortic enlargement. Extremities are swelling and DISCOLORATION of bilateral lower extremities due to venous stasis. 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 - Constitutional Vitals: Temp Pulse Resp BP Pulse Ox 98.2 F 91 H 20 147/99 97 05/09/17 07:59 05/09/17 09:20 05/09/17 10:24 05/09/17 07:59 05/09/17 10:24 Plan Activity: fall precautions Weight Bearing Status: Non-Weight Bearing Diet: low fat, low salt, diabetic Follow up with: PRIMARY CARE, [Primary Care Provider] - 3-5 Days Prescriptions: AtorvaSTATin [Lipitor] 10 mg PO QHS #30 tablet Gabapentin [Neurontin] 100 mg PO QHS #30 capsule ALBUTEROL NEB's [Proventil 0.083% NEBS] 1 vial IH Q6H PRN #30 nebu PRN Reason: Wheezing Apixaban [Eliquis] 2.5 mg PO Q12HR #60 tablet Budesoni/Formotero 160-4.5(Nf) [Symbicort 160-4.5 (Nf)] 2 puff IH BID #30 inha Diltiazem [Cardizem] 60 mg PO Q8HR #90 tablet Divalproex ER [Depakote ER] 500 mg PO BID #60 tablet Furosemide [Lasix TAB] 20 mg PO QDAY #60 tablet Pantoprazole [Protonix TAB] 40 mg PO DAILY #30 tablet
[2017-05-09 13:38] VITALS: BP 136/88
== END 2017-05-09 14:43 | DRG 166 ==
LOC: ED 16:21 → 3A 21:25 → 4A 05-01 21:22 → CC1 05-02 08:25 → 4A 05-08 15:49
PROVIDERS: ADMIT Internal Medicine; ATTEND Internal Medicine
PROC: 0BH17EZ Insertion of Endotracheal Airway into Trachea, Via Natural or Artificial Opening (ICD-10-PCS; 2017-04-26)
PROC: 4A033R1 Measurement of Arterial Saturation, Peripheral, Percutaneous Approach (ICD-10-PCS; 2017-04-26)
PROC: 5A09357 Assistance with Respiratory Ventilation, Less than 24 Consecutive Hours, Continuous Positive Airway Pressure (ICD-10-PCS; 2017-04-26)
PROC: 5A1945Z Respiratory Ventilation, 24-96 Consecutive Hours (ICD-10-PCS; principal; 2017-04-29)
PROC: 0B9F8ZX Drainage of Right Lower Lung Lobe, Via Natural or Artificial Opening Endoscopic, Diagnostic (ICD-10-PCS; 2017-05-03)
PROC: 0B9D8ZX Drainage of Right Middle Lung Lobe, Via Natural or Artificial Opening Endoscopic, Diagnostic (ICD-10-PCS; 2017-05-03)
DX: T17.990A Other foreign object in respiratory tract, part unspecified in causing asphyxiation, initial encounter (principal); J96.00 Acute respiratory failure, unspecified whether with hypoxia or hypercapnia; G92 Toxic encephalopathy; I21.4 Non-ST elevation (NSTEMI) myocardial infarction; I50.22 Chronic systolic (congestive) heart failure; R04.2 Hemoptysis; N17.9 Acute kidney failure, unspecified; I13.0 Hypertensive heart and chronic kidney disease with heart failure and stage 1 through stage 4 chronic kidney disease, or unspecified chronic kidney disease; L97.929 Non-pressure chronic ulcer of unspecified part of left lower leg with unspecified severity; I48.91 Unspecified atrial fibrillation; N18.9 Chronic kidney disease, unspecified; E11.22 Type 2 diabetes mellitus with diabetic chronic kidney disease; M19.90 Unspecified osteoarthritis, unspecified site; F03.90 Unspecified dementia, unspecified severity, without behavioral disturbance, psychotic disturbance, mood disturbance, and anxiety; J44.9 Chronic obstructive pulmonary disease, unspecified; I25.10 Atherosclerotic heart disease of native coronary artery without angina pectoris; E11.622 Type 2 diabetes mellitus with other skin ulcer; I25.5 Ischemic cardiomyopathy; Z79.4 Long term (current) use of insulin; Z86.718 Personal history of other venous thrombosis and embolism; Z82.49 Family history of ischemic heart disease and other diseases of the circulatory system; Z86.73 Personal history of transient ischemic attack (TIA), and cerebral infarction without residual deficits
CPT/HCPCS: 36415; 36600; 70450; 71010; 74000; 80048; 80053; 80061; 80307; 80320; 81001; 82140; 82550; 82553; 82803; 82962; 83690; 83735; 83880; 84443; 84484; 85007; 85025; 85610; 85652; 85730; 86140; 86850; 86900; 86901; 87040; 87070; 87116; 87205; 93005; 93010; 93306; 94002; 94003; 94640; 94760; 96365; 96375; 99291; A9270-GY; C9113; G0480; G8978-GP; G8979-GP; G8980-GP; J0696; J1170; J1630; J1818; J1940; J1956; J2060; J2250; J2270; J2405; J2543; J2704; J3010; J3246; J3370; J7030; J7050

== ENCOUNTER 2017-12-26 12:35 | Inpatient (IN) | payer MEDICARE ==
[2017-12-26 16:02] LABS: Basophils # (Auto) 0.2 K/mm3 (0.0-0.1); Basophils % (Auto) 2.1 % (0.0-1.8); Eosinophils % (Auto) 0.5 % (0.0-4.3); Hematocrit 43.5 % (35.5-45.6); Hemoglobin 14.5 gm/dl (11.8-15.2); Lymphocytes # (Auto) 0.7 K/mm3 (1.2-5.4); Lymphocytes % (Auto) 7.6 % (13.4-35.0); Mean Corpuscular HGB Conc 33 % (32-34); Mean Corpuscular Hemoglobin 33 pg (28-32); Mean Corpuscular Volume 100 fl (84-94); Monocytes # (Auto) 1.3 K/mm3 (0.0-0.8); Monocytes % (Auto) 14.4 % (0.0-7.3); Platelet Count 121 K/mm3 (140-440); Red Blood Count 4.36 M/mm3 (3.65-5.03); Red Cell Distribution Width 15.4 % (13.2-15.2)
[2017-12-26 16:12] LABS: Albumin 2.8 g/dL (3.9-5); Calcium 9.3 mg/dL (8.4-10.2)
[2017-12-26 16:18] LABS: Free T4 (Free Thyroxine) 0.8 ng/dL (0.76-1.46)
[2017-12-26 16:21] LABS: INR 1.3 (0.87-1.13)
[2017-12-26 16:22] LABS: Partial Thromboplastin Time 37.7 Sec. (24.2-36.6)
--- NOTE | 2017-12-26 16:29 | Cat Scan Report ---
FINAL REPORT PROCEDURE: CT HEAD/BRAIN WO CON TECHNIQUE: Computerized tomography of the head was performed without contrast material. DLP 92.85 mGy-cm. HISTORY: Altered mental status. COMPARISON: CT scan of the brain dated 04/29/2017. 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 Paranasal sinuses: Moderate rightward septal deviation. Ventricles and subarachnoid spaces: Moderate ventricular dilation, but appears unchanged. Disproportionate enlargement of the left occipital horn. Cerebrum: Patchy periventricular white matter low attenuation. Probable tiny basal ganglia lacunes. Low-attenuation in the left occipital horn. Cerebellum and brainstem: No evidence of hemorrhage, acute infarction or mass. Vasculature: Mild atherosclerosis. Comments: None. IMPRESSION: Atrophy. Moderate ventricular dilation, may be in proportion to the degree of atrophy but consider correlation clinically if there is concern for mild hydrocephalus. Patchy periventricular white matter low attenuation and probable basal ganglia lacunes. Encephalomalacia in the left occipital horn from prior ischemia/infarction with volume loss and ex vacuo dilation of the left occipital horn. Findings similar to prior examination. Motion artifact limits evaluation. Consider MRI of the brain for further characterization if there is continued clinical concern and if patient has no contraindication to MRI.
[2017-12-26 16:46] LABS: Chol/HDL Ratio 3.74 %
--- NOTE | 2017-12-26 17:24 | Emergency Department Report ---
ED Altered Mental Status HPI - General Chief Complaint: Altered Mental Status Stated Complaint: AMS Time Seen by Provider: 12/26/17 15:46 Source: EMS Mode of arrival: Stretcher Limitations: Altered Mental Status - History of Present Illness Initial Comments: 67-year-old male with a past medical history of COPD O2 dependent, CHF, CVA with residual right-sided weakness, previous DVT, dementia, diabetes, hypertension, CAD, CKD, hepatitis, and sleep apnea as well as other medical conditions presents to the hospital with alteration of mental status. As per residential patient has not been himself today. He is typically verbal and able to communicate and eats well. Today he has not been eating or speaking. Patient is not speaking or following commands in the ED. - Related Data Home Medications Medication Instructions Recorded Confirmed Last Taken Docusate Sodium [Colace CAP] 100 mg PO BID 04/29/17 04/29/17 Unknown Insulin Aspart Prot/Aspart(Nf) See Protocol SC QDAY 04/29/17 04/29/17 Unknown [NovoLOG Mix 70/30 VIAL] Metoprolol [Lopressor TAB] 50 mg PO BID 04/29/17 04/29/17 Unknown Sennosides [Senna] 8.6 mg PO QHS 04/29/17 04/29/17 Unknown Previous Rx's Medication Instructions Recorded Last Taken Type ALBUTEROL NEB's [Proventil 0.083% 1 vial IH Q6H PRN #30 nebu 05/09/17 Unknown Rx NEBS] Apixaban [Eliquis] 2.5 mg PO Q12HR #60 tablet 05/09/17 Unknown Rx AtorvaSTATin [Lipitor] 10 mg PO QHS #30 tablet 05/09/17 Unknown Rx Budesoni/Formotero 160-4.5(Nf) 2 puff IH BID #30 inha 05/09/17 Unknown Rx [Symbicort 160-4.5 (Nf)] Diltiazem [Cardizem] 60 mg PO Q8HR #90 tablet 05/09/17 Unknown Rx Divalproex ER [Depakote ER] 500 mg PO BID #60 tablet 05/09/17 Unknown Rx Furosemide [Lasix TAB] 20 mg PO QDAY #60 tablet 05/09/17 Unknown Rx Gabapentin [Neurontin] 100 mg PO QHS #30 capsule 05/09/17 Unknown Rx Pantoprazole [Protonix TAB] 40 mg PO DAILY #30 tablet 05/09/17 Unknown Rx Allergies Allergy/AdvReac Type Severity Reaction Status Date / Time No Known Allergies Allergy Verified 06/05/16 12:19 ED Review of Systems ROS: Stated complaint: AMS Other details as noted in HPI Comment: Unobtainable due to pts medical conditions ED Past Medical Hx - 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) Hx Heart Attack/AMI: Yes Hx Congestive Heart Failure: Yes Hx Diabetes: Yes Hx Deep Vein Thrombosis: Yes Hx Liver Disease: Yes (hepatitis C ) Hx Renal Disease: Yes (CKD) Hx Arthritis: Yes Hx Seizures: Yes Hx Asthma: No Hx COPD: Yes Hx Dementia: Yes Additional medical history: Leg ulcer, CAD, Systolic heart failure, Sepsis, HCV antibody positive, lymphedema, anxiety, sleep apnea, peptic ulcer disease, Vitamin deficiency, - Surgical History Hx Open Heart Surgery: Yes Hx Pacemaker: Yes Additional Surgical History: "some abdominal surgery" long ago, has abd scar - Social History Smoking Status: Unknown if ever smoked - Medications Home Medications: Home Medications Medication Instructions Recorded Confirmed Last Taken Type Docusate Sodium [Colace CAP] 100 mg PO BID 04/29/17 04/29/17 Unknown History Insulin Aspart Prot/Aspart(Nf) See Protocol SC QDAY 04/29/17 04/29/17 Unknown History [NovoLOG Mix 70/30 VIAL] Metoprolol [Lopressor TAB] 50 mg PO BID 04/29/17 04/29/17 Unknown History Sennosides [Senna] 8.6 mg PO QHS 04/29/17 04/29/17 Unknown History ALBUTEROL NEB's [Proventil 0.083% 1 vial IH Q6H PRN #30 nebu 05/09/17 Unknown Rx NEBS] Apixaban [Eliquis] 2.5 mg PO Q12HR #60 tablet 05/09/17 Unknown Rx AtorvaSTATin [Lipitor] 10 mg PO QHS #30 tablet 05/09/17 Unknown Rx Budesoni/Formotero 160-4.5(Nf) 2 puff IH BID #30 inha 05/09/17 Unknown Rx [Symbicort 160-4.5 (Nf)] Diltiazem [Cardizem] 60 mg PO Q8HR #90 tablet 05/09/17 Unknown Rx Divalproex ER [Depakote ER] 500 mg PO BID #60 tablet 05/09/17 Unknown Rx Furosemide [Lasix TAB] 20 mg PO QDAY #60 tablet 05/09/17 Unknown Rx Gabapentin [Neurontin] 100 mg PO QHS #30 capsule 05/09/17 Unknown Rx Pantoprazole [Protonix TAB] 40 mg PO DAILY #30 tablet 05/09/17 Unknown Rx ED Physical Exam - General Limitations: Altered Mental Status - Other Other exam information: General: Nonverbal, does not follow commands Head exam: Atraumatic, normocephalic Eyes exam: Normal appearance ENT: Moist mucous membrane, normal oropharynx Neck exam: Normal inspection, full range of motion Respiratory exam: Clear to auscultation bilateral, no wheezes, rales, crackles Cardiovascular: Normal rate and rhythm, normal heart sounds Abdomen: Soft, nondistended, and nontender, with normal bowel sounds, no rebound, or guarding Extremity: Full range of motion normal inspection no deformity Back: Normal Inspection, full range of motion, no tenderness Neurologic: lethargic, opens eyes to rigorous tactile stimulation, right arm contraction with edema. Moans, no comprehensible words, does not follow commands Psychiatric: normal affect, normal mood Skin: left leg ulcer ED Course Vital Signs 12/26/17 12/26/17 12/26/17 12:46 12:51 15:21 Temperature 97.7 F Pulse Rate 90 90 Respiratory 18 Rate Blood Pressure 132/90 132/90 O2 Sat by Pulse 94 94 Oximetry - Reevaluation(s) Reevaluation #1: 12/26/17 19:00 pt developed fever at this time. Blood cultures and lactic acid ordered. Tylenol and antibiotics ordered - Lab Data Result diagrams: 12/26/17 15:24 12/26/17 15:24 Lab Results 12/26/17 12/26/17 12/26/17 Range/Units 15:23 15:24 15:24 WBC 9.0 (4.5-11.0) K/mm3 RBC 4.36 (3.65-5.03) M/mm3 Hgb 14.5 (11.8-15.2) gm/dl Hct 43.5 (35.5-45.6) % MCV 100 H (84-94) fl MCH 33 H (28-32) pg MCHC 33 (32-34) % RDW 15.4 H (13.2-15.2) % Plt Count 121 L (140-440) K/mm3 Lymph % (Auto) 7.6 L (13.4-35.0) % Levy % (Auto) 14.4 H (0.0-7.3) % Eos % (Auto) 0.5 (0.0-4.3) % Baso % (Auto) 2.1 H (0.0-1.8) % Lymph # 0.7 L (1.2-5.4) K/mm3 Levy # 1.3 H (0.0-0.8) K/mm3 Eos # 0.0 (0.0-0.4) K/mm3 Baso # 0.2 H (0.0-0.1) K/mm3 Seg Neutrophils % 75.4 H (40.0-70.0) % Seg Neutrophils # 6.8 (1.8-7.7) K/mm3 PT 16.9 H (12.2-14.9) Sec. INR 1.30 H (0.87-1.13) APTT 37.7 H (24.2-36.6) Sec. POC ABG pH (7.35-7.45) POC ABG pCO2 (35-45) POC ABG pO2 (80-105) POC ABG HCO3 POC ABG Total CO2 POC ABG O2 Sat POC ABG Base Excess FiO2 % Sodium (137-145) mmol/L Potassium (3.6-5.0) mmol/L Chloride (98-107) mmol/L Carbon Dioxide (22-30) mmol/L Anion Gap mmol/L BUN (9-20) mg/dL Creatinine (0.8-1.5) mg/dL Estimated GFR ml/min BUN/Creatinine Ratio % Glucose (75-100) mg/dL POC Glucose 86 (70-105) Calcium (8.4-10.2) mg/dL Magnesium (1.7-2.3) mg/dL Total Bilirubin (0.1-1.2) mg/dL AST (5-40) units/L ALT (7-56) units/L Alkaline Phosphatase (35-129) units/L Ammonia (25-60) umol/L Troponin T (0.00-0.029) ng/mL Total Protein (6.3-8.2) g/dL Albumin (3.9-5) g/dL Albumin/Globulin Ratio % Triglycerides (2-149) mg/dL Cholesterol (50-199) mg/dL LDL Cholesterol Direct (50-130) mg/dL HDL Cholesterol (40-59) mg/dL Cholesterol/HDL Ratio % TSH (0.270-4.200) mlU/mL Free T4 (0.76-1.46) ng/dL Urine Color (Yellow) Urine Turbidity (Clear) Urine pH (5.0-7.0) Ur Specific [place] (1.003-1.030) Urine Protein (Negative) mg/dL Urine Glucose (UA) (Negative) mg/dL Urine Ketones (Negative) mg/dL Urine Blood (Negative) Urine Nitrite (Negative) Urine Bilirubin (Negative) Urine Urobilinogen (<2.0) mg/dL Ur Leukocyte Esterase (Negative) Urine WBC (Auto) (0.0-6.0) /HPF Urine RBC (Auto) (0.0-6.0) /HPF U Epithel Cells (Auto) (0-13.0) /HPF Urine Mucus /HPF Salicylates (2.8-20.0) mg/dL Urine Opiates Screen Urine Methadone Screen Acetaminophen (10.0-30.0) ug/mL Ur Barbiturates Screen Valproic Acid (50-100) ug/mL Ur Phencyclidine Scrn Ur Amphetamines Screen U Benzodiazepines Scrn Urine Cocaine Screen U Marijuana (THC) Screen Drugs of Abuse Note Plasma/Serum Alcohol (0-0.07) % 12/26/17 12/26/17 12/26/17 Range/Units 15:24 15:24 15:24 WBC (4.5-11.0) K/mm3 RBC (3.65-5.03) M/mm3 Hgb (11.8-15.2) gm/dl Hct (35.5-45.6) % MCV (84-94) fl MCH (28-32) pg MCHC (32-34) % RDW (13.2-15.2) % Plt Count (140-440) K/mm3 Lymph % (Auto) (13.4-35.0) % Levy % (Auto) (0.0-7.3) % Eos % (Auto) (0.0-4.3) % Baso % (Auto) (0.0-1.8) % Lymph # (1.2-5.4) K/mm3 Levy # (0.0-0.8) K/mm3 Eos # (0.0-0.4) K/mm3 Baso # (0.0-0.1) K/mm3 Seg Neutrophils % (40.0-70.0) % Seg Neutrophils # (1.8-7.7) K/mm3 PT (12.2-14.9) Sec. INR (0.87-1.13) APTT (24.2-36.6) Sec. POC ABG pH (7.35-7.45) POC ABG pCO2 (35-45) POC ABG pO2 (80-105) POC ABG HCO3 POC ABG Total CO2 POC ABG O2 Sat POC ABG Base Excess FiO2 % Sodium 145 (137-145) mmol/L Potassium 4.9 (3.6-5.0) mmol/L Chloride 103.2 (98-107) mmol/L Carbon Dioxide 27 (22-30) mmol/L Anion Gap 20 mmol/L BUN 68 H (9-20) mg/dL Creatinine 2.2 H (0.8-1.5) mg/dL Estimated GFR 36 ml/min BUN/Creatinine Ratio 31 % Glucose 123 H (75-100) mg/dL POC Glucose (70-105) Calcium 9.3 (8.4-10.2) mg/dL Magnesium (1.7-2.3) mg/dL Total Bilirubin 0.70 (0.1-1.2) mg/dL AST 53 H (5-40) units/L ALT 30 (7-56) units/L Alkaline Phosphatase 80 (35-129) units/L Ammonia (25-60) umol/L Troponin T 0.178 H* (0.00-0.029) ng/mL Total Protein 9.6 H (6.3-8.2) g/dL Albumin 2.8 L (3.9-5) g/dL Albumin/Globulin Ratio 0.4 % Triglycerides 109 (2-149) mg/dL Cholesterol 101 (50-199) mg/dL LDL Cholesterol Direct 53 (50-130) mg/dL HDL Cholesterol 27 L (40-59) mg/dL Cholesterol/HDL Ratio 3.74 % TSH (0.270-4.200) mlU/mL Free T4 (0.76-1.46) ng/dL Urine Color (Yellow) Urine Turbidity (Clear) Urine pH (5.0-7.0) Ur Specific [place] (1.003-1.030) Urine Protein (Negative) mg/dL Urine Glucose (UA) (Negative) mg/dL Urine Ketones (Negative) mg/dL Urine Blood (Negative) Urine Nitrite (Negative) Urine Bilirubin (Negative) Urine Urobilinogen (<2.0) mg/dL Ur Leukocyte Esterase (Negative) Urine WBC (Auto) (0.0-6.0) /HPF Urine RBC (Auto) (0.0-6.0) /HPF U Epithel Cells (Auto) (0-13.0) /HPF Urine Mucus /HPF Salicylates < 0.3 L (2.8-20.0) mg/dL Urine Opiates Screen Urine Methadone Screen Acetaminophen 15.0 (10.0-30.0) ug/mL Ur Barbiturates Screen Valproic Acid 51.2 (50-100) ug/mL Ur Phencyclidine Scrn Ur Amphetamines Screen U Benzodiazepines Scrn Urine Cocaine Screen U Marijuana (THC) Screen Drugs of Abuse Note Plasma/Serum Alcohol (0-0.07) % 12/26/17 12/26/17 12/26/17 Range/Units 15:24 15:24 15:24 WBC (4.5-11.0) K/mm3 RBC (3.65-5.03) M/mm3 Hgb (11.8-15.2) gm/dl Hct (35.5-45.6) % MCV (84-94) fl MCH (28-32) pg MCHC (32-34) % RDW (13.2-15.2) % Plt Count (140-440) K/mm3 Lymph % (Auto) (13.4-35.0) % Levy % (Auto) (0.0-7.3) % Eos % (Auto) (0.0-4.3) % Baso % (Auto) (0.0-1.8) % Lymph # (1.2-5.4) K/mm3 Levy # (0.0-0.8) K/mm3 Eos # (0.0-0.4) K/mm3 Baso # (0.0-0.1) K/mm3 Seg Neutrophils % (40.0-70.0) % Seg Neutrophils # (1.8-7.7) K/mm3 PT (12.2-14.9) Sec. INR (0.87-1.13) APTT (24.2-36.6) Sec. POC ABG pH (7.35-7.45) POC ABG pCO2 (35-45) POC ABG pO2 (80-105) POC ABG HCO3 POC ABG Total CO2 POC ABG O2 Sat POC ABG Base Excess FiO2 % Sodium (137-145) mmol/L Potassium (3.6-5.0) mmol/L Chloride (98-107) mmol/L Carbon Dioxide (22-30) mmol/L Anion Gap mmol/L BUN (9-20) mg/dL Creatinine (0.8-1.5) mg/dL Estimated GFR ml/min BUN/Creatinine Ratio % Glucose (75-100) mg/dL POC Glucose (70-105) Calcium (8.4-10.2) mg/dL Magnesium 2.30 (1.7-2.3) mg/dL Total Bilirubin (0.1-1.2) mg/dL AST (5-40) units/L ALT (7-56) units/L Alkaline Phosphatase (35-129) units/L Ammonia 32.0 (25-60) umol/L Troponin T (0.00-0.029) ng/mL Total Protein (6.3-8.2) g/dL Albumin (3.9-5) g/dL Albumin/Globulin Ratio % Triglycerides (2-149) mg/dL Cholesterol (50-199) mg/dL LDL Cholesterol Direct (50-130) mg/dL HDL Cholesterol (40-59) mg/dL Cholesterol/HDL Ratio % TSH (0.270-4.200) mlU/mL Free T4 (0.76-1.46) ng/dL Urine Color (Yellow) Urine Turbidity (Clear) Urine pH (5.0-7.0) Ur Specific [place] (1.003-1.030) Urine Protein (Negative) mg/dL Urine Glucose (UA) (Negative) mg/dL Urine Ketones (Negative) mg/dL Urine Blood (Negative) Urine Nitrite (Negative) Urine Bilirubin (Negative) Urine Urobilinogen (<2.0) mg/dL Ur Leukocyte Esterase (Negative) Urine WBC (Auto) (0.0-6.0) /HPF Urine RBC (Auto) (0.0-6.0) /HPF U Epithel Cells (Auto) (0-13.0) /HPF Urine Mucus /HPF Salicylates (2.8-20.0) mg/dL Urine Opiates Screen Urine Methadone Screen Acetaminophen (10.0-30.0) ug/mL Ur Barbiturates Screen Valproic Acid (50-100) ug/mL Ur Phencyclidine Scrn Ur Amphetamines Screen U Benzodiazepines Scrn Urine Cocaine Screen U Marijuana (THC) Screen Drugs of Abuse Note Plasma/Serum Alcohol < 0.01 (0-0.07) % 12/26/17 12/26/17 12/26/17 Range/Units 15:24 17:04 17:04 WBC (4.5-11.0) K/mm3 RBC (3.65-5.03) M/mm3 Hgb (11.8-15.2) gm/dl Hct (35.5-45.6) % MCV (84-94) fl MCH (28-32) pg MCHC (32-34) % RDW (13.2-15.2) % Plt Count (140-440) K/mm3 Lymph % (Auto) (13.4-35.0) % Levy % (Auto) (0.0-7.3) % Eos % (Auto) (0.0-4.3) % Baso % (Auto) (0.0-1.8) % Lymph # (1.2-5.4) K/mm3 Levy # (0.0-0.8) K/mm3 Eos # (0.0-0.4) K/mm3 Baso # (0.0-0.1) K/mm3 Seg Neutrophils % (40.0-70.0) % Seg Neutrophils # (1.8-7.7) K/mm3 PT (12.2-14.9) Sec. INR (0.87-1.13) APTT (24.2-36.6) Sec. POC ABG pH (7.35-7.45) POC ABG pCO2 (35-45) POC ABG pO2 (80-105) POC ABG HCO3 POC ABG Total CO2 POC ABG O2 Sat POC ABG Base Excess FiO2 % Sodium (137-145) mmol/L Potassium (3.6-5.0) mmol/L Chloride (98-107) mmol/L Carbon Dioxide (22-30) mmol/L Anion Gap mmol/L BUN (9-20) mg/dL Creatinine (0.8-1.5) mg/dL Estimated GFR ml/min BUN/Creatinine Ratio % Glucose (75-100) mg/dL POC Glucose (70-105) Calcium (8.4-10.2) mg/dL Magnesium (1.7-2.3) mg/dL Total Bilirubin (0.1-1.2) mg/dL AST (5-40) units/L ALT (7-56) units/L Alkaline Phosphatase (35-129) units/L Ammonia (25-60) umol/L Troponin T (0.00-0.029) ng/mL Total Protein (6.3-8.2) g/dL Albumin (3.9-5) g/dL Albumin/Globulin Ratio % Triglycerides (2-149) mg/dL Cholesterol (50-199) mg/dL LDL Cholesterol Direct (50-130) mg/dL HDL Cholesterol (40-59) mg/dL Cholesterol/HDL Ratio % TSH 1.810 (0.270-4.200) mlU/mL Free T4 0.80 (0.76-1.46) ng/dL Urine Color Yellow (Yellow) Urine Turbidity Clear (Clear) Urine pH 6.0 (5.0-7.0) Ur Specific [place] 1.015 (1.003-1.030) Urine Protein 30 mg/dl (Negative) mg/dL Urine Glucose (UA) Neg (Negative) mg/dL Urine Ketones Neg (Negative) mg/dL Urine Blood Sm (Negative) Urine Nitrite Neg (Negative) Urine Bilirubin Neg (Negative) Urine Urobilinogen 4.0 (<2.0) mg/dL Ur Leukocyte Esterase Neg (Negative) Urine WBC (Auto) < 1.0 (0.0-6.0) /HPF Urine RBC (Auto) 4.0 (0.0-6.0) /HPF U Epithel Cells (Auto) < 1.0 (0-13.0) /HPF Urine Mucus Few /HPF Salicylates (2.8-20.0) mg/dL Urine Opiates Screen Presumptive positive Urine Methadone Screen Presumptive negative Acetaminophen (10.0-30.0) ug/mL Ur Barbiturates Screen Presumptive negative Valproic Acid (50-100) ug/mL Ur Phencyclidine Scrn Presumptive negative Ur Amphetamines Screen Presumptive negative U Benzodiazepines Scrn Presumptive negative Urine Cocaine Screen Presumptive negative U Marijuana (THC) Screen Presumptive negative Drugs of Abuse Note Disclamer Plasma/Serum Alcohol (0-0.07) % 12/26/17 Range/Units 17:28 WBC (4.5-11.0) K/mm3 RBC (3.65-5.03) M/mm3 Hgb (11.8-15.2) gm/dl Hct (35.5-45.6) % MCV (84-94) fl MCH (28-32) pg MCHC (32-34) % RDW (13.2-15.2) % Plt Count (140-440) K/mm3 Lymph % (Auto) (13.4-35.0) % Levy % (Auto) (0.0-7.3) % Eos % (Auto) (0.0-4.3) % Baso % (Auto) (0.0-1.8) % Lymph # (1.2-5.4) K/mm3 Levy # (0.0-0.8) K/mm3 Eos # (0.0-0.4) K/mm3 Baso # (0.0-0.1) K/mm3 Seg Neutrophils % (40.0-70.0) % Seg Neutrophils # (1.8-7.7) K/mm3 PT (12.2-14.9) Sec. INR (0.87-1.13) APTT (24.2-36.6) Sec. POC ABG pH 7.532 H (7.35-7.45) POC ABG pCO2 37.6 (35-45) POC ABG pO2 52 L (80-105) POC ABG HCO3 31.5 POC ABG Total CO2 33 POC ABG O2 Sat 90 POC ABG Base Excess 9 FiO2 3 % Sodium (137-145) mmol/L Potassium (3.6-5.0) mmol/L Chloride (98-107) mmol/L Carbon Dioxide (22-30) mmol/L Anion Gap mmol/L BUN (9-20) mg/dL Creatinine (0.8-1.5) mg/dL Estimated GFR ml/min BUN/Creatinine Ratio % Glucose (75-100) mg/dL POC Glucose (70-105) Calcium (8.4-10.2) mg/dL Magnesium (1.7-2.3) mg/dL Total Bilirubin (0.1-1.2) mg/dL AST (5-40) units/L ALT (7-56) units/L Alkaline Phosphatase (35-129) units/L Ammonia (25-60) umol/L Troponin T (0.00-0.029) ng/mL Total Protein (6.3-8.2) g/dL Albumin (3.9-5) g/dL Albumin/Globulin Ratio % Triglycerides (2-149) mg/dL Cholesterol (50-199) mg/dL LDL Cholesterol Direct (50-130) mg/dL HDL Cholesterol (40-59) mg/dL Cholesterol/HDL Ratio % TSH (0.270-4.200) mlU/mL Free T4 (0.76-1.46) ng/dL Urine Color (Yellow) Urine Turbidity (Clear) Urine pH (5.0-7.0) Ur Specific [place] (1.003-1.030) Urine Protein (Negative) mg/dL Urine Glucose (UA) (Negative) mg/dL Urine Ketones (Negative) mg/dL Urine Blood (Negative) Urine Nitrite (Negative) Urine Bilirubin (Negative) Urine Urobilinogen (<2.0) mg/dL Ur Leukocyte Esterase (Negative) Urine WBC (Auto) (0.0-6.0) /HPF Urine RBC (Auto) (0.0-6.0) /HPF U Epithel Cells (Auto) (0-13.0) /HPF Urine Mucus /HPF Salicylates (2.8-20.0) mg/dL Urine Opiates Screen Urine Methadone Screen Acetaminophen (10.0-30.0) ug/mL Ur Barbiturates Screen Valproic Acid (50-100) ug/mL Ur Phencyclidine Scrn Ur Amphetamines Screen U Benzodiazepines Scrn Urine Cocaine Screen U Marijuana (THC) Screen Drugs of Abuse Note Plasma/Serum Alcohol (0-0.07) % - Radiology Data Radiology results: report reviewed read by radiologist xr chest: Cardiomegaly. Aortic calcification and tortuosity. Low lung values with perihilar and bibasilar opacities and blunting of the left costophrenic angle. Could be partially related to bronchial vascular crowding/atelectasis but consider superimposed acute processes to CHF with atelectasis or pneumonitis. ct head: Atrophy. Moderate ventricular dilatation may be proportional to the degree of atrophy but consider correlation clinically if there is concern for mild hydrocephalus Patchy periventricular white matter low attenuation a probable basal ganglia cones. Encephalomalacia in the left vestibule one from prior ischemic/ infarction with volume loss and ex vacuo diliation of the left occipital horn. Findings similar to previous examination - Medical Decision Making Echocardiogram from 04/2017 shows an EF of 55% to 60% Pt has incr creatine and bun compared to previous values suggesting dehydration NS 500 ml at 150ml/hr initiated for dehydration Pt has elevated trop but likely due to underlying renal dysfunction. Repeat pending pt will be admitted to the hospital for depressed mental status and dehydration Patient developed a fever after decision to admit Chest x-ray suggestive of possible infiltrate versus pneumonitis versus atelectasis versus effusion Will be triple covered with Zosyn, vancomycin, and Levaquin ABG was actually performed on room air reveals hypoxia but no acid-base disturbance - Differential Diagnosis infection, UTI, encephalopathy, ICH, CVA Critical Care Time: No Critical care attestation.: If time is entered above; I have spent that time in minutes in the direct care of this critically ill patient, excluding procedure time. ED Disposition Clinical Impression: Altered mental status, History of DVT of lower extremity, Chronic systolic CHF (congestive heart failure), COPD (chronic obstructive pulmonary disease), Oxygen dependent, History of CVA with residual deficit, Acute on chronic renal insufficiency, Dehydration, Fever, Pneumonia, Thrombocytopenia Disposition: OP ADMIT IP TO THIS HOSP Is pt being admited?: Yes Condition: Stable Time of Disposition: 18:21 (Dr padron/hosp)
[2017-12-26 17:31] LABS: Bilirubin,Urine NEG (Negative); Blood,Urine SM (Negative); Color,Urine Yellow (Yellow); Mucus,Urine FEW /HPF; WBC,Urine < 1.0 /HPF (0.0-6.0)
[2017-12-26 17:41] LABS: Amphetamine Screen,Urine PRESUMPTIVE NEGATIVE; Benzodiazepines Screen,Urine PRESUMPTIVE NEGATIVE; Cannabinoid Screen,Urine PRESUMPTIVE NEGATIVE; Cocaine Screen,Urine PRESUMPTIVE NEGATIVE; Methadone Screen,Urine PRESUMPTIVE NEGATIVE
[2017-12-26 17:50] LABS: Opiate Screen,Urine PRESUMPTIVE POSITIVE
[2017-12-26] MEDS ORDERED: NACL 0.9% 500 ML 500 ML IV ONE (18:25)
--- NOTE | 2017-12-26 18:28 | XRay Report ---
FINAL REPORT PROCEDURE: XR CHEST 1V AP TECHNIQUE: Chest radiograph anteroposterior view. CPT 60401 HISTORY: Altered mental status. Increased sputum. COMPARISON: Chest radiograph dated 05/02/2017. FINDINGS: Heart: Cardiomegaly. Mediastinum/Vessels: Aortic tortuosity. Lungs/Pleural space: Low lung volumes with perihilar and bibasilar opacities and blunting of the left costophrenic angle. Bony thorax: Sternotomy. Mild degenerative change of the spine. Clips in the left upper quadrant. Life support devices: Dual-chamber pacer. IMPRESSION: Cardiomegaly. Aortic calcification and tortuosity. Low lung volumes with perihilar and bibasilar opacities and blunting of the left costophrenic angle. Consider could be partly related to bronchovascular crowding/atelectasis, but consider superimposed acute process such as congestive heart failure with atelectasis or pneumonitis. Consider PA and lateral chest radiograph to begin further characterization if there is continued clinical concern.
[2017-12-26] MEDS ORDERED: LEVAQUIN 750MG/150ML 750 MG/150 ML BAG IV ONE (18:58)
[2017-12-26] MEDS ORDERED: VANCOMYCIN/NS 1 GM/250 ML 1 GM/250 ML BAG IV SCH (19:00)
[2017-12-26] MEDS ORDERED: ZOSYN/NS 4.5GM/100ML 4.5 GM/100 ML VIAL IV SCH (19:00)
--- NOTE | 2017-12-26 19:28 | Emergency Department Report ---
Blank Doc - Documentation Documentation: Nurses unable to establish IV access despite multiple attempts. Patient prep for external jugular vein cannulation. Right neck prepped with ChloraPrep. 20- gauge catheter inserted into the right IJ with positive blood return. Saline flush without extravasation. Secured with tape and Tegaderm. Patient tolerated procedure well
[2017-12-26] MEDS ORDERED: TYLENOL PR ONE ×2 (19:49→21:42)
--- NOTE | 2017-12-26 22:14 | History and Physical Report ---
History of Present Illness Date of examination: 12/26/17 Date of admission: 12/26/17 20:19 Chief complaint: Altered mental status History of present illness: 67-year-old male with a past medical history of COPD O2 dependent, CHF, CVA with residual right-sided weakness, previous DVT, dementia, diabetes, hypertension, CAD, CKD, hepatitis, and sleep apnea as well as other medical conditions presents to the hospital with alteration of mental status. As per long-term patient has not been himself today. He is typically verbal and able to communicate and eats well. Today he has not been eating or speaking. Patient is not speaking or following commands in the ED. Past History Past Medical History: other (Past Medical History: CAD, diabetes, DVT, heart failure, hypertension) Medications and Allergies Allergies Allergy/AdvReac Type Severity Reaction Status Date / Time No Known Allergies Allergy Verified 06/05/16 12:19 Home Medications Medication Instructions Recorded Confirmed Last Taken Type Docusate Sodium [Colace CAP] 100 mg PO BID 04/29/17 04/29/17 Unknown History Insulin Aspart Prot/Aspart(Nf) See Protocol SC QDAY 04/29/17 04/29/17 Unknown History [NovoLOG Mix 70/30 VIAL] Metoprolol [Lopressor TAB] 50 mg PO BID 04/29/17 04/29/17 Unknown History Sennosides [Senna] 8.6 mg PO QHS 04/29/17 04/29/17 Unknown History ALBUTEROL NEB's [Proventil 0.083% 1 vial IH Q6H PRN #30 nebu 05/09/17 Unknown Rx NEBS] Apixaban [Eliquis] 2.5 mg PO Q12HR #60 tablet 05/09/17 Unknown Rx AtorvaSTATin [Lipitor] 10 mg PO QHS #30 tablet 05/09/17 Unknown Rx Budesoni/Formotero 160-4.5(Nf) 2 puff IH BID #30 inha 05/09/17 Unknown Rx [Symbicort 160-4.5 (Nf)] Diltiazem [Cardizem] 60 mg PO Q8HR #90 tablet 05/09/17 Unknown Rx Divalproex ER [Depakote ER] 500 mg PO BID #60 tablet 05/09/17 Unknown Rx Furosemide [Lasix TAB] 20 mg PO QDAY #60 tablet 05/09/17 Unknown Rx Gabapentin [Neurontin] 100 mg PO QHS #30 capsule 05/09/17 Unknown Rx Pantoprazole [Protonix TAB] 40 mg PO DAILY #30 tablet 05/09/17 Unknown Rx Active Meds: Active Medications Vancomycin HCl (Vancomycin/Ns 1 Gm/250 Ml) 1 gm in 250 mls @ 167.007 mls/hr IV ONCE AIXA PRN Reason: Protocol Piperacillin Sod/Tazobactam Sod (Zosyn/Ns 4.5gm/100ml) 4.5 gm in 100 mls @ 200 mls/hr IV ONCE AIXA Review of Systems ROS unobtainable: due to mental status Exam - Physical Exam Narrative exam: General: Nonverbal, does not follow commands Head exam: Atraumatic, normocephalic Eyes exam: Normal appearance ENT: Moist mucous membrane, normal oropharynx Neck exam: Normal inspection, full range of motion Respiratory exam: Clear to auscultation bilateral, no wheezes, rales, crackles Cardiovascular: Normal rate and rhythm, normal heart sounds Abdomen: Soft, nondistended, and nontender, with normal bowel sounds, no rebound, or guarding Extremity: Full range of motion normal inspection no deformity Back: Normal Inspection, full range of motion, no tenderness Neurologic: lethargic, opens eyes to rigorous tactile stimulation, right arm contraction with edema. Moans, no comprehensible words, does not follow commands Psychiatric: normal affect, normal mood Skin: left leg ulcer, edema (severe ichthyosis bilat) - Constitutional Vitals: Temp Pulse Resp BP Pulse Ox 101.6 F H 104 H 24 133/88 96 12/26/17 21:40 12/26/17 21:31 12/26/17 21:43 12/26/17 21:31 12/26/17 21:31 Results - Labs CBC & Chem 7: 12/26/17 15:24 12/26/17 15:24 Labs: Laboratory Last Values WBC 9.0 K/mm3 (4.5-11.0) 12/26/17 15:24 RBC 4.36 M/mm3 (3.65-5.03) 12/26/17 15:24 Hgb 14.5 gm/dl (11.8-15.2) 12/26/17 15:24 Hct 43.5 % (35.5-45.6) 12/26/17 15:24 MCV 100 fl (84-94) H 12/26/17 15:24 MCH 33 pg (28-32) H 12/26/17 15:24 MCHC 33 % (32-34) 12/26/17 15:24 RDW 15.4 % (13.2-15.2) H 12/26/17 15:24 Plt Count 121 K/mm3 (140-440) L 12/26/17 15:24 Lymph % (Auto) 7.6 % (13.4-35.0) L 12/26/17 15:24 [place] % (Auto) 14.4 % (0.0-7.3) H 12/26/17 15:24 Eos % (Auto) 0.5 % (0.0-4.3) 12/26/17 15:24 Baso % (Auto) 2.1 % (0.0-1.8) H 12/26/17:24 Lymph # 0.7 K/mm3 (1.2-5.4) L 12/26/17:24 [place] # 1.3 K/mm3 (0.0-0.8) H 12/26/17 15:24 Eos # 0.0 K/mm3 (0.0-0.4) 12/26/17 15:24 Baso # 0.2 K/mm3 (0.0-0.1) H 12/26/17 15:24 Seg Neutrophils % 75.4 % (40.0-70.0) H 12/26/17:24 Seg Neutrophils # 6.8 K/mm3 (1.8-7.7) 12/26/17 15:24 PT 16.9 Sec. (12.2-14.9) H 12/26/17 15:24 INR 1.30 (0.87-1.13) H 12/26/17 15:24 APTT 37.7 Sec. (24.2-36.6) H 12/26/17 15:24 POC ABG pH 7.532 (7.35-7.45) H 12/26/17 17: POC ABG pCO2 37.6 (35-45) 12/26/17 17: POC ABG pO2 52 (80-105) L 12/26/17 17:28 POC ABG HCO3 31.5 12/26/17 17:28 POC ABG Total CO2 33 12/26/17 17:28 POC ABG O2 Sat 90 12/26/17 17:28 POC ABG Base Excess 9 12/26/17 17:28 VBG pH 7.394 (7.320-7.420) 12/26/17 19:46 FiO2 3 % 12/26/17 17:28 Sodium 145 mmol/L (137-145) 12/26/17 15:24 Potassium 4.9 mmol/L (3.6-5.0) 12/26/17 15:24 Chloride 103.2 mmol/L (98-107) 12/26/17 15:24 Carbon Dioxide 27 mmol/L (22-30) 12/26/17 15:24 Anion Gap 20 mmol/L 12/26/17 15:24 BUN 68 mg/dL (9-20) H 12/26/17 15:24 Creatinine 2.2 mg/dL (0.8-1.5) H 12/26/17 15:24 Estimated GFR 36 ml/min 12/26/17 15:24 BUN/Creatinine Ratio 31 % 12/26/17 15:24 Glucose 123 mg/dL (75-100) H 12/26/17 15:24 POC Glucose 134 (70-105) H 12/26/17 21:58 Lactic Acid 2.30 mmol/L (0.7-2.0) H* 12/26/17 19:44 Calcium 9.3 mg/dL (8.4-10.2) 12/26/17 15:24 Magnesium 2.30 mg/dL (1.7-2.3) 12/26/17 15:24 Total Bilirubin 0.70 mg/dL (0.1-1.2) 12/26/17 15:24 AST 53 units/L (5-40) H 12/26/17 15:24 ALT 30 units/L (7-56) 12/26/17 15:24 Alkaline Phosphatase 80 units/L (35-129) 12/26/17 15:24 Ammonia 32.0 umol/L (25-60) 12/26/17 15:24 Troponin T 0.153 ng/mL (0.00-0.029) H* 12/26/17 19:44 Total Protein 9.6 g/dL (6.3-8.2) H 12/26/17 15:24 Albumin 2.8 g/dL (3.9-5) L 12/26/17 15:24 Albumin/Globulin Ratio 0.4 % 12/26/17 15:24 Triglycerides 109 mg/dL (2-149) 12/26/17 15:24 Cholesterol 101 mg/dL (50-199) 12/26/17 15:24 LDL Cholesterol Direct 53 mg/dL (50-130) 12/26/17 15:24 HDL Cholesterol 27 mg/dL (40-59) L 12/26/17 15:24 Cholesterol/HDL Ratio 3.74 % 12/26/17 15:24 TSH 1.810 mlU/mL (0.270-4.200) 12/26/17 15:24 Free T4 0.80 ng/dL (0.76-1.46) 12/26/17 15:24 Urine Color Yellow (Yellow) 12/26/17 17:04 Urine Turbidity Clear (Clear) 12/26/17 17:04 Urine pH 6.0 (5.0-7.0) 12/26/17 17:04 Ur Specific [place] 1.015 (1.003-1.030) 12/26/17 17:04 Urine Protein 30 mg/dl mg/dL (Negative) 12/26/17 17:04 Urine Glucose (UA) Neg mg/dL (Negative) 12/26/17 17:04 Urine Ketones Neg mg/dL (Negative) 12/26/17 17:04 Urine Blood Sm (Negative) 12/26/17 17:04 Urine Nitrite Neg (Negative) 12/26/17 17:04 Urine Bilirubin Neg (Negative) 12/26/17 17:04 Urine Urobilinogen 4.0 mg/dL (<2.0) 12/26/17 17:04 Ur Leukocyte Esterase Neg (Negative) 12/26/17 17:04 Urine WBC (Auto) < 1.0 /HPF (0.0-6.0) 12/26/17 17:04 Urine RBC (Auto) 4.0 /HPF (0.0-6.0) 12/26/17 17:04 U Epithel Cells (Auto) < 1.0 /HPF (0-13.0) 12/26/17 17:04 Urine Mucus Few /HPF 12/26/17 17:04 Salicylates < 0.3 mg/dL (2.8-20.0) L 12/26/17 15:24 Urine Opiates Screen Presumptive positive 12/26/17 17:04 Urine Methadone Screen Presumptive negative 12/26/17 17:04 Acetaminophen < 15.0 ug/mL (10.0-30.0) 12/26/17 15:24 Ur Barbiturates Screen Presumptive negative 12/26/17 17:04 Valproic Acid 51.2 ug/mL (50-100) 12/26/17 15:24 Ur Phencyclidine Scrn Presumptive negative 12/26/17 17:04 Ur Amphetamines Screen Presumptive negative 12/26/17 17:04 U Benzodiazepines Scrn Presumptive negative 12/26/17 17:04 Urine Cocaine Screen Presumptive negative 12/26/17 17:04 U Marijuana (THC) Screen Presumptive negative 12/26/17 17:04 Drugs of Abuse Note Disclamer 12/26/17 17:04 Plasma/Serum Alcohol < 0.01 % (0-0.07) 12/26/17 15:24 - Imaging and Cardiology Imaging and Cardiology: xr chest: Cardiomegaly. Aortic calcification and tortuosity. Low lung values with perihilar and bibasilar opacities and blunting of the left costophrenic angle. Could be partially related to bronchial vascular crowding/atelectasis but consider superimposed acute processes to CHF with atelectasis or pneumonitis. ct head: Atrophy. Moderate ventricular dilatation may be proportional to the degree of atrophy but consider correlation clinically if there is concern for mild hydrocephalus Patchy periventricular white matter low attenuation a probable basal ganglia cones. Encephalomalacia in the left vestibule one from prior ischemic/ infarction with volume loss and ex vacuo diliation of the left occipital horn. Findings similar to previous examination - Medical Decision Making Echocardiogram from 04/2017 shows an EF of 55% to 60% Assessment and Plan Assessment and plan: Assessment and plan - * Altered mental status - likely due to toxic metabolic encephalopathy from underlying sepsis and acute renal failure as well as underlying infectious issues * Sepsis * Left lower lobe pneumonia * Acute renal failure * History of DVT * Chronic hypoxemic respiratory failure - on home O2 * Elevated troponin -aguiar zone troponin Plan - admit to ICU Broad spectrum antibiotics for healthcare associated pneumonia because patient is living in the long-term. Mood gave Zosyn and vancomycin and azithromycin. Received first dose of antibiotics in the ER Blood cultures and urine cultures drawn results pending we will follow-up results modified about a treatment based on culture and sensitivity data Acute renal failure is most likely due to dehydration patient is on Lasix . Hold Lasix aggressive IV fluid rehydration monitor renal function closely. Avoid all nephrotoxins, avoid NSAIDs. Renally dose all medications Monitor strict I's and O's, volume status and electrolytes Elevated troponin is likely due to acute renal failure. Check serial cardiac enzymes EKG is negative consult cardiology if needed or indicated. Doubt acute coronary syndrome. Continue his home medications except for his antihypertensive medications in view of his sepsis Continue his anticoagulation Monitor CBC and electrolytes replace electrolytes when necessary as per protocol DVT GI prophylaxis as ordered Monitor and follow the patient closely
[2017-12-26] MEDS ORDERED: TYLENOL PR PRN (22:29)
[2017-12-26] MEDS ORDERED: DULCOLAX PR PRN (22:29)
[2017-12-26] MEDS ORDERED: ZOFRAN IV PRN (22:29)
[2017-12-26] MEDS ORDERED: TYLENOL PO PRN (22:29)
[2017-12-26] MEDS ORDERED: PROVENTIL IH PRN (22:29)
[2017-12-26] MEDS ORDERED: MILK OF MAGNESIA PO PRN (22:29)
[2017-12-27] MEDS ORDERED: HEPARIN SUB-Q SCH (06:00)
[2017-12-27] MEDS: ZOSYN/NS 4.5GM/100ML 4.5 GM/100 ML VIAL IV SCH ×2 (06:17→16:23)
[2017-12-27] MEDS: PULMICORT IH SCH ×2 (07:19→20:46)
[2017-12-27] MEDS: BROVANA NEBU IH SCH ×2 (07:19→20:47)
[2017-12-27 07:51] LABS: Basophils # (Auto) 0.1 K/mm3 (0.0-0.1); Basophils % (Auto) 0.7 % (0.0-1.8); Eosinophils % (Auto) 0.5 % (0.0-4.3); Hematocrit 41.2 % (35.5-45.6); Hemoglobin 13.5 gm/dl (11.8-15.2); Lymphocytes # (Auto) 1.5 K/mm3 (1.2-5.4); Lymphocytes % (Auto) 14.6 % (13.4-35.0); Mean Corpuscular HGB Conc 33 % (32-34); Mean Corpuscular Hemoglobin 33 pg (28-32); Mean Corpuscular Volume 99 fl (84-94); Monocytes # (Auto) 1.5 K/mm3 (0.0-0.8); Monocytes % (Auto) 14.6 % (0.0-7.3); Platelet Count 117 K/mm3 (140-440); Red Blood Count 4.14 M/mm3 (3.65-5.03); Red Cell Distribution Width 15.3 % (13.2-15.2)
[2017-12-27 08:06] LABS: Albumin 2.5 g/dL (3.9-5); Calcium 9.4 mg/dL (8.4-10.2)
[2017-12-27 08:33] LABS: Creatine Kinase MB 2.1 ng/mL (0.0-4.0)
[2017-12-27] MEDS ORDERED: ZITHROMAX 500 MG in NACL 0.9% 250ML 250 ML IV SCH (10:00)
[2017-12-27] MEDS ORDERED: PROTONIX IV SCH (10:00)
[2017-12-27] MEDS ORDERED: NON-FORMULARY (Budesoni/Formotero 160-4.5(Nf) 2 PUFF) IH SCH (10:00)
--- NOTE | 2017-12-27 11:48 | Consultation ---
History of Present Illness Consult date: 12/27/17 Consult reason: elevated troponin History of present illness: Patient admitted with respiratory failure and altered mental status. Cardiology consulted for abnormal troponin level. Troponin noted to be chronically elevated. Patient is a poor historian and not able to articulate and/or provide any history. He is lying in bed, appears weak with a ventimask. He has bilateral leg wounds that are foul smelling. Past History Past Medical History: atrial fib, CAD, COPD, DVT, renal failure, stroke, other ( Past Medical History: CAD, diabetes, DVT, heart failure, hypertension) Past Surgical History: Other ([employer] DC PPM) Medications and Allergies Allergies Allergy/AdvReac Type Severity Reaction Status Date / Time No Known Allergies Allergy Verified 06/05/16 12:19 Home Medications Medication Instructions Recorded Confirmed Last Taken Type Docusate Sodium [Colace CAP] 100 mg PO BID 04/29/17 12/27/17 1 Week Ago History ~12/20/17 Insulin Aspart Prot/Aspart(Nf) See Protocol SC QDAY 04/29/17 12/27/17 1 Day Ago History [NovoLOG Mix 70/30 VIAL] ~12/26/17 Metoprolol [Lopressor TAB] 50 mg PO BID 04/29/17 12/27/17 1 Week Ago History ~12/20/17 Sennosides [Senna] 8.6 mg PO QHS 04/29/17 12/27/17 1 Week Ago History ~12/20/17 ALBUTEROL NEB's [Proventil 0.083% 1 vial IH Q6H PRN #30 nebu 05/09/17 12/27/17 1 Week Ago Rx NEBS] ~12/20/17 Apixaban [Eliquis] 2.5 mg PO Q12HR #60 tablet 05/09/17 12/27/17 1 Week Ago Rx ~12/20/17 AtorvaSTATin [Lipitor] 10 mg PO QHS #30 tablet 05/09/17 12/27/17 1 Week Ago Rx ~12/20/17 Budesoni/Formotero 160-4.5(Nf) 2 puff IH BID #30 inha 05/09/17 12/27/17 1 Week Ago Rx [Symbicort 160-4.5 (Nf)] ~12/20/17 Diltiazem [Cardizem] 60 mg PO Q8HR #90 tablet 05/09/17 12/27/17 1 Week Ago Rx ~12/20/17 Divalproex ER [Depakote ER] 500 mg PO BID #60 tablet 05/09/17 12/27/17 1 Week Ago Rx ~12/20/17 Furosemide [Lasix TAB] 20 mg PO QDAY #60 tablet 05/09/17 12/27/17 1 Week Ago Rx ~12/20/17 Gabapentin [Neurontin] 100 mg PO QHS #30 capsule 05/09/17 12/27/17 1 Week Ago Rx ~12/20/17 Pantoprazole [Protonix TAB] 40 mg PO DAILY #30 tablet 05/09/17 12/27/17 1 Week Ago Rx ~12/20/17 Active Meds: Active Medications Acetaminophen (Tylenol) 650 mg PO Q4H PRN PRN Reason: Pain MILD(1-3)/Fever >100.5/ROSAS Acetaminophen (Tylenol) 650 mg IN Q4H PRN PRN Reason: Pain MILD(1-3)/Fever >100.5/ROSAS Albuterol (Proventil) 2.5 mg IH Q4HRT PRN PRN Reason: Shortness Of Breath Apixaban (Eliquis) 2.5 mg PO Q12HR AIXA PRN Reason: Protocol Arformoterol Tartrate (Brovana Nebu) 15 mcg IH Q12HRT [facility] Last Admin: 12/27/17 07:19 Dose: 15 mcg Atorvastatin Calcium (Lipitor) 10 mg PO QHS [facility]IX[facility] Bisacodyl (Dulcolax) 10 mg IN QDAY PRN PRN Reason: Constipation unrelieved by MOM Budesonide (Pulmicort) 1 mg IH Q12HRT [facility] Last Admin: 12/27/17 07:19 Dose: 1 mg Dextrose (D50w (25gm) Syringe) 50 ml IV PRN PRN PRN Reason: Hypoglycemia Divalproex Sodium (Depakote Er) 500 mg PO BID AIXA Docusate Sodium (Colace) 100 mg PO BID AIX[facility] Famotidine (Pepcid) 20 mg IV DAILY [facility] Sodium Chloride (Nacl 0.45% 1000 Ml) 1,000 mls @ 150 mls/hr IV DIRECT [facility]IXA Azithromycin 500 mg/ Sodium (Chloride) 250 mls @ 250 mls/hr IV Q24HR [facility] Piperacillin Sod/Tazobactam Sod (Zosyn/Ns 4.5gm/100ml) 4.5 gm in 100 mls @ 200 mls/hr IV Q8HR AIXA PRN Reason: Protocol Last Admin: 12/27/17 06:17 Dose: 200 mls/hr Influenza Virus Vaccine Quadrival (Fluarix Quad [id number](36 Mos+) 0.5 ml IM .ONCE ONE Stop: 12/28/17 12:01 Insulin Aspart (Novolog) 0 units SUB-Q ACHS AIXA PRN Reason: Protocol Magnesium Hydroxide (Milk Of Magnesia) 30 ml PO Q4H PRN PRN Reason: Constipation Morphine Sulfate (Morphine) 2 mg IV Q4H PRN PRN Reason: Pain, Moderate (4-6) Ondansetron HCl (Zofran) 4 mg IV Q8H PRN PRN Reason: N/V unrelieved by Reglan Pneumococcal Polyvalent Vaccine (Pneumovax 23) 0.5 ml IM .ONCE ONE Stop: 12/28/17 12:01 Senna (Senokot) 8.6 mg PO QHS [facility] Review of Systems ROS unobtainable: due to mental status Physical Examination Vital Signs Pulse BP Pulse Ox 90 132/90 94 12/26/17 12:46 12/26/17 12:46 12/26/17 12:46 General appearance: mild distress Neck: Positive: neck supple Cardiac: Positive: Reg Rate and Rhythm Lungs: Positive: Rhonchi Abdomen: Positive: Soft Extremities: Present: edema Results 12/27/17 07:35 12/27/17 07:35 Cardiac Enzymes 12/26/17 12/26/17 12/26/17 Range/Units 15:23 15:24 15:24 WBC 9.0 (4.5-11.0) K/mm3 RBC 4.36 (3.65-5.03) M/mm3 Hgb 14.5 (11.8-15.2) gm/dl Hct 43.5 (35.5-45.6) % MCV 100 H (84-94) fl MCH 33 H (28-32) pg MCHC 33 (32-34) % RDW 15.4 H (13.2-15.2) % Plt Count 121 L (140-440) K/mm3 Lymph % (Auto) 7.6 L (13.4-35.0) % [place] % (Auto) 14.4 H (0.0-7.3) % Eos % (Auto) 0.5 (0.0-4.3) % Baso % (Auto) 2.1 H (0.0-1.8) % Lymph # 0.7 L (1.2-5.4) K/mm3 [place] # 1.3 H (0.0-0.8) K/mm3 Eos # 0.0 (0.0-0.4) K/mm3 Baso # 0.2 H (0.0-0.1) K/mm3 Seg Neutrophils % 75.4 H (40.0-70.0) % Seg Neutrophils # 6.8 (1.8-7.7) K/mm3 PT 16.9 H (12.2-14.9) Sec. INR 1.30 H (0.87-1.13) APTT 37.7 H (24.2-36.6) Sec. POC ABG pH (7.35-7.45) POC ABG pCO2 (35-45) POC ABG pO2 (80-105) POC ABG HCO3 POC ABG Total CO2 POC ABG O2 Sat POC ABG Base Excess VBG pH (7.320-7.420) FiO2 % Sodium (137-145) mmol/L Potassium (3.6-5.0) mmol/L Chloride (98-107) mmol/L Carbon Dioxide (22-30) mmol/L Anion Gap mmol/L BUN (9-20) mg/dL Creatinine (0.8-1.5) mg/dL Estimated GFR ml/min BUN/Creatinine Ratio % Glucose (75-100) mg/dL POC Glucose 86 (70-105) Hemoglobin A1c (4-6) % Lactic Acid (0.7-2.0) mmol/L Calcium (8.4-10.2) mg/dL Phosphorus (2.5-4.5) mg/dL Magnesium (1.7-2.3) mg/dL Total Bilirubin (0.1-1.2) mg/dL AST (5-40) units/L ALT (7-56) units/L Alkaline Phosphatase (35-129) units/L Ammonia (25-60) umol/L Total Creatine Kinase (55-170) units/L CK-MB (CK-2) (0.0-4.0) ng/mL CK-MB (CK-2) Rel Index (0-4) Troponin T (0.00-0.029) ng/mL Total Protein (6.3-8.2) g/dL Albumin (3.9-5) g/dL Albumin/Globulin Ratio % Triglycerides (2-149) mg/dL Cholesterol (50-199) mg/dL LDL Cholesterol Direct (50-130) mg/dL HDL Cholesterol (40-59) mg/dL Cholesterol/HDL Ratio % TSH (0.270-4.200) mlU/mL Free T4 (0.76-1.46) ng/dL Urine Color (Yellow) Urine Turbidity (Clear) Urine pH (5.0-7.0) Ur Specific [place] (1.003-1.030) Urine Protein (Negative) mg/dL Urine Glucose (UA) (Negative) mg/dL Urine Ketones (Negative) mg/dL Urine Blood (Negative) Urine Nitrite (Negative) Urine Bilirubin (Negative) Urine Urobilinogen (<2.0) mg/dL Ur Leukocyte Esterase (Negative) Urine WBC (Auto) (0.0-6.0) /HPF Urine RBC (Auto) (0.0-6.0) /HPF U Epithel Cells (Auto) (0-13.0) /HPF Urine Mucus /HPF Salicylates (2.8-20.0) mg/dL Urine Opiates Screen Urine Methadone Screen Acetaminophen (10.0-30.0) ug/mL Ur Barbiturates Screen Valproic Acid (50-100) ug/mL Ur Phencyclidine Scrn Ur Amphetamines Screen U Benzodiazepines Scrn Urine Cocaine Screen U Marijuana (THC) Screen Drugs of Abuse Note Plasma/Serum Alcohol (0-0.07) % 12/26/17 12/26/17 12/26/17 Range/Units 15:24 15:24 15:24 WBC (4.5-11.0) K/mm3 RBC (3.65-5.03) M/mm3 Hgb (11.8-15.2) gm/dl Hct (35.5-45.6) % MCV (84-94) fl MCH (28-32) pg MCHC (32-34) % RDW (13.2-15.2) % Plt Count (140-440) K/mm3 Lymph % (Auto) (13.4-35.0) % [place] % (Auto) (0.0-7.3) % Eos % (Auto) (0.0-4.3) % Baso % (Auto) (0.0-1.8) % Lymph # (1.2-5.4) K/mm3 [place] # (0.0-0.8) K/mm3 Eos # (0.0-0.4) K/mm3 Baso # (0.0-0.1) K/mm3 Seg Neutrophils % (40.0-70.0) % Seg Neutrophils # (1.8-7.7) K/mm3 PT (12.2-14.9) Sec. INR (0.87-1.13) APTT (24.2-36.6) Sec. POC ABG pH (7.35-7.45) POC ABG pCO2 (35-45) POC ABG pO2 (80-105) POC ABG HCO3 POC ABG Total CO2 POC ABG O2 Sat POC ABG Base Excess VBG pH (7.320-7.420) FiO2 % Sodium 145 (137-145) mmol/L Potassium 4.9 (3.6-5.0) mmol/L Chloride 103.2 (98-107) mmol/L Carbon Dioxide 27 (22-30) mmol/L Anion Gap 20 mmol/L BUN 68 H (9-20) mg/dL Creatinine 2.2 H (0.8-1.5) mg/dL Estimated GFR 36 ml/min BUN/Creatinine Ratio 31 % Glucose 123 H (75-100) mg/dL POC Glucose (70-105) Hemoglobin A1c (4-6) % Lactic Acid (0.7-2.0) mmol/L Calcium 9.3 (8.4-10.2) mg/dL Phosphorus (2.5-4.5) mg/dL Magnesium (1.7-2.3) mg/dL Total Bilirubin 0.70 (0.1-1.2) mg/dL AST 53 H (5-40) units/L ALT 30 (7-56) units/L Alkaline Phosphatase 80 (35-129) units/L Ammonia (25-60) umol/L Total Creatine Kinase (55-170) units/L CK-MB (CK-2) (0.0-4.0) ng/mL CK-MB (CK-2) Rel Index (0-4) Troponin T 0.178 H* (0.00-0.029) ng/mL Total Protein 9.6 H (6.3-8.2) g/dL Albumin 2.8 L (3.9-5) g/dL Albumin/Globulin Ratio 0.4 % Triglycerides 109 (2-149) mg/dL Cholesterol 101 (50-199) mg/dL LDL Cholesterol Direct 53 (50-130) mg/dL HDL Cholesterol 27 L (40-59) mg/dL Cholesterol/HDL Ratio 3.74 % TSH (0.270-4.200) mlU/mL Free T4 (0.76-1.46) ng/dL Urine Color (Yellow) Urine Turbidity (Clear) Urine pH (5.0-7.0) Ur Specific [place] (1.003-1.030) Urine Protein (Negative) mg/dL Urine Glucose (UA) (Negative) mg/dL Urine Ketones (Negative) mg/dL Urine Blood (Negative) Urine Nitrite (Negative) Urine Bilirubin (Negative) Urine Urobilinogen (<2.0) mg/dL Ur Leukocyte Esterase (Negative) Urine WBC (Auto) (0.0-6.0) /HPF Urine RBC (Auto) (0.0-6.0) /HPF U Epithel Cells (Auto) (0-13.0) /HPF Urine Mucus /HPF Salicylates < 0.3 L (2.8-20.0) mg/dL Urine Opiates Screen Urine Methadone Screen Acetaminophen < 15.0 (10.0-30.0) ug/mL Ur Barbiturates Screen Valproic Acid 51.2 (50-100) ug/mL Ur Phencyclidine Scrn Ur Amphetamines Screen U Benzodiazepines Scrn Urine Cocaine Screen U Marijuana (THC) Screen Drugs of Abuse Note Plasma/Serum Alcohol (0-0.07) % 12/26/17 12/26/17 12/26/17 Range/Units 15:24 15:24 15:24 WBC (4.5-11.0) K/mm3 RBC (3.65-5.03) M/mm3 Hgb (11.8-15.2) gm/dl Hct (35.5-45.6) % MCV (84-94) fl MCH (28-32) pg MCHC (32-34) % RDW (13.2-15.2) % Plt Count (140-440) K/mm3 Lymph % (Auto) (13.4-35.0) % [place] % (Auto) (0.0-7.3) % Eos % (Auto) (0.0-4.3) % Baso % (Auto) (0.0-1.8) % Lymph # (1.2-5.4) K/mm3 [place] # (0.0-0.8) K/mm3 Eos # (0.0-0.4) K/mm3 Baso # (0.0-0.1) K/mm3 Seg Neutrophils % (40.0-70.0) % Seg Neutrophils # (1.8-7.7) K/mm3 PT (12.2-14.9) Sec. INR (0.87-1.13) APTT (24.2-36.6) Sec. POC ABG pH (7.35-7.45) POC ABG pCO2 (35-45) POC ABG pO2 (80-105) POC ABG HCO3 POC ABG Total CO2 POC ABG O2 Sat POC ABG Base Excess VBG pH (7.320-7.420) FiO2 % Sodium (137-145) mmol/L Potassium (3.6-5.0) mmol/L Chloride (98-107) mmol/L Carbon Dioxide (22-30) mmol/L Anion Gap mmol/L BUN (9-20) mg/dL Creatinine (0.8-1.5) mg/dL Estimated GFR ml/min BUN/Creatinine Ratio % Glucose (75-100) mg/dL POC Glucose (70-105) Hemoglobin A1c (4-6) % Lactic Acid (0.7-2.0) mmol/L Calcium (8.4-10.2) mg/dL Phosphorus (2.5-4.5) mg/dL Magnesium 2.30 (1.7-2.3) mg/dL Total Bilirubin (0.1-1.2) mg/dL AST (5-40) units/L ALT (7-56) units/L Alkaline Phosphatase (35-129) units/L Ammonia 32.0 (25-60) umol/L Total Creatine Kinase (55-170) units/L CK-MB (CK-2) (0.0-4.0) ng/mL CK-MB (CK-2) Rel Index (0-4) Troponin T (0.00-0.029) ng/mL Total Protein (6.3-8.2) g/dL Albumin (3.9-5) g/dL Albumin/Globulin Ratio % Triglycerides (2-149) mg/dL Cholesterol (50-199) mg/dL LDL Cholesterol Direct (50-130) mg/dL HDL Cholesterol (40-59) mg/dL Cholesterol/HDL Ratio % TSH (0.270-4.200) mlU/mL Free T4 (0.76-1.46) ng/dL Urine Color (Yellow) Urine Turbidity (Clear) Urine pH (5.0-7.0) Ur Specific [place] (1.003-1.030) Urine Protein (Negative) mg/dL Urine Glucose (UA) (Negative) mg/dL Urine Ketones (Negative) mg/dL Urine Blood (Negative) Urine Nitrite (Negative) Urine Bilirubin (Negative) Urine Urobilinogen (<2.0) mg/dL Ur Leukocyte Esterase (Negative) Urine WBC (Auto) (0.0-6.0) /HPF Urine RBC (Auto) (0.0-6.0) /HPF U Epithel Cells (Auto) (0-13.0) /HPF Urine Mucus /HPF Salicylates (2.8-20.0) mg/dL Urine Opiates Screen Urine Methadone Screen Acetaminophen (10.0-30.0) ug/mL Ur Barbiturates Screen Valproic Acid (50-100) ug/mL Ur Phencyclidine Scrn Ur Amphetamines Screen U Benzodiazepines Scrn Urine Cocaine Screen U Marijuana (THC) Screen Drugs of Abuse Note Plasma/Serum Alcohol < 0.01 (0-0.07) % 12/26/17 12/26/17 12/26/17 Range/Units 15:24 17:04 17:04 WBC (4.5-11.0) K/mm3 RBC (3.65-5.03) M/mm3 Hgb (11.8-15.2) gm/dl Hct (35.5-45.6) % MCV (84-94) fl MCH (28-32) pg MCHC (32-34) % RDW (13.2-15.2) % Plt Count (140-440) K/mm3 Lymph % (Auto) (13.4-35.0) % [place] % (Auto) (0.0-7.3) % Eos % (Auto) (0.0-4.3) % Baso % (Auto) (0.0-1.8) % Lymph # (1.2-5.4) K/mm3 [place] # (0.0-0.8) K/mm3 Eos # (0.0-0.4) K/mm3 Baso # (0.0-0.1) K/mm3 Seg Neutrophils % (40.0-70.0) % Seg Neutrophils # (1.8-7.7) K/mm3 PT (12.2-14.9) Sec. INR (0.87-1.13) APTT (24.2-36.6) Sec. POC ABG pH (7.35-7.45) POC ABG pCO2 (35-45) POC ABG pO2 (80-105) POC ABG HCO3 POC ABG Total CO2 POC ABG O2 Sat POC ABG Base Excess VBG pH (7.320-7.420) FiO2 % Sodium (137-145) mmol/L Potassium (3.6-5.0) mmol/L Chloride (98-107) mmol/L Carbon Dioxide (22-30) mmol/L Anion Gap mmol/L BUN (9-20) mg/dL Creatinine (0.8-1.5) mg/dL Estimated GFR ml/min BUN/Creatinine Ratio % Glucose (75-100) mg/dL POC Glucose (70-105) Hemoglobin A1c (4-6) % Lactic Acid (0.7-2.0) mmol/L Calcium (8.4-10.2) mg/dL Phosphorus (2.5-4.5) mg/dL Magnesium (1.7-2.3) mg/dL Total Bilirubin (0.1-1.2) mg/dL AST (5-40) units/L ALT (7-56) units/L Alkaline Phosphatase (35-129) units/L Ammonia (25-60) umol/L Total Creatine Kinase (55-170) units/L CK-MB (CK-2) (0.0-4.0) ng/mL CK-MB (CK-2) Rel Index (0-4) Troponin T (0.00-0.029) ng/mL Total Protein (6.3-8.2) g/dL Albumin (3.9-5) g/dL Albumin/Globulin Ratio % Triglycerides (2-149) mg/dL Cholesterol (50-199) mg/dL LDL Cholesterol Direct (50-130) mg/dL HDL Cholesterol (40-59) mg/dL Cholesterol/HDL Ratio % TSH 1.810 (0.270-4.200) mlU/mL Free T4 0.80 (0.76-1.46) ng/dL Urine Color Yellow (Yellow) Urine Turbidity Clear (Clear) Urine pH 6.0 (5.0-7.0) Ur Specific [place] 1.015 (1.003-1.030) Urine Protein 30 mg/dl (Negative) mg/dL Urine Glucose (UA) Neg (Negative) mg/dL Urine Ketones Neg (Negative) mg/dL Urine Blood Sm (Negative) Urine Nitrite Neg (Negative) Urine Bilirubin Neg (Negative) Urine Urobilinogen 4.0 (<2.0) mg/dL Ur Leukocyte Esterase Neg (Negative) Urine WBC (Auto) < 1.0 (0.0-6.0) /HPF Urine RBC (Auto) 4.0 (0.0-6.0) /HPF U Epithel Cells (Auto) < 1.0 (0-13.0) /HPF Urine Mucus Few /HPF Salicylates (2.8-20.0) mg/dL Urine Opiates Screen Presumptive positive Urine Methadone Screen Presumptive negative Acetaminophen (10.0-30.0) ug/mL Ur Barbiturates Screen Presumptive negative Valproic Acid (50-100) ug/mL Ur Phencyclidine Scrn Presumptive negative Ur Amphetamines Screen Presumptive negative U Benzodiazepines Scrn Presumptive negative Urine Cocaine Screen Presumptive negative U Marijuana (THC) Screen Presumptive negative Drugs of Abuse Note Disclamer Plasma/Serum Alcohol (0-0.07) % 12/26/17 12/26/17 12/26/17 Range/Units 17:28 19:44 19:44 WBC (4.5-11.0) K/mm3 RBC (3.65-5.03) M/mm3 Hgb (11.8-15.2) gm/dl Hct (35.5-45.6) % MCV (84-94) fl MCH (28-32) pg MCHC (32-34) % RDW (13.2-15.2) % Plt Count (140-440) K/mm3 Lymph % (Auto) (13.4-35.0) % [place] % (Auto) (0.0-7.3) % Eos % (Auto) (0.0-4.3) % Baso % (Auto) (0.0-1.8) % Lymph # (1.2-5.4) K/mm3 [place] # (0.0-0.8) K/mm3 Eos # (0.0-0.4) K/mm3 Baso # (0.0-0.1) K/mm3 Seg Neutrophils % (40.0-70.0) % Seg Neutrophils # (1.8-7.7) K/mm3 PT (12.2-14.9) Sec. INR (0.87-1.13) APTT (24.2-36.6) Sec. POC ABG pH 7.532 H (7.35-7.45) POC ABG pCO2 37.6 (35-45) POC ABG pO2 52 L (80-105) POC ABG HCO3 31.5 POC ABG Total CO2 33 POC ABG O2 Sat 90 POC ABG Base Excess 9 VBG pH (7.320-7.420) FiO2 3 % Sodium (137-145) mmol/L Potassium (3.6-5.0) mmol/L Chloride (98-107) mmol/L Carbon Dioxide (22-30) mmol/L Anion Gap mmol/L BUN (9-20) mg/dL Creatinine (0.8-1.5) mg/dL Estimated GFR ml/min BUN/Creatinine Ratio % Glucose (75-100) mg/dL POC Glucose (70-105) Hemoglobin A1c (4-6) % Lactic Acid 2.30 H* (0.7-2.0) mmol/L Calcium (8.4-10.2) mg/dL Phosphorus (2.5-4.5) mg/dL Magnesium (1.7-2.3) mg/dL Total Bilirubin (0.1-1.2) mg/dL AST (5-40) units/L ALT (7-56) units/L Alkaline Phosphatase (35-129) units/L Ammonia (25-60) umol/L Total Creatine Kinase (55-170) units/L CK-MB (CK-2) (0.0-4.0) ng/mL CK-MB (CK-2) Rel Index (0-4) Troponin T 0.153 H* (0.00-0.029) ng/mL Total Protein (6.3-8.2) g/dL Albumin (3.9-5) g/dL Albumin/Globulin Ratio % Triglycerides (2-149) mg/dL Cholesterol (50-199) mg/dL LDL Cholesterol Direct (50-130) mg/dL HDL Cholesterol (40-59) mg/dL Cholesterol/HDL Ratio % TSH (0.270-4.200) mlU/mL Free T4 (0.76-1.46) ng/dL Urine Color (Yellow) Urine Turbidity (Clear) Urine pH (5.0-7.0) Ur Specific [place] (1.003-1.030) Urine Protein (Negative) mg/dL Urine Glucose (UA) (Negative) mg/dL Urine Ketones (Negative) mg/dL Urine Blood (Negative) Urine Nitrite (Negative) Urine Bilirubin (Negative) Urine Urobilinogen (<2.0) mg/dL Ur Leukocyte Esterase (Negative) Urine WBC (Auto) (0.0-6.0) /HPF Urine RBC (Auto) (0.0-6.0) /HPF U Epithel Cells (Auto) (0-13.0) /HPF Urine Mucus /HPF Salicylates (2.8-20.0) mg/dL Urine Opiates Screen Urine Methadone Screen Acetaminophen (10.0-30.0) ug/mL Ur Barbiturates Screen Valproic Acid (50-100) ug/mL Ur Phencyclidine Scrn Ur Amphetamines Screen U Benzodiazepines Scrn Urine Cocaine Screen U Marijuana (THC) Screen Drugs of Abuse Note Plasma/Serum Alcohol (0-0.07) % 12/26/17 12/26/17 12/26/17 Range/Units 19:46 20:54 21:58 WBC (4.5-11.0) K/mm3 RBC (3.65-5.03) M/mm3 Hgb (11.8-15.2) gm/dl Hct (35.5-45.6) % MCV (84-94) fl MCH (28-32) pg MCHC (32-34) % RDW (13.2-15.2) % Plt Count (140-440) K/mm3 Lymph % (Auto) (13.4-35.0) % [place] % (Auto) (0.0-7.3) % Eos % (Auto) (0.0-4.3) % Baso % (Auto) (0.0-1.8) % Lymph # (1.2-5.4) K/mm3 [place] # (0.0-0.8) K/mm3 Eos # (0.0-0.4) K/mm3 Baso # (0.0-0.1) K/mm3 Seg Neutrophils % (40.0-70.0) % Seg Neutrophils # (1.8-7.7) K/mm3 PT (12.2-14.9) Sec. INR (0.87-1.13) APTT (24.2-36.6) Sec. POC ABG pH (7.35-7.45) POC ABG pCO2 (35-45) POC ABG pO2 (80-105) POC ABG HCO3 POC ABG Total CO2 POC ABG O2 Sat POC ABG Base Excess VBG pH 7.394 (7.320-7.420) FiO2 % Sodium (137-145) mmol/L Potassium (3.6-5.0) mmol/L Chloride (98-107) mmol/L Carbon Dioxide (22-30) mmol/L Anion Gap mmol/L BUN (9-20) mg/dL Creatinine (0.8-1.5) mg/dL Estimated GFR ml/min BUN/Creatinine Ratio % Glucose (75-100) mg/dL POC Glucose 134 H (70-105) Hemoglobin A1c (4-6) % Lactic Acid 3.00 H* (0.7-2.0) mmol/L Calcium (8.4-10.2) mg/dL Phosphorus (2.5-4.5) mg/dL Magnesium (1.7-2.3) mg/dL Total Bilirubin (0.1-1.2) mg/dL AST (5-40) units/L ALT (7-56) units/L Alkaline Phosphatase (35-129) units/L Ammonia (25-60) umol/L Total Creatine Kinase (55-170) units/L CK-MB (CK-2) (0.0-4.0) ng/mL CK-MB (CK-2) Rel Index (0-4) Troponin T (0.00-0.029) ng/mL Total Protein (6.3-8.2) g/dL Albumin (3.9-5) g/dL Albumin/Globulin Ratio % Triglycerides (2-149) mg/dL Cholesterol (50-199) mg/dL LDL Cholesterol Direct (50-130) mg/dL HDL Cholesterol (40-59) mg/dL Cholesterol/HDL Ratio % TSH (0.270-4.200) mlU/mL Free T4 (0.76-1.46) ng/dL Urine Color (Yellow) Urine Turbidity (Clear) Urine pH (5.0-7.0) Ur Specific [place] (1.003-1.030) Urine Protein (Negative) mg/dL Urine Glucose (UA) (Negative) mg/dL Urine Ketones (Negative) mg/dL Urine Blood (Negative) Urine Nitrite (Negative) Urine Bilirubin (Negative) Urine Urobilinogen (<2.0) mg/dL Ur Leukocyte Esterase (Negative) Urine WBC (Auto) (0.0-6.0) /HPF Urine RBC (Auto) (0.0-6.0) /HPF U Epithel Cells (Auto) (0-13.0) /HPF Urine Mucus /HPF Salicylates (2.8-20.0) mg/dL Urine Opiates Screen Urine Methadone Screen Acetaminophen (10.0-30.0) ug/mL Ur Barbiturates Screen Valproic Acid (50-100) ug/mL Ur Phencyclidine Scrn Ur Amphetamines Screen U Benzodiazepines Scrn Urine Cocaine Screen U Marijuana (THC) Screen Drugs of Abuse Note Plasma/Serum Alcohol (0-0.07) % 12/26/17 12/27/17 12/27/17 Range/Units 22:32 00:02 07:35 WBC (4.5-11.0) K/mm3 RBC (3.65-5.03) M/mm3 Hgb (11.8-15.2) gm/dl Hct (35.5-45.6) % MCV (84-94) fl MCH (28-32) pg MCHC (32-34) % RDW (13.2-15.2) % Plt Count (140-440) K/mm3 Lymph % (Auto) (13.4-35.0) % [place] % (Auto) (0.0-7.3) % Eos % (Auto) (0.0-4.3) % Baso % (Auto) (0.0-1.8) % Lymph # (1.2-5.4) K/mm3 [place] # (0.0-0.8) K/mm3 Eos # (0.0-0.4) K/mm3 Baso # (0.0-0.1) K/mm3 Seg Neutrophils % (40.0-70.0) % Seg Neutrophils # (1.8-7.7) K/mm3 PT (12.2-14.9) Sec. INR (0.87-1.13) APTT (24.2-36.6) Sec. POC ABG pH 7.477 H (7.35-7.45) POC ABG pCO2 44.4 (35-45) POC ABG pO2 66 L (80-105) POC ABG HCO3 32.8 POC ABG Total CO2 34 POC ABG O2 Sat 94 POC ABG Base Excess 9 VBG pH (7.320-7.420) FiO2 40 % Sodium (137-145) mmol/L Potassium (3.6-5.0) mmol/L Chloride (98-107) mmol/L Carbon Dioxide (22-30) mmol/L Anion Gap mmol/L BUN (9-20) mg/dL Creatinine (0.8-1.5) mg/dL Estimated GFR ml/min BUN/Creatinine Ratio % Glucose (75-100) mg/dL POC Glucose 162 H (70-105) Hemoglobin A1c 5.7 (4-6) % Lactic Acid (0.7-2.0) mmol/L Calcium (8.4-10.2) mg/dL Phosphorus (2.5-4.5) mg/dL Magnesium (1.7-2.3) mg/dL Total Bilirubin (0.1-1.2) mg/dL AST (5-40) units/L ALT (7-56) units/L Alkaline Phosphatase (35-129) units/L Ammonia (25-60) umol/L Total Creatine Kinase (55-170) units/L CK-MB (CK-2) (0.0-4.0) ng/mL CK-MB (CK-2) Rel Index (0-4) Troponin T (0.00-0.029) ng/mL Total Protein (6.3-8.2) g/dL Albumin (3.9-5) g/dL Albumin/Globulin Ratio % Triglycerides (2-149) mg/dL Cholesterol (50-199) mg/dL LDL Cholesterol Direct (50-130) mg/dL HDL Cholesterol (40-59) mg/dL Cholesterol/HDL Ratio % TSH (0.270-4.200) mlU/mL Free T4 (0.76-1.46) ng/dL Urine Color (Yellow) Urine Turbidity (Clear) Urine pH (5.0-7.0) Ur Specific [place] (1.003-1.030) Urine Protein (Negative) mg/dL Urine Glucose (UA) (Negative) mg/dL Urine Ketones (Negative) mg/dL Urine Blood (Negative) Urine Nitrite (Negative) Urine Bilirubin (Negative) Urine Urobilinogen (<2.0) mg/dL Ur Leukocyte Esterase (Negative) Urine WBC (Auto) (0.0-6.0) /HPF Urine RBC (Auto) (0.0-6.0) /HPF U Epithel Cells (Auto) (0-13.0) /HPF Urine Mucus /HPF Salicylates (2.8-20.0) mg/dL Urine Opiates Screen Urine Methadone Screen Acetaminophen (10.0-30.0) ug/mL Ur Barbiturates Screen Valproic Acid (50-100) ug/mL Ur Phencyclidine Scrn Ur Amphetamines Screen U Benzodiazepines Scrn Urine Cocaine Screen U Marijuana (THC) Screen Drugs of Abuse Note Plasma/Serum Alcohol (0-0.07) % 12/27/17 12/27/17 12/27/17 Range/Units 07:35 07:35 07:35 WBC 9.9 (4.5-11.0) K/mm3 RBC 4.14 (3.65-5.03) M/mm3 Hgb 13.5 (11.8-15.2) gm/dl Hct 41.2 (35.5-45.6) % MCV 99 H (84-94) fl MCH 33 H (28-32) pg MCHC 33 (32-34) % RDW 15.3 H (13.2-15.2) % Plt Count 117 L (140-440) K/mm3 Lymph % (Auto) 14.6 (13.4-35.0) % [place] % (Auto) 14.6 H (0.0-7.3) % Eos % (Auto) 0.5 (0.0-4.3) % Baso % (Auto) 0.7 (0.0-1.8) % Lymph # 1.5 (1.2-5.4) K/mm3 [place] # 1.5 H (0.0-0.8) K/mm3 Eos # 0.0 (0.0-0.4) K/mm3 Baso # 0.1 (0.0-0.1) K/mm3 Seg Neutrophils % 69.6 (40.0-70.0) % Seg Neutrophils # 6.9 (1.8-7.7) K/mm3 PT (12.2-14.9) Sec. INR (0.87-1.13) APTT (24.2-36.6) Sec. POC ABG pH (7.35-7.45) POC ABG pCO2 (35-45) POC ABG pO2 (80-105) POC ABG HCO3 POC ABG Total CO2 POC ABG O2 Sat POC ABG Base Excess VBG pH (7.320-7.420) FiO2 % Sodium 149 H (137-145) mmol/L Potassium 4.3 (3.6-5.0) mmol/L Chloride 105.6 (98-107) mmol/L Carbon Dioxide 29 (22-30) mmol/L Anion Gap 19 mmol/L BUN 65 H (9-20) mg/dL Creatinine 1.9 H (0.8-1.5) mg/dL Estimated GFR 43 ml/min BUN/Creatinine Ratio 34 % Glucose 106 H (75-100) mg/dL POC Glucose (70-105) Hemoglobin A1c (4-6) % Lactic Acid 1.60 (0.7-2.0) mmol/L Calcium 9.4 (8.4-10.2) mg/dL Phosphorus (2.5-4.5) mg/dL Magnesium (1.7-2.3) mg/dL Total Bilirubin 0.80 (0.1-1.2) mg/dL AST 42 H (5-40) units/L ALT 24 (7-56) units/L Alkaline Phosphatase 67 (35-129) units/L Ammonia (25-60) umol/L Total Creatine Kinase (55-170) units/L CK-MB (CK-2) (0.0-4.0) ng/mL CK-MB (CK-2) Rel Index (0-4) Troponin T (0.00-0.029) ng/mL Total Protein 8.9 H (6.3-8.2) g/dL Albumin 2.5 L (3.9-5) g/dL Albumin/Globulin Ratio 0.4 % Triglycerides (2-149) mg/dL Cholesterol (50-199) mg/dL LDL Cholesterol Direct (50-130) mg/dL HDL Cholesterol (40-59) mg/dL Cholesterol/HDL Ratio % TSH (0.270-4.200) mlU/mL Free T4 (0.76-1.46) ng/dL Urine Color (Yellow) Urine Turbidity (Clear) Urine pH (5.0-7.0) Ur Specific [place] (1.003-1.030) Urine Protein (Negative) mg/dL Urine Glucose (UA) (Negative) mg/dL Urine Ketones (Negative) mg/dL Urine Blood (Negative) Urine Nitrite (Negative) Urine Bilirubin (Negative) Urine Urobilinogen (<2.0) mg/dL Ur Leukocyte Esterase (Negative) Urine WBC (Auto) (0.0-6.0) /HPF Urine RBC (Auto) (0.0-6.0) /HPF U Epithel Cells (Auto) (0-13.0) /HPF Urine Mucus /HPF Salicylates (2.8-20.0) mg/dL Urine Opiates Screen Urine Methadone Screen Acetaminophen (10.0-30.0) ug/mL Ur Barbiturates Screen Valproic Acid (50-100) ug/mL Ur Phencyclidine Scrn Ur Amphetamines Screen U Benzodiazepines Scrn Urine Cocaine Screen U Marijuana (THC) Screen Drugs of Abuse Note Plasma/Serum Alcohol (0-0.07) % 12/27/17 12/27/17 12/27/17 Range/Units 07:35 07:35 09:01 WBC (4.5-11.0) K/mm3 RBC (3.65-5.03) M/mm3 Hgb (11.8-15.2) gm/dl Hct (35.5-45.6) % MCV (84-94) fl MCH (28-32) pg MCHC (32-34) % RDW (13.2-15.2) % Plt Count (140-440) K/mm3 Lymph % (Auto) (13.4-35.0) % [place] % (Auto) (0.0-7.3) % Eos % (Auto) (0.0-4.3) % Baso % (Auto) (0.0-1.8) % Lymph # (1.2-5.4) K/mm3 [place] # (0.0-0.8) K/mm3 Eos # (0.0-0.4) K/mm3 Baso # (0.0-0.1) K/mm3 Seg Neutrophils % (40.0-70.0) % Seg Neutrophils # (1.8-7.7) K/mm3 PT (12.2-14.9) Sec. INR (0.87-1.13) APTT (24.2-36.6) Sec. POC ABG pH (7.35-7.45) POC ABG pCO2 (35-45) POC ABG pO2 (80-105) POC ABG HCO3 POC ABG Total CO2 POC ABG O2 Sat POC ABG Base Excess VBG pH (7.320-7.420) FiO2 % Sodium (137-145) mmol/L Potassium (3.6-5.0) mmol/L Chloride (98-107) mmol/L Carbon Dioxide (22-30) mmol/L Anion Gap mmol/L BUN (9-20) mg/dL Creatinine (0.8-1.5) mg/dL Estimated GFR ml/min BUN/Creatinine Ratio % Glucose (75-100) mg/dL POC Glucose 95 (70-105) Hemoglobin A1c (4-6) % Lactic Acid (0.7-2.0) mmol/L Calcium (8.4-10.2) mg/dL Phosphorus 3.40 (2.5-4.5) mg/dL Magnesium 2.40 H (1.7-2.3) mg/dL Total Bilirubin (0.1-1.2) mg/dL AST (5-40) units/L ALT (7-56) units/L Alkaline Phosphatase (35-129) units/L Ammonia (25-60) umol/L Total Creatine Kinase 430 H (55-170) units/L CK-MB (CK-2) 2.1 (0.0-4.0) ng/mL CK-MB (CK-2) Rel Index 0.4 (0-4) Troponin T 0.125 H* (0.00-0.029) ng/mL Total Protein (6.3-8.2) g/dL Albumin (3.9-5) g/dL Albumin/Globulin Ratio % Triglycerides (2-149) mg/dL Cholesterol (50-199) mg/dL LDL Cholesterol Direct (50-130) mg/dL HDL Cholesterol (40-59) mg/dL Cholesterol/HDL Ratio % TSH (0.270-4.200) mlU/mL Free T4 (0.76-1.46) ng/dL Urine Color (Yellow) Urine Turbidity (Clear) Urine pH (5.0-7.0) Ur Specific [place] (1.003-1.030) Urine Protein (Negative) mg/dL Urine Glucose (UA) (Negative) mg/dL Urine Ketones (Negative) mg/dL Urine Blood (Negative) Urine Nitrite (Negative) Urine Bilirubin (Negative) Urine Urobilinogen (<2.0) mg/dL Ur Leukocyte Esterase (Negative) Urine WBC (Auto) (0.0-6.0) /HPF Urine RBC (Auto) (0.0-6.0) /HPF U Epithel Cells (Auto) (0-13.0) /HPF Urine Mucus /HPF Salicylates (2.8-20.0) mg/dL Urine Opiates Screen Urine Methadone Screen Acetaminophen (10.0-30.0) ug/mL Ur Barbiturates Screen Valproic Acid (50-100) ug/mL Ur Phencyclidine Scrn Ur Amphetamines Screen U Benzodiazepines Scrn Urine Cocaine Screen U Marijuana (THC) Screen Drugs of Abuse Note Plasma/Serum Alcohol (0-0.07) % Coagulation 12/26/17 Range/Units 15:24 PT 16.9 H (12.2-14.9) Sec. INR 1.30 H (0.87-1.13) APTT 37.7 H (24.2-36.6) Sec. Lipids 12/26/17 Range/Units 15:24 Triglycerides 109 (2-149) mg/dL Cholesterol 101 (50-199) mg/dL HDL Cholesterol 27 L (40-59) mg/dL Cholesterol/HDL Ratio 3.74 % CBC 12/26/17 12/27/17 Range/Units 15:24 07:35 WBC 9.0 9.9 (4.5-11.0) K/mm3 RBC 4.36 4.14 (3.65-5.03) M/mm3 Hgb 14.5 13.5 (11.8-15.2) gm/dl Hct 43.5 41.2 (35.5-45.6) % Plt Count 121 L 117 L (140-440) K/mm3 Lymph # 0.7 L 1.5 (1.2-5.4) K/mm3 [place] # 1.3 H 1.5 H (0.0-0.8) K/mm3 Eos # 0.0 0.0 (0.0-0.4) K/mm3 Baso # 0.2 H 0.1 (0.0-0.1) K/mm3 Comprehensive Metabolic Panel 12/26/17 12/27/17 Range/Units 15:24 07:35 Sodium 145 149 H (137-145) mmol/L Potassium 4.9 4.3 (3.6-5.0) mmol/L Chloride 103.2 105.6 (98-107) mmol/L Carbon Dioxide 27 29 (22-30) mmol/L BUN 68 H 65 H (9-20) mg/dL Creatinine 2.2 H 1.9 H (0.8-1.5) mg/dL Glucose 123 H 106 H (75-100) mg/dL Calcium 9.3 9.4 (8.4-10.2) mg/dL AST 53 H 42 H (5-40) units/L ALT 30 24 (7-56) units/L Alkaline Phosphatase 80 67 (35-129) units/L Total Protein 9.6 H 8.9 H (6.3-8.2) g/dL Albumin 2.8 L 2.5 L (3.9-5) g/dL Assessment and Plan Chronic respiratory failure Paroxysmal atrial fibrillation On low dose eliquis as outpatient DC medtronic pacemaker implant Hx of coronary artery disease s/p CABG with an implantation of a bioprosthetic tricuspid valve in 2012 also at [facility] Normal prosthetic valve function by MICAELA 12/2016 Prior history of DVT on low dose eliquis as an outpatient Prior CVA and vascular dementia Hypertension Diabetes mellitus Acute on chronic renal failure Chronic non-specific troponinemia No ECG in chart this admission Bilateral LE wounds and venostasis Normal functioning bio-prosthetic tricuspid valve. EF 55-60% Recommendations: Resume cardizem for afib suppression Hold on adding low dose asa due to borderline thrombocytopenia Not a candidate for any further invasive cardiac work-up
[2017-12-27] MEDS: NOVOLOG SUB-Q SCH ×4 (14:08→23:34)
[2017-12-27] MEDS: ELIQUIS PO SCH ×2 (14:10→21:08)
[2017-12-27] MEDS: COLACE PO SCH ×2 (14:10→23:34)
[2017-12-27 16:00] LABS: Creatine Kinase MB 1.9 ng/mL (0.0-4.0)
[2017-12-27] MEDS: PEPCID IV SCH (16:22)
[2017-12-27] MEDS: CARDIZEM PO SCH ×3 (16:23→21:08)
--- NOTE | 2017-12-27 16:35 | Progress Note ---
Assessment and Plan Assessment and plan: Patient is a 67 yo man with a plethora of serious end-stage co-morbities including chronic respiratory failure on O2 due to COPD, CHF, CVA with right- sided paralysis, seizure disorder functional quadriplegia, previous leg DVT on Eliquis, Advance dementia, diabetes, hypertension, CAD, CKD stage 3, INDIO, Afib s /p PPM, CAD s/p CABG with bioprosthetic tricuspid valve with chronic elevated troponin, prior Intubation due to mucus plugging s/p bronch 05/03/2017 who presents with altered mental status, currently on a Venturi mask pCXR reported as Cardiomegaly. Aortic calcification and tortuosity. Low lung volumes with perihilar and bibasilar opacities and blunting of the left costophrenic angle. Consider could be partly related to bronchovascular crowding /atelectasis, but consider superimposed acute process such as congestive heart failure with atelectasis or pneumonitis. Consider PA and lateral chest radiograph to begin further characterization if there is continued clinical concern. -Acute on chronic hypoxic respiratory failure: added duoneb, continue o2, consulted Pulmonology -Sepsis due to aspiration pneumonitis: follow cultures, started on Abx, Aspiration precautions -Paroxysmal A. fib with a PPM: Cardiology evaluated -History of DVT on Eliquis: continue Eliquis -Acute on chronic renal failure, vasomotor nephropathy, poa: continue ivf, repeat levels -Acute metabolic encephalopathy, POA per above -Functional Quadriplegia: ordered PT and wound care -Severe malnutrition: Consult dietary dietitian -Troponemia: Cardiology is following I don't know his baseline, full code per EMR. prognosis is guarded. History Interval history: Patient was seen and examined. Follow-up on current diagnosis of altered mental status, still present. Overnight uneventful. Patient nonverbal, sleeping but easily arousable. Imaging, nursing note, chart, labs and old chart reviewed. Hospitalist Physical - Physical exam Narrative exam: GEN: Currently debilitated, chronically ill-appearing man sleeping but easily arousable nonverbal HEENT: NCAT, EOMI, PERRL, OP Clear NECK: supple, no adenopathy, no thyromegaly, no JVD CVS/HEART: Irregularly irregular, NORMAL S1S2, pulses present bilaterally CHEST/LUNGS: CTA B, Symmetrical chest expansion, good air entry bilaterally GI/Abdomen: soft, NTND, good bowel sounds, no guarding or rebound /Bladder: no suprapubic tenderness, no CVA or paraspinal tenderness EXT/Skin: Chronic bilateral venous stasis bilateral legs MSK: Protracted legs Neuro: CN 2-12 grossly intact, doesn't follow commands Psych: Confused - Constitutional Vitals: Temp Pulse Resp BP Pulse Ox 97.9 F 91 H 18 115/80 87 12/27/17 13:20 12/27/17 07:45 12/27/17 13:20 12/27/17 13:20 12/27/17 08:53 General appearance: Absent: mild distress Results - Labs CBC & Chem 7: 12/27/17 07:35 12/27/17 07:35 Labs: Laboratory Last Values WBC 9.9 K/mm3 (4.5-11.0) 12/27/17 07:35 RBC 4.14 M/mm3 (3.65-5.03) 12/27/17 07:35 Hgb 13.5 gm/dl (11.8-15.2) 12/27/17 07:35 Hct 41.2 % (35.5-45.6) 12/27/17 07:35 MCV 99 fl (84-94) H 12/27/17 07:35 MCH 33 pg (28-32) H 12/27/17 07:35 MCHC 33 % (32-34) 12/27/17 07:35 RDW 15.3 % (13.2-15.2) H 12/27/17 07:35 Plt Count 117 K/mm3 (140-440) L 12/27/17 07:35 Lymph % (Auto) 14.6 % (13.4-35.0) 12/27/17 07:35 [place] % (Auto) 14.6 % (0.0-7.3) H 12/27/17 07:35 Eos % (Auto) 0.5 % (0.0-4.3) 12/27/17 07:35 Baso % (Auto) 0.7 % (0.0-1.8) 12/27/17 07:35 Lymph # 1.5 K/mm3 (1.2-5.4) 12/27/17 07:35 [place] # 1.5 K/mm3 (0.0-0.8) H 12/27/17 07:35 Eos # 0.0 K/mm3 (0.0-0.4) 12/27/17 07:35 Baso # 0.1 K/mm3 (0.0-0.1) 12/27/17 07:35 Seg Neutrophils % 69.6 % (40.0-70.0) 12/27/17 07:35 Seg Neutrophils # 6.9 K/mm3 (1.8-7.7) 12/27/17 07:35 PT 16.9 Sec. (12.2-14.9) H 12/26/17 15:24 INR 1.30 (0.87-1.13) H 12/26/17 15:24 APTT 37.7 Sec. (24.2-36.6) H 12/26/17 15:24 POC ABG pH 7.477 (7.35-7.45) H 12/27/17 00:02 POC ABG pCO2 44.4 (35-45) 12/27/17 00:02 POC ABG pO2 66 (80-105) L 12/27/17 00:02 POC ABG HCO3 32.8 12/27/17 00:02 POC ABG Total CO2 34 12/27/17 00:02 POC ABG O2 Sat 94 12/27/17 00:02 POC ABG Base Excess 9 12/27/17 00:02 VBG pH 7.394 (7.320-7.420) 12/26/17 19:46 FiO2 40 % 12/27/17 00:02 Sodium 149 mmol/L (137-145) H 12/27/17 07:35 Potassium 4.3 mmol/L (3.6-5.0) 12/27/17 07:35 Chloride 105.6 mmol/L (98-107) 12/27/17 07:35 Carbon Dioxide 29 mmol/L (22-30) 12/27/17 07:35 Anion Gap 19 mmol/L 12/27/17 07:35 BUN 65 mg/dL (9-20) H 12/27/17 07:35 Creatinine 1.9 mg/dL (0.8-1.5) H 12/27/17 07:35 Estimated GFR 43 ml/min 12/27/17 07:35 BUN/Creatinine Ratio 34 % 12/27/17 07:35 Glucose 106 mg/dL (75-100) H 12/27/17 07:35 POC Glucose 95 (70-105) 12/27/17 09:01 Hemoglobin A1c 5.7 % (4-6) 12/27/17 07:35 Lactic Acid 1.60 mmol/L (0.7-2.0) 12/27/17 07:35 Calcium 9.4 mg/dL (8.4-10.2) 12/27/17 07:35 Phosphorus 3.40 mg/dL (2.5-4.5) 12/27/17 07:35 Magnesium 2.40 mg/dL (1.7-2.3) H 12/27/17 07:35 Total Bilirubin 0.80 mg/dL (0.1-1.2) 12/27/17 07:35 AST 42 units/L (5-40) H 12/27/17 07:35 ALT 24 units/L (7-56) 12/27/17 07:35 Alkaline Phosphatase 67 units/L (35-129) 12/27/17 07:35 Ammonia 32.0 umol/L (25-60) 12/26/17 15:24 Total Creatine Kinase 301 units/L (55-170) H 12/27/17 14:56 CK-MB (CK-2) 1.9 ng/mL (0.0-4.0) 12/27/17 14:56 CK-MB (CK-2) Rel Index 0.6 (0-4) 12/27/17 14:56 Troponin T 0.103 ng/mL (0.00-0.029) H* 12/27/17 14:56 Total Protein 8.9 g/dL (6.3-8.2) H 12/27/17 07:35 Albumin 2.5 g/dL (3.9-5) L 12/27/17 07:35 Albumin/Globulin Ratio 0.4 % 12/27/17 07:35 Triglycerides 109 mg/dL (2-149) 12/26/17 15:24 Cholesterol 101 mg/dL (50-199) 12/26/17 15:24 LDL Cholesterol Direct 53 mg/dL (50-130) 12/26/17 15:24 HDL Cholesterol 27 mg/dL (40-59) L 12/26/17 15:24 Cholesterol/HDL Ratio 3.74 % 12/26/17 15:24 TSH 1.810 mlU/mL (0.270-4.200) 12/26/17 15:24 Free T4 0.80 ng/dL (0.76-1.46) 12/26/17 15:24 Urine Color Yellow (Yellow) 12/26/17 17:04 Urine Turbidity Clear (Clear) 12/26/17 17:04 Urine pH 6.0 (5.0-7.0) 12/26/17 17:04 Ur Specific [place] 1.015 (1.003-1.030) 12/26/17 17:04 Urine Protein 30 mg/dl mg/dL (Negative) 12/26/17 17:04 Urine Glucose (UA) Neg mg/dL (Negative) 12/26/17 17:04 Urine Ketones Neg mg/dL (Negative) 12/26/17 17:04 Urine Blood Sm (Negative) 12/26/17 17:04 Urine Nitrite Neg (Negative) 12/26/17 17:04 Urine Bilirubin Neg (Negative) 12/26/17 17:04 Urine Urobilinogen 4.0 mg/dL (<2.0) 12/26/17 17:04 Ur Leukocyte Esterase Neg (Negative) 12/26/17 17:04 Urine WBC (Auto) < 1.0 /HPF (0.0-6.0) 12/26/17 17:04 Urine RBC (Auto) 4.0 /HPF (0.0-6.0) 12/26/17 17:04 U Epithel Cells (Auto) < 1.0 /HPF (0-13.0) 12/26/17 17:04 Urine Mucus Few /HPF 12/26/17 17:04 Salicylates < 0.3 mg/dL (2.8-20.0) L 12/26/17 15:24 Urine Opiates Screen Presumptive positive 12/26/17 17:04 Urine Methadone Screen Presumptive negative 12/26/17 17:04 Acetaminophen < 15.0 ug/mL (10.0-30.0) 12/26/17 15:24 Ur Barbiturates Screen Presumptive negative 12/26/17 17:04 Valproic Acid 51.2 ug/mL (50-100) 12/26/17 15:24 Ur Phencyclidine Scrn Presumptive negative 12/26/17 17:04 Ur Amphetamines Screen Presumptive negative 12/26/17 17:04 U Benzodiazepines Scrn Presumptive negative 12/26/17 17:04 Urine Cocaine Screen Presumptive negative 12/26/17 17:04 U Marijuana (THC) Screen Presumptive negative 12/26/17 17:04 Drugs of Abuse Note Disclamer 12/26/17 17:04 Plasma/Serum Alcohol < 0.01 % (0-0.07) 12/26/17 15:24 Blood Type A POSITIVE 12/27/17 07:35 Antibody Screen Negative 12/27/17 07:35
[2017-12-27] MEDS ORDERED: LEVAQUIN 750MG/150ML 750 MG/150 ML BAG IV SCH (17:00)
[2017-12-27] MEDS ORDERED: ZOSYN/NS 2.25 GM/50ML 2.25 GM/50 ML BAG IV SCH (17:00)
[2017-12-27] MEDS: DUONEB *Not for PRN Use IH SCH (20:59)
[2017-12-27] MEDS: NACL 0.45% 1000 ML 1,000 ML IV SCH (21:09)
[2017-12-27] MEDS ORDERED: SENOKOT PO SCH (22:00)
[2017-12-28] MEDS: ZOSYN/NS 3.375GM/50ML 3.375 GM/50 ML BAG IV SCH ×3 (00:30→16:47)
[2017-12-28] MEDS: NACL 0.45% 1000 ML 1,000 ML IV SCH ×3 (04:25→20:12)
[2017-12-28] MEDS: CARDIZEM PO SCH ×4 (04:25→22:41)
[2017-12-28 06:21] LABS: Hematocrit 36.8 % (35.5-45.6); Hemoglobin 12.4 gm/dl (11.8-15.2); Mean Corpuscular HGB Conc 34 % (32-34); Mean Corpuscular Hemoglobin 33 pg (28-32); Mean Corpuscular Volume 99 fl (84-94); Platelet Count 120 K/mm3 (140-440); Red Blood Count 3.71 M/mm3 (3.65-5.03); Red Cell Distribution Width 15.5 % (13.2-15.2)
[2017-12-28 06:31] LABS: Calcium 8.8 mg/dL (8.4-10.2)
[2017-12-28] MEDS: PULMICORT IH SCH ×2 (08:21→21:51)
[2017-12-28] MEDS: BROVANA NEBU IH SCH ×2 (08:21→21:51)
[2017-12-28] MEDS: DUONEB *Not for PRN Use IH SCH ×3 (08:21→21:51)
[2017-12-28] MEDS: NOVOLOG SUB-Q SCH ×4 (10:13→22:41)
[2017-12-28] MEDS: COLACE PO SCH (10:38)
[2017-12-28] MEDS: PEPCID IV SCH (10:38)
[2017-12-28] MEDS: ELIQUIS PO SCH (10:38)
[2017-12-28] MEDS ORDERED: Fluarix Quad 2017-2018(36 MOS+ IM ONE (12:00)
[2017-12-28] MEDS ORDERED: PNEUMOVAX 23 IM ONE (12:00)
--- NOTE | 2017-12-28 12:44 | Progress Note ---
Assessment and Plan Assessment and plan: Patient is a 67 yo man with a plethora of serious end-stage co-morbities including chronic respiratory failure on O2 due to COPD, CHF, CVA with right- sided paralysis, seizure disorder functional quadriplegia, previous leg DVT on Eliquis, Advance dementia, diabetes, hypertension, CAD, CKD stage 3, INDIO, Afib s /p PPM, CAD s/p CABG with bioprosthetic tricuspid valve with chronic elevated troponin, prior Intubation due to mucus plugging s/p bronch 05/03/2017 who presents with altered mental status, currently on a Venturi mask pCXR reported as Cardiomegaly. Aortic calcification and tortuosity. Low lung volumes with perihilar and bibasilar opacities and blunting of the left costophrenic angle. Consider could be partly related to bronchovascular crowding /atelectasis, but consider superimposed acute process such as congestive heart failure with atelectasis or pneumonitis. Consider PA and lateral chest radiograph to begin further characterization if there is continued clinical concern. -Acute on chronic hypoxic respiratory failure: added duoneb, continue o2, consulted Pulmonology -Sepsis due to aspiration pneumonitis: follow cultures, started on Abx, Aspiration precautions -Paroxysmal A. fib with a PPM: Cardiology following -History of DVT on Eliquis: continue Eliquis -Acute on chronic renal failure, vasomotor nephropathy, poa: continue ivf, repeat levels -Acute metabolic encephalopathy, POA per above -Functional Quadriplegia: ordered PT and wound care -Severe malnutrition: Consult dietary dietitian -Troponemia: Cardiology is following full code prognosis is guarded. Patient failed speech evaluation, NPO, switch oral medications to iv including Eliquis, to sq lovenox 1mg/kg, depakote to depacon, Hospital doesn't have IV cardizem so I called Dr. Ortega to discuss, await call back. Positive blood cultures, gpc clusters, start iv vancomycin, consulted ID History Interval history: Patient was seen and examined. Follow-up on current diagnosis of altered mental status, still present. Overnight uneventful. Patient nonverbal, sleeping but easily arousable. Imaging, nursing note, chart, labs and old chart reviewed. Hospitalist Physical - Physical exam Narrative exam: GEN: Currently debilitated, chronically ill-appearing man sleeping but easily arousable nonverbal HEENT: NCAT, EOMI, PERRL, OP Clear NECK: supple, no adenopathy, no thyromegaly, no JVD CVS/HEART: Irregularly irregular, NORMAL S1S2, pulses present bilaterally CHEST/LUNGS: CTA B, Symmetrical chest expansion, good air entry bilaterally GI/Abdomen: soft, NTND, good bowel sounds, no guarding or rebound /Bladder: no suprapubic tenderness, no CVA or paraspinal tenderness EXT/Skin: Chronic bilateral venous stasis bilateral legs MSK: Protracted legs Neuro: CN 2-12 grossly intact, doesn't follow commands Psych: Confused - Constitutional Vitals: Temp Pulse Resp BP Pulse Ox 97.9 F 76 18 126/89 94 12/28/17 04:02 12/28/17 09:03 12/28/17 09:03 12/28/17 04:02 12/28/17 09:45 General appearance: Absent: mild distress Results - Labs CBC & Chem 7: 12/28/17 05:39 12/28/17 05:39 Labs: Laboratory Last Values WBC 8.8 K/mm3 (4.5-11.0) 12/28/17 05:39 RBC 3.71 M/mm3 (3.65-5.03) 12/28/17 05:39 Hgb 12.4 gm/dl (11.8-15.2) 12/28/17 05:39 Hct 36.8 % (35.5-45.6) 12/28/17 05:39 MCV 99 fl (84-94) H 12/28/17 05:39 MCH 33 pg (28-32) H 12/28/17 05:39 MCHC 34 % (32-34) 12/28/17 05:39 RDW 15.5 % (13.2-15.2) H 12/28/17 05:39 Plt Count 120 K/mm3 (140-440) L 12/28/17 05:39 Lymph % (Auto) 14.6 % (13.4-35.0) 12/27/17 07:35 [place] % (Auto) 14.6 % (0.0-7.3) H 12/27/17 07:35 Eos % (Auto) 0.5 % (0.0-4.3) 12/27/17 07:35 Baso % (Auto) 0.7 % (0.0-1.8) 12/27/17 07:35 Lymph # 1.5 K/mm3 (1.2-5.4) 12/27/17 07:35 [place] # 1.5 K/mm3 (0.0-0.8) H 12/27/17 07:35 Eos # 0.0 K/mm3 (0.0-0.4) 12/27/17 07:35 Baso # 0.1 K/mm3 (0.0-0.1) 12/27/17 07:35 Seg Neutrophils % 69.6 % (40.0-70.0) 12/27/17 07:35 Seg Neutrophils # 6.9 K/mm3 (1.8-7.7) 12/27/17 07:35 PT 16.9 Sec. (12.2-14.9) H 12/26/17 15:24 INR 1.30 (0.87-1.13) H 12/26/17 15:24 APTT 37.7 Sec. (24.2-36.6) H 12/26/17 15:24 POC ABG pH 7.477 (7.35-7.45) H 12/27/17 00:02 POC ABG pCO2 44.4 (35-45) 12/27/17 00:02 POC ABG pO2 66 (80-105) L 12/27/17 00:02 POC ABG HCO3 32.8 12/27/17 00:02 POC ABG Total CO2 34 12/27/17 00:02 POC ABG O2 Sat 94 12/27/17 00:02 POC ABG Base Excess 9 12/27/17 00:02 VBG pH 7.394 (7.320-7.420) 12/26/17 19:46 FiO2 40 % 12/27/17 00:02 Sodium 149 mmol/L (137-145) H 12/28/17 05:39 Potassium 4.4 mmol/L (3.6-5.0) 12/28/17 05:39 Chloride 108.6 mmol/L (98-107) H 12/28/17 05:39 Carbon Dioxide 29 mmol/L (22-30) 12/28/17 05:39 Anion Gap 16 mmol/L 12/28/17 05:39 BUN 69 mg/dL (9-20) H 12/28/17 05:39 Creatinine 1.9 mg/dL (0.8-1.5) H 12/28/17 05:39 Estimated GFR 43 ml/min 12/28/17 05:39 BUN/Creatinine Ratio 36 % 12/28/17 05:39 Glucose 112 mg/dL (75-100) H 12/28/17 05:39 POC Glucose 91 (70-105) 12/28/17 07:50 Hemoglobin A1c 5.7 % (4-6) 12/27/17 07:35 Lactic Acid 1.60 mmol/L (0.7-2.0) 12/27/17 07:35 Calcium 8.8 mg/dL (8.4-10.2) 12/28/17 05:39 Phosphorus 3.40 mg/dL (2.5-4.5) 12/27/17 07:35 Magnesium 2.40 mg/dL (1.7-2.3) H 12/27/17 07:35 Total Bilirubin 0.80 mg/dL (0.1-1.2) 12/27/17 07:35 AST 42 units/L (5-40) H 12/27/17 07:35 ALT 24 units/L (7-56) 12/27/17 07:35 Alkaline Phosphatase 67 units/L (35-129) 12/27/17 07:35 Ammonia 32.0 umol/L (25-60) 12/26/17 15:24 Total Creatine Kinase 301 units/L (55-170) H 12/27/17 14:56 CK-MB (CK-2) 1.9 ng/mL (0.0-4.0) 12/27/17 14:56 CK-MB (CK-2) Rel Index 0.6 (0-4) 12/27/17 14:56 Troponin T 0.103 ng/mL (0.00-0.029) H* 12/27/17 14:56 Total Protein 8.9 g/dL (6.3-8.2) H 12/27/17 07:35 Albumin 2.5 g/dL (3.9-5) L 12/27/17 07:35 Albumin/Globulin Ratio 0.4 % 12/27/17 07:35 Triglycerides 109 mg/dL (2-149) 12/26/17 15:24 Cholesterol 101 mg/dL (50-199) 12/26/17 15:24 LDL Cholesterol Direct 53 mg/dL (50-130) 12/26/17 15:24 HDL Cholesterol 27 mg/dL (40-59) L 12/26/17 15:24 Cholesterol/HDL Ratio 3.74 % 12/26/17 15:24 TSH 1.810 mlU/mL (0.270-4.200) 12/26/17 15:24 Free T4 0.80 ng/dL (0.76-1.46) 12/26/17 15:24 Urine Color Yellow (Yellow) 12/26/17 17:04 Urine Turbidity Clear (Clear) 12/26/17 17:04 Urine pH 6.0 (5.0-7.0) 12/26/17 17:04 Ur Specific [place] 1.015 (1.003-1.030) 12/26/17 17:04 Urine Protein 30 mg/dl mg/dL (Negative) 12/26/17 17:04 Urine Glucose (UA) Neg mg/dL (Negative) 12/26/17 17:04 Urine Ketones Neg mg/dL (Negative) 12/26/17 17:04 Urine Blood Sm (Negative) 12/26/17 17:04 Urine Nitrite Neg (Negative) 12/26/17 17:04 Urine Bilirubin Neg (Negative) 12/26/17 17:04 Urine Urobilinogen 4.0 mg/dL (<2.0) 12/26/17 17:04 Ur Leukocyte Esterase Neg (Negative) 12/26/17 17:04 Urine WBC (Auto) < 1.0 /HPF (0.0-6.0) 12/26/17 17:04 Urine RBC (Auto) 4.0 /HPF (0.0-6.0) 12/26/17 17:04 U Epithel Cells (Auto) < 1.0 /HPF (0-13.0) 12/26/17 17:04 Urine Mucus Few /HPF 12/26/17 17:04 Salicylates < 0.3 mg/dL (2.8-20.0) L 12/26/17 15:24 Urine Opiates Screen Presumptive positive 12/26/17 17:04 Urine Methadone Screen Presumptive negative 12/26/17 17:04 Acetaminophen < 15.0 ug/mL (10.0-30.0) 12/26/17 15:24 Ur Barbiturates Screen Presumptive negative 12/26/17 17:04 Valproic Acid 51.2 ug/mL (50-100) 12/26/17 15:24 Ur Phencyclidine Scrn Presumptive negative 12/26/17 17:04 Ur Amphetamines Screen Presumptive negative 12/26/17 17:04 U Benzodiazepines Scrn Presumptive negative 12/26/17 17:04 Urine Cocaine Screen Presumptive negative 12/26/17 17:04 U Marijuana (THC) Screen Presumptive negative 12/26/17 17:04 Drugs of Abuse Note Disclamer 12/26/17 17:04 Plasma/Serum Alcohol < 0.01 % (0-0.07) 12/26/17 15:24 Blood Type A POSITIVE 12/27/17 07:35 Antibody Screen Negative 12/27/17 07:35
[2017-12-28] MEDS ORDERED: VANCOMYCIN PHARMACY TO DOSE IV SCH (13:00)
--- NOTE | 2017-12-28 13:38 | Progress Note ---
Assessment and Plan - Patient Problems (1) Elevated troponin Current Visit: Yes Status: Acute Plan to address problem: Conservative cardiac management in this clinical setting of a nonspecific isolated mild troponin elevation. Subjective Date of service: 12/28/17 Interval history: Patient is noncommunicative, resting in bed, no acute distress. Objective Vital Signs Temp Pulse Pulse Pulse Resp Resp BP 12/28/17 12:35 97.9 F 76 20 128/84 12/28/17 09:45 12/28/17 09:03 76 18 12/28/17 08:52 12/28/17 08:40 77 18 12/28/17 08:26 77 77 20 12/28/17 07:46 98.3 F 75 16 122/77 12/28/17 04:02 97.9 F 84 18 126/89 12/27/17 23:40 98.2 F 88 18 120/81 12/27/17 22:00 80 18 12/27/17 21:02 90 14 12/27/17 20:51 12/27/17 20:47 93 H 16 12/27/17 19:39 97.8 F 89 18 122/83 12/27/17 17:01 98.6 F 86 20 106/75 Pulse Ox 12/28/17 12:35 91 12/28/17 09:45 94 12/28/17 09:03 12/28/17 08:52 98 12/28/17 08:40 12/28/17 08:26 96 12/28/17 07:46 98 12/28/17 04:02 100 12/27/17 23:40 96 12/27/17 22:00 12/27/17 21:02 12/27/17 20:51 100 12/27/17 20:47 12/27/17 19:39 99 12/27/17 17:01 100 - Physical Examination General: Cachectic, Other (noncommunicative) HEENT: Positive: PERRL Neck: Positive: neck supple Cardiac: Positive: Irregularly Regular Lungs: Positive: Decreased Breath Sounds Neuro: Positive: Weakness Abdomen: Positive: Soft Skin: Positive: Clear Extremities: Absent: edema - Labs and Meds Cardiac Enzymes 12/27/17 Range/Units 14:56 CK-MB (CK-2) 1.9 (0.0-4.0) ng/mL CBC 12/28/17 Range/Units 05:39 WBC 8.8 (4.5-11.0) K/mm3 RBC 3.71 (3.65-5.03) M/mm3 Hgb 12.4 (11.8-15.2) gm/dl Hct 36.8 (35.5-45.6) % Plt Count 120 L (140-440) K/mm3 Comprehensive Metabolic Panel 12/28/17 Range/Units 05:39 Sodium 149 H (137-145) mmol/L Potassium 4.4 (3.6-5.0) mmol/L Chloride 108.6 H (98-107) mmol/L Carbon Dioxide 29 (22-30) mmol/L BUN 69 H (9-20) mg/dL Creatinine 1.9 H (0.8-1.5) mg/dL Glucose 112 H (75-100) mg/dL Calcium 8.8 (8.4-10.2) mg/dL
[2017-12-28] MEDS ORDERED: VANCOMYCIN 1,750 MG in NACL 0.9% 500 ML 500 ML IV ONE (14:00)
--- NOTE | 2017-12-28 17:27 | Consultation ---
History of Present Illness - Reason for Consult Consult date: 12/28/17 GPC in blood culture Requesting physician: BLADIMIR NERI - History of Present Illness 67 yo M multiple medical problems including chronic respiratory failure on O2 due to COPD, CHF, CVA with right-sided paralysis, seizure disorder, functional quadriplegia, previous leg DVT, advanced dementia, diabetes, hypertension, CAD, CKD stage 3, INDIO, Afib s/p PPM, CAD s/p CABG with bioprosthetic tricuspid valve in 2012 also at [facility], chronic elevated troponin, prior intubation due to mucus plugging s/p bronch 05/03/2017 who was transferred from the alf to the ER 12/26 with altered mentation. History is obtained from records since patient is unable to provide it. In the ER his initial temperature was 97.7 ->101.6, pulse 110, RR 23, SO2 91%, BP 127/89. Pt was started on a venturi Mask. Labs were significant for Bun/creatinine 68/2.2, lactic acid 2.3, troponin 0.178. WBC 9.0, plts 121. UA was negative. CXR showed perihilar and bibasilar opacities and blunting of the left costophrenic angle. Blood cultures were collected on admission. 1 out of 4 bottles is growing gram- positive cocci in clusters. Patient is currently on Zosyn, Levaquin and IV vancomycin. Infectious disease service is seeing the patient today to help with further antibiotic management. Microbiology: Blood cultures 12/27/17: 1/4 bottles with GPC clusters. Urine cultures 12/26/17: Neg. Current Antimicrobials: Zosyn 12/27/17. Levaquin 12/27/17. Vancomycin 12/27/17. Past History Past Medical History: atrial fib, CAD, COPD, DVT, renal failure, stroke, other ( Past Medical History: CAD, diabetes, DVT, heart failure, hypertension) Past Surgical History: Other ([employer] DC PPM) Medications and Allergies Allergies Allergy/AdvReac Type Severity Reaction Status Date / Time No Known Allergies Allergy Verified 06/05/16 12:19 Home Medications Medication Instructions Recorded Confirmed Last Taken Type Docusate Sodium [Colace CAP] 100 mg PO BID 04/29/17 12/27/17 1 Week Ago History ~12/20/17 Insulin Aspart Prot/Aspart(Nf) See Protocol SC QDAY 04/29/17 12/27/17 1 Day Ago History [NovoLOG Mix 70/30 VIAL] ~12/26/17 Metoprolol [Lopressor TAB] 50 mg PO BID 04/29/17 12/27/17 1 Week Ago History ~12/20/17 Sennosides [Senna] 8.6 mg PO QHS 04/29/17 12/27/17 1 Week Ago History ~12/20/17 ALBUTEROL NEB's [Proventil 0.083% 1 vial IH Q6H PRN #30 nebu 05/09/17 12/27/17 1 Week Ago Rx NEBS] ~12/20/17 Apixaban [Eliquis] 2.5 mg PO Q12HR #60 tablet 05/09/17 12/27/17 1 Week Ago Rx ~12/20/17 AtorvaSTATin [Lipitor] 10 mg PO QHS #30 tablet 05/09/17 12/27/17 1 Week Ago Rx ~12/20/17 Budesoni/Formotero 160-4.5(Nf) 2 puff IH BID #30 inha 05/09/17 12/27/17 1 Week Ago Rx [Symbicort 160-4.5 (Nf)] ~12/20/17 Diltiazem [Cardizem] 60 mg PO Q8HR #90 tablet 05/09/17 12/27/17 1 Week Ago Rx ~12/20/17 Divalproex ER [Depakote ER] 500 mg PO BID #60 tablet 05/09/17 12/27/17 1 Week Ago Rx ~12/20/17 Furosemide [Lasix TAB] 20 mg PO QDAY #60 tablet 05/09/17 12/27/17 1 Week Ago Rx ~12/20/17 Gabapentin [Neurontin] 100 mg PO QHS #30 capsule 05/09/17 12/27/17 1 Week Ago Rx ~12/20/17 Pantoprazole [Protonix TAB] 40 mg PO DAILY #30 tablet 05/09/17 12/27/17 1 Week Ago Rx ~12/20/17 Active Meds: Active Medications Acetaminophen (Tylenol) 650 mg OR Q4H PRN PRN Reason: Pain MILD(1-3)/Fever >100.5/ROSAS Albuterol (Proventil) 2.5 mg IH Q4HRT PRN PRN Reason: Shortness Of Breath Albuterol/Ipratropium (Duoneb *Not For Prn Use*) 1 ampul IH Q6HRT [facility] Last Admin: 12/28/17 13:57 Dose: 1 ampul Arformoterol Tartrate (Brovana Nebu) 15 mcg IH Q12HRT [facility] Last Admin: 12/28/17 08:21 Dose: 15 mcg Bisacodyl (Dulcolax) 10 mg OR QDAY PRN PRN Reason: Constipation unrelieved by MOM Budesonide (Pulmicort) 1 mg IH Q12HRT [facility] Last Admin: 12/28/17 08:21 Dose: 0.5 mg Dextrose (D50w (25gm) Syringe) 50 ml IV PRN PRN PRN Reason: Hypoglycemia Diltiazem HCl (Cardizem) 30 mg PO Q6H [facility] Last Admin: 12/28/17 15:12 Dose: Not Given Enoxaparin Sodium (Lovenox) 90 mg SUB-Q Q12HR [facility] Famotidine (Pepcid) 20 mg IV DAILY [facility] Last Admin: 12/28/17 10:38 Dose: 20 mg Sodium Chloride (Nacl 0.45% 1000 Ml) 1,000 mls @ 150 mls/hr IV DIRECT [facility] Last Admin: 12/28/17 10:37 Dose: 150 mls/hr Levofloxacin/Dextrose (Levaquin 750mg/150ml) 750 mg in 150 mls @ 100 mls/hr IV Q48H [facility] PRN Reason: Protocol Valproate Sodium 500 mg/ (Sodium Chloride) 105 mls @ 100 mls/hr IV Q12HR [facility] Vancomycin HCl 1,250 mg/ (Sodium Chloride) 262.5 mls @ 166.667 mls/hr IV Q24H [facility] Cefepime HCl (Maxipime/Ns 2 Gm/100 Ml) 2 gm in 100 mls @ 200 mls/hr IV Q12HR [facility] PRN Reason: Protocol Cefepime HCl 2 gm/ Sodium (Chloride) 20 mls @ 20 mls/10 min IV Q12H [facility] Insulin Aspart (Novolog) 0 units SUB-Q ACHS [facility] PRN Reason: Protocol Last Admin: 12/28/17 16:47 Dose: Not Given Morphine Sulfate (Morphine) 2 mg IV Q4H PRN PRN Reason: Pain, Moderate (4-6) Ondansetron HCl (Zofran) 4 mg IV Q8H PRN PRN Reason: N/V unrelieved by Samir Vancomycin HCl (Vancomycin Pharmacy To Dose) 1 each IV PKCONSULT [facility] PRN Reason: Protocol Review of Systems ROS unobtainable: due to mental status Physical Examination - Physical Exam Narrative exam: General appearance: Pt in NAD, lethargic. HEENT: NC/AT. Anicteric sclerae, moist conjunctivae; PERRLA. Normal external ears. Abundant oral secretions. Oxygen via NC. Neck: Trachea midline; supple, no thyromegaly or lymphadenopathy Lungs: Coarse BS. CV: S1,S2. Pacemaker in place, site w/o erythema, drainage or tenderness. Abdomen: Soft, non-tender; non-distended, no masses or hepatosplenomegaly Extremities: No cyanosis, clubbing or edema. Skin: Chronic venous stasis dermatitis BLE. Psych: Lethargic. Neuro: Lethargic. RUE and RLE weakness. Lines: No central line or alejandro catheter - Constitutional Vitals: Vital Signs Temp Pulse Resp BP Pulse Ox 97.9 F 78 18 128/84 91 12/28/17 12:35 12/28/17 15:00 12/28/17 15:00 12/28/17 12:35 12/28/17 12:35 Temperature -Last 24 Hours Temperature 97.9 F Temperature 98.3 F Temperature 97.9 F Temperature 98.2 F Temperature 97.8 F Results - Labs CBC & Chem 7: 12/28/17 05:39 12/28/17 05:39 Labs: Abnormal lab results 12/27/17 12/28/17 12/28/17 Range/Units 21:13 05:39 05:39 MCV 99 H (84-94) fl MCH 33 H (28-32) pg RDW 15.5 H (13.2-15.2) % Plt Count 120 L (140-440) K/mm3 Sodium 149 H (137-145) mmol/L Chloride 108.6 H (98-107) mmol/L BUN 69 H (9-20) mg/dL Creatinine 1.9 H (0.8-1.5) mg/dL Glucose 112 H (75-100) mg/dL POC Glucose 106 H (70-105) 12/28/17 Range/Units 12:40 MCV (84-94) fl MCH (28-32) pg RDW (13.2-15.2) % Plt Count (140-440) K/mm3 Sodium (137-145) mmol/L Chloride (98-107) mmol/L BUN (9-20) mg/dL Creatinine (0.8-1.5) mg/dL Glucose (75-100) mg/dL POC Glucose 122 H (70-105) Assessment and Plan Assessment: 1) Sepsis: Present on admission, manifested by fever, tachycardia, increased lactate. Differential diagnosis includes pneumonia. Other possibility is bacteremia. 2) GPC clusters bacteremia. Has 1/4 bottles positive. Probably a contaminant e.g Coagulase Neg Staph. In the presence of a Tricuspid prosthetic valve and a pacemaker also need to consider a true bacteremia if more blood cultures become positive. 3) Bilateral lung opacities. Could be due to aspiration or HCAP in this NH patient. Need to cover for Gram negative organisms. We will also rule out influenza. 4) Acute encephalopathy. Could be toxic metabolic, due to sepsis. 5) GUICHO on CKD 6) Elevated lactic acid present on admission. Resolved 7) Elevated troponin. Chronic as per cards. 8) Acute on chronic respiratory failure. On home oxygen. 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 10) Diabetes type 2. Recommendations: -Repeat blood cultures x2 today. -Will follow identification and sensitivities of GPC growing in the blood cultures. -Check influenza PCR, Legionella urine antigen, Streptococcus pneumoniae urine antigen. -Check 2D echocardiogram. -Check sputum culture if able to provide specimen. -Check CRP. -Stop Zosyn. -Start Cefepime. -Continue IV vancomycin and levofloxacin. -We will continue to adjust the antibiotics based on culture results. Thank you for your consultation, will follow up with you. Judith Jc MD Infectious Diseases Specialist [facility] ([facility]) M [phone]
[2017-12-28] MEDS: MAXIPIME 2 GM in NACL 0.9% 20 ML IV SCH (18:47)
[2017-12-28] MEDS ORDERED: LEVAQUIN 750MG/150ML 750 MG/150 ML BAG IV SCH (20:00)
[2017-12-28] MEDS ORDERED: MAXIPIME/NS 2 GM/100 ML 2 GM/100 ML BAG IV SCH (22:00)
[2017-12-28] MEDS: LOVENOX SUB-Q SCH (22:38)
[2017-12-28] MEDS: DepaCON 500 MG in NACL 0.9% 100 ML IV SCH (22:38)
[2017-12-29] MEDS: DUONEB *Not for PRN Use IH SCH ×4 (02:59→22:24)
[2017-12-29] MEDS: NACL 0.45% 1000 ML 1,000 ML IV SCH (05:47)
[2017-12-29] MEDS: CARDIZEM PO SCH ×4 (06:34→23:48)
[2017-12-29] MEDS: MAXIPIME 2 GM in NACL 0.9% 20 ML IV SCH ×2 (06:34→19:47)
[2017-12-29 08:10] LABS: Hematocrit 34.4 % (35.5-45.6); Hemoglobin 11.6 gm/dl (11.8-15.2); Mean Corpuscular HGB Conc 34 % (32-34); Mean Corpuscular Hemoglobin 33 pg (28-32); Mean Corpuscular Volume 98 fl (84-94); Platelet Count 108 K/mm3 (140-440)
[2017-12-29] MEDS: NOVOLOG SUB-Q SCH ×4 (08:30→23:48)
[2017-12-29 08:31] LABS: BUN/Creatinine Ratio 37; Blood Urea Nitrogen 52 mg/dL (9-20); Calcium 8.7 mg/dL (8.4-10.2); Hemolysis Index 8
[2017-12-29] MEDS: DepaCON 500 MG in NACL 0.9% 100 ML IV SCH (10:00)
[2017-12-29] MEDS: PEPCID IV SCH (10:00)
[2017-12-29] MEDS: LOVENOX SUB-Q SCH ×2 (10:00→23:27)
[2017-12-29] MEDS: PULMICORT IH SCH ×2 (10:26→22:23)
[2017-12-29] MEDS: BROVANA NEBU IH SCH ×2 (10:27→22:23)
--- NOTE | 2017-12-29 13:29 | Progress Note ---
Assessment and Plan - Patient Problems (1) Elevated troponin Current Visit: Yes Status: Acute Plan to address problem: Conservative cardiac management. Subjective Interval history: Patient is noncommunicative, resting in bed, no acute distress. Objective Vital Signs Temp Pulse Pulse Resp Resp BP Pulse Ox 12/29/17 10:35 75 16 12/29/17 10:27 75 16 100 12/29/17 06:01 99.5 F 18 132/83 12/29/17 05:46 75 137/84 100 12/28/17 23:42 98.2 F 79 18 126/77 100 12/28/17 22:05 78 18 12/28/17 21:52 76 18 100 12/28/17 20:06 97.8 F 75 18 127/80 100 12/28/17 16:29 97.9 F 76 18 132/87 100 12/28/17 15:00 78 18 12/28/17 14:50 77 18 - Physical Examination General: Cachectic, Other (noncommunicative) HEENT: Positive: PERRL Neck: Positive: neck supple Cardiac: Positive: Reg Rate and Rhythm Lungs: Positive: Decreased Breath Sounds Neuro: Positive: Weakness Abdomen: Positive: Soft Skin: Positive: Clear Extremities: Absent: edema - Labs and Meds CBC 12/29/17 Range/Units 07:31 WBC 6.2 (4.5-11.0) K/mm3 RBC 3.50 L (3.65-5.03) M/mm3 Hgb 11.6 L (11.8-15.2) gm/dl Hct 34.4 L (35.5-45.6) % Plt Count 108 L (140-440) K/mm3 Comprehensive Metabolic Panel 12/29/17 Range/Units 07:31 Sodium 151 H (137-145) mmol/L Potassium 3.8 (3.6-5.0) mmol/L Chloride 113.4 H (98-107) mmol/L Carbon Dioxide 27 (22-30) mmol/L BUN 52 H (9-20) mg/dL Creatinine 1.4 (0.8-1.5) mg/dL Glucose 92 (75-100) mg/dL Calcium 8.7 (8.4-10.2) mg/dL
[2017-12-29] MEDS: VANCOMYCIN 1,250 MG in NACL 0.9% 250ML 250 ML IV SCH (14:00)
--- NOTE | 2017-12-29 15:19 | Progress Note ---
Assessment and Plan Assessment and plan: Patient is a 67 yo man with a plethora of serious end-stage co-morbities including chronic respiratory failure on O2 due to COPD, CHF, CVA with right- sided paralysis, seizure disorder functional quadriplegia, previous leg DVT on Eliquis, Advance dementia, diabetes, hypertension, CAD, CKD stage 3, INDIO, Afib s /p PPM, CAD s/p CABG with bioprosthetic tricuspid valve with chronic elevated troponin, prior Intubation due to mucus plugging s/p bronch 05/03/2017 who presents with altered mental status, currently on a Venturi mask pCXR reported as Cardiomegaly. Aortic calcification and tortuosity. Low lung volumes with perihilar and bibasilar opacities and blunting of the left costophrenic angle. Consider could be partly related to bronchovascular crowding /atelectasis, but consider superimposed acute process such as congestive heart failure with atelectasis or pneumonitis. Consider PA and lateral chest radiograph to begin further characterization if there is continued clinical concern. -Acute on chronic hypoxic respiratory failure: added duoneb, continue o2, consulted Pulmonology -Sepsis due to aspiration pneumonitis: follow cultures, started on Abx, Aspiration precautions -Paroxysmal A. fib with a PPM: Cardiology following -History of DVT on Eliquis: continue Eliquis -Acute on chronic renal failure, vasomotor nephropathy, poa: continue ivf, repeat levels -Acute metabolic encephalopathy, POA per above -Functional Quadriplegia: ordered PT and wound care -Severe malnutrition: Consult dietary dietitian -Troponemia: Cardiology is following full code prognosis is guarded. Patient failed speech evaluation, NPO, switch oral medications to iv including Eliquis, to sq lovenox 1mg/kg, depakote to depacon, [facility] doesn't have IV cardizem so I called Dr. Ortega to discuss, await call back. Positive blood cultures, gpc clusters, start iv vancomycin, consulted ID RN unable to peripheral IV, ordered NG tube placement History Interval history: Patient was seen and examined. Follow-up on current diagnosis of altered mental status, still present. Overnight uneventful. Patient nonverbal, sleeping but easily arousable. Imaging, nursing note, chart, labs and old chart reviewed. Hospitalist Physical - Physical exam Narrative exam: GEN: Currently debilitated, chronically ill-appearing man sleeping but easily arousable nonverbal HEENT: NCAT, EOMI, PERRL, OP Clear NECK: supple, no adenopathy, no thyromegaly, no JVD CVS/HEART: Irregularly irregular, NORMAL S1S2, pulses present bilaterally CHEST/LUNGS: CTA B, Symmetrical chest expansion, good air entry bilaterally GI/Abdomen: soft, NTND, good bowel sounds, no guarding or rebound /Bladder: no suprapubic tenderness, no CVA or paraspinal tenderness EXT/Skin: Chronic bilateral venous stasis bilateral legs MSK: Protracted legs Neuro: CN 2-12 grossly intact, doesn't follow commands Psych: Confused - Constitutional Vitals: Temp Pulse Resp BP Pulse Ox 99.5 F 75 16 132/83 100 12/29/17 06:01 12/29/17 10:35 12/29/17 10:35 12/29/17 06:01 12/29/17 10:27 General appearance: Absent: mild distress Results - Labs CBC & Chem 7: 12/29/17 07:31 12/29/17 07:31 Labs: Laboratory Last Values WBC 6.2 K/mm3 (4.5-11.0) 12/29/17 07:31 RBC 3.50 M/mm3 (3.65-5.03) L 12/29/17 07:31 Hgb 11.6 gm/dl (11.8-15.2) L 12/29/17 07:31 Hct 34.4 % (35.5-45.6) L 12/29/17 07:31 MCV 98 fl (84-94) H 12/29/17 07:31 MCH 33 pg (28-32) H 12/29/17 07:31 MCHC 34 % (32-34) 12/29/17 07:31 RDW 15.0 % (13.2-15.2) 12/29/17 07:31 Plt Count 108 K/mm3 (140-440) L 12/29/17 07:31 Lymph % (Auto) 14.6 % (13.4-35.0) 12/27/17 07:35 [place] % (Auto) 14.6 % (0.0-7.3) H 12/27/17 07:35 Eos % (Auto) 0.5 % (0.0-4.3) 12/27/17 07:35 Baso % (Auto) 0.7 % (0.0-1.8) 12/27/17 07:35 Lymph # 1.5 K/mm3 (1.2-5.4) 12/27/17 07:35 [place] # 1.5 K/mm3 (0.0-0.8) H 12/27/17 07:35 Eos # 0.0 K/mm3 (0.0-0.4) 12/27/17 07:35 Baso # 0.1 K/mm3 (0.0-0.1) 12/27/17 07:35 Seg Neutrophils % 69.6 % (40.0-70.0) 12/27/17 07:35 Seg Neutrophils # 6.9 K/mm3 (1.8-7.7) 12/27/17 07:35 PT 16.9 Sec. (12.2-14.9) H 12/26/17 15:24 INR 1.30 (0.87-1.13) H 12/26/17 15:24 APTT 37.7 Sec. (24.2-36.6) H 12/26/17 15:24 POC ABG pH 7.477 (7.35-7.45) H 12/27/17 00:02 POC ABG pCO2 44.4 (35-45) 12/27/17 00:02 POC ABG pO2 66 (80-105) L 12/27/17 00:02 POC ABG HCO3 32.8 12/27/17 00:02 POC ABG Total CO2 34 12/27/17 00:02 POC ABG O2 Sat 94 12/27/17 00:02 POC ABG Base Excess 9 12/27/17 00:02 VBG pH 7.394 (7.320-7.420) 12/26/17 19:46 FiO2 40 % 12/27/17 00:02 Sodium 151 mmol/L (137-145) H 12/29/17 07:31 Potassium 3.8 mmol/L (3.6-5.0) 12/29/17 07:31 Chloride 113.4 mmol/L (98-107) H 12/29/17 07:31 Carbon Dioxide 27 mmol/L (22-30) 12/29/17 07:31 Anion Gap 14 mmol/L 12/29/17 07:31 BUN 52 mg/dL (9-20) H 12/29/17 07:31 Creatinine 1.4 mg/dL (0.8-1.5) 12/29/17 07:31 Estimated GFR > 60 ml/min 12/29/17 07:31 BUN/Creatinine Ratio 37 % 12/29/17 07:31 Glucose 92 mg/dL (75-100) 12/29/17 07:31 POC Glucose 91 (70-105) 12/29/17 12:07 Hemoglobin A1c 5.7 % (4-6) 12/27/17 07:35 Lactic Acid 1.60 mmol/L (0.7-2.0) 12/27/17 07:35 Calcium 8.7 mg/dL (8.4-10.2) 12/29/17 07:31 Phosphorus 3.40 mg/dL (2.5-4.5) 12/27/17 07:35 Magnesium 2.40 mg/dL (1.7-2.3) H 12/27/17 07:35 Total Bilirubin 0.80 mg/dL (0.1-1.2) 12/27/17 07:35 AST 42 units/L (5-40) H 12/27/17 07:35 ALT 24 units/L (7-56) 12/27/17 07:35 Alkaline Phosphatase 67 units/L (35-129) 12/27/17 07:35 Ammonia 32.0 umol/L (25-60) 12/26/17 15:24 Total Creatine Kinase 301 units/L (55-170) H 12/27/17 14:56 CK-MB (CK-2) 1.9 ng/mL (0.0-4.0) 12/27/17 14:56 CK-MB (CK-2) Rel Index 0.6 (0-4) 12/27/17 14:56 Troponin T 0.103 ng/mL (0.00-0.029) H* 12/27/17 14:56 C-Reactive Protein 6.60 mg/dL (0.00-1.30) H 12/29/17 07:31 Total Protein 8.9 g/dL (6.3-8.2) H 12/27/17 07:35 Albumin 2.5 g/dL (3.9-5) L 12/27/17 07:35 Albumin/Globulin Ratio 0.4 % 12/27/17 07:35 Triglycerides 109 mg/dL (2-149) 12/26/17 15:24 Cholesterol 101 mg/dL (50-199) 12/26/17 15:24 LDL Cholesterol Direct 53 mg/dL (50-130) 12/26/17 15: HDL Cholesterol 27 mg/dL (40-59) L 12/26/17: Cholesterol/HDL Ratio 3.74 % 12/26/17 15:24 TSH 1.810 mlU/mL (0.270-4.200) 12/26/17: Free T4 0.80 ng/dL (0.76-1.46) 12/26/17 15:24 Urine Color Yellow (Yellow) 12/26/17 17:04 Urine Turbidity Clear (Clear) 12/26/17 17:04 Urine pH 6.0 (5.0-7.0) 12/26/17 17:04 Ur Specific [place] 1.015 (1.003-1.030) 12/26/17 17:04 Urine Protein 30 mg/dl mg/dL (Negative) 12/26/17 17:04 Urine Glucose (UA) Neg mg/dL (Negative) 12/26/17 17:04 Urine Ketones Neg mg/dL (Negative) 12/26/17 17:04 Urine Blood Sm (Negative) 12/26/17 17:04 Urine Nitrite Neg (Negative) 12/26/17 17:04 Urine Bilirubin Neg (Negative) 12/26/17 17:04 Urine Urobilinogen 4.0 mg/dL (<2.0) 12/26/17 17:04 Ur Leukocyte Esterase Neg (Negative) 12/26/17 17:04 Urine WBC (Auto) < 1.0 /HPF (0.0-6.0) 12/26/17 17:04 Urine RBC (Auto) 4.0 /HPF (0.0-6.0) 12/26/17 17:04 U Epithel Cells (Auto) < 1.0 /HPF (0-13.0) 12/26/17 17:04 Urine Mucus Few /HPF 12/26/17 17:04 Salicylates < 0.3 mg/dL (2.8-20.0) L 12/26/17 15:24 Urine Opiates Screen Presumptive positive 12/26/17 17:04 Urine Methadone Screen Presumptive negative 12/26/17 17:04 Acetaminophen < 15.0 ug/mL (10.0-30.0) 12/26/17 15:24 Ur Barbiturates Screen Presumptive negative 12/26/17 17:04 Valproic Acid 51.2 ug/mL (50-100) 12/26/17 15:24 Ur Phencyclidine Scrn Presumptive negative 12/26/17 17:04 Ur Amphetamines Screen Presumptive negative 12/26/17 17:04 U Benzodiazepines Scrn Presumptive negative 12/26/17 17:04 Urine Cocaine Screen Presumptive negative 12/26/17 17:04 U Marijuana (THC) Screen Presumptive negative 12/26/17 17:04 Drugs of Abuse Note Disclamer 12/26/17 17:04 Plasma/Serum Alcohol < 0.01 % (0-0.07) 12/26/17 15:24 Blood Type A POSITIVE 12/27/17 07:35 Antibody Screen Negative 12/27/17 07:35
--- NOTE | 2017-12-29 15:59 | Consultation ---
History of Present Illness Consult date: 12/29/17 Requesting physician: BLADIMIR NERI Reason for consult: other (Patient known to us from prior hospital stay) History of present illness: 67 y/o male, last seen in house by our group in 2016, summer was intubated as that time, unsure if he has followed up admitted with dyspnea. Patient is not able to provide history so all from chart. Appears there is a concern for aspiration. Per consult order, the patient was known to us. He appears to have required a venti mask briefly when his heart rate was not controlled but has been on nasal cannula now for 2 days with stable sats. ICU nurse at bedside attempting to obtain IV. Past History Past Medical History: atrial fib, CAD, COPD, DVT, renal failure, stroke, other ( Past Medical History: CAD, diabetes, DVT, heart failure, hypertension) Past Surgical History: Other ([employer] DC PPM) Medications and Allergies Allergies Allergy/AdvReac Type Severity Reaction Status Date / Time No Known Allergies Allergy Verified 06/05/16 12:19 Home Medications Medication Instructions Recorded Confirmed Last Taken Type Docusate Sodium [Colace CAP] 100 mg PO BID 04/29/17 12/27/17 1 Week Ago History ~12/20/17 Insulin Aspart Prot/Aspart(Nf) See Protocol SC QDAY 04/29/17 12/27/17 1 Day Ago History [NovoLOG Mix 70/30 VIAL] ~12/26/17 Metoprolol [Lopressor TAB] 50 mg PO BID 04/29/17 12/27/17 1 Week Ago History ~12/20/17 Sennosides [Senna] 8.6 mg PO QHS 04/29/17 12/27/17 1 Week Ago History ~12/20/17 ALBUTEROL NEB's [Proventil 0.083% 1 vial IH Q6H PRN #30 nebu 05/09/17 12/27/17 1 Week Ago Rx NEBS] ~12/20/17 Apixaban [Eliquis] 2.5 mg PO Q12HR #60 tablet 05/09/17 12/27/17 1 Week Ago Rx ~12/20/17 AtorvaSTATin [Lipitor] 10 mg PO QHS #30 tablet 05/09/17 12/27/17 1 Week Ago Rx ~12/20/17 Budesoni/Formotero 160-4.5(Nf) 2 puff IH BID #30 inha 05/09/17 12/27/17 1 Week Ago Rx [Symbicort 160-4.5 (Nf)] ~12/20/17 Diltiazem [Cardizem] 60 mg PO Q8HR #90 tablet 05/09/17 12/27/17 1 Week Ago Rx ~12/20/17 Divalproex ER [Depakote ER] 500 mg PO BID #60 tablet 05/09/17 12/27/17 1 Week Ago Rx ~12/20/17 Furosemide [Lasix TAB] 20 mg PO QDAY #60 tablet 05/09/17 12/27/17 1 Week Ago Rx ~12/20/17 Gabapentin [Neurontin] 100 mg PO QHS #30 capsule 05/09/17 12/27/17 1 Week Ago Rx ~12/20/17 Pantoprazole [Protonix TAB] 40 mg PO DAILY #30 tablet 05/09/17 12/27/17 1 Week Ago Rx ~12/20/17 Active Meds: Active Medications Acetaminophen (Tylenol) 650 mg WA Q4H PRN PRN Reason: Pain MILD(1-3)/Fever >100.5/ROSAS Albuterol (Proventil) 2.5 mg IH Q4HRT PRN PRN Reason: Shortness Of Breath Albuterol/Ipratropium (Duoneb *Not For Prn Use*) 1 ampul IH Q6HRT [facility] Last Admin: 12/29/17 15:24 Dose: 1 ampul Arformoterol Tartrate (Brovana Nebu) 15 mcg IH Q12HRT [facility] Last Admin: 12/29/17 10:27 Dose: 15 mcg Bisacodyl (Dulcolax) 10 mg WA QDAY PRN PRN Reason: Constipation unrelieved by MOM Budesonide (Pulmicort) 1 mg IH Q12HRT [facility] Last Admin: 12/29/17 10:26 Dose: 1 mg Dextrose (D50w (25gm) Syringe) 50 ml IV PRN PRN PRN Reason: Hypoglycemia Diltiazem HCl (Cardizem) 30 mg PO Q6H [facility] Last Admin: 12/29/17 10:00 Dose: Not Given Enoxaparin Sodium (Lovenox) 90 mg SUB-Q Q12HR [facility] Last Admin: 12/29/17 10:00 Dose: 90 mg Famotidine (Pepcid) 20 mg IV DAILY [facility] Last Admin: 12/29/17 10:00 Dose: Not Given Sodium Chloride (Nacl 0.45% 1000 Ml) 1,000 mls @ 150 mls/hr IV DIRECT [facility] Last Admin: 12/29/17 05:47 Dose: 150 mls/hr Valproate Sodium 500 mg/ (Sodium Chloride) 105 mls @ 100 mls/hr IV Q12HR [facility] Last Admin: 12/29/17 10:00 Dose: Not Given Vancomycin HCl 1,250 mg/ (Sodium Chloride) 262.5 mls @ 166.667 mls/hr IV Q24H [facility] Last Admin: 12/29/17 14:00 Dose: Not Given Cefepime HCl 2 gm/ Sodium (Chloride) 20 mls @ 20 mls/10 min IV Q12H [facility] Last Admin: 12/29/17 06:34 Dose: 20 mls/10 min Levofloxacin/Dextrose (Levaquin 750mg/150ml) 750 mg in 150 mls @ 100 mls/hr IV Q24H [facility] PRN Reason: Protocol Insulin Aspart (Novolog) 0 units SUB-Q ACHS [facility] PRN Reason: Protocol Last Admin: 12/29/17 12:25 Dose: Not Given Morphine Sulfate (Morphine) 2 mg IV Q4H PRN PRN Reason: Pain, Moderate (4-6) Ondansetron HCl (Zofran) 4 mg IV Q8H PRN PRN Reason: N/V unrelieved by Samir Vancomycin HCl (Vancomycin Pharmacy To Dose) 1 each IV PKCONSULT [facility] PRN Reason: Protocol Review of Systems ROS unobtainable: due to mental status Physical Examination Vital signs: Vital Signs Pulse BP Pulse Ox 90 132/90 94 12/26/17 12:46 12/26/17 12:46 12/26/17 12:46 General appearance: no acute distress, alert (but not responding appropriately) ENT: oropharynx moist Neck: supple Ascultation: Bilateral: diminished breath sounds, rales Results - Laboratory Findings CBC and BMP: 12/29/17 07:31 12/29/17 07:31 ABG POC ABG pH 7.477 (7.35-7.45) H 12/27/17 00:02 POC ABG pCO2 44.4 (35-45) 12/27/17 00:02 POC ABG pO2 66 (80-105) L 12/27/17 00:02 POC ABG HCO3 32.8 12/27/17 00:02 POC ABG Total CO2 34 12/27/17 00:02 POC ABG O2 Sat 94 12/27/17 00:02 PT/INR, D-dimer PT 16.9 Sec. (12.2-14.9) H 12/26/17 15:24 INR 1.30 (0.87-1.13) H 12/26/17 15:24 Abnormal lab findings: Abnormal Labs 12/26/17 12/26/17 12/26/17 15:24 15:24 15:24 RBC Hgb Hct MCV 100 H MCH 33 H RDW 15.4 H Plt Count 121 L Lymph % (Auto) 7.6 L Lake % (Auto) 14.4 H Baso % (Auto) 2.1 H Lymph # 0.7 L Lake # 1.3 H Baso # 0.2 H Seg Neutrophils % 75.4 H PT 16.9 H INR 1.30 H APTT 37.7 H POC ABG pH POC ABG pO2 Sodium Chloride BUN 68 H Creatinine 2.2 H Glucose 123 H POC Glucose Lactic Acid Magnesium AST 53 H Total Creatine Kinase Troponin T 0.178 H* C-Reactive Protein Total Protein 9.6 H Albumin 2.8 L HDL Cholesterol 27 L Salicylates 12/26/17 12/26/17 12/26/17 15:24 17:28 19:44 RBC Hgb Hct MCV MCH RDW Plt Count Lymph % (Auto) [place] % (Auto) Baso % (Auto) Lymph # [place] # Baso # Seg Neutrophils % PT INR APTT POC ABG pH 7.532 H POC ABG pO2 52 L Sodium Chloride BUN Creatinine Glucose POC Glucose Lactic Acid 2.30 H* Magnesium AST Total Creatine Kinase Troponin T C-Reactive Protein Total Protein Albumin HDL Cholesterol Salicylates < 0.3 L 12/26/17 12/26/17 12/26/17 19:44 20:54 21:58 RBC Hgb Hct MCV MCH RDW Plt Count Lymph % (Auto) [place] % (Auto) Baso % (Auto) Lymph # [place] # Baso # Seg Neutrophils % PT INR APTT POC ABG pH POC ABG pO2 Sodium Chloride BUN Creatinine Glucose POC Glucose 134 H Lactic Acid 3.00 H* Magnesium AST Total Creatine Kinase Troponin T 0.153 H* C-Reactive Protein Total Protein Albumin HDL Cholesterol Salicylates 12/26/17 12/27/17 12/27/17 22:32 00:02 07:35 RBC Hgb Hct MCV 99 H MCH 33 H RDW 15.3 H Plt Count 117 L Lymph % (Auto) [place] % (Auto) 14.6 H Baso % (Auto) Lymph # [place] # 1.5 H Baso # Seg Neutrophils % PT INR APTT POC ABG pH 7.477 H POC ABG pO2 66 L Sodium Chloride BUN Creatinine Glucose POC Glucose 162 H Lactic Acid Magnesium AST Total Creatine Kinase Troponin T C-Reactive Protein Total Protein Albumin HDL Cholesterol Salicylates 12/27/17 12/27/17 12/27/17 07:35 07:35 07:35 RBC Hgb Hct MCV MCH RDW Plt Count Lymph % (Auto) [place] % (Auto) Baso % (Auto) Lymph # [place] # Baso # Seg Neutrophils % PT INR APTT POC ABG pH POC ABG pO2 Sodium 149 H Chloride BUN 65 H Creatinine 1.9 H Glucose 106 H POC Glucose Lactic Acid Magnesium 2.40 H AST 42 H Total Creatine Kinase 430 H Troponin T 0.125 H* C-Reactive Protein Total Protein 8.9 H Albumin 2.5 L HDL Cholesterol Salicylates 12/27/17 12/27/17 12/28/17 14:56 21:13 05:39 RBC Hgb Hct MCV 99 H MCH 33 H RDW 15.5 H Plt Count 120 L Lymph % (Auto) [place] % (Auto) Baso % (Auto) Lymph # [place] # Baso # Seg Neutrophils % PT INR APTT POC ABG pH POC ABG pO2 Sodium Chloride BUN Creatinine Glucose POC Glucose 106 H Lactic Acid Magnesium AST Total Creatine Kinase 301 H Troponin T 0.103 H* C-Reactive Protein Total Protein Albumin HDL Cholesterol Salicylates 12/28/17 12/28/17 12/28/17 05:39 12:40 21:08 RBC Hgb Hct MCV MCH RDW Plt Count Lymph % (Auto) [place] % (Auto) Baso % (Auto) Lymph # [place] # Baso # Seg Neutrophils % PT INR APTT POC ABG pH POC ABG pO2 Sodium 149 H Chloride 108.6 H BUN 69 H Creatinine 1.9 H Glucose 112 H POC Glucose 122 H 106 H Lactic Acid Magnesium AST Total Creatine Kinase Troponin T C-Reactive Protein Total Protein Albumin HDL Cholesterol Salicylates 12/29/17 12/29/17 12/29/17 07:31 07:31 07:31 RBC 3.50 L Hgb 11.6 L Hct 34.4 L MCV 98 H MCH 33 H RDW Plt Count 108 L Lymph % (Auto) [place] % (Auto) Baso % (Auto) Lymph # [place] # Baso # Seg Neutrophils % PT INR APTT POC ABG pH POC ABG pO2 Sodium 151 H Chloride 113.4 H BUN 52 H Creatinine Glucose POC Glucose Lactic Acid Magnesium AST Total Creatine Kinase Troponin T C-Reactive Protein 6.60 H Total Protein Albumin HDL Cholesterol Salicylates - Diagnostic Findings Chest x-ray: image reviewed Assessment and Plan 67 y/o male with acute respiratory failure, thought secondary to aspiration, now with what appears to be volume overload. 1. Check BNP 2. Would consider stopping IVF's given most recent labs. Especially if BNP is elevated 3. Abx therapy per ID 4. patient carries a diagnosis of COPD but not sure if we evaluated him in the office. Can check on Saturday.
[2017-12-30] MEDS: DUONEB *Not for PRN Use IH SCH ×4 (03:50→23:29)
[2017-12-30] MEDS: LEVAQUIN 750MG/150ML 750 MG/150 ML BAG IV SCH ×2 (04:07→22:46)
[2017-12-30] MEDS: DepaCON 500 MG in NACL 0.9% 100 ML IV SCH ×4 (04:07→22:39)
[2017-12-30] MEDS: MAXIPIME 2 GM in NACL 0.9% 20 ML IV SCH ×2 (06:29→18:30)
[2017-12-30] MEDS: CARDIZEM PO SCH ×4 (06:29→22:39)
[2017-12-30] MEDS: BROVANA NEBU IH SCH ×2 (07:35→21:55)
[2017-12-30] MEDS: NOVOLOG SUB-Q SCH ×4 (08:12→22:39)
[2017-12-30 08:34] LABS: Mean Corpuscular HGB Conc 33 % (32-34); Mean Corpuscular Hemoglobin 33 pg (28-32); Mean Corpuscular Volume 100 fl (84-94); Platelet Count 114 K/mm3 (140-440); Red Blood Count 4.57 M/mm3 (3.65-5.03); Red Cell Distribution Width 14.6 % (13.2-15.2)
[2017-12-30 08:56] LABS: Hematocrit 45.6 % (35.5-45.6); Hemoglobin 15.1 gm/dl (11.8-15.2)
[2017-12-30 09:59] LABS: BUN/Creatinine Ratio 33; Blood Urea Nitrogen 33 mg/dL (9-20); Calcium 9.4 mg/dL (8.4-10.2); Hemolysis Index 69
[2017-12-30] MEDS: PULMICORT IH SCH ×2 (10:07→21:55)
--- NOTE | 2017-12-30 10:36 | Progress Note ---
Assessment and Plan Assessment: 1) Sepsis: Present on admission, manifested by fever, tachycardia, increased lactate. Likely due to pneumonia. CRP 6.6. Fever is resolved. 2) Coag Neg staph bacteremia. 1/4 bottles positive. Likely a contaminant. 3) Bilateral lung opacities. Could be due to aspiration or HCAP in this NH patient. Need to cover for Gram negative organisms. We will also rule out influenza. 4) Acute encephalopathy. Could be toxic metabolic, due to sepsis. Improved. 5) GUICHO on CKD. Creatinine improved. 6) Elevated lactic acid present on admission. Resolved 7) Elevated troponin. Chronic as per cards. 8) Acute on chronic respiratory failure. On home oxygen. 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 10) Diabetes type 2. Recommendations: -Check influenza PCR, Legionella urine antigen, Streptococcus pneumoniae urine antigen. -Check 2D echocardiogram. -On Cefepime, IV vancomycin and levofloxacin. Has lost IV access and has missed doses of antibiotics. To get a midline today. -We will continue to adjust the antibiotics based on culture results. Judith Jc MD Infectious Diseases Specialist [facility], [place], [facility] ([facility]) [phone] Subjective Date of service: 12/30/17 Interval history: Afebrile. Not eating. Has lost IV access. Multiple nurses tried unsuccessfully to place PIV. Antibiotics not given since yesterday. Microbiology: Blood cultures 12/27/17: 1/ Staph coagulase negative 12/29/17 NGTD Urine cultures 12/26/17: Neg. Sputum culture 12/28/17 poor specimen 12/29/17 poor specimen Current Antimicrobials: Cefepime 12/28- Levaquin 12/27/17. Vancomycin 12/27/17. Prior antimicrobials Zosyn 12/27-12/28 Objective - Exam Narrative Exam: General appearance: Pt in NAD, more awake. HEENT: NC/AT. Anicteric sclerae, moist conjunctivae; PERRLA. Normal external ears. Oxygen via NC. Neck: Trachea midline; supple, no thyromegaly or lymphadenopathy Lungs: Clear B. CV: S1,S2. Pacemaker in place, site w/o erythema, drainage or tenderness. Abdomen: Soft, non-tender; non-distended, no masses or hepatosplenomegaly Extremities: No cyanosis, clubbing or edema. Skin: Chronic venous stasis dermatitis BLE. Psych: Lethargic. Neuro: Lethargic. RUE and RLE weakness. Lines: No central line. Has a condom catheter - Constitutional Vitals: Vital Signs Temp Pulse Resp BP Pulse Ox 98.0 F 88 16 178/107 90 12/30/17 09:50 12/30/17 10:08 12/30/17 10:08 12/30/17 09:50 12/30/17 09:50 Temperature -Last 24 Hours Temperature 98.0 F Temperature 97.2 F Temperature 98.2 F Temperature 97.2 F - Labs CBC & Chem 7: 12/30/17 07:31 12/30/17 07:31 Labs: Abnormal lab results 12/30/17 12/30/17 Range/Units 07:31 07:31 MCV 100 H (84-94) fl MCH 33 H (28-32) pg Plt Count 114 L (140-440) K/mm3 Sodium 147 H (137-145) mmol/L Chloride 111.3 H (98-107) mmol/L Carbon Dioxide 20 L D (22-30) mmol/L BUN 33 H (9-20) mg/dL
[2017-12-30] MEDS: LOVENOX SUB-Q SCH ×2 (11:00→22:39)
[2017-12-30] MEDS: PEPCID IV SCH ×2 (12:07→18:14)
[2017-12-30] MEDS: NACL 0.45% 1000 ML 1,000 ML IV SCH (14:55)
--- NOTE | 2017-12-30 15:09 | Progress Note ---
Assessment and Plan Assessment and plan: Patient is a 67 yo man with a plethora of serious end-stage co-morbities including chronic respiratory failure on O2 due to COPD, CHF, CVA with right- sided paralysis, seizure disorder functional quadriplegia, previous leg DVT on Eliquis, Advance dementia, diabetes, hypertension, CAD, CKD stage 3, INDIO, Afib s /p PPM, CAD s/p CABG with bioprosthetic tricuspid valve with chronic elevated troponin, prior Intubation due to mucus plugging s/p bronch 05/03/2017 who presents with altered mental status, currently on a Venturi mask pCXR reported as Cardiomegaly. Aortic calcification and tortuosity. Low lung volumes with perihilar and bibasilar opacities and blunting of the left costophrenic angle. Consider could be partly related to bronchovascular crowding /atelectasis, but consider superimposed acute process such as congestive heart failure with atelectasis or pneumonitis. Consider PA and lateral chest radiograph to begin further characterization if there is continued clinical concern. -Acute on chronic hypoxic respiratory failure: added duoneb, continue o2, consulted Pulmonology -Sepsis due to aspiration pneumonitis: follow cultures, started on Abx, Aspiration precautions -Paroxysmal A. fib with a PPM: Cardiology following -History of DVT on Eliquis: off Eliquis because of dysphagia -Acute on chronic renal failure, vasomotor nephropathy, poa: continue ivf, repeat levels -Acute metabolic encephalopathy, POA per above -Functional Quadriplegia: ordered PT and wound care -Severe malnutrition: Consult dietary dietitian -Troponemia: Cardiology is following full code prognosis is guarded. Patient failed speech evaluation, NPO, switch oral medications to iv including Eliquis, to sq lovenox 1mg/kg, depakote to [facility], [facility] doesn't have IV cardizem so I called Dr. Ortega to discuss, await call back. Positive blood cultures, gpc clusters, start iv vancomycin, consulted ID 12/29/17: RN unable to peripheral IV, ordered NG tube placement==>he refused, therefore, he missed his dose of abx 12/30/17: consulted IV team for midline, speech therapy to re-access History Interval history: Patient was seen and examined. Follow-up on current diagnosis of altered mental status, still present. Overnight uneventful. Patient nonverbal, sleeping but easily arousable. Imaging, nursing note, chart, labs and old chart reviewed. Hospitalist Physical - Physical exam Narrative exam: GEN: Currently debilitated, chronically ill-appearing man sleeping but easily arousable nonverbal HEENT: NCAT, EOMI, PERRL, OP Clear NECK: supple, no adenopathy, no thyromegaly, no JVD CVS/HEART: Irregularly irregular, NORMAL S1S2, pulses present bilaterally CHEST/LUNGS: CTA B, Symmetrical chest expansion, good air entry bilaterally GI/Abdomen: soft, NTND, good bowel sounds, no guarding or rebound /Bladder: no suprapubic tenderness, no CVA or paraspinal tenderness EXT/Skin: Chronic bilateral venous stasis bilateral legs MSK: Protracted legs Neuro: CN 2-12 grossly intact, doesn't follow commands Psych: Confused - Constitutional Vitals: Temp Pulse Resp BP Pulse Ox 97.8 F 90 16 152/99 98 12/30/17 13:16 12/30/17 14:22 12/30/17 14:22 12/30/17 13:16 12/30/17 13:16 General appearance: Absent: mild distress Results - Labs CBC & Chem 7: 12/30/17 07:31 12/30/17 07:31 Labs: Laboratory Last Values WBC 6.6 K/mm3 (4.5-11.0) 12/30/17 07:31 RBC 4.57 M/mm3 (3.65-5.03) 12/30/17 07:31 Hgb 15.1 gm/dl (11.8-15.2) D 12/30/17 07:31 Hct 45.6 % (35.5-45.6) D 12/30/17 07:31 MCV 100 fl (84-94) H 12/30/17 07:31 MCH 33 pg (28-32) H 12/30/17 07:31 MCHC 33 % (32-34) 12/30/17 07:31 RDW 14.6 % (13.2-15.2) 12/30/17 07:31 Plt Count 114 K/mm3 (140-440) L 12/30/17 07:31 Lymph % (Auto) 14.6 % (13.4-35.0) 12/27/17 07:35 [place] % (Auto) 14.6 % (0.0-7.3) H 12/27/17 07:35 Eos % (Auto) 0.5 % (0.0-4.3) 12/27/17 07:35 Baso % (Auto) 0.7 % (0.0-1.8) 12/27/17 07:35 Lymph # 1.5 K/mm3 (1.2-5.4) 12/27/17 07:35 [place] # 1.5 K/mm3 (0.0-0.8) H 12/27/17 07:35 Eos # 0.0 K/mm3 (0.0-0.4) 12/27/17 07:35 Baso # 0.1 K/mm3 (0.0-0.1) 12/27/17 07:35 Seg Neutrophils % 69.6 % (40.0-70.0) 12/27/17 07:35 Seg Neutrophils # 6.9 K/mm3 (1.8-7.7) 12/27/17 07:35 PT 16.9 Sec. (12.2-14.9) H 12/26/17 15:24 INR 1.30 (0.87-1.13) H 12/26/17 15:24 APTT 37.7 Sec. (24.2-36.6) H 12/26/17 15:24 POC ABG pH 7.477 (7.35-7.45) H 12/27/17 00:02 POC ABG pCO2 44.4 (35-45) 12/27/17 00:02 POC ABG pO2 66 (80-105) L 12/27/17 00:02 POC ABG HCO3 32.8 12/27/17 00:02 POC ABG Total CO2 34 12/27/17 00:02 POC ABG O2 Sat 94 12/27/17 00:02 POC ABG Base Excess 9 12/27/17 00:02 VBG pH 7.394 (7.320-7.420) 12/26/17 19:46 FiO2 40 % 12/27/17 00:02 Sodium 147 mmol/L (137-145) H 12/30/17 07:31 Potassium 3.7 mmol/L (3.6-5.0) 12/30/17 07:31 Chloride 111.3 mmol/L (98-107) H 12/30/17 07:31 Carbon Dioxide 20 mmol/L (22-30) L D 12/30/17 07:31 Anion Gap 19 mmol/L 12/30/17 07:31 BUN 33 mg/dL (9-20) H 12/30/17 07:31 Creatinine 1.0 mg/dL (0.8-1.5) 12/30/17 07:31 Estimated GFR > 60 ml/min 12/30/17 07:31 BUN/Creatinine Ratio 33 % 12/30/17 07:31 Glucose 90 mg/dL (75-100) 12/30/17 07:31 POC Glucose 99 (70-105) 12/29/17 21:06 Hemoglobin A1c 5.7 % (4-6) 12/27/17 07:35 Lactic Acid 1.60 mmol/L (0.7-2.0) 12/27/17 07:35 Calcium 9.4 mg/dL (8.4-10.2) 12/30/17 07:31 Phosphorus 3.40 mg/dL (2.5-4.5) 12/27/17 07:35 Magnesium 2.40 mg/dL (1.7-2.3) H 12/27/17 07:35 Total Bilirubin 0.80 mg/dL (0.1-1.2) 12/27/17 07:35 AST 42 units/L (5-40) H 12/27/17 07:35 ALT 24 units/L (7-56) 12/27/17 07:35 Alkaline Phosphatase 67 units/L (35-129) 12/27/17 07:35 Ammonia 32.0 umol/L (25-60) 12/26/17 15:24 Total Creatine Kinase 301 units/L (55-170) H 12/27/17 14:56 CK-MB (CK-2) 1.9 ng/mL (0.0-4.0) 12/27/17 14:56 CK-MB (CK-2) Rel Index 0.6 (0-4) 12/27/17 14:56 Troponin T 0.103 ng/mL (0.00-0.029) H* 12/27/17 14:56 C-Reactive Protein 6.60 mg/dL (0.00-1.30) H 12/29/17 07:31 NT-Pro-B Natriuret Pep 895.3 pg/mL (0-900) 12/29/17 07:31 Total Protein 8.9 g/dL (6.3-8.2) H 12/27/17 07:35 Albumin 2.5 g/dL (3.9-5) L 12/27/17 07:35 Albumin/Globulin Ratio 0.4 % 12/27/17 07:35 Triglycerides 109 mg/dL (2-149) 12/26/17 15:24 Cholesterol 101 mg/dL (50-199) 12/26/17 15:24 LDL Cholesterol Direct 53 mg/dL (50-130) 12/26/17 15:24 HDL Cholesterol 27 mg/dL (40-59) L 12/26/17 15:24 Cholesterol/HDL Ratio 3.74 % 12/26/17 15:24 TSH 1.810 mlU/mL (0.270-4.200) 12/26/17 15:24 Free T4 0.80 ng/dL (0.76-1.46) 12/26/17 15:24 Urine Color Yellow (Yellow) 12/26/17 17:04 Urine Turbidity Clear (Clear) 12/26/17 17:04 Urine pH 6.0 (5.0-7.0) 12/26/17 17:04 Ur Specific [place] 1.015 (1.003-1.030) 12/26/17 17:04 Urine Protein 30 mg/dl mg/dL (Negative) 12/26/17 17:04 Urine Glucose (UA) Neg mg/dL (Negative) 12/26/17 17:04 Urine Ketones Neg mg/dL (Negative) 12/26/17 17:04 Urine Blood Sm (Negative) 12/26/17 17:04 Urine Nitrite Neg (Negative) 12/26/17 17:04 Urine Bilirubin Neg (Negative) 12/26/17 17:04 Urine Urobilinogen 4.0 mg/dL (<2.0) 12/26/17 17:04 Ur Leukocyte Esterase Neg (Negative) 12/26/17 17:04 Urine WBC (Auto) < 1.0 /HPF (0.0-6.0) 12/26/17 17:04 Urine RBC (Auto) 4.0 /HPF (0.0-6.0) 12/26/17 17:04 U Epithel Cells (Auto) < 1.0 /HPF (0-13.0) 12/26/17 17:04 Urine Mucus Few /HPF 12/26/17 17:04 Salicylates < 0.3 mg/dL (2.8-20.0) L 12/26/17 15:24 Urine Opiates Screen Presumptive positive 12/26/17 17:04 Urine Methadone Screen Presumptive negative 12/26/17 17:04 Acetaminophen < 15.0 ug/mL (10.0-30.0) 12/26/17 15:24 Ur Barbiturates Screen Presumptive negative 12/26/17 17:04 Valproic Acid 51.2 ug/mL (50-100) 12/26/17 15:24 Ur Phencyclidine Scrn Presumptive negative 12/26/17 17:04 Ur Amphetamines Screen Presumptive negative 12/26/17 17:04 U Benzodiazepines Scrn Presumptive negative 12/26/17 17:04 Urine Cocaine Screen Presumptive negative 12/26/17 17:04 U Marijuana (THC) Screen Presumptive negative 12/26/17 17:04 Drugs of Abuse Note Disclamer 12/26/17 17:04 Plasma/Serum Alcohol < 0.01 % (0-0.07) 12/26/17 15:24 Influenza A (Rapid) Negative (Negative) 12/30/17 11:50 Influenza B (Rapid) Negative (Negative) 12/30/17 11:50 Blood Type A POSITIVE 12/27/17 07:35 Antibody Screen Negative 12/27/17 07:35
--- NOTE | 2017-12-30 16:04 | Progress Note ---
Assessment and Plan Imp: 1. OP dysphagia 2. ? Aspiration pneumonitis 3. Acute respiratory failure, hypoxia, better 4. GUICHO, better 5. Hypernatremia 6. Vascular dementia 7. Paroxysmal atrial fib Rec: 1. ABX per ID; appears to have clinically improved 2. Diet as per ST, should be continued at d/c 3. Monitor; no family present Subjective Date of service: 12/30/17 Principal diagnosis: Acute respiratory failure Interval history: No events. Unable to give history. On 2L NC. Active Medications Acetaminophen (Tylenol) 650 mg MD Q4H PRN PRN Reason: Pain MILD(1-3)/Fever >100.5/ROSAS Albuterol (Proventil) 2.5 mg IH Q4HRT PRN PRN Reason: Shortness Of Breath Albuterol/Ipratropium (Duoneb *Not For Prn Use*) 1 ampul IH Q6HRT [facility] Last Admin: 12/30/17 14:07 Dose: 1 ampul Arformoterol Tartrate (Brovana Nebu) 15 mcg IH Q12HRT [facility] Last Admin: 12/30/17 07:35 Dose: 15 mcg Bisacodyl (Dulcolax) 10 mg MD QDAY PRN PRN Reason: Constipation unrelieved by MOM Budesonide (Pulmicort) 1 mg IH Q12HRT [facility] Last Admin: 12/30/17 10:07 Dose: 1 mg Dextrose (D50w (25gm) Syringe) 50 ml IV PRN PRN PRN Reason: Hypoglycemia Diltiazem HCl (Cardizem) 30 mg PO Q6H [facility] Last Admin: 12/30/17 10:00 Dose: Not Given Enoxaparin Sodium (Lovenox) 90 mg SUB-Q Q12HR [facility] Last Admin: 12/30/17 11:00 Dose: 90 mg Famotidine (Pepcid) 20 mg IV DAILY [facility] Last Admin: 12/30/17 12:07 Dose: Not Given Sodium Chloride (Nacl 0.45% 1000 Ml) 1,000 mls @ 150 mls/hr IV DIRECT [facility] Last Admin: 12/30/17 14:55 Dose: 150 mls/hr Valproate Sodium 500 mg/ (Sodium Chloride) 105 mls @ 100 mls/hr IV Q12HR [facility] Last Admin: 12/30/17 15:06 Dose: 100 mls/hr Vancomycin HCl 1,250 mg/ (Sodium Chloride) 262.5 mls @ 166.667 mls/hr IV Q24H [facility] Last Admin: 12/29/17 14:00 Dose: Not Given Levofloxacin/Dextrose (Levaquin 750mg/150ml) 750 mg in 150 mls @ 100 mls/hr IV Q24H [facility] PRN Reason: Protocol Last Admin: 12/30/17 04:07 Dose: Not Given Cefepime HCl 2 gm/ Sodium (Chloride) 20 mls @ 20 mls/10 min IV Q12H [facility] Insulin Aspart (Novolog) 0 units SUB-Q ACHS [facility] PRN Reason: Protocol Last Admin: 12/30/17 12:09 Dose: Not Given Morphine Sulfate (Morphine) 2 mg IV Q4H PRN PRN Reason: Pain, Moderate (4-6) Ondansetron HCl (Zofran) 4 mg IV Q8H PRN PRN Reason: N/V unrelieved by Samir Vancomycin HCl (Vancomycin Pharmacy To Dose) 1 each IV PKCONSULT AIXA PRN Reason: Protocol Objective Vital Signs - 12hr 12/30/17 12/30/17 12/30/17 05:08 09:50 10:00 Temperature 97.2 F L 98.0 F Pulse Rate 74 79 76 Pulse Rate [ 74 Apical] Pulse Rate [ Posterior Bilateral Throughout] Pulse Rate [ 80 Radial] Respiratory 96 H 20 20 Rate Respiratory Rate [Posterior Bilateral Throughout] Blood Pressure 172/94 178/107 [Right] O2 Sat by Pulse 90 97 Oximetry 12/30/17 12/30/17 12/30/17 10:08 10:09 13:16 Temperature 97.8 F Pulse Rate 76 Pulse Rate [ Apical] Pulse Rate [ 88 89 Posterior Bilateral Throughout] Pulse Rate [ Radial] Respiratory 20 Rate Respiratory 16 16 Rate [Posterior Bilateral Throughout] Blood Pressure 152/99 [Right] O2 Sat by Pulse 98 Oximetry 12/30/17 12/30/17 14:07 14:22 Temperature Pulse Rate Pulse Rate [ Apical] Pulse Rate [ 86 90 Posterior Bilateral Throughout] Pulse Rate [ Radial] Respiratory Rate Respiratory 16 16 Rate [Posterior Bilateral Throughout] Blood Pressure [Right] O2 Sat by Pulse Oximetry Constitutional: no acute distress, alert ENT: oropharynx moist Neck: supple Effort: normal Ascultation: Bilateral: clear Cardiovascular: regular rate and rhythm (no mrg) Gastrointestinal: normoactive bowel sounds, soft, non-tender, non-distended Integumentary: other (chronic venous stasis dermatitis, lower extremities) Extremities: no cyanosis, other (chronic LE edema) Neurologic: other (awake, mumbles) Psychiatric: mood appropriate, affect normal CBC and BMP: 12/30/17 07:31 12/30/17 07:31 ABG, PT/INR, D-dimer: ABG POC ABG pH 7.477 (7.35-7.45) H 12/27/17 00:02 POC ABG pCO2 44.4 (35-45) 12/27/17 00:02 POC ABG pO2 66 (80-105) L 12/27/17 00:02 POC ABG HCO3 32.8 12/27/17 00:02 POC ABG Total CO2 34 12/27/17 00:02 POC ABG O2 Sat 94 12/27/17 00:02 PT/INR, D-dimer PT 16.9 Sec. (12.2-14.9) H 12/26/17 15:24 INR 1.30 (0.87-1.13) H 12/26/17 15:24 Abnormal lab findings: Abnormal Labs 12/26/17 12/26/17 12/26/17 15:24 15:24 15:24 RBC Hgb Hct MCV 100 H MCH 33 H RDW 15.4 H Plt Count 121 L Lymph % (Auto) 7.6 L [place] % (Auto) 14.4 H Baso % (Auto) 2.1 H Lymph # 0.7 L [place] # 1.3 H Baso # 0.2 H Seg Neutrophils % 75.4 H PT 16.9 H INR 1.30 H APTT 37.7 H POC ABG pH POC ABG pO2 Sodium Chloride Carbon Dioxide BUN 68 H Creatinine 2.2 H Glucose 123 H POC Glucose Lactic Acid Magnesium AST 53 H Total Creatine Kinase Troponin T 0.178 H* C-Reactive Protein Total Protein 9.6 H Albumin 2.8 L HDL Cholesterol 27 L Salicylates 12/26/17 12/26/1718 15:24 17:28 19:44 RBC Hgb Hct MCV MCH RDW Plt Count Lymph % (Auto) [place] % (Auto) Baso % (Auto) Lymph # [place] # Baso # Seg Neutrophils % PT INR APTT POC ABG pH 7.532 H POC ABG pO2 52 L Sodium Chloride Carbon Dioxide BUN Creatinine Glucose POC Glucose Lactic Acid 2.30 H* Magnesium AST Total Creatine Kinase Troponin T C-Reactive Protein Total Protein Albumin HDL Cholesterol Salicylates < 0.3 L 12/26/17 12/26/17 12/26/17 19:44 20:54 21:58 RBC Hgb Hct MCV MCH RDW Plt Count Lymph % (Auto) [place] % (Auto) Baso % (Auto) Lymph # [place] # Baso # Seg Neutrophils % PT INR APTT POC ABG pH POC ABG pO2 Sodium Chloride Carbon Dioxide BUN Creatinine Glucose POC Glucose 134 H Lactic Acid 3.00 H* Magnesium AST Total Creatine Kinase Troponin T 0.153 H* C-Reactive Protein Total Protein Albumin HDL Cholesterol Salicylates 12/26/17 12/27/17 12/27/17 22:32 00:02 07:35 RBC Hgb Hct MCV 99 H MCH 33 H RDW 15.3 H Plt Count 117 L Lymph % (Auto) [place] % (Auto) 14.6 H Baso % (Auto) Lymph # [place] # 1.5 H Baso # Seg Neutrophils % PT INR APTT POC ABG pH 7.477 H POC ABG pO2 66 L Sodium Chloride Carbon Dioxide BUN Creatinine Glucose POC Glucose 162 H Lactic Acid Magnesium AST Total Creatine Kinase Troponin T C-Reactive Protein Total Protein Albumin HDL Cholesterol Salicylates 12/27/17 12/27/17 12/27/17 07:35 07:35 07:35 RBC Hgb Hct MCV MCH RDW Plt Count Lymph % (Auto) [place] % (Auto) Baso % (Auto) Lymph # [place] # Baso # Seg Neutrophils % PT INR APTT POC ABG pH POC ABG pO2 Sodium 149 H Chloride Carbon Dioxide BUN 65 H Creatinine 1.9 H Glucose 106 H POC Glucose Lactic Acid Magnesium 2.40 H AST 42 H Total Creatine Kinase 430 H Troponin T 0.125 H* C-Reactive Protein Total Protein 8.9 H Albumin 2.5 L HDL Cholesterol Salicylates 12/27/17 12/27/17 12/28/17 14:56 21:13 05:39 RBC Hgb Hct MCV 99 H MCH 33 H RDW 15.5 H Plt Count 120 L Lymph % (Auto) [place] % (Auto) Baso % (Auto) Lymph # [place] # Baso # Seg Neutrophils % PT INR APTT POC ABG pH POC ABG pO2 Sodium Chloride Carbon Dioxide BUN Creatinine Glucose POC Glucose 106 H Lactic Acid Magnesium AST Total Creatine Kinase 301 H Troponin T 0.103 H* C-Reactive Protein Total Protein Albumin HDL Cholesterol Salicylates 12/28/17 12/28/17 12/28/17 05:39 12:40 21:08 RBC Hgb Hct MCV MCH RDW Plt Count Lymph % (Auto) [place] % (Auto) Baso % (Auto) Lymph # [place] # Baso # Seg Neutrophils % PT INR APTT POC ABG pH POC ABG pO2 Sodium 149 H Chloride 108.6 H Carbon Dioxide BUN 69 H Creatinine 1.9 H Glucose 112 H POC Glucose 122 H 106 H Lactic Acid Magnesium AST Total Creatine Kinase Troponin T C-Reactive Protein Total Protein Albumin HDL Cholesterol Salicylates 12/29/17 12/29/17 12/29/17 07:31 07:31 07:31 RBC 3.50 L Hgb 11.6 L Hct 34.4 L MCV 98 H MCH 33 H RDW Plt Count 108 L Lymph % (Auto) [place] % (Auto) Baso % (Auto) Lymph # [place] # Baso # Seg Neutrophils % PT INR APTT POC ABG pH POC ABG pO2 Sodium 151 H Chloride 113.4 H Carbon Dioxide BUN 52 H Creatinine Glucose POC Glucose Lactic Acid Magnesium AST Total Creatine Kinase Troponin T C-Reactive Protein 6.60 H Total Protein Albumin HDL Cholesterol Salicylates 12/30/17 12/30/17 07:31 07:31 RBC Hgb Hct MCV 100 H MCH 33 H RDW Plt Count 114 L Lymph % (Auto) [place] % (Auto) Baso % (Auto) Lymph # [place] # Baso # Seg Neutrophils % PT INR APTT POC ABG pH POC ABG pO2 Sodium 147 H Chloride 111.3 H Carbon Dioxide 20 L D BUN 33 H Creatinine Glucose POC Glucose Lactic Acid Magnesium AST Total Creatine Kinase Troponin T C-Reactive Protein Total Protein Albumin HDL Cholesterol Salicylates Chest x-ray: report reviewed, image reviewed
--- NOTE | 2017-12-30 16:18 | Progress Note ---
Assessment and Plan Chronic respiratory failure Paroxysmal atrial fibrillation On low dose eliquis as outpatient DC medtronic pacemaker implant Hx of coronary artery disease s/p CABG with an implantation of a bioprosthetic tricuspid valve in 2012 also at [facility] Normal prosthetic valve function by MICAELA 12/2016 Prior history of DVT on low dose eliquis as an outpatient Prior CVA Hypertension Diabetes mellitus Acute renal failure Chronic non-specific troponin Bilateral LE wounds Conservative cardiac management. Subjective Date of service: 12/30/17 Principal diagnosis: Acute respiratory failure Interval history: No cardiac events overnight. Objective Vital Signs Temp Pulse Pulse Pulse Pulse Pulse Resp 12/30/17 14:22 90 12/30/17 14:07 86 12/30/17 13:16 97.8 F 76 20 12/30/17 10:09 89 12/30/17 10:08 88 12/30/17 10:00 76 74 80 20 12/30/17 09:50 98.0 F 79 20 12/30/17 05:08 97.2 F L 74 96 H 12/30/17 00:51 98.2 F 75 20 12/29/17 21:43 77 12/29/17 21:40 12/29/17 21:33 74 12/29/17 20:29 97.2 F L 72 18 12/29/17 20:16 75 12/29/17 20:10 22 Resp Resp Resp BP Pulse Ox 12/30/17 14:22 16 12/30/17 14:07 16 12/30/17 13:16 152/99 98 12/30/17 10:09 16 12/30/17 10:08 16 12/30/17 10:00 97 12/30/17 09:50 178/107 90 12/30/17 05:08 172/94 12/30/17 00:51 156/93 98 12/29/17 21:43 20 12/29/17 21:40 96 12/29/17 21:33 20 12/29/17 20:29 155/97 100 12/29/17 20:16 12/29/17 20:10 22 96 - Physical Examination General: No Apparent Distress, Cachectic, Other (noncommunicative) Cardiac: Positive: Other (AV paced) - Labs and Meds CBC 12/30/17 Range/Units 07:31 WBC 6.6 (4.5-11.0) K/mm3 RBC 4.57 (3.65-5.03) M/mm3 Hgb 15.1 D (11.8-15.2) gm/dl Hct 45.6 D (35.5-45.6) % Plt Count 114 L (140-440) K/mm3 Comprehensive Metabolic Panel 12/30/17 Range/Units 07:31 Sodium 147 H (137-145) mmol/L Potassium 3.7 (3.6-5.0) mmol/L Chloride 111.3 H (98-107) mmol/L Carbon Dioxide 20 L D (22-30) mmol/L BUN 33 H (9-20) mg/dL Creatinine 1.0 (0.8-1.5) mg/dL Glucose 90 (75-100) mg/dL Calcium 9.4 (8.4-10.2) mg/dL
[2017-12-30] MEDS: VANCOMYCIN 1,250 MG in NACL 0.9% 250ML 250 ML IV SCH (18:42)
[2017-12-31] MEDS: DUONEB *Not for PRN Use IH SCH ×4 (03:40→21:28)
[2017-12-31] MEDS: CARDIZEM PO SCH ×4 (03:42→21:54)
[2017-12-31] MEDS: NACL 0.45% 1000 ML 1,000 ML IV SCH ×2 (03:43→17:24)
[2017-12-31] MEDS: MAXIPIME 2 GM in NACL 0.9% 20 ML IV SCH ×2 (05:34→19:04)
[2017-12-31] MEDS: NOVOLOG SUB-Q SCH ×4 (08:00→21:53)
[2017-12-31] MEDS: DepaCON 500 MG in NACL 0.9% 100 ML IV SCH ×2 (09:58→21:52)
[2017-12-31] MEDS: PEPCID IV SCH (09:59)
[2017-12-31] MEDS: LOVENOX SUB-Q SCH ×2 (10:04→21:51)
[2017-12-31] MEDS: BROVANA NEBU IH SCH ×2 (11:40→21:29)
--- NOTE | 2017-12-31 11:43 | Progress Note ---
Assessment and Plan Chronic respiratory failure Paroxysmal atrial fibrillation On low dose eliquis as outpatient DC medtronic pacemaker implant Hx of coronary artery disease s/p CABG with an implantation of a bioprosthetic tricuspid valve in 2012 also at [facility] Normal prosthetic valve function by MICAELA 12/2016 Prior history of DVT on low dose eliquis as an outpatient Prior CVA Hypertension Diabetes mellitus Acute renal failure Chronic non-specific troponin Bilateral LE wounds Conservative cardiac management. Subjective Date of service: 12/31/17 Principal diagnosis: Acute respiratory failure Interval history: No cardiac events reported overnight. Objective Vital Signs Temp Pulse Pulse Resp Resp Resp BP 12/31/17 08:26 98.2 F 78 20 154/103 12/31/17 03:42 75 157/108 12/31/17 03:32 96.3 F L 75 20 157/108 12/30/17 23:39 98.6 F 75 20 158/99 12/30/17 22:39 107 H 132/78 12/30/17 22:12 92 H 18 12/30/17 22:00 12/30/17 21:55 88 18 12/30/17 20:50 22 12/30/17 20:49 22 12/30/17 20:06 97.9 F 75 18 151/129 12/30/17 20:05 75 12/30/17 17:32 98.0 F 72 20 12/30/17 14:22 90 16 12/30/17 14:07 86 16 12/30/17 13:16 97.8 F 76 20 12/30/17 12:18 97.8 F 78 20 152/99 BP Pulse Ox 12/31/17 08:26 98 12/31/17 03:42 12/31/17 03:32 98 12/30/17 23:39 99 12/30/17 22:39 12/30/17 22:12 12/30/17 22:00 95 12/30/17 21:55 12/30/17 20:50 97 12/30/17 20:49 12/30/17 20:06 99 12/30/17 20:05 12/30/17 17:32 148/90 98 12/30/17 14:22 12/30/17 14:07 12/30/17 13:16 152/99 98 12/30/17 12:18 100 - Physical Examination General: No Apparent Distress, Cachectic, Other (noncommunicative) HEENT: Positive: PERRL Cardiac: Positive: Other (paced)
--- NOTE | 2017-12-31 12:01 | Progress Note ---
Assessment and Plan Assessment: 1) Sepsis: Present on admission, manifested by fever, tachycardia, increased lactate. Likely due to pneumonia. CRP 6.6. Fever is resolved. 2) Coag Neg staph bacteremia. 1/4 bottles positive. Likely a contaminant. 3) Bilateral lung opacities. Could be due to aspiration or HCAP in this NH patient. Need to cover for Gram negative organisms. Influenza A/B ag negative. 4) Acute encephalopathy. Could be toxic metabolic, due to sepsis. Improved. 5) GUICHO on CKD. Creatinine improved. 6) Elevated lactic acid present on admission. Resolved 7) Elevated troponin. Chronic as per cards. 8) Acute on chronic respiratory failure. On home oxygen. 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 10) Diabetes type 2. 11) Soft stools. C diff negative. Recommendations: -Awaiting Legionella urine antigen, Streptococcus pneumoniae urine antigen. -Continue Cefepime (D3/5). -Stop IV vancomycin and levofloxacin. -d/w RN. Judith Jc MD Infectious Diseases Specialist [facility] M [phone] Subjective Date of service: 12/31/17 Principal diagnosis: Acute respiratory failure Interval history: Afebrile. Had LUE midline placed yesterday. Microbiology: Blood cultures 12/27/17: 1/4 Staph coagulase negative 12/29/17 NGTD Urine cultures 12/26/17: Neg. Sputum culture 12/28/17 poor specimen 12/29/17 poor specimen Current Antimicrobials: Cefepime 12/28- Levaquin 12/27/17. Vancomycin 12/27/17. Prior antimicrobials Zosyn 12/27-12/28 Objective - Exam Narrative Exam: General appearance: Pt in NAD, awake, talking. HEENT: NC/AT. Anicteric sclerae, moist conjunctivae; PERRLA. Normal external ears. Oxygen via NC. Neck: Trachea midline; supple, no thyromegaly or lymphadenopathy Lungs: Clear B. CV: S1,S2. Pacemaker in place, site w/o erythema, drainage or tenderness. Abdomen: Soft, non-tender; non-distended, no masses or hepatosplenomegaly Extremities: No cyanosis, clubbing or edema. Skin: Chronic venous stasis dermatitis BLE. Neuro: Awake. RUE and RLE weakness. Lines: No central line. Has a condom catheter, LUE midline (12/30/17) - Constitutional Vitals: Vital Signs Temp Pulse Resp BP Pulse Ox 98.2 F 78 20 154/103 98 12/31/17 08:26 12/31/17 08:26 12/31/17 08:26 12/31/17 08:26 12/31/17 08:26 Temperature -Last 24 Hours Temperature 98.2 F Temperature 96.3 F Temperature 98.6 F Temperature 97.9 F Temperature 98.0 F Temperature 97.8 F Temperature 97.8 F - Labs CBC & Chem 7: 12/30/17 07:31 12/30/17 07:31 Labs: Abnormal lab results 12/30/17 12/30/17 Range/Units 16:54 22:16 POC Glucose 125 H 106 H (70-105)
--- NOTE | 2017-12-31 13:10 | Progress Note ---
Assessment and Plan Assessment and plan: Patient is a 67 yo man with a plethora of serious end-stage co-morbities including chronic respiratory failure on O2 due to COPD, CHF, CVA with right- sided paralysis, seizure disorder functional quadriplegia, previous leg DVT on Eliquis, Advance dementia, diabetes, hypertension, CAD, CKD stage 3, INDIO, Afib s /p PPM, CAD s/p CABG with bioprosthetic tricuspid valve with chronic elevated troponin, prior Intubation due to mucus plugging s/p bronch 05/03/2017 who presents with altered mental status, currently on a Venturi mask pCXR reported as Cardiomegaly. Aortic calcification and tortuosity. Low lung volumes with perihilar and bibasilar opacities and blunting of the left costophrenic angle. Consider could be partly related to bronchovascular crowding /atelectasis, but consider superimposed acute process such as congestive heart failure with atelectasis or pneumonitis. Consider PA and lateral chest radiograph to begin further characterization if there is continued clinical concern. -Acute on chronic hypoxic respiratory failure: added duoneb, continue o2, consulted Pulmonology -Sepsis due to aspiration pneumonitis LLL: follow cultures, started on Abx, Aspiration precautions -Paroxysmal A. fib with a PPM: Cardiology following -History of DVT on Eliquis: off Eliquis because of dysphagia -Acute on chronic renal failure, vasomotor nephropathy, poa: continue ivf, repeat levels -Acute metabolic encephalopathy, POA per above -Functional Quadriplegia: ordered PT and wound care -Severe malnutrition: Consult dietary dietitian -Troponemia: Cardiology is following full code prognosis is guarded. Patient failed speech evaluation, NPO, switch oral medications to iv including Eliquis, to sq lovenox 1mg/kg, depakote to [facility], [facility] doesn't have IV cardizem so I called Dr. Ortega to discuss, await call back. Positive blood cultures, gpc clusters, start iv vancomycin, consulted ID 12/29/17: RN unable to peripheral IV, ordered NG tube placement==>he refused, therefore, he missed his dose of abx 12/30/17: consulted IV team for midline, speech therapy to re-access 12/31/17: now on modified diet; 2 more days of iv abx then back to [place] [facility] History Interval history: Patient was seen and examined. Follow-up on current diagnosis of altered mental status, still present. Overnight uneventful. Patient nonverbal, sleeping but easily arousable. Imaging, nursing note, chart, labs and old chart reviewed. Hospitalist Physical - Physical exam Narrative exam: GEN: Currently debilitated, chronically ill-appearing man sleeping but easily arousable nonverbal HEENT: NCAT, EOMI, PERRL, OP Clear NECK: supple, no adenopathy, no thyromegaly, no JVD CVS/HEART: Irregularly irregular, NORMAL S1S2, pulses present bilaterally CHEST/LUNGS: CTA B, Symmetrical chest expansion, good air entry bilaterally GI/Abdomen: soft, NTND, good bowel sounds, no guarding or rebound /Bladder: no suprapubic tenderness, no CVA or paraspinal tenderness EXT/Skin: Chronic bilateral venous stasis bilateral legs MSK: Protracted legs Neuro: CN 2-12 grossly intact, doesn't follow commands Psych: Confused - Constitutional Vitals: Temp Pulse Resp BP Pulse Ox 98.2 F 78 20 154/103 98 12/31/17 08:26 12/31/17 08:26 12/31/17 08:26 12/31/17 08:26 12/31/17 08:26 General appearance: Absent: mild distress Results - Labs CBC & Chem 7: 12/30/17 07:31 12/30/17 07:31 Labs: Laboratory Last Values WBC 6.6 K/mm3 (4.5-11.0) 12/30/17 07:31 RBC 4.57 M/mm3 (3.65-5.03) 12/30/17 07:31 Hgb 15.1 gm/dl (11.8-15.2) D 12/30/17 07:31 Hct 45.6 % (35.5-45.6) D 12/30/17 07:31 MCV 100 fl (84-94) H 12/30/17 07:31 MCH 33 pg (28-32) H 12/30/17 07:31 MCHC 33 % (32-34) 12/30/17 07:31 RDW 14.6 % (13.2-15.2) 12/30/17 07:31 Plt Count 114 K/mm3 (140-440) L 12/30/17 07:31 Lymph % (Auto) 14.6 % (13.4-35.0) 12/27/17 07:35 [place] % (Auto) 14.6 % (0.0-7.3) H 12/27/17 07:35 Eos % (Auto) 0.5 % (0.0-4.3) 12/27/17 07:35 Baso % (Auto) 0.7 % (0.0-1.8) 12/27/17 07:35 Lymph # 1.5 K/mm3 (1.2-5.4) 12/27/17 07:35 [place] # 1.5 K/mm3 (0.0-0.8) H 12/27/17 07:35 Eos # 0.0 K/mm3 (0.0-0.4) 12/27/17 07:35 Baso # 0.1 K/mm3 (0.0-0.1) 12/27/17 07:35 Seg Neutrophils % 69.6 % (40.0-70.0) 12/27/17 07:35 Seg Neutrophils # 6.9 K/mm3 (1.8-7.7) 12/27/17 07:35 PT 16.9 Sec. (12.2-14.9) H 12/26/17 15:24 INR 1.30 (0.87-1.13) H 12/26/17 15:24 APTT 37.7 Sec. (24.2-36.6) H 12/26/17 15:24 POC ABG pH 7.477 (7.35-7.45) H 12/27/17 00:02 POC ABG pCO2 44.4 (35-45) 12/27/17 00:02 POC ABG pO2 66 (80-105) L 12/27/17 00:02 POC ABG HCO3 32.8 12/27/17 00:02 POC ABG Total CO2 34 12/27/17 00:02 POC ABG O2 Sat 94 12/27/17 00:02 POC ABG Base Excess 9 12/27/17 00:02 VBG pH 7.394 (7.320-7.420) 12/26/17 19:46 FiO2 40 % 12/27/17 00:02 Sodium 147 mmol/L (137-145) H 12/30/17 07:31 Potassium 3.7 mmol/L (3.6-5.0) 12/30/17 07:31 Chloride 111.3 mmol/L (98-107) H 12/30/17 07:31 Carbon Dioxide 20 mmol/L (22-30) L D 12/30/17 07:31 Anion Gap 19 mmol/L 12/30/17 07:31 BUN 33 mg/dL (9-20) H 12/30/17 07:31 Creatinine 1.0 mg/dL (0.8-1.5) 12/30/17 07:31 Estimated GFR > 60 ml/min 12/30/17 07:31 BUN/Creatinine Ratio 33 % 12/30/17 07:31 Glucose 90 mg/dL (75-100) 12/30/17 07:31 POC Glucose 99 (70-105) 12/31/17 11:52 Hemoglobin A1c 5.7 % (4-6) 12/27/17 07:35 Lactic Acid 1.60 mmol/L (0.7-2.0) 12/27/17 07:35 Calcium 9.4 mg/dL (8.4-10.2) 12/30/17 07:31 Phosphorus 3.40 mg/dL (2.5-4.5) 12/27/17 07:35 Magnesium 2.40 mg/dL (1.7-2.3) H 12/27/17 07:35 Total Bilirubin 0.80 mg/dL (0.1-1.2) 12/27/17 07:35 AST 42 units/L (5-40) H 12/27/17 07:35 ALT 24 units/L (7-56) 12/27/17 07:35 Alkaline Phosphatase 67 units/L (35-129) 12/27/17 07:35 Ammonia 32.0 umol/L (25-60) 12/26/17 15:24 Total Creatine Kinase 301 units/L (55-170) H 12/27/17 14:56 CK-MB (CK-2) 1.9 ng/mL (0.0-4.0) 12/27/17 14:56 CK-MB (CK-2) Rel Index 0.6 (0-4) 12/27/17 14:56 Troponin T 0.103 ng/mL (0.00-0.029) H* 12/27/17 14:56 C-Reactive Protein 6.60 mg/dL (0.00-1.30) H 12/29/17 07:31 NT-Pro-B Natriuret Pep 895.3 pg/mL (0-900) 12/29/17 07:31 Total Protein 8.9 g/dL (6.3-8.2) H 12/27/17 07:35 Albumin 2.5 g/dL (3.9-5) L 12/27/17 07:35 Albumin/Globulin Ratio 0.4 % 12/27/17 07:35 Triglycerides 109 mg/dL (2-149) 12/26/17 15:24 Cholesterol 101 mg/dL (50-199) 12/26/17 15:24 LDL Cholesterol Direct 53 mg/dL (50-130) 12/26/17 15:24 HDL Cholesterol 27 mg/dL (40-59) L 12/26/17 15:24 Cholesterol/HDL Ratio 3.74 % 12/26/17 15:24 TSH 1.810 mlU/mL (0.270-4.200) 12/26/17 15:24 Free T4 0.80 ng/dL (0.76-1.46) 12/26/17 15:24 Urine Color Yellow (Yellow) 12/26/17 17:04 Urine Turbidity Clear (Clear) 12/26/17 17:04 Urine pH 6.0 (5.0-7.0) 12/26/17 17:04 Ur Specific [place] 1.015 (1.003-1.030) 12/26/17 17:04 Urine Protein 30 mg/dl mg/dL (Negative) 12/26/17 17:04 Urine Glucose (UA) Neg mg/dL (Negative) 12/26/17 17:04 Urine Ketones Neg mg/dL (Negative) 12/26/17 17:04 Urine Blood Sm (Negative) 12/26/17 17:04 Urine Nitrite Neg (Negative) 12/26/17 17:04 Urine Bilirubin Neg (Negative) 12/26/17 17:04 Urine Urobilinogen 4.0 mg/dL (<2.0) 12/26/17 17:04 Ur Leukocyte Esterase Neg (Negative) 12/26/17 17:04 Urine WBC (Auto) < 1.0 /HPF (0.0-6.0) 12/26/17 17:04 Urine RBC (Auto) 4.0 /HPF (0.0-6.0) 12/26/17 17:04 U Epithel Cells (Auto) < 1.0 /HPF (0-13.0) 12/26/17 17:04 Urine Mucus Few /HPF 12/26/17 17:04 Salicylates < 0.3 mg/dL (2.8-20.0) L 12/26/17 15:24 Urine Opiates Screen Presumptive positive 12/26/17 17:04 Urine Methadone Screen Presumptive negative 12/26/17 17:04 Acetaminophen < 15.0 ug/mL (10.0-30.0) 12/26/17 15:24 Ur Barbiturates Screen Presumptive negative 12/26/17 17:04 Valproic Acid 51.2 ug/mL (50-100) 12/26/17 15:24 Ur Phencyclidine Scrn Presumptive negative 12/26/17 17:04 Ur Amphetamines Screen Presumptive negative 12/26/17 17:04 U Benzodiazepines Scrn Presumptive negative 12/26/17 17:04 Urine Cocaine Screen Presumptive negative 12/26/17 17:04 U Marijuana (THC) Screen Presumptive negative 12/26/17 17:04 Drugs of Abuse Note Disclamer 12/26/17 17:04 Plasma/Serum Alcohol < 0.01 % (0-0.07) 12/26/17 15:24 C. difficile Toxin A&B Negative (Negative) 12/30/17 23:20 Influenza A (Rapid) Negative (Negative) 12/30/17 11:50 Influenza B (Rapid) Negative (Negative) 12/30/17 11:50 Blood Type A POSITIVE 12/27/17 07:35 Antibody Screen Negative 12/27/17 07:35
[2017-12-31] MEDS: PULMICORT IH SCH ×2 (13:32→21:28)
--- NOTE | 2017-12-31 15:09 | Progress Note ---
Assessment and Plan Imp: 1. OP dysphagia 2. ? Aspiration pneumonitis 3. Acute respiratory failure, hypoxia, better 4. GUICHO, better 5. Hypernatremia 6. Vascular dementia 7. Paroxysmal atrial fib Rec: 1. ABX per ID; appears to have clinically improved 2. Awaiting MBS 3. Hypotonic IVFs and monitor sodium 4. Aspiration precautions 5. Monitor; no family present Subjective Date of service: 12/31/17 Principal diagnosis: Acute respiratory failure Interval history: No events. Unable to give history. On 2L NC. Per RN coughing while taking pureed diet and meds. Active Medications Acetaminophen (Tylenol) 650 mg MD Q4H PRN PRN Reason: Pain MILD(1-3)/Fever >100.5/ROSAS Albuterol (Proventil) 2.5 mg IH Q4HRT PRN PRN Reason: Shortness Of Breath Albuterol/Ipratropium (Duoneb *Not For Prn Use*) 1 ampul IH Q6HRT [facility] Last Admin: 12/31/17 11:41 Dose: 1 ampul Arformoterol Tartrate (Brovana Nebu) 15 mcg IH Q12HRT [facility] Last Admin: 12/31/17 11:40 Dose: 15 mcg Bisacodyl (Dulcolax) 10 mg MD QDAY PRN PRN Reason: Constipation unrelieved by MOM Budesonide (Pulmicort) 1 mg IH Q12HRT [facility] Last Admin: 12/31/17 13:32 Dose: Not Given Dextrose (D50w (25gm) Syringe) 50 ml IV PRN PRN PRN Reason: Hypoglycemia Diltiazem HCl (Cardizem) 30 mg PO Q6H [facility] Last Admin: 12/31/17 10:08 Dose: Not Given Enoxaparin Sodium (Lovenox) 90 mg SUB-Q Q12HR [facility] Last Admin: 12/31/17 10:04 Dose: 90 mg Famotidine (Pepcid) 20 mg IV DAILY [facility] Last Admin: 12/31/17 09:59 Dose: 20 mg Sodium Chloride (Nacl 0.45% 1000 Ml) 1,000 mls @ 150 mls/hr IV DIRECT [facility] Last Admin: 12/31/17 03:43 Dose: 150 mls/hr Valproate Sodium 500 mg/ (Sodium Chloride) 105 mls @ 100 mls/hr IV Q12HR [facility] Last Admin: 12/31/17 09:58 Dose: 100 mls/hr Cefepime HCl 2 gm/ Sodium (Chloride) 20 mls @ 20 mls/10 min IV Q12H [facility] Last Admin: 12/31/17 05:34 Dose: 20 mls/10 min Insulin Aspart (Novolog) 0 units SUB-Q ACHS AIXA PRN Reason: Protocol Last Admin: 12/31/17 11:44 Dose: Not Given Morphine Sulfate (Morphine) 2 mg IV Q4H PRN PRN Reason: Pain, Moderate (4-6) Ondansetron HCl (Zofran) 4 mg IV Q8H PRN PRN Reason: N/V unrelieved by Regpao Objective Vital Signs - 12hr 12/31/17 12/31/17 12/31/17 03:32 03:42 08:26 Temperature 96.3 F L 98.2 F Pulse Rate 75 75 78 Pulse Rate [ Apical] Pulse Rate [ Radial] Respiratory 20 20 Rate Blood Pressure 157/108 157/108 154/103 O2 Sat by Pulse 98 98 Oximetry 12/31/17 12/31/17 10:00 11:49 Temperature 97.9 F Pulse Rate 78 79 Pulse Rate [ 72 Apical] Pulse Rate [ 78 Radial] Respiratory 22 18 Rate Blood Pressure 133/93 O2 Sat by Pulse 97 99 Oximetry Constitutional: no acute distress, alert ENT: oropharynx moist Neck: supple Effort: normal Ascultation: Bilateral: clear Cardiovascular: regular rate and rhythm (no mrg) Gastrointestinal: normoactive bowel sounds, soft, non-tender, non-distended Integumentary: other (chronic venous stasis dermatitis, lower extremities) Extremities: no cyanosis, other (chronic LE edema) Neurologic: other (awake, mumbles) Psychiatric: mood appropriate, affect normal CBC and BMP: 12/30/17 07:31 12/30/17 07:31 ABG, PT/INR, D-dimer: ABG POC ABG pH 7.477 (7.35-7.45) H 12/27/17 00:02 POC ABG pCO2 44.4 (35-45) 12/27/17 00:02 POC ABG pO2 66 (80-105) L 12/27/17 00:02 POC ABG HCO3 32.8 12/27/17 00:02 POC ABG Total CO2 34 12/27/17 00:02 POC ABG O2 Sat 94 12/27/17 00:02 PT/INR, D-dimer PT 16.9 Sec. (12.2-14.9) H 12/26/17 15:24 INR 1.30 (0.87-1.13) H 12/26/17 15:24 Abnormal lab findings: Abnormal Labs 12/26/17 12/26/17 12/26/17 15:24 15:24 15:24 RBC Hgb Hct MCV 100 H MCH 33 H RDW 15.4 H Plt Count 121 L Lymph % (Auto) 7.6 L Mckean % (Auto) 14.4 H Baso % (Auto) 2.1 H Lymph # 0.7 L Mckean # 1.3 H Baso # 0.2 H Seg Neutrophils % 75.4 H PT 16.9 H INR 1.30 H APTT 37.7 H POC ABG pH POC ABG pO2 Sodium Chloride Carbon Dioxide BUN 68 H Creatinine 2.2 H Glucose 123 H POC Glucose Lactic Acid Magnesium AST 53 H Total Creatine Kinase Troponin T 0.178 H* C-Reactive Protein Total Protein 9.6 H Albumin 2.8 L HDL Cholesterol 27 L Salicylates 12/26/17 12/26/17 12/26/17 15:24 17:28 19:44 RBC Hgb Hct MCV MCH RDW Plt Count Lymph % (Auto) Mckean % (Auto) Baso % (Auto) Lymph # Mckean # Baso # Seg Neutrophils % PT INR APTT POC ABG pH 7.532 H POC ABG pO2 52 L Sodium Chloride Carbon Dioxide BUN Creatinine Glucose POC Glucose Lactic Acid 2.30 H* Magnesium AST Total Creatine Kinase Troponin T C-Reactive Protein Total Protein Albumin HDL Cholesterol Salicylates < 0.3 L 12/26/17 12/26/17 12/26/17 19:44 20:54 21:58 RBC Hgb Hct MCV MCH RDW Plt Count Lymph % (Auto) Mckean % (Auto) Baso % (Auto) Lymph # Mckean # Baso # Seg Neutrophils % PT INR APTT POC ABG pH POC ABG pO2 Sodium Chloride Carbon Dioxide BUN Creatinine Glucose POC Glucose 134 H Lactic Acid 3.00 H* Magnesium AST Total Creatine Kinase Troponin T 0.153 H* C-Reactive Protein Total Protein Albumin HDL Cholesterol Salicylates 12/26/17 12/27/17 12/27/17 22:32 00:02 07:35 RBC Hgb Hct MCV 99 H MCH 33 H RDW 15.3 H Plt Count 117 L Lymph % (Auto) Mckean % (Auto) 14.6 H Baso % (Auto) Lymph # Mckean # 1.5 H Baso # Seg Neutrophils % PT INR APTT POC ABG pH 7.477 H POC ABG pO2 66 L Sodium Chloride Carbon Dioxide BUN Creatinine Glucose POC Glucose 162 H Lactic Acid Magnesium AST Total Creatine Kinase Troponin T C-Reactive Protein Total Protein Albumin HDL Cholesterol Salicylates 12/27/17 12/27/17 12/27/17 07:35 07:35 07:35 RBC Hgb Hct MCV MCH RDW Plt Count Lymph % (Auto) Mckean % (Auto) Baso % (Auto) Lymph # Mckean # Baso # Seg Neutrophils % PT INR APTT POC ABG pH POC ABG pO2 Sodium 149 H Chloride Carbon Dioxide BUN 65 H Creatinine 1.9 H Glucose 106 H POC Glucose Lactic Acid Magnesium 2.40 H AST 42 H Total Creatine Kinase 430 H Troponin T 0.125 H* C-Reactive Protein Total Protein 8.9 H Albumin 2.5 L HDL Cholesterol Salicylates 12/27/17 12/27/17 12/28/17 14:56 21:13 05:39 RBC Hgb Hct MCV 99 H MCH 33 H RDW 15.5 H Plt Count 120 L Lymph % (Auto) Mckean % (Auto) Baso % (Auto) Lymph # Mckean # Baso # Seg Neutrophils % PT INR APTT POC ABG pH POC ABG pO2 Sodium Chloride Carbon Dioxide BUN Creatinine Glucose POC Glucose 106 H Lactic Acid Magnesium AST Total Creatine Kinase 301 H Troponin T 0.103 H* C-Reactive Protein Total Protein Albumin HDL Cholesterol Salicylates 12/28/17 12/28/17 12/28/17 05:39 12:40 21:08 RBC Hgb Hct MCV MCH RDW Plt Count Lymph % (Auto) Mckean % (Auto) Baso % (Auto) Lymph # Mckean # Baso # Seg Neutrophils % PT INR APTT POC ABG pH POC ABG pO2 Sodium 149 H Chloride 108.6 H Carbon Dioxide BUN 69 H Creatinine 1.9 H Glucose 112 H POC Glucose 122 H 106 H Lactic Acid Magnesium AST Total Creatine Kinase Troponin T C-Reactive Protein Total Protein Albumin HDL Cholesterol Salicylates 12/29/17 12/29/17 12/29/17 07:31 07:31 07:31 RBC 3.50 L Hgb 11.6 L Hct 34.4 L MCV 98 H MCH 33 H RDW Plt Count 108 L Lymph % (Auto) Mckean % (Auto) Baso % (Auto) Lymph # Mckean # Baso # Seg Neutrophils % PT INR APTT POC ABG pH POC ABG pO2 Sodium 151 H Chloride 113.4 H Carbon Dioxide BUN 52 H Creatinine Glucose POC Glucose Lactic Acid Magnesium AST Total Creatine Kinase Troponin T C-Reactive Protein 6.60 H Total Protein Albumin HDL Cholesterol Salicylates 12/30/17 12/30/17 12/30/17 07:31 07:31 16:54 RBC Hgb Hct MCV 100 H MCH 33 H RDW Plt Count 114 L Lymph % (Auto) Mckean % (Auto) Baso % (Auto) Lymph # Mckean # Baso # Seg Neutrophils % PT INR APTT POC ABG pH POC ABG pO2 Sodium 147 H Chloride 111.3 H Carbon Dioxide 20 L D BUN 33 H Creatinine Glucose POC Glucose 125 H Lactic Acid Magnesium AST Total Creatine Kinase Troponin T C-Reactive Protein Total Protein Albumin HDL Cholesterol Salicylates 12/30/17 22:16 RBC Hgb Hct MCV MCH RDW Plt Count Lymph % (Auto) Mckean % (Auto) Baso % (Auto) Lymph # Mckean # Baso # Seg Neutrophils % PT INR APTT POC ABG pH POC ABG pO2 Sodium Chloride Carbon Dioxide BUN Creatinine Glucose POC Glucose 106 H Lactic Acid Magnesium AST Total Creatine Kinase Troponin T C-Reactive Protein Total Protein Albumin HDL Cholesterol Salicylates Chest x-ray: report reviewed, image reviewed
[2018-01-01] MEDS: DUONEB *Not for PRN Use IH SCH ×4 (03:46→19:55)
[2018-01-01] MEDS: CARDIZEM PO SCH ×4 (05:26→20:59)
[2018-01-01] MEDS: MAXIPIME 2 GM in NACL 0.9% 20 ML IV SCH ×2 (06:32→16:21)
[2018-01-01] MEDS: NACL 0.45% 1000 ML 1,000 ML IV SCH (06:32)
[2018-01-01] MEDS: PULMICORT IH SCH ×2 (07:49→19:55)
[2018-01-01] MEDS: BROVANA NEBU IH SCH ×2 (07:50→19:55)
[2018-01-01] MEDS: D50W (25GM) Syringe IV PRN ×2 (08:57→22:41)
[2018-01-01] MEDS: NOVOLOG SUB-Q SCH ×4 (09:05→22:00)
--- NOTE | 2018-01-01 10:43 | Fluoroscopy Report ---
MODIFIED BARIUM SWALLOW INDICATION: Dysphagia. COMPARISON: None similar. FINDINGS: Fluoroscopy with video provided by radiologist for speech therapist to assess the swallowing mechanism. Food items of various consistencies given. One image recorded. Edentulous jaw and multilevel cervical spondylosis. IMPRESSION: Successful modified barium swallow. Please refer to detailed report from speech pathologist. Thank you for the opportunity to participate in this patient's care.
--- NOTE | 2018-01-01 11:17 | Progress Note ---
Assessment and Plan Chronic respiratory failure Paroxysmal atrial fibrillation On low dose eliquis as outpatient DC medtronic pacemaker implant Hx of coronary artery disease s/p CABG with an implantation of a bioprosthetic tricuspid valve in 2012 also at [facility] Normal prosthetic valve function by MICAELA 12/2016 Prior history of DVT on low dose eliquis as an outpatient Prior CVA Hypertension Diabetes mellitus Acute renal failure Chronic non-specific troponin Bilateral LE wounds Conservative cardiac management. Subjective Date of service: 01/01/18 Principal diagnosis: Acute respiratory failure Interval history: Patient is non-communicative. No cardiac events reported overnight. Objective Vital Signs Temp Pulse Pulse Pulse Resp Resp Resp 01/01/18 07:24 18 01/01/18 04:17 97.7 F 78 18 12/31/17 22:40 12/31/17 22:15 90 12/31/17 22:05 91 H 12/31/17 20:31 22 12/31/17 20:28 22 12/31/17 19:58 72 12/31/17 17:50 97.9 F 20 12/31/17 16:00 100 H 96 H 18 12/31/17 11:49 97.9 F 79 18 12/31/17 11:35 94 H 86 20 Resp BP Pulse Ox 01/01/18 07:24 163/104 01/01/18 04:17 162/97 94 12/31/17 22:40 100 12/31/17 22:15 20 12/31/17 22:05 20 12/31/17 20:31 96 12/31/17 20:28 12/31/17 19:58 12/31/17 17:50 152/104 12/31/17 16:00 18 12/31/17 11:49 133/93 99 12/31/17 11:35 18 - Physical Examination General: No Apparent Distress, Cachectic, Other (noncommunicative) Cardiac: Positive: Other (paced)
[2018-01-01] MEDS: LOVENOX SUB-Q SCH ×2 (11:45→22:00)
[2018-01-01] MEDS: PEPCID IV SCH (11:45)
[2018-01-01] MEDS: DepaCON 500 MG in NACL 0.9% 100 ML IV SCH ×2 (11:52→20:59)
--- NOTE | 2018-01-01 12:09 | Progress Note ---
Assessment and Plan Assessment and plan: Patient is a 67 yo man with a plethora of serious end-stage co-morbities including chronic respiratory failure on O2 due to COPD, CHF, CVA with right- sided paralysis, seizure disorder functional quadriplegia, previous leg DVT on Eliquis, Advance dementia, diabetes, hypertension, CAD, CKD stage 3, INDIO, Afib s /p PPM, CAD s/p CABG with bioprosthetic tricuspid valve with chronic elevated troponin, prior Intubation due to mucus plugging s/p bronch 05/03/2017 who presents with altered mental status, currently on a Venturi mask pCXR reported as Cardiomegaly. Aortic calcification and tortuosity. Low lung volumes with perihilar and bibasilar opacities and blunting of the left costophrenic angle. Consider could be partly related to bronchovascular crowding /atelectasis, but consider superimposed acute process such as congestive heart failure with atelectasis or pneumonitis. Consider PA and lateral chest radiograph to begin further characterization if there is continued clinical concern. -Acute on chronic hypoxic respiratory failure: added duoneb, continue o2, consulted Pulmonology -Sepsis due to aspiration pneumonitis LLL: follow cultures, started on Abx, Aspiration precautions -Paroxysmal A. fib with a PPM: Cardiology following -History of DVT on Eliquis: off Eliquis because of dysphagia -Acute on chronic renal failure, vasomotor nephropathy, poa: continue ivf, repeat levels -Acute metabolic encephalopathy, POA per above -Functional Quadriplegia: ordered PT and wound care -Severe malnutrition: Consult dietary dietitian -Troponemia: Cardiology is following full code prognosis is guarded. Patient failed speech evaluation, NPO, switch oral medications to iv including Eliquis, to sq lovenox 1mg/kg, depakote to [facility], [facility] doesn't have IV cardizem so I called Dr. Ortega to discuss, await call back. Positive blood cultures, gpc clusters, start iv vancomycin, consulted ID 12/29/17: RN unable to peripheral IV, ordered NG tube placement==>he refused, therefore, he missed his dose of abx 12/30/17: consulted IV team for midline, speech therapy to re-access 12/31/17: now on modified diet; 2 more days of iv abx then back to [facility] 01/01/18: MBS today, 1 more day of iv abx, ?PEG tube, I called son Piper Epstein, no answer. He has a 7 day bed hold at [facility] that is up tomorrow. History Interval history: Patient was seen and examined. Follow-up on current diagnosis of altered mental status, still present. Overnight uneventful. Patient nonverbal, sleeping but easily arousable. Imaging, nursing note, chart, labs and old chart reviewed. Hospitalist Physical - Physical exam Narrative exam: GEN: Currently debilitated, chronically ill-appearing man sleeping but easily arousable a/o x 1, HEENT: NCAT, EOMI, PERRL, OP pasty and dry and white, he is pocketing food NECK: supple, no adenopathy, no thyromegaly, no JVD CVS/HEART: Irregularly irregular, NORMAL S1S2, pulses present bilaterally CHEST/LUNGS: CTA B, Symmetrical chest expansion, good air entry bilaterally GI/Abdomen: soft, NTND, good bowel sounds, no guarding or rebound /Bladder: no suprapubic tenderness, no CVA or paraspinal tenderness EXT/Skin: Chronic bilateral venous stasis bilateral legs MSK: Protracted legs Neuro: CN 2-12 grossly intact, doesn't follow commands Psych: Confused - Constitutional Vitals: Temp Pulse Resp BP Pulse Ox 97.7 F 78 18 163/104 94 01/01/18 04:17 01/01/18 04:17 01/01/18 07:24 01/01/18 07:24 01/01/18 04:17 General appearance: Absent: mild distress Results - Labs CBC & Chem 7: 12/30/17 07:31 12/30/17 07:31 Labs: Laboratory Last Values WBC 6.6 K/mm3 (4.5-11.0) 12/30/17 07:31 RBC 4.57 M/mm3 (3.65-5.03) 12/30/17 07:31 Hgb 15.1 gm/dl (11.8-15.2) D 12/30/17 07:31 Hct 45.6 % (35.5-45.6) D 12/30/17 07:31 MCV 100 fl (84-94) H 12/30/17 07:31 MCH 33 pg (28-32) H 12/30/17 07:31 MCHC 33 % (32-34) 12/30/17 07:31 RDW 14.6 % (13.2-15.2) 12/30/17 07:31 Plt Count 114 K/mm3 (140-440) L 12/30/17 07:31 Lymph % (Auto) 14.6 % (13.4-35.0) 12/27/17 07:35 Rosebud % (Auto) 14.6 % (0.0-7.3) H 12/27/17 07:35 Eos % (Auto) 0.5 % (0.0-4.3) 12/27/17 07:35 Baso % (Auto) 0.7 % (0.0-1.8) 12/27/17 07:35 Lymph # 1.5 K/mm3 (1.2-5.4) 12/27/17 07:35 Rosebud # 1.5 K/mm3 (0.0-0.8) H 12/27/17 07:35 Eos # 0.0 K/mm3 (0.0-0.4) 12/27/17 07:35 Baso # 0.1 K/mm3 (0.0-0.1) 12/27/17 07:35 Seg Neutrophils % 69.6 % (40.0-70.0) 12/27/17 07:35 Seg Neutrophils # 6.9 K/mm3 (1.8-7.7) 12/27/17 07:35 PT 16.9 Sec. (12.2-14.9) H 12/26/17 15:24 INR 1.30 (0.87-1.13) H 12/26/17 15:24 APTT 37.7 Sec. (24.2-36.6) H 12/26/17 15:24 POC ABG pH 7.477 (7.35-7.45) H 12/27/17 00:02 POC ABG pCO2 44.4 (35-45) 12/27/17 00:02 POC ABG pO2 66 (80-105) L 12/27/17 00:02 POC ABG HCO3 32.8 12/27/17 00:02 POC ABG Total CO2 34 12/27/17 00:02 POC ABG O2 Sat 94 12/27/17 00:02 POC ABG Base Excess 9 12/27/17 00:02 VBG pH 7.394 (7.320-7.420) 12/26/17 19:46 FiO2 40 % 12/27/17 00:02 Sodium 147 mmol/L (137-145) H 12/30/17 07:31 Potassium 3.7 mmol/L (3.6-5.0) 12/30/17 07:31 Chloride 111.3 mmol/L (98-107) H 12/30/17 07:31 Carbon Dioxide 20 mmol/L (22-30) L D 12/30/17 07:31 Anion Gap 19 mmol/L 12/30/17 07:31 BUN 33 mg/dL (9-20) H 12/30/17 07:31 Creatinine 1.0 mg/dL (0.8-1.5) 12/30/17 07:31 Estimated GFR > 60 ml/min 12/30/17 07:31 BUN/Creatinine Ratio 33 % 12/30/17 07:31 Glucose 90 mg/dL (75-100) 12/30/17 07:31 POC Glucose 61 (70-105) L 01/01/18 08:57 Hemoglobin A1c 5.7 % (4-6) 12/27/17 07:35 Lactic Acid 1.60 mmol/L (0.7-2.0) 12/27/17 07:35 Calcium 9.4 mg/dL (8.4-10.2) 12/30/17 07:31 Phosphorus 3.40 mg/dL (2.5-4.5) 12/27/17 07:35 Magnesium 2.40 mg/dL (1.7-2.3) H 12/27/17 07:35 Total Bilirubin 0.80 mg/dL (0.1-1.2) 12/27/17 07:35 AST 42 units/L (5-40) H 12/27/17 07:35 ALT 24 units/L (7-56) 12/27/17 07:35 Alkaline Phosphatase 67 units/L (35-129) 12/27/17 07:35 Ammonia 32.0 umol/L (25-60) 12/26/17 15:24 Total Creatine Kinase 301 units/L (55-170) H 12/27/17 14:56 CK-MB (CK-2) 1.9 ng/mL (0.0-4.0) 12/27/17 14:56 CK-MB (CK-2) Rel Index 0.6 (0-4) 12/27/17 14:56 Troponin T 0.103 ng/mL (0.00-0.029) H* 12/27/17 14:56 C-Reactive Protein 6.60 mg/dL (0.00-1.30) H 12/29/17 07:31 NT-Pro-B Natriuret Pep 895.3 pg/mL (0-900) 12/29/17 07:31 Total Protein 8.9 g/dL (6.3-8.2) H 12/27/17 07:35 Albumin 2.5 g/dL (3.9-5) L 12/27/17 07:35 Albumin/Globulin Ratio 0.4 % 12/27/17 07:35 Triglycerides 109 mg/dL (2-149) 12/26/17 15:24 Cholesterol 101 mg/dL (50-199) 12/26/17 15:24 LDL Cholesterol Direct 53 mg/dL (50-130) 12/26/17 15:24 HDL Cholesterol 27 mg/dL (40-59) L 12/26/17 15:24 Cholesterol/HDL Ratio 3.74 % 12/26/17 15:24 TSH 1.810 mlU/mL (0.270-4.200) 12/26/17 15:24 Free T4 0.80 ng/dL (0.76-1.46) 12/26/17 15:24 Urine Color Yellow (Yellow) 12/26/17 17:04 Urine Turbidity Clear (Clear) 12/26/17 17:04 Urine pH 6.0 (5.0-7.0) 12/26/17 17:04 Ur Specific Schaller 1.015 (1.003-1.030) 12/26/17 17:04 Urine Protein 30 mg/dl mg/dL (Negative) 12/26/17 17:04 Urine Glucose (UA) Neg mg/dL (Negative) 12/26/17 17:04 Urine Ketones Neg mg/dL (Negative) 12/26/17 17:04 Urine Blood Sm (Negative) 12/26/17 17:04 Urine Nitrite Neg (Negative) 12/26/17 17:04 Urine Bilirubin Neg (Negative) 12/26/17 17:04 Urine Urobilinogen 4.0 mg/dL (<2.0) 12/26/17 17:04 Ur Leukocyte Esterase Neg (Negative) 12/26/17 17:04 Urine WBC (Auto) < 1.0 /HPF (0.0-6.0) 12/26/17 17:04 Urine RBC (Auto) 4.0 /HPF (0.0-6.0) 12/26/17 17:04 U Epithel Cells (Auto) < 1.0 /HPF (0-13.0) 12/26/17 17:04 Urine Mucus Few /HPF 12/26/17 17:04 Salicylates < 0.3 mg/dL (2.8-20.0) L 12/26/17 15:24 Urine Opiates Screen Presumptive positive 12/26/17 17:04 Urine Methadone Screen Presumptive negative 12/26/17 17:04 Acetaminophen < 15.0 ug/mL (10.0-30.0) 12/26/17 15:24 Ur Barbiturates Screen Presumptive negative 12/26/17 17:04 Valproic Acid 51.2 ug/mL (50-100) 12/26/17 15:24 Ur Phencyclidine Scrn Presumptive negative 12/26/17 17:04 Ur Amphetamines Screen Presumptive negative 12/26/17 17:04 U Benzodiazepines Scrn Presumptive negative 12/26/17 17:04 Urine Cocaine Screen Presumptive negative 12/26/17 17:04 U Marijuana (THC) Screen Presumptive negative 12/26/17 17:04 Drugs of Abuse Note Disclamer 12/26/17 17:04 Plasma/Serum Alcohol < 0.01 % (0-0.07) 12/26/17 15:24 C. difficile Toxin A&B Negative (Negative) 12/30/17 23:20 Influenza A (Rapid) Negative (Negative) 12/30/17 11:50 Influenza B (Rapid) Negative (Negative) 12/30/17 11:50 Urine Legionella Ag Not detected (Not Detected) 12/29/17 07:27 Miscellaneous Test Flexitest 1 12/30/17 10:51 Blood Type A POSITIVE 12/27/17 07:35 Antibody Screen Negative 12/27/17 07:35
--- NOTE | 2018-01-01 12:17 | Progress Note ---
Assessment and Plan Assessment: 1) Sepsis: Present on admission, manifested by fever, tachycardia, increased lactate. Likely due to pneumonia. CRP 6.6. Resolved. 2) Coag Neg staph bacteremia. 1/4 bottles positive. Likely a contaminant. 3) Bilateral lung opacities. Could be due to aspiration or HCAP in this NH patient. Need to cover for Gram negative organisms. -Influenza A/B ag, Legionella antigen in urine and Pneumococcal ag in urine - all negative. 4) Acute encephalopathy. Could be toxic metabolic, due to sepsis. Improved. 5) GUICHO on CKD. Creatinine improved. 6) Elevated lactic acid present on admission. Resolved 7) Elevated troponin. Chronic as per cards. 8) Acute on chronic respiratory failure. On home oxygen. 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 10) Diabetes type 2. 11) Soft stools. C diff negative. 12) Dysphagia. Recommendations: -Continue Cefepime (D4/5). -?G tube placement. -ID will sign off. Please call with questions/concerns. -d/w Dr. Wilkinson. Judith Jc MD Infectious Diseases Specialist [facility], [place], [facility]ated [facility] ([facility]) [phone] Subjective Date of service: 01/08/18 Principal diagnosis: Acute respiratory failure Interval history: Afebrile. Can't swallow, pockets food in his mouth. Microbiology: Blood cultures 12/27/17: 1/4 Staph coagulase negative 12/29/17 NGTD Urine cultures 12/26/17: Neg. Sputum culture 12/28/17 poor specimen 12/29/17 poor specimen Current Antimicrobials: Cefepime 12/28- Prior antimicrobials Zosyn 12/27-12/28 Levaquin 12/27-12/28. Vancomycin 12/27-12/28 Objective - Exam Narrative Exam: General appearance: Pt in NAD, awake, talking. HEENT: NC/AT. Anicteric sclerae, moist conjunctivae; PERRLA. Normal external ears. Oxygen via NC. Neck: Trachea midline; supple, no thyromegaly or lymphadenopathy Lungs: Clear B. CV: S1,S2. Pacemaker in place, site w/o erythema, drainage or tenderness. Abdomen: Soft, non-tender; non-distended, no masses or hepatosplenomegaly Extremities: No cyanosis, clubbing or edema. Skin: Chronic venous stasis dermatitis BLE. Neuro: Awake. RUE and RLE weakness. Lines: No central line. Has a condom catheter, LUE midline (12/30/17) - Constitutional Vitals: Vital Signs Temp Pulse Resp BP Pulse Ox 97.7 F 78 18 163/104 94 01/01/18 04:17 01/01/18 04:17 01/01/18 07:24 01/01/18 07:24 01/01/18 04:17 Temperature -Last 24 Hours Temperature 97.7 F Temperature 97.9 F - Labs CBC & Chem 7: 12/30/17 07:31 12/30/17 07:31 Labs: Abnormal lab results 01/01/18 Range/Units 08:57 POC Glucose 61 L (70-105)
--- NOTE | 2018-01-01 15:38 | Progress Note ---
Assessment and Plan Imp: 1. OP dysphagia 2. ? Aspiration pneumonitis 3. Acute respiratory failure, hypoxia, better 4. GUICHO, better 5. Hypernatremia 6. Vascular dementia 7. Paroxysmal atrial fib Rec: 1. ABX per ID; appears to have clinically improved 2. MBS reviewed -> needs strict adherence to ST recs at SNF; would keep HOB elevated at all times and he needs to rinse mouth out/drink water after taking any PO as he pockets it in his mouth 3. Aspiration precautions 4. Agree with transfer to SNF in AM if continues to do well No family present Subjective Date of service: 01/01/18 Principal diagnosis: Acute respiratory failure Interval history: No events. Unable to give history. On 2L NC. More alert without obvious complaints today. Active Medications Acetaminophen (Tylenol) [address] Q4H PRN PRN Reason: Pain MILD(1-3)/Fever >100.5/ROSAS Albuterol (Proventil) 2.5 mg IH Q4HRT PRN PRN Reason: Shortness Of Breath Albuterol/Ipratropium (Duoneb *Not For Prn Use*) 1 ampul IH Q6HRT [facility] Last Admin: 01/01/18 13:21 Dose: 1 ampul Arformoterol Tartrate (Brovana Nebu) 15 mcg IH Q12HRT [facility] Last Admin: 01/01/18 07:50 Dose: 15 mcg Bisacodyl (Dulcolax) [address] QDAY PRN PRN Reason: Constipation unrelieved by MOM Budesonide (Pulmicort) 1 mg IH Q12HRT [facility] Last Admin: 01/01/18 07:49 Dose: 1 mg Dextrose (D50w (25gm) Syringe) 50 ml IV PRN PRN PRN Reason: Hypoglycemia Last Admin: 01/01/18 08:57 Dose: 50 ml Diltiazem HCl (Cardizem) 30 mg PO Q6H [facility] Last Admin: 01/01/18 11:45 Dose: Not Given Enoxaparin Sodium (Lovenox) 90 mg SUB-Q Q12HR [facility] Last Admin: 01/01/18 11:45 Dose: Not Given Famotidine (Pepcid) 20 mg IV DAILY [facility] Last Admin: 01/01/18 11:45 Dose: 20 mg Sodium Chloride (Nacl 0.45% 1000 Ml) 1,000 mls @ 150 mls/hr IV DIRECT [facility] Last Admin: 01/01/18 06:32 Dose: 150 mls/hr Valproate Sodium 500 mg/ (Sodium Chloride) 105 mls @ 100 mls/hr IV Q12HR [facility] Last Admin: 01/01/18 11:52 Dose: 100 mls/hr Cefepime HCl 2 gm/ Sodium (Chloride) 20 mls @ 20 mls/10 min IV Q12H [facility] Last Admin: 01/01/18 06:32 Dose: 20 mls/10 min Insulin Aspart (Novolog) 0 units SUB-Q ACHS AIXA PRN Reason: Protocol Last Admin: 01/01/18 11:54 Dose: Not Given Morphine Sulfate (Morphine) 2 mg IV Q4H PRN PRN Reason: Pain, Moderate (4-6) Ondansetron HCl (Zofran) 4 mg IV Q8H PRN PRN Reason: N/V unrelieved by Reglan Objective Vital Signs - 12hr 01/01/18 01/01/18 01/01/18 04:17 07:24 07:52 Temperature 97.7 F Pulse Rate 78 Pulse Rate [ 89 Posterior Bilateral Throughout] Respiratory 18 18 Rate Respiratory 18 Rate [Posterior Bilateral Throughout] Blood Pressure 162/97 163/104 Blood Pressure [Right] O2 Sat by Pulse 94 97 Oximetry 01/01/18 01/01/18 01/01/18 08:02 10:00 12:41 Temperature Pulse Rate 78 Pulse Rate [ 90 Posterior Bilateral Throughout] Respiratory Rate Respiratory 18 Rate [Posterior Bilateral Throughout] Blood Pressure Blood Pressure [Right] O2 Sat by Pulse 97 Oximetry 01/01/18 01/01/18 13:16 13:22 Temperature 99.0 F Pulse Rate 79 Pulse Rate [ 75 Posterior Bilateral Throughout] Respiratory 20 Rate Respiratory 18 Rate [Posterior Bilateral Throughout] Blood Pressure Blood Pressure 161/101 [Right] O2 Sat by Pulse 98 Oximetry Constitutional: no acute distress, alert ENT: oropharynx moist Neck: supple Effort: normal Ascultation: Bilateral: clear Cardiovascular: regular rate and rhythm (no mrg) Gastrointestinal: normoactive bowel sounds, soft, non-tender, non-distended Integumentary: other (chronic venous stasis dermatitis, lower extremities) Extremities: no cyanosis, other (chronic LE edema) Neurologic: other (awake, mumbles) Psychiatric: mood appropriate, affect normal CBC and BMP: 12/30/17 07:31 12/30/17 07:31 ABG, PT/INR, D-dimer: ABG POC ABG pH 7.477 (7.35-7.45) H 12/27/17 00:02 POC ABG pCO2 44.4 (35-45) 12/27/17 00:02 POC ABG pO2 66 (80-105) L 12/27/17 00:02 POC ABG HCO3 32.8 12/27/17 00:02 POC ABG Total CO2 34 12/27/17 00:02 POC ABG O2 Sat 94 12/27/17 00:02 PT/INR, D-dimer PT 16.9 Sec. (12.2-14.9) H 12/26/17 15:24 INR 1.30 (0.87-1.13) H 12/26/17 15:24 Abnormal lab findings: Abnormal Labs 12/26/17 12/26/17 12/26/17 15:24 15:24 15:24 RBC Hgb Hct MCV 100 H MCH 33 H RDW 15.4 H Plt Count 121 L Lymph % (Auto) 7.6 L Cassia % (Auto) 14.4 H Baso % (Auto) 2.1 H Lymph # 0.7 L Cassia # 1.3 H Baso # 0.2 H Seg Neutrophils % 75.4 H PT 16.9 H INR 1.30 H APTT 37.7 H POC ABG pH POC ABG pO2 Sodium Chloride Carbon Dioxide BUN 68 H Creatinine 2.2 H Glucose 123 H POC Glucose Lactic Acid Magnesium AST 53 H Total Creatine Kinase Troponin T 0.178 H* C-Reactive Protein Total Protein 9.6 H Albumin 2.8 L HDL Cholesterol 27 L Salicylates 12/26/17 12/26/17 12/26/17 15:24 17:28 19:44 RBC Hgb Hct MCV MCH RDW Plt Count Lymph % (Auto) Cassia % (Auto) Baso % (Auto) Lymph # Cassia # Baso # Seg Neutrophils % PT INR APTT POC ABG pH 7.532 H POC ABG pO2 52 L Sodium Chloride Carbon Dioxide BUN Creatinine Glucose POC Glucose Lactic Acid 2.30 H* Magnesium AST Total Creatine Kinase Troponin T C-Reactive Protein Total Protein Albumin HDL Cholesterol Salicylates < 0.3 L 12/26/17 12/26/17 12/26/17 19:44 20:54 21:58 RBC Hgb Hct MCV MCH RDW Plt Count Lymph % (Auto) Cassia % (Auto) Baso % (Auto) Lymph # Cassia # Baso # Seg Neutrophils % PT INR APTT POC ABG pH POC ABG pO2 Sodium Chloride Carbon Dioxide BUN Creatinine Glucose POC Glucose 134 H Lactic Acid 3.00 H* Magnesium AST Total Creatine Kinase Troponin T 0.153 H* C-Reactive Protein Total Protein Albumin HDL Cholesterol Salicylates 12/26/17 12/27/17 12/27/17 22:32 00:02 07:35 RBC Hgb Hct MCV 99 H MCH 33 H RDW 15.3 H Plt Count 117 L Lymph % (Auto) Cassia % (Auto) 14.6 H Baso % (Auto) Lymph # Cassia # 1.5 H Baso # Seg Neutrophils % PT INR APTT POC ABG pH 7.477 H POC ABG pO2 66 L Sodium Chloride Carbon Dioxide BUN Creatinine Glucose POC Glucose 162 H Lactic Acid Magnesium AST Total Creatine Kinase Troponin T C-Reactive Protein Total Protein Albumin HDL Cholesterol Salicylates 12/27/17 12/27/17 12/27/17 07:35 07:35 07:35 RBC Hgb Hct MCV MCH RDW Plt Count Lymph % (Auto) Cassia % (Auto) Baso % (Auto) Lymph # Cassia # Baso # Seg Neutrophils % PT INR APTT POC ABG pH POC ABG pO2 Sodium 149 H Chloride Carbon Dioxide BUN 65 H Creatinine 1.9 H Glucose 106 H POC Glucose Lactic Acid Magnesium 2.40 H AST 42 H Total Creatine Kinase 430 H Troponin T 0.125 H* C-Reactive Protein Total Protein 8.9 H Albumin 2.5 L HDL Cholesterol Salicylates 12/27/17 12/27/17 12/28/17 14:56 21:13 05:39 RBC Hgb Hct MCV 99 H MCH 33 H RDW 15.5 H Plt Count 120 L Lymph % (Auto) Cassia % (Auto) Baso % (Auto) Lymph # Cassia # Baso # Seg Neutrophils % PT INR APTT POC ABG pH POC ABG pO2 Sodium Chloride Carbon Dioxide BUN Creatinine Glucose POC Glucose 106 H Lactic Acid Magnesium AST Total Creatine Kinase 301 H Troponin T 0.103 H* C-Reactive Protein Total Protein Albumin HDL Cholesterol Salicylates 12/28/17 12/28/17 12/28/17 05:39 12:40 21:08 RBC Hgb Hct MCV MCH RDW Plt Count Lymph % (Auto) Cassia % (Auto) Baso % (Auto) Lymph # Cassia # Baso # Seg Neutrophils % PT INR APTT POC ABG pH POC ABG pO2 Sodium 149 H Chloride 108.6 H Carbon Dioxide BUN 69 H Creatinine 1.9 H Glucose 112 H POC Glucose 122 H 106 H Lactic Acid Magnesium AST Total Creatine Kinase Troponin T C-Reactive Protein Total Protein Albumin HDL Cholesterol Salicylates 12/29/17 12/29/17 12/29/17 07:31 07:31 07:31 RBC 3.50 L Hgb 11.6 L Hct 34.4 L MCV 98 H MCH 33 H RDW Plt Count 108 L Lymph % (Auto) Cassia % (Auto) Baso % (Auto) Lymph # Cassia # Baso # Seg Neutrophils % PT INR APTT POC ABG pH POC ABG pO2 Sodium 151 H Chloride 113.4 H Carbon Dioxide BUN 52 H Creatinine Glucose POC Glucose Lactic Acid Magnesium AST Total Creatine Kinase Troponin T C-Reactive Protein 6.60 H Total Protein Albumin HDL Cholesterol Salicylates 12/30/17 12/30/17 12/30/17 07:31 07:31 16:54 RBC Hgb Hct MCV 100 H MCH 33 H RDW Plt Count 114 L Lymph % (Auto) Cassia % (Auto) Baso % (Auto) Lymph # Cassia # Baso # Seg Neutrophils % PT INR APTT POC ABG pH POC ABG pO2 Sodium 147 H Chloride 111.3 H Carbon Dioxide 20 L D BUN 33 H Creatinine Glucose POC Glucose 125 H Lactic Acid Magnesium AST Total Creatine Kinase Troponin T C-Reactive Protein Total Protein Albumin HDL Cholesterol Salicylates 12/30/17 01/01/18 22:16 08:57 RBC Hgb Hct MCV MCH RDW Plt Count Lymph % (Auto) Cassia % (Auto) Baso % (Auto) Lymph # Cassia # Baso # Seg Neutrophils % PT INR APTT POC ABG pH POC ABG pO2 Sodium Chloride Carbon Dioxide BUN Creatinine Glucose POC Glucose 106 H 61 L Lactic Acid Magnesium AST Total Creatine Kinase Troponin T C-Reactive Protein Total Protein Albumin HDL Cholesterol Salicylates Chest x-ray: report reviewed, image reviewed
[2018-01-02] MEDS: DUONEB *Not for PRN Use IH SCH ×4 (03:01→21:26)
[2018-01-02] MEDS: CARDIZEM PO SCH ×4 (04:22→23:17)
[2018-01-02] MEDS: MAXIPIME 2 GM in NACL 0.9% 20 ML IV SCH ×2 (06:23→17:59)
[2018-01-02] MEDS: BROVANA NEBU IH SCH ×2 (09:02→21:27)
--- NOTE | 2018-01-02 09:09 | Progress Note ---
Assessment and Plan Chronic respiratory failure Paroxysmal atrial fibrillation On low dose eliquis as outpatient. DC medtronic pacemaker implant Hx of coronary artery disease s/p CABG with an implantation of a bioprosthetic tricuspid valve in 2012 also at [facility]. Normal prosthetic valve function by MICAELA 12/2016. Prior history of DVT on low dose eliquis as an outpatient Prior CVA Hypertension Diabetes mellitus Acute renal failure Chronic non-specific troponin Bilateral LE wounds Conservative cardiac management. Subjective Date of service: 01/02/18 Principal diagnosis: Acute respiratory failure Interval history: Patient is non-communicative. No cardiac events reported overnight. Objective Vital Signs Temp Pulse Pulse Resp Resp BP BP 01/02/18 05:20 97.6 F 92 H 20 148/64 01/02/18 04:58 75 01/02/18 04:22 148/64 01/02/18 00:19 98.2 F 75 20 157/96 01/02/18 00:07 20 01/01/18 22:30 01/01/18 20:59 95 H 172/108 01/01/18 20:23 98.2 F 75 18 172/108 01/01/18 19:51 72 20 01/01/18 19:41 76 20 01/01/18 16:21 79 161/101 01/01/18 13:32 82 18 01/01/18 13:22 75 18 01/01/18 13:16 99.0 F 79 20 161/101 01/01/18 12:41 01/01/18 10:00 78 Pulse Ox 01/02/18 05:20 01/02/18 04:58 01/02/18 04:22 01/02/18 00:19 94 01/02/18 00:07 98 01/01/18 22:30 95 01/01/18 20:59 01/01/18 20:23 95 01/01/18 19:51 01/01/18 19:41 01/01/18 16:21 01/01/18 13:32 01/01/18 13:22 01/01/18 13:16 98 01/01/18 12:41 97 01/01/18 10:00 - Physical Examination General: No Apparent Distress, Cachectic, Other (noncommunicative) Cardiac: Positive: Other (AV paced)
--- NOTE | 2018-01-02 09:13 | Progress Note ---
Assessment and Plan Patient is a 67 yo man with a plethora of serious end-stage co-morbities including chronic respiratory failure on O2 due to COPD, CHF, CVA with right- sided paralysis, seizure disorder functional quadriplegia, previous leg DVT on Eliquis, Advance dementia, diabetes, hypertension, CAD, CKD stage 3, INDIO, Afib s /p PPM, CAD s/p CABG with bioprosthetic tricuspid valve with chronic elevated troponin, prior Intubation due to mucus plugging s/p bronch 05/03/2017 who presents with altered mental status, currently on a Venturi mask -Acute on chronic hypoxic respiratory failure: added duoneb, continue o2, consulted Pulmonology -Sepsis due to aspiration pneumonitis LLL: cultures- Coag neg, likely contaminant. started on Abx, Aspiration precautions -Paroxysmal A. fib with a PPM: Cardiology following -History of DVT on Eliquis: off Eliquis because of dysphagia -Acute on chronic renal failure, vasomotor nephropathy, poa: continue ivf, repeat levels -Acute metabolic encephalopathy, POA per above -Functional Quadriplegia: ordered PT and wound care -Severe malnutrition: Consult dietary dietitian -Troponemia: Cardiology is following - DVT with lovenox Subjective Date of service: 01/02/18 Principal diagnosis: Acute respiratory failure, Interval history: Having shortness of breath Objective - Exam Narrative Exam: Constitutional: Well-nourished well-developed. In no distress Head: Normocephalic atraumatic Eyes: Pupils are equal round and reactive to light Nose: No enlarged turbinates, no septal deviation. Mouth: Moist mucous membranes. Neck: Supple no thyromegaly. No bruit. No JVD Heart: Regular rate and rhythm, S1-S2 abnormal. No rubs murmurs or gallop Lungs: Decreased breath sounds bilaterally. no rales or rhonchi Abdomen: Soft, nontender. Bowel sound are present. Extremities: No edema no cyanosis and no clubbing. Neuro: Alert oriented Oriented x3. No focal sensory or motor deficit. Skin: No rashes no hyperemic spots Psychiatry: Euthymic. Calm. - Constitutional Vitals: Vital Signs - 12hr 01/01/18 01/02/18 01/02/18 22:30 00:07 00:19 Temperature 98.2 F Pulse Rate 75 Respiratory 20 20 Rate Blood Pressure Blood Pressure 157/96 [Right] O2 Sat by Pulse 95 98 94 Oximetry 01/02/18 01/02/18 01/02/18 04:22 04:58 05:20 Temperature 97.6 F Pulse Rate 75 92 H Respiratory 20 Rate Blood Pressure 148/64 Blood Pressure 148/64 [Right] O2 Sat by Pulse Oximetry - Labs CBC & Chem 7: 12/30/17 07:31 12/30/17 07:31 Labs: Abnormal lab results 01/01/18 01/01/18 01/01/18 Range/Units 08:57 12:41 21:19 POC Glucose 61 L 69 L 67 L (70-105)
[2018-01-02] MEDS: PULMICORT IH SCH ×2 (09:35→21:27)
[2018-01-02] MEDS: NOVOLOG SUB-Q SCH ×4 (10:14→23:29)
[2018-01-02] MEDS: NACL 0.45% 1000 ML 1,000 ML IV SCH (10:15)
[2018-01-02] MEDS: DepaCON 500 MG in NACL 0.9% 100 ML IV SCH ×2 (11:15→23:18)
[2018-01-02] MEDS: LOVENOX SUB-Q SCH ×2 (11:16→23:17)
[2018-01-02] MEDS: PEPCID IV SCH (11:16)
--- NOTE | 2018-01-02 14:18 | Progress Note ---
Assessment and Plan Imp: 1. OP dysphagia 2. ? Aspiration pneumonitis 3. Acute respiratory failure, hypoxia, better 4. GUCIHO, better 5. Hypernatremia 6. Vascular dementia 7. Paroxysmal atrial fib Rec: 1. ABX per ID; appears to have clinically improved 2. MBS reviewed -> needs strict adherence to ST recs at SNF; would keep HOB elevated at all times and he needs to rinse mouth out/drink water after taking any PO as he pockets it in his mouth 3. Aspiration precautions 4. Okay for d/c to SNF pulm-[id number] No family present Subjective Date of service: 01/02/18 Principal diagnosis: Acute respiratory failure Interval history: No events. Awake, alert. Poor historian. No complaints. On 2L NC. Active Medications Acetaminophen (Tylenol) 650 mg [place] Q4H PRN PRN Reason: Pain MILD(1-3)/Fever >100.5/ROSAS Albuterol (Proventil) 2.5 mg IH Q4HRT PRN PRN Reason: Shortness Of Breath Albuterol/Ipratropium (Duoneb *Not For Prn Use*) 1 ampul IH Q6HRT [facility] Last Admin: 01/02/18 09:02 Dose: 1 ampul Arformoterol Tartrate (Brovana Nebu) 15 mcg IH Q12HRT [facility] Last Admin: 01/02/18 09:02 Dose: 15 mcg Bisacodyl (Dulcolax) 10 mg [place] QDAY PRN PRN Reason: Constipation unrelieved by MOM Budesonide (Pulmicort) 1 mg IH Q12HRT [facility] Last Admin: 01/02/18 09:35 Dose: 1 mg Dextrose (D50w (25gm) Syringe) 50 ml IV PRN PRN PRN Reason: Hypoglycemia Last Admin: 01/01/18 22:41 Dose: 50 ml Diltiazem HCl (Cardizem) 30 mg PO Q6H [facility] Last Admin: 01/02/18 11:15 Dose: 30 mg Enoxaparin Sodium (Lovenox) 90 mg SUB-Q Q12HR [facility] Last Admin: 01/02/18 11:16 Dose: 90 mg Famotidine (Pepcid) 20 mg IV DAILY [facility] Last Admin: 01/02/18 11:16 Dose: 20 mg Sodium Chloride (Nacl 0.45% 1000 Ml) 1,000 mls @ 150 mls/hr IV DIRECT [facility] Last Admin: 01/02/18 10:15 Dose: 150 mls/hr Valproate Sodium 500 mg/ (Sodium Chloride) 105 mls @ 100 mls/hr IV Q12HR [facility] Last Admin: 01/02/18 11:15 Dose: 100 mls/hr Cefepime HCl 2 gm/ Sodium (Chloride) 20 mls @ 20 mls/10 min IV Q12H [facility] Last Admin: 01/02/18 06:23 Dose: 20 mls/10 min Insulin Aspart (Novolog) 0 units SUB-Q ACHS AIXA PRN Reason: Protocol Last Admin: 01/02/18 12:42 Dose: Not Given Morphine Sulfate (Morphine) 2 mg IV Q4H PRN PRN Reason: Pain, Moderate (4-6) Ondansetron HCl (Zofran) 4 mg IV Q8H PRN PRN Reason: N/V unrelieved by Reglan Objective Vital Signs - 12hr 01/02/18 01/02/18 01/02/18 04:22 04:58 05:20 Temperature 97.6 F Pulse Rate 75 92 H Pulse Rate [ Apical] Respiratory 20 Rate Blood Pressure 148/64 Blood Pressure 148/64 [Right] O2 Sat by Pulse Oximetry 01/02/18 01/02/18 01/02/18 10:00 10:10 13:17 Temperature 97.5 F L 97.6 F Pulse Rate 75 75 72 Pulse Rate [ 75 Apical] Respiratory 20 20 20 Rate Blood Pressure Blood Pressure 161/100 168/76 [Right] O2 Sat by Pulse 97 98 98 Oximetry 01/02/18 13:20 Temperature 97.9 F Pulse Rate 80 Pulse Rate [ Apical] Respiratory 20 Rate Blood Pressure Blood Pressure 140/97 [Right] O2 Sat by Pulse 98 Oximetry Constitutional: no acute distress, alert ENT: oropharynx moist Neck: supple Effort: normal Ascultation: Bilateral: clear Cardiovascular: regular rate and rhythm (no mrg) Gastrointestinal: normoactive bowel sounds, soft, non-tender, non-distended Integumentary: other (chronic venous stasis dermatitis, lower extremities) Extremities: no cyanosis, other (chronic LE edema) Neurologic: other (awake, mumbles) Psychiatric: mood appropriate, affect normal CBC and BMP: 12/30/17 07:31 12/30/17 07:31 ABG, PT/INR, D-dimer: ABG POC ABG pH 7.477 (7.35-7.45) H 12/27/17 00:02 POC ABG pCO2 44.4 (35-45) 12/27/17 00:02 POC ABG pO2 66 (80-105) L 12/27/17 00:02 POC ABG HCO3 32.8 12/27/17 00:02 POC ABG Total CO2 34 12/27/17 00:02 POC ABG O2 Sat 94 12/27/17 00:02 PT/INR, D-dimer PT 16.9 Sec. (12.2-14.9) H 12/26/17 15:24 INR 1.30 (0.87-1.13) H 12/26/17 15:24 Abnormal lab findings: Abnormal Labs 12/26/17 12/26/17 12/26/17 15:24 15:24 15:24 RBC Hgb Hct MCV 100 H MCH 33 H RDW 15.4 H Plt Count 121 L Lymph % (Auto) 7.6 L [place] % (Auto) 14.4 H Baso % (Auto) 2.1 H Lymph # 0.7 L [place] # 1.3 H Baso # 0.2 H Seg Neutrophils % 75.4 H PT 16.9 H INR 1.30 H APTT 37.7 H POC ABG pH POC ABG pO2 Sodium Chloride Carbon Dioxide BUN 68 H Creatinine 2.2 H Glucose 123 H POC Glucose Lactic Acid Magnesium AST 53 H Total Creatine Kinase Troponin T 0.178 H* C-Reactive Protein Total Protein 9.6 H Albumin 2.8 L HDL Cholesterol 27 L Salicylates 12/26/17 12/26/17 12/26/17 15:24 17:28 19:44 RBC Hgb Hct MCV MCH RDW Plt Count Lymph % (Auto) [place] % (Auto) Baso % (Auto) Lymph # [place] # Baso # Seg Neutrophils % PT INR APTT POC ABG pH 7.532 H POC ABG pO2 52 L Sodium Chloride Carbon Dioxide BUN Creatinine Glucose POC Glucose Lactic Acid 2.30 H* Magnesium AST Total Creatine Kinase Troponin T C-Reactive Protein Total Protein Albumin HDL Cholesterol Salicylates < 0.3 L 12/26/17 12/26/17 12/26/17 19:44 20:54 21:58 RBC Hgb Hct MCV MCH RDW Plt Count Lymph % (Auto) [place] % (Auto) Baso % (Auto) Lymph # [place] # Baso # Seg Neutrophils % PT INR APTT POC ABG pH POC ABG pO2 Sodium Chloride Carbon Dioxide BUN Creatinine Glucose POC Glucose 134 H Lactic Acid 3.00 H* Magnesium AST Total Creatine Kinase Troponin T 0.153 H* C-Reactive Protein Total Protein Albumin HDL Cholesterol Salicylates 12/26/17 12/27/17 12/27/17 22:32 00:02 07:35 RBC Hgb Hct MCV 99 H MCH 33 H RDW 15.3 H Plt Count 117 L Lymph % (Auto) [place] % (Auto) 14.6 H Baso % (Auto) Lymph # [place] # 1.5 H Baso # Seg Neutrophils % PT INR APTT POC ABG pH 7.477 H POC ABG pO2 66 L Sodium Chloride Carbon Dioxide BUN Creatinine Glucose POC Glucose 162 H Lactic Acid Magnesium AST Total Creatine Kinase Troponin T C-Reactive Protein Total Protein Albumin HDL Cholesterol Salicylates 12/27/17 12/27/17 12/27/17 07:35 07:35 07:35 RBC Hgb Hct MCV MCH RDW Plt Count Lymph % (Auto) [place] % (Auto) Baso % (Auto) Lymph # [place] # Baso # Seg Neutrophils % PT INR APTT POC ABG pH POC ABG pO2 Sodium 149 H Chloride Carbon Dioxide BUN 65 H Creatinine 1.9 H Glucose 106 H POC Glucose Lactic Acid Magnesium 2.40 H AST 42 H Total Creatine Kinase 430 H Troponin T 0.125 H* C-Reactive Protein Total Protein 8.9 H Albumin 2.5 L HDL Cholesterol Salicylates 12/27/17 12/27/17 12/28/17 14:56 21:13 05:39 RBC Hgb Hct MCV 99 H MCH 33 H RDW 15.5 H Plt Count 120 L Lymph % (Auto) [place] % (Auto) Baso % (Auto) Lymph # [place] # Baso # Seg Neutrophils % PT INR APTT POC ABG pH POC ABG pO2 Sodium Chloride Carbon Dioxide BUN Creatinine Glucose POC Glucose 106 H Lactic Acid Magnesium AST Total Creatine Kinase 301 H Troponin T 0.103 H* C-Reactive Protein Total Protein Albumin HDL Cholesterol Salicylates 12/28/17 12/28/17 12/28/17 05:39 12:40 21:08 RBC Hgb Hct MCV MCH RDW Plt Count Lymph % (Auto) [place] % (Auto) Baso % (Auto) Lymph # [place] # Baso # Seg Neutrophils % PT INR APTT POC ABG pH POC ABG pO2 Sodium 149 H Chloride 108.6 H Carbon Dioxide BUN 69 H Creatinine 1.9 H Glucose 112 H POC Glucose 122 H 106 H Lactic Acid Magnesium AST Total Creatine Kinase Troponin T C-Reactive Protein Total Protein Albumin HDL Cholesterol Salicylates 12/29/17 12/29/17 12/29/17 07:31 07:31 07:31 RBC 3.50 L Hgb 11.6 L Hct 34.4 L MCV 98 H MCH 33 H RDW Plt Count 108 L Lymph % (Auto) [place] % (Auto) Baso % (Auto) Lymph # [place] # Baso # Seg Neutrophils % PT INR APTT POC ABG pH POC ABG pO2 Sodium 151 H Chloride 113.4 H Carbon Dioxide BUN 52 H Creatinine Glucose POC Glucose Lactic Acid Magnesium AST Total Creatine Kinase Troponin T C-Reactive Protein 6.60 H Total Protein Albumin HDL Cholesterol Salicylates 12/30/17 12/30/17 12/30/17 07:31 07:31 16:54 RBC Hgb Hct MCV 100 H MCH 33 H RDW Plt Count 114 L Lymph % (Auto) [place] % (Auto) Baso % (Auto) Lymph # [place] # Baso # Seg Neutrophils % PT INR APTT POC ABG pH POC ABG pO2 Sodium 147 H Chloride 111.3 H Carbon Dioxide 20 L D BUN 33 H Creatinine Glucose POC Glucose 125 H Lactic Acid Magnesium AST Total Creatine Kinase Troponin T C-Reactive Protein Total Protein Albumin HDL Cholesterol Salicylates 12/30/17 01/01/18 01/01/18 22:16 08:57 12:41 RBC Hgb Hct MCV MCH RDW Plt Count Lymph % (Auto) [place] % (Auto) Baso % (Auto) Lymph # [place] # Baso # Seg Neutrophils % PT INR APTT POC ABG pH POC ABG pO2 Sodium Chloride Carbon Dioxide BUN Creatinine Glucose POC Glucose 106 H 61 L 69 L Lactic Acid Magnesium AST Total Creatine Kinase Troponin T C-Reactive Protein Total Protein Albumin HDL Cholesterol Salicylates 01/01/18 01/02/18 01/02/18 21:19 08:50 10:23 RBC Hgb Hct MCV MCH RDW Plt Count Lymph % (Auto) [place] % (Auto) Baso % (Auto) Lymph # [place] # Baso # Seg Neutrophils % PT INR APTT POC ABG pH POC ABG pO2 Sodium Chloride Carbon Dioxide BUN Creatinine Glucose POC Glucose 67 L 40 L 113 H Lactic Acid Magnesium AST Total Creatine Kinase Troponin T C-Reactive Protein Total Protein Albumin HDL Cholesterol Salicylates Chest x-ray: report reviewed, image reviewed
[2018-01-02] MEDS ORDERED: D5/0.45NS 1,000 ML IV SCH ×2 (18:00)
[2018-01-03] MEDS: DUONEB *Not for PRN Use IH SCH ×4 (02:12→20:39)
[2018-01-03] MEDS: MAXIPIME 2 GM in NACL 0.9% 20 ML IV SCH ×2 (05:27→18:44)
[2018-01-03] MEDS: CARDIZEM PO SCH ×4 (05:27→22:47)
[2018-01-03] MEDS: PULMICORT IH SCH ×2 (08:40→20:39)
[2018-01-03] MEDS: BROVANA NEBU IH SCH ×2 (08:41→20:39)
[2018-01-03] MEDS: LOVENOX SUB-Q SCH ×2 (09:49→22:46)
[2018-01-03] MEDS: PEPCID IV SCH (09:50)
[2018-01-03] MEDS: NOVOLOG SUB-Q SCH ×4 (09:50→22:46)
[2018-01-03] MEDS: DepaCON 500 MG in NACL 0.9% 100 ML IV SCH ×2 (10:00→22:46)
--- NOTE | 2018-01-03 15:42 | Progress Note ---
Assessment and Plan Imp: 1. OP dysphagia 2. ? Aspiration pneumonitis 3. Acute respiratory failure, hypoxia, better 4. GUICHO, better 5. Hypernatremia 6. Vascular dementia 7. Paroxysmal atrial fib Rec: 1. ABX per ID; appears to have clinically improved 2. MBS reviewed -> needs strict adherence to ST recs at SNF; would keep HOB elevated at all times and he needs to rinse mouth out/drink water after taking any PO as he pockets it in his mouth 3. Aspiration precautions 4. Okay for d/c to SNF pulm-singh No family present Subjective Date of service: 01/03/18 Principal diagnosis: Acute respiratory failure, Interval history: No events. Awake, alert. Poor historian. No complaints. On 2L NC. Active Medications Acetaminophen (Tylenol) 650 mg MN Q4H PRN PRN Reason: Pain MILD(1-3)/Fever >100.5/ROSAS Albuterol (Proventil) 2.5 mg IH Q4HRT PRN PRN Reason: Shortness Of Breath Albuterol/Ipratropium (Duoneb *Not For Prn Use*) 1 ampul IH Q6HRT [facility] Last Admin: 01/03/18 13:56 Dose: 1 ampul Arformoterol Tartrate (Brovana Nebu) 15 mcg IH Q12HRT [facility] Last Admin: 01/03/18 08:41 Dose: 15 mcg Bisacodyl (Dulcolax) 10 mg MN QDAY PRN PRN Reason: Constipation unrelieved by MOM Budesonide (Pulmicort) 1 mg IH Q12HRT [facility] Last Admin: 01/03/18 08:40 Dose: 1 mg Dextrose (D50w (25gm) Syringe) 50 ml IV PRN PRN PRN Reason: Hypoglycemia Last Admin: 01/01/18 22:41 Dose: 50 ml Diltiazem HCl (Cardizem) 30 mg PO Q6H [facility] Last Admin: 01/03/18 13:28 Dose: 30 mg Enoxaparin Sodium (Lovenox) 90 mg SUB-Q Q12HR [facility] Last Admin: 01/03/18 09:49 Dose: 90 mg Famotidine (Pepcid) 20 mg IV DAILY [facility] Last Admin: 01/03/18 09:50 Dose: 20 mg Valproate Sodium 500 mg/ (Sodium Chloride) 105 mls @ 100 mls/hr IV Q12HR [facility] Last Admin: 01/03/18 10:00 Dose: 100 mls/hr Cefepime HCl 2 gm/ Sodium (Chloride) 20 mls @ 20 mls/10 min IV Q12H [facility] Last Admin: 01/03/18 05:27 Dose: 20 mls/10 min Dextrose/Sodium Chloride (D5/0.45ns) 1,000 mls @ 50 mls/hr IV DIRECT [facility] Last Admin: 01/02/18 18:43 Dose: 50 mls/hr Insulin Aspart (Novolog) 0 units SUB-Q ACHS AIXA PRN Reason: Protocol Last Admin: 01/03/18 13:36 Dose: 3 units Morphine Sulfate (Morphine) 2 mg IV Q4H PRN PRN Reason: Pain, Moderate (4-6) Ondansetron HCl (Zofran) 4 mg IV Q8H PRN PRN Reason: N/V unrelieved by Reglan Objective Vital Signs - 12hr 01/03/18 01/03/18 01/03/18 08:41 08:43 08:46 Temperature Pulse Rate 75 Pulse Rate [ 74 Anterior Bilateral Throughout] Respiratory 21 21 Rate Respiratory 18 Rate [Anterior Bilateral Throughout] Blood Pressure 149/98 Blood Pressure [Right] O2 Sat by Pulse 97 98 Oximetry 01/03/18 01/03/18 01/03/18 08:51 12:12 12:44 Temperature 98.0 F 98.0 F Pulse Rate 73 88 Pulse Rate [ 78 Anterior Bilateral Throughout] Respiratory 20 20 Rate Respiratory 20 Rate [Anterior Bilateral Throughout] Blood Pressure 158/88 Blood Pressure 158/88 [Right] O2 Sat by Pulse 47 L 90 Oximetry 01/03/18 01/03/18 01/03/18 13:28 13:56 14:05 Temperature Pulse Rate 78 Pulse Rate [ 76 77 Anterior Bilateral Throughout] Respiratory Rate Respiratory 20 20 Rate [Anterior Bilateral Throughout] Blood Pressure 136/87 Blood Pressure [Right] O2 Sat by Pulse Oximetry Constitutional: no acute distress, alert ENT: oropharynx moist Neck: supple Effort: normal Ascultation: Bilateral: clear Cardiovascular: regular rate and rhythm (no mrg) Gastrointestinal: normoactive bowel sounds, soft, non-tender, non-distended Integumentary: other (chronic venous stasis dermatitis, lower extremities) Extremities: no cyanosis, other (chronic LE edema) Neurologic: other (awake, mumbles) Psychiatric: mood appropriate, affect normal CBC and BMP: 12/30/17 07:31 12/30/17 07:31 ABG, PT/INR, D-dimer: ABG POC ABG pH 7.477 (7.35-7.45) H 12/27/17 00:02 POC ABG pCO2 44.4 (35-45) 12/27/17 00:02 POC ABG pO2 66 (80-105) L 12/27/17 00:02 POC ABG HCO3 32.8 12/27/17 00:02 POC ABG Total CO2 34 12/27/17 00:02 POC ABG O2 Sat 94 12/27/17 00:02 PT/INR, D-dimer PT 16.9 Sec. (12.2-14.9) H 12/26/17 15:24 INR 1.30 (0.87-1.13) H 12/26/17 15:24 Abnormal lab findings: Abnormal Labs 12/26/17 12/26/17 12/26/17 15:24 15:24 15:24 RBC Hgb Hct MCV 100 H MCH 33 H RDW 15.4 H Plt Count 121 L Lymph % (Auto) 7.6 L Ness % (Auto) 14.4 H Baso % (Auto) 2.1 H Lymph # 0.7 L Ness # 1.3 H Baso # 0.2 H Seg Neutrophils % 75.4 H PT 16.9 H INR 1.30 H APTT 37.7 H POC ABG pH POC ABG pO2 Sodium Chloride Carbon Dioxide BUN 68 H Creatinine 2.2 H Glucose 123 H POC Glucose Lactic Acid Magnesium AST 53 H Total Creatine Kinase Troponin T 0.178 H* C-Reactive Protein Total Protein 9.6 H Albumin 2.8 L HDL Cholesterol 27 L Salicylates 12/26/17 12/26/17 12/26/17 15:24 17:28 19:44 RBC Hgb Hct MCV MCH RDW Plt Count Lymph % (Auto) Ness % (Auto) Baso % (Auto) Lymph # Ness # Baso # Seg Neutrophils % PT INR APTT POC ABG pH 7.532 H POC ABG pO2 52 L Sodium Chloride Carbon Dioxide BUN Creatinine Glucose POC Glucose Lactic Acid 2.30 H* Magnesium AST Total Creatine Kinase Troponin T C-Reactive Protein Total Protein Albumin HDL Cholesterol Salicylates < 0.3 L 12/26/17 12/26/17 12/26/17 19:44 20:54 21:58 RBC Hgb Hct MCV MCH RDW Plt Count Lymph % (Auto) Ness % (Auto) Baso % (Auto) Lymph # Ness # Baso # Seg Neutrophils % PT INR APTT POC ABG pH POC ABG pO2 Sodium Chloride Carbon Dioxide BUN Creatinine Glucose POC Glucose 134 H Lactic Acid 3.00 H* Magnesium AST Total Creatine Kinase Troponin T 0.153 H* C-Reactive Protein Total Protein Albumin HDL Cholesterol Salicylates 12/26/17 12/27/17 12/27/17 22:32 00:02 07:35 RBC Hgb Hct MCV 99 H MCH 33 H RDW 15.3 H Plt Count 117 L Lymph % (Auto) Ness % (Auto) 14.6 H Baso % (Auto) Lymph # Ness # 1.5 H Baso # Seg Neutrophils % PT INR APTT POC ABG pH 7.477 H POC ABG pO2 66 L Sodium Chloride Carbon Dioxide BUN Creatinine Glucose POC Glucose 162 H Lactic Acid Magnesium AST Total Creatine Kinase Troponin T C-Reactive Protein Total Protein Albumin HDL Cholesterol Salicylates 12/27/17 12/27/17 12/27/17 07:35 07:35 07:35 RBC Hgb Hct MCV MCH RDW Plt Count Lymph % (Auto) Ness % (Auto) Baso % (Auto) Lymph # Ness # Baso # Seg Neutrophils % PT INR APTT POC ABG pH POC ABG pO2 Sodium 149 H Chloride Carbon Dioxide BUN 65 H Creatinine 1.9 H Glucose 106 H POC Glucose Lactic Acid Magnesium 2.40 H AST 42 H Total Creatine Kinase 430 H Troponin T 0.125 H* C-Reactive Protein Total Protein 8.9 H Albumin 2.5 L HDL Cholesterol Salicylates 12/27/17 12/27/17 12/28/17 14:56 21:13 05:39 RBC Hgb Hct MCV 99 H MCH 33 H RDW 15.5 H Plt Count 120 L Lymph % (Auto) Ness % (Auto) Baso % (Auto) Lymph # Ness # Baso # Seg Neutrophils % PT INR APTT POC ABG pH POC ABG pO2 Sodium Chloride Carbon Dioxide BUN Creatinine Glucose POC Glucose 106 H Lactic Acid Magnesium AST Total Creatine Kinase 301 H Troponin T 0.103 H* C-Reactive Protein Total Protein Albumin HDL Cholesterol Salicylates 12/28/17 12/28/17 12/28/17 05:39 12:40 21:08 RBC Hgb Hct MCV MCH RDW Plt Count Lymph % (Auto) Ness % (Auto) Baso % (Auto) Lymph # Ness # Baso # Seg Neutrophils % PT INR APTT POC ABG pH POC ABG pO2 Sodium 149 H Chloride 108.6 H Carbon Dioxide BUN 69 H Creatinine 1.9 H Glucose 112 H POC Glucose 122 H 106 H Lactic Acid Magnesium AST Total Creatine Kinase Troponin T C-Reactive Protein Total Protein Albumin HDL Cholesterol Salicylates 12/29/17 12/29/17 12/29/17 07:31 07:31 07:31 RBC 3.50 L Hgb 11.6 L Hct 34.4 L MCV 98 H MCH 33 H RDW Plt Count 108 L Lymph % (Auto) Ness % (Auto) Baso % (Auto) Lymph # Ness # Baso # Seg Neutrophils % PT INR APTT POC ABG pH POC ABG pO2 Sodium 151 H Chloride 113.4 H Carbon Dioxide BUN 52 H Creatinine Glucose POC Glucose Lactic Acid Magnesium AST Total Creatine Kinase Troponin T C-Reactive Protein 6.60 H Total Protein Albumin HDL Cholesterol Salicylates 12/30/17 12/30/17 12/30/17 07:31 07:31 16:54 RBC Hgb Hct MCV 100 H MCH 33 H RDW Plt Count 114 L Lymph % (Auto) Ness % (Auto) Baso % (Auto) Lymph # Ness # Baso # Seg Neutrophils % PT INR APTT POC ABG pH POC ABG pO2 Sodium 147 H Chloride 111.3 H Carbon Dioxide 20 L D BUN 33 H Creatinine Glucose POC Glucose 125 H Lactic Acid Magnesium AST Total Creatine Kinase Troponin T C-Reactive Protein Total Protein Albumin HDL Cholesterol Salicylates 12/30/17 01/01/18 01/01/18 22:16 08:57 12:41 RBC Hgb Hct MCV MCH RDW Plt Count Lymph % (Auto) Ness % (Auto) Baso % (Auto) Lymph # Ness # Baso # Seg Neutrophils % PT INR APTT POC ABG pH POC ABG pO2 Sodium Chloride Carbon Dioxide BUN Creatinine Glucose POC Glucose 106 H 61 L 69 L Lactic Acid Magnesium AST Total Creatine Kinase Troponin T C-Reactive Protein Total Protein Albumin HDL Cholesterol Salicylates 01/01/18 01/02/18 01/02/18 21:19 08:50 10:23 RBC Hgb Hct MCV MCH RDW Plt Count Lymph % (Auto) Ness % (Auto) Baso % (Auto) Lymph # Ness # Baso # Seg Neutrophils % PT INR APTT POC ABG pH POC ABG pO2 Sodium Chloride Carbon Dioxide BUN Creatinine Glucose POC Glucose 67 L 40 L 113 H Lactic Acid Magnesium AST Total Creatine Kinase Troponin T C-Reactive Protein Total Protein Albumin HDL Cholesterol Salicylates 01/02/18 23:33 RBC Hgb Hct MCV MCH RDW Plt Count Lymph % (Auto) Ness % (Auto) Baso % (Auto) Lymph # Ness # Baso # Seg Neutrophils % PT INR APTT POC ABG pH POC ABG pO2 Sodium Chloride Carbon Dioxide BUN Creatinine Glucose POC Glucose 125 H Lactic Acid Magnesium AST Total Creatine Kinase Troponin T C-Reactive Protein Total Protein Albumin HDL Cholesterol Salicylates Chest x-ray: report reviewed, image reviewed
--- NOTE | 2018-01-03 17:20 | Discharge Summary ---
Providers - Providers Date of Admission: 12/26/17 20:19 Date of discharge: 01/03/18 Attending physician: SHA BATES 12/26/17 19:12 Consult to Wound/ET Nurse [CONS] Routine Reason For Exam: wound eval 12/27/17 16:36 Consult to Dietitian/Nutrition [CONS] Routine Physician Instructions: Reason For Exam: Reason for Consult: Malnutrition 12/27/17 16:40 Consult to Physician [CONS] Routine Consulting Provider: NALLELY MATOS Reason For Exam: aspiration pna, pt known to you, past bronch Place consult to:: Notified:: YES Phone number called:: [phone] Was contact made?: Yes If yes, spoke with:: EMY Time called:: 10:39 12/27/17 16:42 Physical Therapy Evaluation and Treat [CONS] Routine Comment: Reason For Exam: ADLs evaluation 12/27/17 20:43 Speech Therapy Evaluation and Treat [CONS] Routine Reason For Exam: swallow eval 12/28/17 12:40 Consult to Physician [CONS] Routine Consulting Provider: DARNELL ROSALES Reason For Exam: GPC in blood culture Place consult to:: Jose Notified:: yes Comment:: DR Garcia here now to see patient 12/30/17 07:59 PICC Line Insertion [Consult to PICC Line RN] [CONS] Stat Reason For Exam: need iv access Type Line:: Midline Primary care physician: [employer] Hospitalization Reason for admission: Sepsis, Altered mental status, modified barium swallow that showed dysphia Condition: Stable Pertinent studies: modified barium swallow that showed dysphagia and can tolerate puree diet and thin liquid Procedures: none Hospital course: 67-year-old male with a past medical history of COPD O2 dependent, CHF, CVA with residual right-sided weakness, previous DVT, dementia, diabetes, hypertension, CAD, CKD, hepatitis, and sleep apnea as well as other medical conditions presents to the hospital with alteration of mental status. As per retirement patient has not been himself today. He is typically verbal and able to communicate and eats well. Today he has not been eating or speaking. Patient is not speaking or following commands in the ED. Disposition: [id number] Time spent for discharge: 33 mins Core Measure Documentation - Palliative Care Palliative Care/ Comfort Measures: Not Applicable - Core Measures Any of the following diagnoses?: none Exam - Physical Exam Narrative exam: Constitutional: Well-nourished.confused In no distress Head: Normocephalic atraumatic Eyes: Pupils are equal round and reactive to light Nose: No enlarged turbinates, no septal deviation. Mouth: Moist mucous membranes. Neck: Supple no thyromegaly. No bruit. No JVD Heart: Regular rate and rhythm, S1-S2 abnormal. No rubs murmurs or gallop Lungs: Decreased breath sounds bilaterally. no rales or rhonchi Abdomen: Soft, nontender. Bowel sound are present. Extremities: No edema no cyanosis and no clubbing. Neuro: Alert oriented Oriented x1. No focal sensory or motor deficit. Skin: No rashes no hyperemic spots Psychiatry: Euthymic. Calm. - Constitutional Vitals: Temp Pulse Resp BP Pulse Ox 98.0 F 77 20 136/87 90 01/03/18 12:44 01/03/18 14:05 01/03/18 14:05 01/03/18 13:28 01/03/18 12:44 Plan Activity: up only with assistance, fall precautions Weight Bearing Status: Non-Weight Bearing Diet: regular Follow up with: PRIMARY CARE, [Primary Care Provider] - 3-5 Days Prescriptions: ALBUTEROL NEB's [Proventil 0.083% NEBS] 2.5 mg IH Q4HRT PRN #100 nebu PRN Reason: Shortness Of Breath ALBUTEROL NEB's [Proventil 0.083% NEBS] 1 vial IH Q6H PRN #30 nebu PRN Reason: Wheezing Apixaban [Eliquis] 2.5 mg PO Q12HR #60 tablet Arformoterol Nebu [Brovana Nebu] 15 mcg IH Q12HRT #60 ml AtorvaSTATin [Lipitor] 10 mg PO QHS #30 tablet Budesoni/Formotero 160-4.5(Nf) [Symbicort 160-4.5 (Nf)] 2 puff IH BID #30 inha Budesonide [Pulmicort Respules] 1 mg IH Q12HRT #60 nebu Diltiazem [Cardizem] 30 mg PO Q6H #30 tablet Diltiazem [Cardizem] 60 mg PO Q8HR #90 tablet Divalproex ER [Depakote ER] 500 mg PO BID #60 tablet Docusate Sodium [Colace CAP] 100 mg PO BID #60 capsule Furosemide [Lasix TAB] 20 mg PO QDAY #60 tablet Gabapentin [Neurontin] 100 mg PO QHS #30 capsule Insulin Aspart Prot/Aspart(Nf) [NovoLOG Mix 70/30 VIAL] See Protocol SC QDAY # 300 units Ipratropium/Albuterol Sulfate [DUONEB *Not for PRN Use*] 1 ampul IH Q6HRT #100 ampul.neb Metoprolol [Lopressor TAB] 50 mg PO BID #60 tablet Pantoprazole [Protonix TAB] 40 mg PO DAILY #30 tablet Sennosides [Senna] 8.6 mg PO QHS #30 tablet Valproate Sodium [Depacon] 500 mg IV Q12HR #60 vial
[2018-01-04] MEDS: DUONEB *Not for PRN Use IH SCH ×3 (01:26→13:38)
[2018-01-04] MEDS: MAXIPIME 2 GM in NACL 0.9% 20 ML IV SCH (04:23)
[2018-01-04] MEDS: CARDIZEM PO SCH ×2 (04:39→10:42)
[2018-01-04] MEDS: MORPHINE IV PRN ×2 (04:40→11:00)
[2018-01-04] MEDS: PULMICORT IH SCH (08:37)
[2018-01-04] MEDS: BROVANA NEBU IH SCH (08:38)
[2018-01-04] MEDS: NOVOLOG SUB-Q SCH (08:58)
[2018-01-04 09:33] VITALS: BP 121/78
[2018-01-04] MEDS: LOVENOX SUB-Q SCH (10:43)
[2018-01-04] MEDS: PEPCID IV SCH (10:45)
--- NOTE | 2018-01-04 12:46 | Progress Note ---
Assessment and Plan -Acute on chronic hypoxic respiratory failure: cont duoneb, continue o2, consulted Pulmonology -Sepsis due to aspiration pneumonitis LLL: cultures- Coag neg, likely contaminant. started on Abx, Aspiration precautions -Paroxysmal A. fib with a PPM: Cardiology following -History of DVT on Eliquis: off Eliquis because of dysphagia -Acute on chronic renal failure, vasomotor nephropathy, poa: Placed on iv fluid -Acute metabolic encephalopathy, POA due to respitatory failure, now resolved -Functional Quadriplegia: ordered PT and wound care -Severe malnutrition: Consulted dietitian -Troponemia: Cardiology is following - DVT with lovenox - plan to d/c today to SNF. brief history: Patient is a 67 yo man with a plethora of serious end-stage co- morbities including chronic respiratory failure on O2 due to COPD, CHF, CVA with right-sided paralysis, seizure disorder functional quadriplegia, previous leg DVT on Eliquis, Advance dementia, diabetes, hypertension, CAD, CKD stage 3, INDIO, Afib s/p PPM, CAD s/p CABG with bioprosthetic tricuspid valve with chronic elevated troponin, prior Intubation due to mucus plugging s/p bronch 05/03/2017 who presents with altered mental status, acute on chronic respiratory failure. Subjective Date of service: 01/02/18 Principal diagnosis: Acute respiratory failure, Interval history: Having shortness of breath Objective - Exam Narrative Exam: Constitutional: In no distress Head: Normocephalic atraumatic Eyes: Pupils are equal round and reactive to light Nose: No enlarged turbinates, no septal deviation. Mouth: Moist mucous membranes. Neck: Supple no thyromegaly. No bruit. No JVD Heart: Regular rate and rhythm, S1-S2 abnormal. No rubs murmurs or gallop Lungs: Decreased breath sounds bilaterally. no rales or rhonchi Abdomen: Soft, nontender. Bowel sound are present. Extremities: No edema no cyanosis and no clubbing. Neuro: No focal sensory or motor deficit. Skin: No rashes no hyperemic spots Psychiatry: Euthymic. Calm. Subjective Date of service: 01/04/18 Principal diagnosis: Acute respiratory failure, Objective - Constitutional Vitals: Vital Signs - 12hr 01/04/18 01/04/18 01/04/18 04:21 04:39 04:40 Temperature 98.7 F Pulse Rate 75 75 Respiratory 20 20 Rate Respiratory Rate [Bilateral Hand] Respiratory Rate [Sacrum] Blood Pressure 141/81 O2 Sat by Pulse 99 Oximetry 01/04/18 01/04/18 01/04/18 05:10 08:26 08:38 Temperature 98.9 F Pulse Rate 75 Respiratory 18 20 Rate Respiratory Rate [Bilateral Hand] Respiratory Rate [Sacrum] Blood Pressure 121/78 O2 Sat by Pulse 100 98 Oximetry 01/04/18 10:00 Temperature Pulse Rate Respiratory Rate Respiratory 20 Rate [Bilateral Hand] Respiratory 20 Rate [Sacrum] Blood Pressure O2 Sat by Pulse Oximetry - Labs CBC & Chem 7: 12/30/17 07:31 12/30/17 07:31 Labs: Abnormal lab results 01/02/18 01/02/18 01/03/18 Range/Units 11:50 16:46 12:14 POC Glucose 112 H 59 L 322 H (70-105) 01/03/18 Range/Units 13:39 POC Glucose 177 H (70-105)
--- NOTE | 2018-01-06 07:45 | Event Note ---
Date: 01/04/18 Patient could not be discharged yesterday, he is leaving today to to [facility].
== END 2018-01-04 14:22 | DRG 871 ==
LOC: ED 12:35 → 2B-ACE 20:19 → 4A 12-27 01:16
PROVIDERS: ADMIT Internal Medicine; ATTEND Internal Medicine
PROC: 4A033R1 Measurement of Arterial Saturation, Peripheral, Percutaneous Approach (ICD-10-PCS; principal; 2017-12-27)
DX: A41.9 Sepsis, unspecified organism (principal); G92 Toxic encephalopathy; J96.21 Acute and chronic respiratory failure with hypoxia; J69.0 Pneumonitis due to inhalation of food and vomit; N17.0 Acute kidney failure with tubular necrosis; R53.2 Functional quadriplegia; E43 Unspecified severe protein-calorie malnutrition; I50.22 Chronic systolic (congestive) heart failure; I13.0 Hypertensive heart and chronic kidney disease with heart failure and stage 1 through stage 4 chronic kidney disease, or unspecified chronic kidney disease; E87.0 Hyperosmolality and hypernatremia; I69.351 Hemiplegia and hemiparesis following cerebral infarction affecting right dominant side; D69.6 Thrombocytopenia, unspecified; J44.9 Chronic obstructive pulmonary disease, unspecified; N28.9 Disorder of kidney and ureter, unspecified; E86.0 Dehydration; B19.20 Unspecified viral hepatitis C without hepatic coma; M19.90 Unspecified osteoarthritis, unspecified site; I25.10 Atherosclerotic heart disease of native coronary artery without angina pectoris; F41.9 Anxiety disorder, unspecified; I48.0 Paroxysmal atrial fibrillation; I87.8 Other specified disorders of veins; G40.909 Epilepsy, unspecified, not intractable, without status epilepticus; N18.3 Chronic kidney disease, stage 3 (moderate); F01.50 Vascular dementia, unspecified severity, without behavioral disturbance, psychotic disturbance, mood disturbance, and anxiety; Z87.11 Personal history of peptic ulcer disease; I25.2 Old myocardial infarction; Z86.718 Personal history of other venous thrombosis and embolism; Z99.81 Dependence on supplemental oxygen; Z79.899 Other long term (current) drug therapy
CPT/HCPCS: 36415; 36600; 70450; 71045; 74230; 80048; 80053; 80061; 80164; 80307; 80320; 81001; 82140; 82550; 82553; 82803; 82805; 82962; 83036; 83735; 83880; 84100; 84439; 84443; 84484; 85025; 85027; 85610; 85730; 86140; 86850; 86900; 86901; 87040; 87086; 87205; 87324; 87400; 87449; 90686; 90732; 93005; 93010; 93306; 94640; 94760; 96374; A9270-GY; G0480; G8978-GP; G8979-GP; G8980-GP; G8996-GN; G8997-GN; J0456; J0692; J1650; J1956; J2270; J2543; J3370; J7040; J7050

== ENCOUNTER 2018-01-24 09:24 | Inpatient (IN) | payer MEDICARE ==
[2018-01-24] MEDS ORDERED: NACL 0.9% 500 ML 500 ML IV ONE (09:35)
[2018-01-24] MEDS ORDERED: NACL 0.9% 1000 ML IV ONE (10:21)
[2018-01-24 10:46] LABS: Alanine Aminotransferase 10 units/L (7-56); Albumin 3.1 g/dL (3.9-5); BUN/Creatinine Ratio 17; Blood Urea Nitrogen 19 mg/dL (9-20); Hemolysis Index 35
[2018-01-24] MEDS ORDERED: TYLENOL PR ONE (10:46)
[2018-01-24 10:47] LABS: Basophils % (Auto) 0.2 % (0.0-1.8); Hematocrit 37.2 % (35.5-45.6); Hemoglobin 12.2 gm/dl (11.8-15.2); Lymphocytes # (Auto) 0.5 K/mm3 (1.2-5.4); Lymphocytes % (Auto) 11.2 % (13.4-35.0); Mean Corpuscular HGB Conc 33 % (32-34); Mean Corpuscular Hemoglobin 33 pg (28-32); Mean Corpuscular Volume 100 fl (84-94); Monocytes # (Auto) 0.7 K/mm3 (0.0-0.8); Monocytes % (Auto) 14.4 % (0.0-7.3); Platelet Count 146 K/mm3 (140-440); Red Blood Count 3.72 M/mm3 (3.65-5.03); Red Cell Distribution Width 16.2 % (13.2-15.2)
--- NOTE | 2018-01-24 10:55 | XRay Report ---
AP CHEST: HISTORY: Fever, sepsis Mild cardiomegaly and pacemaker device are unchanged since 12/26/17. The lungs are generally clear with no evidence for infiltrate or mass. Trace left pleural effusion is suspected. No pneumothorax. IMPRESSION: Mild cardiomegaly. Trace left pleural effusion. No convincing pneumonia.
[2018-01-24] MEDS ORDERED: ROCEPHIN/NS 2 GM/100 ML 2 GM/100 ML BAG IV SCH (11:00)
[2018-01-24] MEDS: ZOSYN/NS 3.375GM/50ML 3.375 GM/50 ML BAG IV SCH ×3 (11:13→21:09)
[2018-01-24] MEDS ORDERED: NACL 0.9% 1000 ML 1,000 ML IV ONE (11:23)
[2018-01-24 11:29] LABS: INR 1.17 (0.87-1.13)
[2018-01-24] MEDS ORDERED: ZOSYN/NS 3.375GM/50ML 3.375 GM/50 ML BAG IV SCH (12:00)
[2018-01-24 12:16] LABS: Bacteria,Urine 1+ /HPF (Negative); Bilirubin,Urine NEG (Negative); Blood,Urine SM (Negative); Color,Urine Yellow (Yellow)
--- NOTE | 2018-01-24 14:10 | Emergency Department Report ---
HPI - General Chief Complaint: Fever Time Seen by Provider: 01/24/18 10:45 - HPI HPI: 67-year-old -[place] male resides in the skilled nursing was sent to ED for fever, altered mental status, cough, shortness of breath. He does have a history of CHF, high blood pressure, diabetes. In ED patient was found to have a temperature of 102.6. Not responding to command but he opens his eyes and responds to pain. Most of history per chart, and skilled nursing reporting. ED Past Medical Hx - 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) Hx Heart Attack/AMI: Yes Hx Congestive Heart Failure: Yes Hx Diabetes: Yes Hx Deep Vein Thrombosis: No Hx Pulmonary Embolism: No Hx Liver Disease: No Hx Renal Disease: Yes (CKD) Hx Arthritis: Yes Hx Seizures: No Hx Asthma: No Hx COPD: Yes Hx Tuberculosis: No Hx Dementia: Yes Additional medical history: Leg ulcer, CAD, Systolic heart failure, Sepsis, HCV antibody positive, lymphedema, anxiety, sleep apnea, peptic ulcer disease, Vitamin deficiency, - Surgical History Hx Coronary Stent: No Hx Open Heart Surgery: Yes Hx Pacemaker: Yes (L chest) Hx Internal Defibrillator: No Additional Surgical History: "some abdominal surgery" long ago, has abd scar - Social History Smoking Status: Unknown if ever smoked Substance Use Type: None - Medications Home Medications: Home Medications Medication Instructions Recorded Confirmed Last Taken Type ALBUTEROL NEB's [Proventil 0.083% 2.5 mg IH Q4HRT PRN #100 nebu 01/03/18 Unknown Rx NEBS] Apixaban [Eliquis] 2.5 mg PO Q12HR #60 tablet 01/03/18 01/24/18 Unknown Rx Arformoterol Nebu [Brovana Nebu] 15 mcg IH Q12HRT #60 ml 01/03/18 01/24/18 Unknown Rx AtorvaSTATin [Lipitor] 10 mg PO QHS #30 tablet 01/03/18 01/24/18 Unknown Rx Budesoni/Formotero 160-4.5(Nf) 2 puff IH BID #30 inha 01/03/18 01/24/18 Unknown Rx [Symbicort 160-4.5 (Nf)] Diltiazem [Cardizem] 30 mg PO Q6H #30 tablet 01/03/18 01/24/18 Unknown Rx Diltiazem [Cardizem] 60 mg PO Q8HR #90 tablet 01/03/18 01/24/18 Unknown Rx Divalproex ER [Depakote ER] 500 mg PO BID #60 tablet 01/03/18 01/24/18 Unknown Rx Docusate Sodium [Colace CAP] 100 mg PO BID #60 capsule 01/03/18 01/24/18 Unknown Rx Furosemide [Lasix TAB] 20 mg PO QDAY #60 tablet 01/03/18 01/24/18 Unknown Rx Gabapentin [Neurontin] 100 mg PO QHS #30 capsule 01/03/18 01/24/18 Unknown Rx Insulin Aspart Prot/Aspart(Nf) See Protocol SC QDAY #300 units 01/03/18 Unknown Rx [NovoLOG Mix 70/30 VIAL] Ipratropium/Albuterol Sulfate 1 ampul IH Q6HRT #100 ampul.neb 01/03/18 01/24/18 Unknown Rx [DUONEB *Not for PRN Use*] Metoprolol [Lopressor TAB] 50 mg PO BID #60 tablet 01/03/18 01/24/18 Unknown Rx Pantoprazole [Protonix TAB] 40 mg PO DAILY #30 tablet 01/03/18 01/24/18 Unknown Rx Sennosides [Senna] 8.6 mg PO QHS #30 tablet 01/03/18 01/24/18 Unknown Rx Valproate Sodium [Depacon] 500 mg IV Q12HR #60 vial 01/03/18 01/24/18 Unknown Rx Allopurinol [Zyloprim] 100 mg PO QDAY 01/24/18 01/24/18 Unknown History ED Review of Systems ROS: Stated complaint: ALTERED MENTAL STATUS Other details as noted in HPI Comment: Unobtainable due to pts medical conditions Physical Exam - Physical Exam Vital Signs: Vital Signs 01/24/18 01/24/18 09:32 11:09 Temperature 102.7 F H Pulse Rate 127 H 151 H Respiratory 29 H Rate Blood Pressure 161/101 171/108 O2 Sat by Pulse 93 56 L Oximetry Physical Exam: Gen. awake, Head atraumatic normocephalic Eyes PERR LA EOMI Chest regular rate and rhythm normal S1-S2 lungs decreased breath sound bilaterally Abdomen soft nondistended Back no point tenderness Neuro chronic CVA sequelae, bedbound Psych normal mood. ED Course Vital Signs 01/24/18 01/24/18 09:32 11:09 Temperature 102.7 F H Pulse Rate 127 H 151 H Respiratory 29 H Rate Blood Pressure 161/101 171/108 O2 Sat by Pulse 93 56 L Oximetry ED Medical Decision Making - Lab Data Result diagrams: 01/24/18 09:40 01/24/18 09:40 - EKG Data -: EKG Interpreted by Me Rate: tachycardia - EKG Data Interpretation: no acute changes Critical Care Time: Yes Critical care time in (mins) excluding proc time.: 45 Critical care attestation.: If time is entered above; I have spent that time in minutes in the direct care of this critically ill patient, excluding procedure time. ED Disposition Clinical Impression: Sepsis Qualifiers: Sepsis type: sepsis due to unspecified organism Qualified Code(s): A41.9 - Sepsis, unspecified organism Disposition: OP ADMIT IP TO THIS HOSP Is pt being admited?: Yes Does the pt Need Aspirin: No Condition: Critical
--- NOTE | 2018-01-24 14:19 | Cat Scan Report ---
CT HEAD WITHOUT CONTRAST: HISTORY: Altered mental status. TECHNIQUE: Sequential CT images without contrast. FINDINGS: Compared to 12/26/17. Images obtained show bilateral prominence of the sulci and ventricles. There are no abnormal intra- or extra-axial blood or fluid collections. There are no focal masses or evidence of mass effect. The aguiar white matter differentiation appears within normal limits. Regions of periventricular decreased attenuation are consistent with microangiopathic ischemic disease. Large chronic infarct in the left OUTBOUND TELEMARKETER distribution is noted. No large area of acute ischemia is appreciated on noncontrast CT. The posterior fossa structures including the fourth ventricle, cerebellum, and brainstem appear normal. IMPRESSION: Evidence of atrophy and microangiopathic ischemic disease. Chronic left OUTBOUND TELEMARKETER infarct. No acute intracranial process noted.
--- NOTE | 2018-01-24 16:26 | History and Physical Report ---
History of Present Illness Date of examination: 01/24/18 Date of admission: 01/24/18 14:47 Chief complaint: CC Fever And AMS History of present illness: JC 67-year-old -[place] male resides in the retirement was sent to ED for fever, altered mental status, cough, shortness of breath. He does have a history of CHF, high blood pressure, diabetes. In ED patient was found to have a temperature of 102.6. Not responding to command but he opens his eyes and responds to pain. Most of history per chart, and retirement reporting. 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) Hx Heart Attack/AMI: Yes Hx Congestive Heart Failure: Yes Hx Diabetes: Yes Hx Renal Disease: Yes (CKD) Hx Arthritis: Yes Hx COPD: Yes Hx Dementia: Yes Additional medical history: Leg ulcer, CAD, Systolic heart failure, Sepsis, HCV antibody positive, lymphedema, anxiety, sleep apnea, peptic ulcer disease, Vitamin deficiency, Surgical History Hx Coronary Stent: No Hx Open Heart Surgery: Yes Hx Pacemaker: Yes (L chest) Additional Surgical History: "some abdominal surgery" long ago, has abd scar Social History Smoking Status: Unknown if ever smoked Substance Use Type: None Family History Unavailable - Medications Home Medications: Home Medications Medication Instructions Recorded Confirmed Last Taken Type ALBUTEROL NEB's [Proventil 0.083% 2.5 mg IH Q4HRT PRN #100 nebu 01/03/18 Unknown Rx NEBS] Apixaban [Eliquis] 2.5 mg PO Q12HR #60 tablet 01/03/18 01/24/18 Unknown Rx Arformoterol Nebu [Brovana Nebu] 15 mcg IH Q12HRT #60 ml 01/03/18 01/24/18 Unknown Rx AtorvaSTATin [Lipitor] 10 mg PO QHS #30 tablet 01/03/18 01/24/18 Unknown Rx Budesoni/Formotero 160-4.5(Nf) 2 puff IH BID #30 inha 01/03/18 01/24/18 Unknown Rx [Symbicort 160-4.5 (Nf)] Diltiazem [Cardizem] 30 mg PO Q6H #30 tablet 01/03/18 01/24/18 Unknown Rx Diltiazem [Cardizem] 60 mg PO Q8HR #90 tablet 01/03/18 01/24/18 Unknown Rx Divalproex ER [Depakote ER] 500 mg PO BID #60 tablet 01/03/18 01/24/18 Unknown Rx Docusate Sodium [Colace CAP] 100 mg PO BID #60 capsule 01/03/18 01/24/18 Unknown Rx Furosemide [Lasix TAB] 20 mg PO QDAY #60 tablet 01/03/18 01/24/18 Unknown Rx Gabapentin [Neurontin] 100 mg PO QHS #30 capsule 01/03/18 01/24/18 Unknown Rx Insulin Aspart Prot/Aspart(Nf) See Protocol SC QDAY #300 units 01/03/18 Unknown Rx [NovoLOG Mix 70/30 VIAL] Ipratropium/Albuterol Sulfate 1 ampul IH Q6HRT #100 ampul.neb 01/03/18 01/24/18 Unknown Rx [DUONEB *Not for PRN Use*] Metoprolol [Lopressor TAB] 50 mg PO BID #60 tablet 01/03/18 01/24/18 Unknown Rx Pantoprazole [Protonix TAB] 40 mg PO DAILY #30 tablet 01/03/18 01/24/18 Unknown Rx Sennosides [Senna] 8.6 mg PO QHS #30 tablet 01/03/18 01/24/18 Unknown Rx Valproate Sodium [Depacon] 500 mg IV Q12HR #60 vial 01/03/18 01/24/18 Unknown Rx Allopurinol [Zyloprim] 100 mg PO QDAY 01/24/18 01/24/18 Unknown History Medications and Allergies Allergies Allergy/AdvReac Type Severity Reaction Status Date / Time No Known Allergies Allergy Verified 06/05/16 12:19 Home Medications Medication Instructions Recorded Confirmed Last Taken Type ALBUTEROL NEB's [Proventil 0.083% 2.5 mg IH Q4HRT PRN #100 nebu 01/03/18 Unknown Rx NEBS] Apixaban [Eliquis] 2.5 mg PO Q12HR #60 tablet 01/03/18 01/24/18 Unknown Rx Arformoterol Nebu [Brovana Nebu] 15 mcg IH Q12HRT #60 ml 01/03/18 01/24/18 Unknown Rx AtorvaSTATin [Lipitor] 10 mg PO QHS #30 tablet 01/03/18 01/24/18 Unknown Rx Budesoni/Formotero 160-4.5(Nf) 2 puff IH BID #30 inha 01/03/18 01/24/18 Unknown Rx [Symbicort 160-4.5 (Nf)] Diltiazem [Cardizem] 30 mg PO Q6H #30 tablet 01/03/18 01/24/18 Unknown Rx Diltiazem [Cardizem] 60 mg PO Q8HR #90 tablet 01/03/18 01/24/18 Unknown Rx Divalproex ER [Depakote ER] 500 mg PO BID #60 tablet 01/03/18 01/24/18 Unknown Rx Docusate Sodium [Colace CAP] 100 mg PO BID #60 capsule 01/03/18 01/24/18 Unknown Rx Furosemide [Lasix TAB] 20 mg PO QDAY #60 tablet 01/03/18 01/24/18 Unknown Rx Gabapentin [Neurontin] 100 mg PO QHS #30 capsule 01/03/18 01/24/18 Unknown Rx Insulin Aspart Prot/Aspart(Nf) See Protocol SC QDAY #300 units 01/03/18 Unknown Rx [NovoLOG Mix 70/30 VIAL] Ipratropium/Albuterol Sulfate 1 ampul IH Q6HRT #100 ampul.neb 01/03/18 01/24/18 Unknown Rx [DUONEB *Not for PRN Use*] Metoprolol [Lopressor TAB] 50 mg PO BID #60 tablet 01/03/18 01/24/18 Unknown Rx Pantoprazole [Protonix TAB] 40 mg PO DAILY #30 tablet 01/03/18 01/24/18 Unknown Rx Sennosides [Senna] 8.6 mg PO QHS #30 tablet 01/03/18 01/24/18 Unknown Rx Valproate Sodium [Depacon] 500 mg IV Q12HR #60 vial 01/03/18 01/24/18 Unknown Rx Allopurinol [Zyloprim] 100 mg PO QDAY 01/24/18 01/24/18 Unknown History Active Meds: Active Medications Piperacillin Sod/Tazobactam Sod (Zosyn/Ns 3.375gm/50ml) 3.375 gm in 50 mls @ 100 mls/hr IV Q6HR [facility] Last Admin: 01/24/18 13:40 Dose: Not Given Review of Systems All systems: negative Constitutional: fever, anorexia, poor appetite Ears, nose, mouth and throat: no hoarseness, no sore throat Cardiovascular: shortness of breath, no chest pain, no orthopnea, no palpitations, no rapid/irregular heart beat, no edema, no syncope, no lightheadedness Respiratory: cough with sputum, congestion, wheezing Gastrointestinal: no abdominal pain, no nausea, no vomiting, no diarrhea, no constipation, no change in bowel habits, no hematemesis, no coffee ground emesis Genitourinary Male: no dysuria, no hematuria, no flank pain, no discharge, no urinary frequency, no urinary hesitancy Musculoskeletal: no neck stiffness, no neck pain, no shooting arm pain, no arm numbness/tingling, no low back pain, no shooting leg pain, no leg numbness/ tingling Integumentary: no rash, no pruritis, no redness, no sores, no wounds, no jaundice, no boils Neurological: no head injury, no transient paralysis, no paralysis, no weakness , no seizures, no syncope Psychiatric: no anxiety, no memory loss, no change in sleep habits, no sleep disturbances Endocrine: no cold intolerance, no heat intolerance, no polyphagia, no excessive thirst Hematologic/Lymphatic: no easy bruising, no easy bleeding Allergic/Immunologic: no urticaria, no allergic rhinitis, no wheezing Exam - Constitutional Vitals: Temp Pulse Resp BP Pulse Ox 100.6 F H 101 H 20 139/88 99 01/24/18 14:17 01/24/18 14:17 01/24/18 14:20 01/24/18 14:17 01/24/18 14:20 General appearance: Present: mild distress, well-nourished - EENT Eyes: Present: PERRL ENT: hearing intact, clear oral mucosa - Neck Neck: Present: supple, normal ROM - Respiratory Respiratory effort: normal Respiratory: bilateral: CTA - Cardiovascular Heart rate: 86 Heart Sounds: Present: S1 & S2. Absent: rub, click - Extremities Extremities: no ischemia, pulses intact, pulses symmetrical, No edema Peripheral Pulses: within normal limits - Abdominal General gastrointestinal: Present: soft, non-tender, non-distended, normal bowel sounds Male genitourinary: Present: normal - Rectal Rectal Exam: deferred - Integumentary Integumentary: Present: clear, warm, dry - Musculoskeletal Musculoskeletal: strength equal bilaterally, generalized weakness - Psychiatric Psychiatric: intact judgment & insight, other (Altered sensorium) - Neurologic Neurologic: CNII-XII intact, moves all extremities - Allied Health Allied health notes reviewed: nursing, case management Results - Labs CBC & Chem 7: 01/24/18 09:40 01/25/18 05:28 Labs: Laboratory Last Values WBC 4.6 K/mm3 (4.5-11.0) 01/24/18 09:40 RBC 3.72 M/mm3 (3.65-5.03) 01/24/18 09:40 Hgb 12.2 gm/dl (11.8-15.2) 01/24/18 09:40 Hct 37.2 % (35.5-45.6) 01/24/18 09:40 MCV 100 fl (84-94) H 01/24/18 09:40 MCH 33 pg (28-32) H 01/24/18 09:40 MCHC 33 % (32-34) 01/24/18 09:40 RDW 16.2 % (13.2-15.2) H 01/24/18 09:40 Plt Count 146 K/mm3 (140-440) 01/24/18 09:40 Lymph % (Auto) 11.2 % (13.4-35.0) L 01/24/18 09:40 [place] % (Auto) 14.4 % (0.0-7.3) H 01/24/18 09:40 Eos % (Auto) 0.0 % (0.0-4.3) 01/24/18 09:40 Baso % (Auto) 0.2 % (0.0-1.8) 01/24/18 09:40 Lymph # 0.5 K/mm3 (1.2-5.4) L 01/24/18 09:40 [place] # 0.7 K/mm3 (0.0-0.8) 01/24/18 09:40 Eos # 0.0 K/mm3 (0.0-0.4) 01/24/18 09:40 Baso # 0.0 K/mm3 (0.0-0.1) 01/24/18 09:40 Seg Neutrophils % 74.2 % (40.0-70.0) H 01/24/18 09:40 Seg Neutrophils # 3.4 K/mm3 (1.8-7.7) 01/24/18 09:40 PT 15.5 Sec. (12.2-14.9) H 01/24/18 09:40 INR 1.17 (0.87-1.13) H 01/24/18 09:40 POC ABG pH 7.414 (7.35-7.45) 01/24/18 11:19 POC ABG pCO2 39.0 (35-45) 01/24/18 11:19 POC ABG pO2 63 (80-105) L 01/24/18 11:19 POC ABG HCO3 24.9 01/24/18 11:19 POC ABG Total CO2 26 01/24/18 11:19 POC ABG O2 Sat 92 01/24/18 11:19 POC ABG Base Excess 0 01/24/18 11:19 VBG pH 7.358 (7.320-7.420) 01/24/18 09:35 FiO2 36 % 01/24/18 11:19 Sodium 140 mmol/L (137-145) 01/24/18 09:40 Potassium 4.8 mmol/L (3.6-5.0) 01/24/18 09:40 Chloride 99.7 mmol/L (98-107) 01/24/18 09:40 Carbon Dioxide 25 mmol/L (22-30) 01/24/18 09:40 Anion Gap 20 mmol/L 01/24/18 09:40 BUN 19 mg/dL (9-20) 01/24/18 09:40 Creatinine 1.1 mg/dL (0.8-1.5) 01/24/18 09:40 Estimated GFR > 60 ml/min 01/24/18 09:40 BUN/Creatinine Ratio 17 % 01/24/18 09:40 Glucose 153 mg/dL (75-100) H 01/24/18 09:40 Lactic Acid 2.80 mmol/L (0.7-2.0) H* 01/24/18 13:17 Calcium 9.0 mg/dL (8.4-10.2) 01/24/18 09:40 Total Bilirubin 0.70 mg/dL (0.1-1.2) 01/24/18 09:40 AST 21 units/L (5-40) 01/24/18 09:40 ALT 10 units/L (7-56) 01/24/18 09:40 Alkaline Phosphatase 93 units/L (35-129) 01/24/18 09:40 NT-Pro-B Natriuret Pep 2211 pg/mL (0-900) H 01/24/18 09:40 Total Protein 8.3 g/dL (6.3-8.2) H 01/24/18 09:40 Albumin 3.1 g/dL (3.9-5) L 01/24/18 09:40 Albumin/Globulin Ratio 0.6 % 01/24/18 09:40 Urine Color Yellow (Yellow) 01/24/18 12:00 Urine Turbidity Clear (Clear) 01/24/18 12:00 Urine pH 6.0 (5.0-7.0) 01/24/18 12:00 Ur Specific [place] 1.016 (1.003-1.030) 01/24/18 12:00 Urine Protein 100 mg/dl mg/dL (Negative) 01/24/18 12:00 Urine Glucose (UA) Neg mg/dL (Negative) 01/24/18 12:00 Urine Ketones Tr mg/dL (Negative) 01/24/18 12:00 Urine Blood Sm (Negative) 01/24/18 12:00 Urine Nitrite Neg (Negative) 01/24/18 12:00 Urine Bilirubin Neg (Negative) 01/24/18 12:00 Urine Urobilinogen 4.0 mg/dL (<2.0) 01/24/18 12:00 Ur Leukocyte Esterase Neg (Negative) 01/24/18 12:00 Urine WBC (Auto) 1.0 /HPF (0.0-6.0) 01/24/18 12:00 Urine RBC (Auto) 5.0 /HPF (0.0-6.0) 01/24/18 12:00 U Epithel Cells (Auto) < 1.0 /HPF (0-13.0) 01/24/18 12:00 Urine Bacteria (Auto) 1+ /HPF (Negative) 01/24/18 12:00 Short CBC 01/24/18 Range/Units 09:40 WBC 4.6 (4.5-11.0) K/mm3 Hgb 12.2 (11.8-15.2) gm/dl Hct 37.2 (35.5-45.6) % Plt Count 146 (140-440) K/mm3 BMP 01/24/18 01/25/18 09:40 05:28 Sodium 140 143 Potassium 4.8 4.4 Chloride 99.7 104.2 Carbon Dioxide 25 26 BUN 19 15 Creatinine 1.1 0.9 Glucose 153 H 102 H Calcium 9.0 8.5 Liver Function 01/24/18 01/25/18 Range/Units 09:40 05:28 Total Bilirubin 0.70 0.70 (0.1-1.2) mg/dL AST 21 15 (5-40) units/L ALT 10 7 (7-56) units/L Alkaline Phosphatase 93 69 (35-129) units/L Albumin 3.1 L 2.3 L (3.9-5) g/dL Urine 01/24/18 Range/Units 12:00 Urine Color Yellow (Yellow) Urine pH 6.0 (5.0-7.0) Ur Specific [place] 1.016 (1.003-1.030) Urine Protein 100 mg/dl (Negative) mg/dL Urine Glucose (UA) Neg (Negative) mg/dL - Imaging and Cardiology Chest x-ray: report reviewed (Trace L pleural effusion, no convincing infiltrate ) Assessment and Plan Advance Directives: Yes (Full code) VTE prophylaxis?: Chemical Plan of care discussed with patient/family: Yes - Patient Problems (1) Sepsis Current Visit: Yes Status: Acute Qualifiers: Sepsis type: sepsis due to unspecified organism Qualified Code(s): A41.9 - Sepsis, unspecified organism Plan to address problem: probably from Lower resp tract infection .No clear source.Also from skin a high possibility Has stasis dermatitis on both Lower extremities with gr 1 ulcer IV abx for now (2) Encephalopathy acute Current Visit: Yes Status: Acute Plan to address problem: Sec to Sepsis (3) Stasis ulcer Current Visit: No Status: Chronic Qualifiers: Venous stasis ulcer site: calf Laterality: unspecified laterality Non- pressure ulcer stage: unspecified non-pressure ulcer stage Plan to address problem: Wound care consult (4) COPD (chronic obstructive pulmonary disease) Current Visit: No Status: Chronic Qualifiers: Emphysema type: unspecified Plan to address problem: Cont bronchodilators (5) Hypertension Current Visit: No Status: Chronic Qualifiers: Hypertension type: essential hypertension Qualified Code(s): I10 - Essential (primary) hypertension Plan to address problem: Cont antihypertensives (6) Malnutrition Current Visit: No Status: Acute Qualifiers: Protein-calorie malnutrition severity: moderate Plan to address problem: Dietary consult (7) IDDM (insulin dependent diabetes mellitus) Current Visit: Yes Status: Chronic Plan to address problem: Cont coverage (8) CHF (congestive heart failure) Current Visit: Yes Status: Chronic Qualifiers: Heart failure type: combined systolic and diastolic Plan to address problem: Cont Lasix (9) Seizure disorder Current Visit: Yes Status: Chronic Plan to address problem: Cont Depakote (10) DVT prophylaxis Current Visit: No Status: Acute Plan to address problem: On Heparin
[2018-01-24] MEDS ORDERED: SODIUM CHLORIDE FLUSH SYRINGE 10 ML IV PRN (16:29)
[2018-01-24] MEDS ORDERED: TYLENOL PO PRN (16:29)
[2018-01-24] MEDS ORDERED: ZOFRAN IV PRN (16:29)
[2018-01-24] MEDS ORDERED: PROVENTIL IH PRN (16:36)
[2018-01-24] MEDS ORDERED: ZOSYN/NS 4.5GM/100ML 4.5 GM/100 ML VIAL IV SCH (17:00)
[2018-01-24] MEDS: CARDIZEM PO SCH ×2 (17:45→21:10)
[2018-01-24] MEDS: LASIX PO SCH (18:16)
[2018-01-24] MEDS: PROTONIX PO SCH (18:16)
[2018-01-24] MEDS: ZYLOPRIM PO SCH (18:17)
[2018-01-24] MEDS: DUONEB *Not for PRN Use IH SCH ×2 (18:22→21:35)
[2018-01-24] MEDS: LOPRESSOR PO SCH (21:09)
[2018-01-24] MEDS: ELIQUIS PO SCH (21:10)
[2018-01-24] MEDS: COLACE PO SCH (21:10)
[2018-01-24] MEDS: SENOKOT PO SCH (21:10)
[2018-01-24] MEDS: NEURONTIN PO SCH (21:10)
[2018-01-24] MEDS: SODIUM CHLORIDE FLUSH SYRINGE 10 ML IV SCH (21:27)
[2018-01-24] MEDS: PULMICORT IH SCH (21:34)
[2018-01-24] MEDS: BROVANA NEBU IH SCH ×2 (21:35→21:36)
[2018-01-24] MEDS ORDERED: INSULIN ASPART PROT SC SCH (22:00)
[2018-01-24] MEDS ORDERED: ASPART SC SCH (22:00)
[2018-01-24] MEDS ORDERED: NON-FORMULARY (Budesoni/Formotero 160-4.5(Nf) 2 PUFF) IH SCH (22:00)
[2018-01-25] MEDS: ZOSYN/NS 3.375GM/50ML 3.375 GM/50 ML BAG IV SCH ×5 (01:09→21:08)
[2018-01-25] MEDS: DUONEB *Not for PRN Use IH SCH ×4 (02:05→21:58)
[2018-01-25] MEDS: CARDIZEM PO SCH ×3 (06:00→21:09)
[2018-01-25 06:35] LABS: Alanine Aminotransferase 7 units/L (7-56); Albumin 2.3 g/dL (3.9-5); BUN/Creatinine Ratio 17; Blood Urea Nitrogen 15 mg/dL (9-20); Calcium 8.5 mg/dL (8.4-10.2); Hemolysis Index 16
[2018-01-25] MEDS: HumaLOG SUB-Q SCH ×4 (08:18→22:56)
[2018-01-25] MEDS: COLACE PO SCH ×2 (09:27→21:09)
[2018-01-25] MEDS: LASIX PO SCH (09:27)
[2018-01-25] MEDS: PROTONIX PO SCH (09:28)
[2018-01-25] MEDS: ELIQUIS PO SCH ×2 (09:28→21:08)
[2018-01-25] MEDS: LOPRESSOR PO SCH ×2 (09:28→21:08)
[2018-01-25] MEDS: ZYLOPRIM PO SCH (09:29)
[2018-01-25] MEDS: SODIUM CHLORIDE FLUSH SYRINGE 10 ML IV SCH ×2 (09:29→22:56)
[2018-01-25] MEDS: PULMICORT IH SCH ×2 (09:53→21:43)
[2018-01-25] MEDS: BROVANA NEBU IH SCH ×4 (09:54→21:57)
--- NOTE | 2018-01-25 11:22 | Progress Note ---
Assessment and Plan Assessment and plan: Sepsis Etiology likely secondary to etiology likely secondary to cellulitis. Has stasis dermatitis on both Lower extremities with gr 1 ulcer Patient with elevated lactic acid. Continue IV abx for now Toxic metabolic Encephalopathy Continue to treat underlying causes. Etiology secondary to Sepsis Stasis ulcer with surrounding cellulitis Continue antibiotics and Wound care consult COPD (chronic obstructive pulmonary disease) Cont bronchodilators Paroxysmal atrial fibrillation Continue eliquis Hx of coronary artery disease Patient is s/p CABG with an implantation of a bioprosthetic tricuspid valve in 2012 also at [facility] Normal prosthetic valve function by MCIAELA 12/2016 Hypertension Cont antihypertensives Malnutrition Dietary consult IDDM (insulin dependent diabetes mellitus) Cont coverage with sliding scale CHF (congestive heart failure) Compensated. Cont Lasix Seizure disorder Cont Depakote History CVA History of DVT DVT prophylaxis On Heparin History Interval history: Patient is much more responsive this morning. Alert and oriented 3. Hospitalist Physical - Constitutional Vitals: Temp Pulse Resp BP Pulse Ox 97.7 F 72 16 139/90 94 01/25/18 04:28 01/25/18 10:14 01/25/18 10:14 01/25/18 09:28 01/25/18 09:55 General appearance: Present: no acute distress, well-nourished - EENT Eyes: Present: PERRL, EOM intact ENT: hearing intact, clear oral mucosa, dentition normal - Neck Neck: Present: supple, normal ROM - Respiratory Respiratory effort: normal Respiratory: bilateral: CTA - Cardiovascular Rhythm: regular Heart Sounds: Present: S1 & S2. Absent: gallop, rub - Extremities Extremities: no ischemia, No edema, Full ROM - Abdominal General gastrointestinal: soft, non-tender, non-distended, normal bowel sounds - Integumentary Integumentary: Present: clear, warm, dry - Neurologic Neurologic: CNII-XII intact, moves all extremities Results - Labs CBC & Chem 7: 01/24/18 09:40 01/25/18 05:28 Labs: Laboratory Last Values WBC 4.6 K/mm3 (4.5-11.0) 01/24/18 09:40 RBC 3.72 M/mm3 (3.65-5.03) 01/24/18 09:40 Hgb 12.2 gm/dl (11.8-15.2) 01/24/18 09:40 Hct 37.2 % (35.5-45.6) 01/24/18 09:40 MCV 100 fl (84-94) H 01/24/18 09:40 MCH 33 pg (28-32) H 01/24/18 09:40 MCHC 33 % (32-34) 01/24/18 09:40 RDW 16.2 % (13.2-15.2) H 01/24/18 09:40 Plt Count 146 K/mm3 (140-440) 01/24/18 09:40 Lymph % (Auto) 11.2 % (13.4-35.0) L 01/24/18 09:40 [place] % (Auto) 14.4 % (0.0-7.3) H 01/24/18 09:40 Eos % (Auto) 0.0 % (0.0-4.3) 01/24/18 09:40 Baso % (Auto) 0.2 % (0.0-1.8) 01/24/18 09:40 Lymph # 0.5 K/mm3 (1.2-5.4) L 01/24/18 09:40 [place] # 0.7 K/mm3 (0.0-0.8) 01/24/18 09:40 Eos # 0.0 K/mm3 (0.0-0.4) 01/24/18 09:40 Baso # 0.0 K/mm3 (0.0-0.1) 01/24/18 09:40 Seg Neutrophils % 74.2 % (40.0-70.0) H 01/24/18 09:40 Seg Neutrophils # 3.4 K/mm3 (1.8-7.7) 01/24/18 09:40 PT 15.5 Sec. (12.2-14.9) H 01/24/18 09:40 INR 1.17 (0.87-1.13) H 01/24/18 09:40 POC ABG pH 7.414 (7.35-7.45) 01/24/18 11:19 POC ABG pCO2 39.0 (35-45) 01/24/18 11:19 POC ABG pO2 63 (80-105) L 01/24/18 11:19 POC ABG HCO3 24.9 01/24/18 11:19 POC ABG Total CO2 26 01/24/18 11:19 POC ABG O2 Sat 92 01/24/18 11:19 POC ABG Base Excess 0 01/24/18 11:19 VBG pH 7.358 (7.320-7.420) 01/24/18 09:35 FiO2 36 % 01/24/18 11:19 Sodium 143 mmol/L (137-145) 01/25/18 05:28 Potassium 4.4 mmol/L (3.6-5.0) 01/25/18 05:28 Chloride 104.2 mmol/L (98-107) 01/25/18 05:28 Carbon Dioxide 26 mmol/L (22-30) 01/25/18 05:28 Anion Gap 17 mmol/L 01/25/18 05:28 BUN 15 mg/dL (9-20) 01/25/18 05:28 Creatinine 0.9 mg/dL (0.8-1.5) 01/25/18 05:28 Estimated GFR > 60 ml/min 01/25/18 05:28 BUN/Creatinine Ratio 17 % 01/25/18 05:28 Glucose 102 mg/dL (75-100) H 01/25/18 05:28 POC Glucose 102 (70-105) 01/25/18 06:48 Lactic Acid 3.80 mmol/L (0.7-2.0) H* 01/24/18 20:34 Calcium 8.5 mg/dL (8.4-10.2) 01/25/18 05:28 Total Bilirubin 0.70 mg/dL (0.1-1.2) 01/25/18 05:28 AST 15 units/L (5-40) 01/25/18 05:28 ALT 7 units/L (7-56) 01/25/18 05:28 Alkaline Phosphatase 69 units/L (35-129) 01/25/18 05:28 NT-Pro-B Natriuret Pep 2211 pg/mL (0-900) H 01/24/18 09:40 Total Protein 6.9 g/dL (6.3-8.2) 01/25/18 05:28 Albumin 2.3 g/dL (3.9-5) L 01/25/18 05:28 Albumin/Globulin Ratio 0.5 % 01/25/18 05:28 Urine Color Yellow (Yellow) 01/24/18 12:00 Urine Turbidity Clear (Clear) 01/24/18 12:00 Urine pH 6.0 (5.0-7.0) 01/24/18 12:00 Ur Specific [place] 1.016 (1.003-1.030) 01/24/18 12:00 Urine Protein 100 mg/dl mg/dL (Negative) 01/24/18 12:00 Urine Glucose (UA) Neg mg/dL (Negative) 01/24/18 12:00 Urine Ketones Tr mg/dL (Negative) 01/24/18 12:00 Urine Blood Sm (Negative) 01/24/18 12:00 Urine Nitrite Neg (Negative) 01/24/18 12:00 Urine Bilirubin Neg (Negative) 01/24/18 12:00 Urine Urobilinogen 4.0 mg/dL (<2.0) 01/24/18 12:00 Ur Leukocyte Esterase Neg (Negative) 01/24/18 12:00 Urine WBC (Auto) 1.0 /HPF (0.0-6.0) 01/24/18 12:00 Urine RBC (Auto) 5.0 /HPF (0.0-6.0) 01/24/18 12:00 U Epithel Cells (Auto) < 1.0 /HPF (0-13.0) 01/24/18 12:00 Urine Bacteria (Auto) 1+ /HPF (Negative) 01/24/18 12:00
[2018-01-25 11:26] LABS: Basophils % (Auto) 0.4 % (0.0-1.8); Eosinophils # (Auto) 0.1 K/mm3 (0.0-0.4); Eosinophils % (Auto) 1.9 % (0.0-4.3); Hematocrit 38.3 % (35.5-45.6); Hemoglobin 12.3 gm/dl (11.8-15.2); Lymphocytes % (Auto) 27.3 % (13.4-35.0); Mean Corpuscular HGB Conc 32 % (32-34); Mean Corpuscular Hemoglobin 33 pg (28-32); Mean Corpuscular Volume 103 fl (84-94); Monocytes # (Auto) 0.8 K/mm3 (0.0-0.8); Monocytes % (Auto) 10.8 % (0.0-7.3); Red Cell Distribution Width 16.6 % (13.2-15.2)
[2018-01-25 12:09] LABS: Platelet Count 124 K/mm3 (140-440)
[2018-01-25] MEDS: NEURONTIN PO SCH (21:09)
[2018-01-25] MEDS: SENOKOT PO SCH (22:56)
[2018-01-26] MEDS: ZOSYN/NS 3.375GM/50ML 3.375 GM/50 ML BAG IV SCH ×4 (03:39→23:02)
[2018-01-26] MEDS: DUONEB *Not for PRN Use IH SCH ×4 (04:31→20:44)
[2018-01-26] MEDS: CARDIZEM PO SCH ×3 (06:23→23:06)
[2018-01-26] MEDS: BROVANA NEBU IH SCH ×2 (07:43→20:44)
[2018-01-26] MEDS: PULMICORT IH SCH ×2 (07:43→20:44)
[2018-01-26] MEDS: HumaLOG SUB-Q SCH ×4 (08:32→23:04)
[2018-01-26 09:46] LABS: Basophils % (Auto) 0.3 % (0.0-1.8); Eosinophils # (Auto) 0.1 K/mm3 (0.0-0.4); Eosinophils % (Auto) 0.8 % (0.0-4.3); Hemoglobin 10.7 gm/dl (11.8-15.2); Lymphocytes # (Auto) 0.9 K/mm3 (1.2-5.4); Lymphocytes % (Auto) 12.9 % (13.4-35.0); Mean Corpuscular HGB Conc 34 % (32-34); Mean Corpuscular Hemoglobin 33 pg (28-32); Mean Corpuscular Volume 98 fl (84-94); Monocytes # (Auto) 0.5 K/mm3 (0.0-0.8); Monocytes % (Auto) 7.7 % (0.0-7.3); Platelet Count 126 K/mm3 (140-440); Red Blood Count 3.26 M/mm3 (3.65-5.03); Red Cell Distribution Width 15.3 % (13.2-15.2)
[2018-01-26 10:00] LABS: BUN/Creatinine Ratio 15; Blood Urea Nitrogen 12 mg/dL (9-20); Calcium 8.5 mg/dL (8.4-10.2); Hemolysis Index 8
[2018-01-26] MEDS: PROTONIX PO SCH (10:07)
[2018-01-26] MEDS: ELIQUIS PO SCH ×2 (10:08→23:03)
[2018-01-26] MEDS: COLACE PO SCH ×2 (10:08→23:04)
[2018-01-26] MEDS: LASIX PO SCH (10:08)
[2018-01-26] MEDS: LOPRESSOR PO SCH ×2 (10:08→23:06)
[2018-01-26] MEDS: ZYLOPRIM PO SCH (10:08)
[2018-01-26] MEDS: SODIUM CHLORIDE FLUSH SYRINGE 10 ML IV SCH ×2 (10:09→23:05)
--- NOTE | 2018-01-26 10:39 | Progress Note ---
Assessment and Plan Assessment and plan: Sepsis Etiology likely secondary to etiology likely secondary to cellulitis. Has stasis dermatitis on both Lower extremities with gr 1 ulcer Patient with elevated lactic acid on admission. Follow-up lactic acid level. Continue IV abx for now Toxic metabolic Encephalopathy Continue to treat underlying causes. Etiology secondary to Sepsis Stasis ulcer with surrounding cellulitis Continue antibiotics and Wound care consult COPD (chronic obstructive pulmonary disease) Cont bronchodilators Paroxysmal atrial fibrillation Continue eliquis Hx of coronary artery disease Patient is s/p CABG with an implantation of a bioprosthetic tricuspid valve in 2012 also at [facility] Normal prosthetic valve function by MICAELA 12/2016 Hypertension Cont antihypertensives Malnutrition Dietary consult IDDM (insulin dependent diabetes mellitus) Cont coverage with sliding scale CHF (congestive heart failure) Compensated. Cont Lasix Seizure disorder Cont Depakote History CVA History of DVT DVT prophylaxis On Heparin History Interval history: No new issues overnight. Hospitalist Physical - Constitutional Vitals: Temp Pulse Resp BP Pulse Ox 97.2 F L 84 18 138/64 92 01/26/18 05:28 01/26/18 05:28 01/26/18 05:28 01/26/18 10:08 01/26/18 05:28 General appearance: Present: no acute distress, well-nourished - EENT Eyes: Present: PERRL, EOM intact ENT: hearing intact, clear oral mucosa, dentition normal - Neck Neck: Present: supple, normal ROM - Respiratory Respiratory effort: normal Respiratory: bilateral: CTA - Cardiovascular Rhythm: regular Heart Sounds: Present: S1 & S2. Absent: gallop, rub - Extremities Extremities: no ischemia, No edema, Full ROM - Abdominal General gastrointestinal: soft, non-tender, non-distended, normal bowel sounds - Integumentary Integumentary: Present: clear, warm, dry - Neurologic Neurologic: CNII-XII intact, moves all extremities Results - Labs CBC & Chem 7: 01/26/18 09:29 01/26/18 09:29 Labs: Laboratory Last Values WBC 6.7 K/mm3 (4.5-11.0) 01/26/18 09:29 RBC 3.26 M/mm3 (3.65-5.03) L 01/26/18 09:29 Hgb 10.7 gm/dl (11.8-15.2) L 01/26/18 09:29 Hct 32.0 % (35.5-45.6) L D 01/26/18 09: MCV 98 fl (84-94) H 01/26/18 09: MCH 33 pg (28-32) H 01/26/18 09: MCHC 34 % (32-34) 01/26/18: RDW 15.3 % (13.2-15.2) H 01/26/18 09:29 Plt Count 126 K/mm3 (140-440) L 01/26/18 09: Lymph % (Auto) 12.9 % (13.4-35.0) L 01/26/18 09: [place] % (Auto) 7.7 % (0.0-7.3) H 01/26/18: Eos % (Auto) 0.8 % (0.0-4.3) 01/26/18: Baso % (Auto) 0.3 % (0.0-1.8) 01/26/18 09: Lymph # 0.9 K/mm3 (1.2-5.4) L 01/26/18 09: [place] # 0.5 K/mm3 (0.0-0.8) 01/26/18: Eos # 0.1 K/mm3 (0.0-0.4) 01/26/18 09: Baso # 0.0 K/mm3 (0.0-0.1) 01/26/18 09: Seg Neutrophils % 78.3 % (40.0-70.0) H 01/26/18 09: Seg Neutrophils # 5.2 K/mm3 (1.8-7.7) 01/26/18 09:29 PT 15.5 Sec. (12.2-14.9) H 01/24/18 09:40 INR 1.17 (0.87-1.13) H 01/24/18 09:40 POC ABG pH 7.414 (7.35-7.45) 01/24/18 11:19 POC ABG pCO2 39.0 (35-45) 01/24/18 11:19 POC ABG pO2 63 (80-105) L 01/24/18 11:19 POC ABG HCO3 24.9 01/24/18 11:19 POC ABG Total CO2 26 01/24/18 11:19 POC ABG O2 Sat 92 01/24/18 11:19 POC ABG Base Excess 0 01/24/18 11:19 VBG pH 7.358 (7.320-7.420) 01/24/18 09:35 FiO2 36 % 01/24/18 11:19 Sodium 137 mmol/L (137-145) 01/26/18 09:29 Potassium 4.0 mmol/L (3.6-5.0) 01/26/18 09:29 Chloride 99.8 mmol/L (98-107) 01/26/18 09:29 Carbon Dioxide 26 mmol/L (22-30) 01/26/18 09:29 Anion Gap 15 mmol/L 01/26/18 09:29 BUN 12 mg/dL (9-20) 01/26/18 09:29 Creatinine 0.8 mg/dL (0.8-1.5) 01/26/18 09:29 Estimated GFR > 60 ml/min 01/26/18 09:29 BUN/Creatinine Ratio 15 % 01/26/18 09:29 Glucose 117 mg/dL (75-100) H 01/26/18 09:29 POC Glucose 89 (70-105) 01/26/18 06:19 Lactic Acid 3.80 mmol/L (0.7-2.0) H* 01/24/18 20:34 Calcium 8.5 mg/dL (8.4-10.2) 01/26/18 09:29 Total Bilirubin 0.70 mg/dL (0.1-1.2) 01/25/18 05:28 AST 15 units/L (5-40) 01/25/18 05:28 ALT 7 units/L (7-56) 01/25/18 05:28 Alkaline Phosphatase 69 units/L (35-129) 01/25/18 05:28 NT-Pro-B Natriuret Pep 2211 pg/mL (0-900) H 01/24/18 09:40 Total Protein 6.9 g/dL (6.3-8.2) 01/25/18 05:28 Albumin 2.3 g/dL (3.9-5) L 01/25/18 05:28 Albumin/Globulin Ratio 0.5 % 01/25/18 05:28 Urine Color Yellow (Yellow) 01/24/18 12:00 Urine Turbidity Clear (Clear) 01/24/18 12:00 Urine pH 6.0 (5.0-7.0) 01/24/18 12:00 Ur Specific Flushing 1.016 (1.003-1.030) 01/24/18 12:00 Urine Protein 100 mg/dl mg/dL (Negative) 01/24/18 12:00 Urine Glucose (UA) Neg mg/dL (Negative) 01/24/18 12:00 Urine Ketones Tr mg/dL (Negative) 01/24/18 12:00 Urine Blood Sm (Negative) 01/24/18 12:00 Urine Nitrite Neg (Negative) 01/24/18 12:00 Urine Bilirubin Neg (Negative) 01/24/18 12:00 Urine Urobilinogen 4.0 mg/dL (<2.0) 01/24/18 12:00 Ur Leukocyte Esterase Neg (Negative) 01/24/18 12:00 Urine WBC (Auto) 1.0 /HPF (0.0-6.0) 01/24/18 12:00 Urine RBC (Auto) 5.0 /HPF (0.0-6.0) 01/24/18 12:00 U Epithel Cells (Auto) < 1.0 /HPF (0-13.0) 01/24/18 12:00 Urine Bacteria (Auto) 1+ /HPF (Negative) 01/24/18 12:00
[2018-01-26] MEDS: NEURONTIN PO SCH (23:03)
[2018-01-26] MEDS: SENOKOT PO SCH (23:05)
[2018-01-27] MEDS: DUONEB *Not for PRN Use IH SCH ×3 (01:51→13:11)
[2018-01-27] MEDS: ZOSYN/NS 3.375GM/50ML 3.375 GM/50 ML BAG IV SCH (04:25)
[2018-01-27 05:34] LABS: Basophils % (Auto) 0.2 % (0.0-1.8); Eosinophils % (Auto) 0.7 % (0.0-4.3); Hematocrit 32.3 % (35.5-45.6); Hemoglobin 10.9 gm/dl (11.8-15.2); Lymphocytes # (Auto) 1.3 K/mm3 (1.2-5.4); Lymphocytes % (Auto) 19.1 % (13.4-35.0); Mean Corpuscular HGB Conc 34 % (32-34); Mean Corpuscular Hemoglobin 33 pg (28-32); Mean Corpuscular Volume 97 fl (84-94); Monocytes # (Auto) 0.6 K/mm3 (0.0-0.8); Monocytes % (Auto) 8.9 % (0.0-7.3); Platelet Count 133 K/mm3 (140-440); Red Blood Count 3.33 M/mm3 (3.65-5.03); Red Cell Distribution Width 15.4 % (13.2-15.2)
[2018-01-27 06:03] LABS: BUN/Creatinine Ratio 11; Blood Urea Nitrogen 8 mg/dL (9-20); Calcium 8.4 mg/dL (8.4-10.2); Hemolysis Index 13
[2018-01-27] MEDS: CARDIZEM PO SCH (06:34)
[2018-01-27] MEDS: PULMICORT IH SCH (08:15)
[2018-01-27] MEDS: BROVANA NEBU IH SCH (08:15)
[2018-01-27] MEDS: SODIUM CHLORIDE FLUSH SYRINGE 10 ML IV SCH (08:15)
--- NOTE | 2018-01-27 09:23 | Discharge Summary ---
<CLEMENT JUDGE - Last Filed: 01/27/18 10:31> Providers - Providers Date of Admission: 01/24/18 14:47 Attending physician: ANGELI SAXENA 01/24/18 11:33 PICC Line Insertion [Consult to PICC Line RN] [CONS] Stat Reason For Exam: sepsis Type Line:: PICC 01/25/18 07:04 Consult to Dietitian/Nutrition [CONS] Routine Physician Instructions: Reason For Exam: Reason for Consult: Malnutrition 01/25/18 07:05 Consult to Wound/ET Nurse [CONS] Routine Reason For Exam: wound eval Primary care physician: TAKER DOWN Hospitalization Condition: Critical Hospital course: 67-year-old -[place] male resides in the [facility] was sent to ED for fever, altered mental status, cough, shortness of breath. He does have a history of CHF, high blood pressure, diabetes. In ED patient was found to have a temperature of 102.6. Not responding to command but he opens his eyes and responds to pain. Most of history per chart, and [facility] reporting Patient's acute encephalopathy secondary to sepsis which is was POA. Patient was initiated on IV abx after which his symptoms began to improve. Patient returned to baseline and was stable to discharge back to [facility]. He will continue his outpatient medications and will continue his antibiotic treatment. Discharge diagnoses Sepsis Etiology likely secondary to etiology likely secondary to cellulitis. Has stasis dermatitis on both Lower extremities with gr 1 ulcer Patient with elevated lactic acid on admission. Follow-up lactic acid level. Continue IV abx for now Toxic metabolic Encephalopathy Continue to treat underlying causes. Etiology secondary to Sepsis Stasis ulcer with surrounding cellulitis Continue antibiotics and Wound care consult COPD (chronic obstructive pulmonary disease) Cont bronchodilators Paroxysmal atrial fibrillation Continue eliquis Hx of coronary artery disease Patient is s/p CABG with an implantation of a bioprosthetic tricuspid valve in 2013 also at [facility] Normal prosthetic valve function by MICAELA 12/2016 Hypertension Cont antihypertensives Malnutrition Dietary consult IDDM (insulin dependent diabetes mellitus) Cont coverage with sliding scale CHF (congestive heart failure) Compensated. Cont Lasix Seizure disorder Cont Depakote History CVA History of DVT Disposition: DC/TX-03 [facility] Time spent for discharge: 32 minutes Core Measure Documentation - Palliative Care Palliative Care/ Comfort Measures: Not Applicable - Core Measures Any of the following diagnoses?: none Exam - Constitutional Vitals: Temp Pulse Resp BP Pulse Ox 98.4 F 75 19 141/87 98 01/27/18 08:22 01/27/18 08:22 01/27/18 08:22 01/27/18 08:22 01/27/18 08:22 General appearance: Present: no acute distress, well-nourished - EENT Eyes: Present: PERRL ENT: hearing intact, clear oral mucosa - Neck Neck: Present: supple, normal ROM - Respiratory Respiratory effort: normal Respiratory: bilateral: CTA - Cardiovascular Heart Sounds: Present: S1 & S2. Absent: rub, click - Extremities Extremities: pulses symmetrical, No edema Peripheral Pulses: within normal limits - Abdominal General gastrointestinal: Present: soft, non-tender, non-distended, normal bowel sounds Male genitourinary: Present: deferred - Rectal Rectal Exam: deferred - Integumentary Integumentary: Present: clear, warm, dry - Musculoskeletal Musculoskeletal: gait normal, strength equal bilaterally - Psychiatric Psychiatric: appropriate mood/affect, intact judgment & insight - Neurologic Neurologic: CNII-XII intact, moves all extremities Plan Follow up with: PRIMARY CARE, [Primary Care Provider] - 3-5 Days Prescriptions: Levofloxacin [Levaquin] 750 mg PO QDAY #7 tablet <ANGELI SAXENA - Last Filed: 01/28/18 07:16> Providers - Providers Date of Admission: 01/24/18 14:47 Attending physician: ANGELI SAXENA 01/24/18 11:33 PICC Line Insertion [Consult to PICC Line RN] [CONS] Stat Reason For Exam: sepsis Type Line:: PICC 01/25/18 07:04 Consult to Dietitian/Nutrition [CONS] Routine Physician Instructions: Reason For Exam: Reason for Consult: Malnutrition 01/25/18 07:05 Consult to Wound/ET Nurse [CONS] Routine Reason For Exam: wound eval Primary care physician: TAKER DOWN Hospitalization Hospital course: I saw and evaluated the patient. I agree with the findings and the plan of care as documented in the Nurse Practitioner's~note, with the following corrections and additions. Core Measure Documentation - Palliative Care Palliative Care/ Comfort Measures: Not Applicable - Core Measures Any of the following diagnoses?: none Exam - Constitutional Vitals: Temp Pulse Resp BP Pulse Ox 98.3 F 75 19 163/100 99 01/27/18 11:41 01/27/18 11:41 01/27/18 11:41 01/27/18 11:41 01/27/18 11:41
[2018-01-27] MEDS: LASIX PO SCH (11:55)
[2018-01-27] MEDS: COLACE PO SCH (11:55)
[2018-01-27] MEDS: PROTONIX PO SCH (11:55)
[2018-01-27] MEDS: LOPRESSOR PO SCH (11:56)
[2018-01-27] MEDS: ZYLOPRIM PO SCH (11:58)
[2018-01-27] MEDS: ELIQUIS PO SCH (11:58)
[2018-01-27 12:16] VITALS: BP 163/100
[2018-01-28] MEDS: HumaLOG SUB-Q SCH (08:13)
[2018-01-28] MEDS: ZOSYN/NS 3.375GM/50ML 3.375 GM/50 ML BAG IV SCH (08:13)
== END 2018-01-27 11:35 | DRG 871 ==
LOC: ED 09:24 → 4A 14:47
PROVIDERS: ADMIT Internal Medicine; ATTEND Hospitalist
PROC: 4A033R1 Measurement of Arterial Saturation, Peripheral, Percutaneous Approach (ICD-10-PCS; principal; 2018-01-24)
PROC: 05HP33Z Insertion of Infusion Device into Right External Jugular Vein, Percutaneous Approach (ICD-10-PCS; 2018-01-24)
DX: A41.9 Sepsis, unspecified organism (principal); G92 Toxic encephalopathy; I69.351 Hemiplegia and hemiparesis following cerebral infarction affecting right dominant side; I13.0 Hypertensive heart and chronic kidney disease with heart failure and stage 1 through stage 4 chronic kidney disease, or unspecified chronic kidney disease; I50.20 Unspecified systolic (congestive) heart failure; L03.90 Cellulitis, unspecified; E44.0 Moderate protein-calorie malnutrition; L97.918 Non-pressure chronic ulcer of unspecified part of right lower leg with other specified severity; L97.928 Non-pressure chronic ulcer of unspecified part of left lower leg with other specified severity; I25.2 Old myocardial infarction; E11.22 Type 2 diabetes mellitus with diabetic chronic kidney disease; N18.9 Chronic kidney disease, unspecified; I25.10 Atherosclerotic heart disease of native coronary artery without angina pectoris; Z95.0 Presence of cardiac pacemaker; Z79.4 Long term (current) use of insulin; J44.9 Chronic obstructive pulmonary disease, unspecified; Z68.31 Body mass index [BMI] 31.0-31.9, adult; G40.909 Epilepsy, unspecified, not intractable, without status epilepticus; I87.2 Venous insufficiency (chronic) (peripheral)
CPT/HCPCS: 36415; 70450; 71045; 80048; 80053; 81001; 82140; 82803; 82805; 82962; 83880; 85025; 85610; 87040; 87086; 93005; 93010; 94640; 94760; A9270-GY; J1815; J2543; J7030